=== PATIENT | female | born 1970 | race Caucasian/White ===

== ENCOUNTER → 2019-04-12 14:00 | Outpatient (CLI) | payer MEDICARE, MEDICAID, SELFPAY ==
--- NOTE | 2019-04-12 | DI.MRI.S_ITS ---
PROCEDURE: MR HEAD/BRAIN WO CON INDICATIONS: Demyelinating disease of central nervous system,RO TECHNIQUE: Noncontrast axial T1 spin echo, axial T2 fast spin echo, sagittal and axial FLAIR, coronal T2 fast spin echo, axial gradient echo, axial diffusion and ADC through the brain. COMPARISON: Outside Facility, RG, MRI HEAD W/WO CONTRAST, 01/02/2011, 15:52. Outside Facility, RG, CT HEAD W/O CONTRAST, 01/02/2011, 0:11. [facility], MR, BRAIN WITHOUT CONTRAST, 07/11/2013, 15:03. [facility], MR, BRAIN W&WO CONTRAST, 01/22/2013, 14:55. [facility], MR, BRAIN W&WO CONTRAST, 11/20/2014, 15:01. FINDINGS: Image quality: Excellent. CSF Spaces: Basal cisterns are patent. No extra-axial fluid collections. Ventricles are normal in size and shape. Brain: No intracranial masses or hemorrhage. Corral/white matter interface is normal. Brainstem appears normal. Diffusion-weighted images demonstrate no acute ischemic insult. Right parietal-occipital encephalomalacia with surrounding gliosis is stable compared to prior exam. Foci of increased T2 signal in the periventricular and subcortical white matter tract compatible with reported history of demyelinating process are redemonstrated. A few new small punctate foci of increased T2 signal noted in the frontal and parietal subcortical white matter tracts. Normal intravascular flow voids are present. Skull and face: Postsurgical changes compatible with prior right parietal-occipital craniotomy. Orbits appear normal. Sinuses: Sinuses and mastoids are clear. IMPRESSION: 1. Punctate foci of increased T2 signal involving the periventricular and subcortical white matter compatible with reported history of demyelinating disease. A few new small white matter plaques are noted in the frontal and parietal subcortical white matter compared to 11/20/2014 compatible with mild interval progression of disease. 2. Right parietal-occipital encephalomalacia with surrounding gliosis stable compared to prior exams obtained 11/20/14 and 07/11/2013. Dictated by: Maliha Penaloza MD, PhD on 04/14/2019 at 11:08 Approved by: Maliha Penaloza MD, PhD on 04/14/2019 at 11:26
--- NOTE | 2019-04-12 | DI.MG.S_ITS ---
BILATERAL DIGITAL SCREENING MAMMOGRAM 3D/2D WITH CAD: 04/12/2019 CLINICAL: Routine screening. Baseline exam. No prior exams were available for comparison. There are scattered fibroglandular elements in both breasts. Current study was also evaluated with a Computer Aided Detection (CAD) system. No significant masses, calcifications, or other findings are seen in either breast. IMPRESSION: NEGATIVE There is no mammographic evidence of malignancy. A 1 year screening mammogram is recommended. This exam was interpreted at Station ID: [id number]. NOTE: For mammograms, a report in lay terms will be sent to the patient. Approximately 15% of breast malignancies will not be visualized mammographically. In the management of a palpable breast mass, a negative mammogram must not discourage biopsy of a clinically suspicious lesion. Electronically Signed By: Ivan conner/franca:04/14/2019 08:02:08 letter sent: Normal Exam ACR BI-RADS Category 1: Negative [id number]
== END ==
PROVIDERS: PCP Family Medicine; Referring Provider Family Medicine; Visit Provider Family Medicine
DX: Z12.31 Encounter for screening mammogram for malignant neoplasm of breast (principal); G37.9 Demyelinating disease of central nervous system, unspecified; G40.109 Localization-related (focal) (partial) symptomatic epilepsy and epileptic syndromes with simple partial seizures, not intractable, without status epilepticus; G93.89 Other specified disorders of brain
CPT/HCPCS: 70551; 77063; 77067

== ENCOUNTER 2019-12-25 14:52 | Inpatient (IN) | payer MEDICARE, MEDICAID, SELFPAY ==
[2019-12-25] VITALS (19 sets, daily range): BP systolic 120–149; BP diastolic 70–92; PULSE 94–115; RESP 16–49; TEMP 36.8–37.6; O2SAT 92–995; BMI 21.9; BMI 18.8
--- NOTE | 2019-12-25 15:39 | ED.ABDPAIN ---
HPI - Abdominal Pain <Olga Edwards DO - Last Filed: 12/28/19 07:12> General Chief Complaint: Abdominal Pain Stated Complaint: thinks bowel obstruction Time Seen by Provider: 12/25/19 15:35 Source: patient Mode of arrival: Ambulatory Limitations: no limitations History of Present Illness HPI narrative: This is a 49-year-old female who comes to the emergency department with complaint and concern for bowel obstruction. Patient states for the last 3 days she has not had any bowel movements, she is also not passing any flatus. She has had cramping in her abdomen and but a little bit more distended. She denies any nausea or vomiting, denies any fevers or chills, denies any cold cough or congestion. She denies any issues with urination. Patient states she tried Dulcolax laxative 3 tablets x2 along with mineral oil and a suppository without any relief of symptoms. She does have a remote history of a perforated ulcer that required operative repair. She has also had surgery for a lesion on her brain which by their description may have been a meningioma. Then she has been more susceptible to seizures and takes medications for seizures as well as bipolar. She recently quit chewing tobacco, she drinks 3 beers nightly 5 times a week and uses THC but denies other illicit. She lives on [facility] and her primary care is Dr. Johnson and her neurologist is Dr. Hercules in [place]. Related Data Home Medications Medication Instructions Recorded Confirmed lamotrigine [Lamictal] 25 mg PO BID 12/25/19 12/25/19 lamotrigine [Lamictal] 200 mg PO BID 12/25/19 12/25/19 ziprasidone HCl [Geodon] 80 mg PO BID 12/25/19 12/25/19 zonisamide 100 mg PO DAILY 12/25/19 12/25/19 Allergies Allergy/AdvReac Type Severity Reaction Status Date / Time Penicillins [PENICILLINS] Allergy Severe Anaphylaxis Verified 12/25/19 15:13 Review of Systems <DO Latricia Carlson Last Filed: 12/28/19 07:12> Review of Systems ROS Unobtainable: All systems reviewed & are unremarkable except as noted in HPI and below Patient History <DO Latricia Carlson Last Filed: 12/28/19 07:12> Medical History Bipolar disorder (Acute) Brain tumor (Acute) Chronic bronchitis (Acute) Chronic low back pain (Acute) Peptic ulcer (Acute) Seizures (Acute) Surgical History H/O exploratory laparotomy (Acute) History of section (Acute) History of craniotomy (Acute) Family History Father Cancer Mother Diabetes mellitus Osteoarthritis Brother Hypertension Sister Heart disease Social History household members: significant other Smoking Status: Never smoker alcohol intake: current Smoking Status: Never smoker alcohol intake frequency: 3 or more drinks per day Alcohol type: beer Substance Use Type: marijuana Exam <Olga Edwards DO - Last Filed: 12/28/19 07:12> Narrative Exam Narrative: GENERAL: Alert and oriented x three, thin female in [id number] distress. HEENT: Head normocephalic, atraumatic, EOMI, pupils reactive, face symmetric, moist mucous membranes NECK: Supple, full range of motion CARDIOVASCULAR: Regular rate and rhythm without murmurs, rubs or gallops. RESPIRATORY: Breath sounds equal bilaterally, no wheezes rales or rhonchi. ABDOMEN: Soft, patient has healed midline incision in the upper abdomen, she does appear moderately distended, and tender to palpation. Decreased bowel sounds all 4 quadrants. No guarding or rebound, rigidity, no mass, no fluid wave. : No CVA tenderness EXTREMITIES: Normal range of motion, no clubbing or edema. Neurovascularly intact NEUROLOGICAL: Cranial nerves II through XII grossly intact. Moving all extremities SKIN: Warm, dry, no petechiae, no rashes or lesions. Initial Vital Signs Initial Vital Signs: Vital Signs Pulse Rate 113 H 12/25/19 15:10 Pulse Oximetry 95 12/25/19 15:10 <Ramirez Anthony DO - Last Filed: 12/26/19 00:11> Initial Vital Signs Initial Vital Signs: Vital Signs Pulse Rate 113 H 12/25/19 15:10 Pulse Oximetry 95 12/25/19 15:10 Course <Olga Edwards DO - Last Filed: 12/28/19 07:12> Orders Ordered: Acetaminophen (Tylenol) 650 mg PO Q6HR PRN PRN Reason: Fever/Mild Pain (1-3) Albuterol (Ventolin Hfa (Vent/Covid R/O)) 2 puff INH RTQ4HR PRN PRN Reason: Shortness Of Breath Last Admin: 12/27/19 15:00 Dose: 2 puff Documented by: Admin: 12/27/19 11:26 Dose: 2 puff Documented by: Admin: 12/27/19 08:50 Dose: 2 puff Documented by: Admin: 12/26/19 13:11 Dose: 2 puff Documented by: Admin: 12/26/19 08:17 Dose: 2 puff Documented by: Admin: 12/26/19 00:23 Dose: 2 puff Documented by: CTRILANALLRoberto Benzocaine/Butamben/Tetracaine HCl (Cetacaine [place]) 1 spray TOP PRN PRN PRN Reason: Sore Throat Last Admin: 12/26/19 19:31 Dose: 1 spray Documented by: Admin: 12/26/19 18:33 Dose: 1 spray Documented by: DYLAN Fluticasone Propionate (Flovent Hfa) 1 puff INH RTBID MARY ANNE Last Admin: 12/27/19 19:31 Dose: 1 puff Documented by: CTRBRANNONAGNRoberto Sodium Chloride (Normal Saline 0.9%) 1,000 mls @ 80 mls/hr IV CONT MARY ANNE Last Infusion: 12/27/19 15:38 Dose: 150 mls/hr Documented by: Infusion: 12/27/19 09:12 Dose: 150 mls/hr Documented by: Admin: 12/27/19 08:51 Dose: 100 mls/hr Documented by: Infusion: 12/27/19 07:53 Dose: 100 mls/hr Documented by: Admin: 12/26/19 21:53 Dose: 100 mls/hr Documented by: Infusion: 12/26/19 13:33 Dose: 0 mls/hr Documented by: Admin: 12/26/19 08:11 Dose: 100 mls/hr Documented by: Infusion: 12/26/19 08:08 Dose: 100 mls/hr Documented by: Admin: 12/25/19 22:08 Dose: 100 mls/hr Documented by: DAVID Potassium Chloride 20 meq/ (Sodium Chloride) 510 mls @ 130 mls/hr IV NOW ONE Stop: 12/28/19 10:04 Last Admin: 12/28/19 06:41 Dose: 130 mls/hr Documented by: VALE Cosigned by: HAIM Magnesium Sulfate (Magnesium Sulfate) 2 gm in 50 mls @ 25 mls/hr IV NOW ONE Stop: 12/28/19 08:33 Last Admin: 12/28/19 06:54 Dose: 25 mls/hr Documented by: VALE Cosigned by: ANDRE Ketorolac Tromethamine (Toradol) 15 mg IV Q6HR PRN PRN Reason: Pain, Moderate (4-6) Stop: 12/30/19 20:18 Last Admin: 12/28/19 00:15 Dose: 15 mg Documented by: Admin: 12/27/19 11:53 Dose: 15 mg Documented by: Admin: 12/27/19 02:55 Dose: 15 mg Documented by: Admin: 12/26/19 19:28 Dose: 15 mg Documented by: Admin: 12/26/19 05:36 Dose: 15 mg Documented by: VANESSA Lamotrigine (Lamictal) 200 mg PO BID [facility] Admin: 12/27/19 20:54 Dose: 200 mg Documented by: Admin: 12/27/19 09:06 Dose: 200 mg Documented by: Admin: 12/26/19 20:25 Dose: 200 mg Documented by: Admin: 12/26/19 08:31 Dose: 100 mg Documented by: Admin: 12/26/19 08:17 Dose: 100 mg Documented by: Admin: 12/25/19 21:58 Dose: 200 mg Documented by: DAVID Lamotrigine (Lamictal) 25 mg PO BID [facility] Admin: 12/27/19 20:55 Dose: 25 mg Documented by: Admin: 12/27/19 09:06 Dose: 25 mg Documented by: Admin: 12/26/19 20:25 Dose: 25 mg Documented by: Admin: 12/26/19 08:17 Dose: 25 mg Documented by: Admin: 12/25/19 21:58 Dose: 25 mg Documented by: DAVID Metoclopramide HCl (Reglan) 10 mg IV Q8HR [facility] Last Admin: 12/28/19 05:45 Dose: 10 mg Documented by: Admin: 12/27/19 20:55 Dose: 10 mg Documented by: Admin: 12/27/19 13:01 Dose: 10 mg Documented by: Admin: 12/27/19 05:38 Dose: 10 mg Documented by: Admin: 12/26/19 21:53 Dose: 10 mg Documented by: Admin: 12/26/19 18:33 Dose: 10 mg Documented by: DYLAN Morphine Sulfate (Morphine) 2 mg IV Q4HR PRN PRN Reason: Pain, Severe (7-10) Last Admin: 12/28/19 05:03 Dose: 2 mg Documented by: Admin: 12/28/19 01:04 Dose: 2 mg Documented by: Admin: 12/27/19 20:52 Dose: 2 mg Documented by: Admin: 12/27/19 16:53 Dose: 2 mg Documented by: Admin: 12/27/19 13:01 Dose: 2 mg Documented by: Admin: 12/27/19 09:30 Dose: 2 mg Documented by: Admin: 12/27/19 05:39 Dose: 2 mg Documented by: Admin: 12/27/19 01:26 Dose: 2 mg Documented by: Admin: 12/26/19 21:53 Dose: 2 mg Documented by: Admin: 12/26/19 08:31 Dose: 2 mg Documented by: Admin: 12/26/19 03:36 Dose: 2 mg Documented by: Admin: 12/25/19 22:40 Dose: 2 mg Documented by: DAVID Naloxone HCl (Narcan) 0.2 mg IV Q2MIN PRN PRN Reason: Opiate Reversal Ziprasidone (Geodon) (80 Mg) 80 mg PO BID [facility] Last Admin: 12/27/19 20:54 Dose: 80 mg Documented by: Admin: 12/27/19 09:07 Dose: 80 mg Documented by: Admin: 12/26/19 20:25 Dose: 80 mg Documented by: Admin: 12/26/19 08:18 Dose: 80 mg Documented by: Admin: 12/25/19 21:57 Dose: 80 mg Documented by: DAVID Home Meds Stored In (Pharmacy) 0 each PO PRN PRN PRN Reason: HOME MEDICATION STORAGE Sodium Chloride (Normal Saline 0.9% Flush) 10 ml IV PRN PRN PRN Reason: Flush Zonisamide (Zonegran) 100 mg PO BID [facility] Last Admin: 12/27/19 20:52 Dose: 100 mg Documented by: Admin: 12/27/19 09:09 Dose: 100 mg Documented by: Admin: 12/26/19 20:48 Dose: Not Given Documented by: Admin: 12/26/19 20:47 Dose: 100 mg Documented by: DENA Discontinued Medications Enoxaparin Sodium (Lovenox) 40 mg SUBCUT DAILY [facility] Fentanyl (Sublimaze) 0 mcg IV Q5M PRN PRN Reason: Pain, Moderate (4-6) Fluticasone Propionate (Flovent Hfa) 1 puff INH RTBID [facility] Last Admin: 12/27/19 12:29 Dose: Not Given Documented by: Admin: 12/26/19 18:33 Dose: 1 puff Documented by: Admin: 12/26/19 08:19 Dose: 1 puff Documented by: Admin: 12/26/19 02:41 Dose: Not Given Documented by: GPRADHA Hydromorphone HCl (Dilaudid) 0.5 mg IV NOW ONE Stop: 12/25/19 20:39 Last Admin: 12/25/19 20:44 Dose: 0.5 mg Documented by: BUDDY Sodium Chloride (Normal Saline 0.9%) 1,000 mls @ 1,000 mls/hr IV BOLUS ONE Stop: 12/25/19 16:57 Last Infusion: 12/25/19 18:34 Dose: 0 mls/hr Documented by: KBROTESkyler Admin: 12/25/19 16:06 Dose: 1,000 mls/hr Documented by: JAYESH Sodium Chloride (Normal Saline 0.9%) 1,000 mls @ 1,000 mls/hr IV BOLUS ONE Stop: 12/25/19 17:42 Last Infusion: 12/25/19 19:36 Dose: 0 mls/hr Documented by: Admin: 12/25/19 17:06 Dose: 1,000 mls/hr Documented by: JAYESH Famotidine (Pepcid) 20 mg in 50 mls @ 200 mls/hr IV NOW ONE Stop: 12/25/19 17:38 Last Infusion: 12/25/19 18:34 Dose: 0 mls/hr Documented by: Admin: 12/25/19 18:00 Dose: 200 mls/hr Documented by: JAYESH Lactated Ringer's (Lactated Ringers) 1,000 mls @ 42 mls/hr IV CONT MARY ANNE Last Admin: 12/26/19 16:50 Dose: Not Given Documented by: DYLAN Magnesium Sulfate (Magnesium Sulfate) 2 gm in 50 mls @ 25 mls/hr IV NOW ONE Stop: 12/27/19 10:53 Last Infusion: 12/27/19 11:10 Dose: 0 mls/hr Documented by: KALLI Cosigned by: DINA Admin: 12/27/19 09:01 Dose: 25 mls/hr Documented by: KALLI Cosigned by: DINA Potassium Chloride 30 meq/ (Sodium Chloride) 265 mls @ 88.333 mls/hr IV Q3H [facility]ARY ANNE Stop: 12/27/19 16:29 Last Admin: 12/27/19 16:02 Dose: 88.333 mls/hr Documented by: TALIA Cosigned by: DENNIS Infusion: 12/27/19 14:54 Dose: 88.333 mls/hr Documented by: TALIA Cosigned by: DENNIS Admin: 12/27/19 11:53 Dose: 88.333 mls/hr Documented by: KALLI Cosigned by: SAIRA Potassium Chloride 40 meq/ (Sodium Chloride) 520 mls @ 130 mls/hr IV NOW ONE Stop: 12/28/19 10:08 Ketorolac Tromethamine (Toradol) 15 mg IV NOW ONE Stop: 12/25/19 15:59 Last Admin: 12/25/19 16:11 Dose: 15 mg Documented by: JAYESH Ondansetron HCl (Zofran) 4 mg IV NOW ONE Stop: 12/25/19 20:39 Last Admin: 12/25/19 21:53 Dose: Not Given Documented by: DAVID Ondansetron HCl (Zofran) 4 mg IV NOW PRN PRN Reason: Nausea And Vomiting Ondansetron HCl (Zofran) 4 mg IV Q4HR PRN PRN Reason: Nausea And Vomiting Promethazine HCl (Phenadoz) 12.5 mg AL Q6HR PRN PRN Reason: Nausea And Vomiting Sodium Biphosphate/Sodium Phosphate (Fleet Enema) 1 each AL NOW ONE Stop: 12/25/19 19:52 Last Admin: 12/25/19 22:09 Dose: 1 each Documented by: DAVID Zonisamide (Zonegran) 100 mg PO DAILY [facility]ARY ANNE Last Admin: 12/26/19 08:18 Dose: 100 mg Documented by: ACHESS Vital Signs Vital signs: Vital Signs - 8 hr 12/25/19 16:26 12/25/19 16:30 12/25/19 16:46 Pulse Rate 101 H 96 H 95 H Respiratory Rate 20 22 25 H Blood Pressure 138/85 143/84 H 142/91 H Pulse Oximetry 96 96 96 12/25/19 17:00 12/25/19 17:36 12/25/19 17:56 Pulse Rate 107 H 94 H 100 H Respiratory Rate 22 23 Blood Pressure 142/81 H 140/83 Pulse Oximetry 95 97 96 12/25/19 18:00 12/25/19 18:30 12/25/19 19:00 Pulse Rate 96 H 97 H 109 H Respiratory Rate 20 30 H 38 H Blood Pressure 134/75 146/83 H 140/80 Pulse Oximetry 96 98 97 12/25/19 19:30 12/25/19 20:00 12/25/19 20:01 Pulse Rate 99 H 109 H 111 H Respiratory Rate 25 H 49 H 47 H Blood Pressure 127/77 145/80 H Pulse Oximetry 96 97 <Ramirez Anthony DO - Last Filed: 12/26/19 00:11> Course Course Narrative: patient received in signout from Dr. Edwards after discussing with Dr. Carballo. Dr. Kait examined patient and stated he would order NG tube and would likely perform colonoscopy tomorrow. I placed a brief call to relay this to hospitalist who had already been notified of this patient. I did not personally examine the patient. Orders Ordered: Acetaminophen (Tylenol) 650 mg PO Q6HR PRN PRN Reason: Fever/Mild Pain (1-3) Albuterol (Ventolin Hfa (Vent/Covid R/O)) 2 puff INH RTQ4HR PRN PRN Reason: Shortness Of Breath Last Admin: 12/27/19 15:00 Dose: 2 puff Documented by: Admin: 12/27/19 11:26 Dose: 2 puff Documented by: Admin: 12/27/19 08:50 Dose: 2 puff Documented by: Admin: 12/26/19 13:11 Dose: 2 puff Documented by: Admin: 12/26/19 08:17 Dose: 2 puff Documented by: ACHEJOSE D Admin: 12/26/19 00:23 Dose: 2 puff Documented by: NAHOMI Benzocaine/Butamben/Tetracaine HCl (Cetacaine [place]) 1 spray TOP PRN PRN PRN Reason: Sore Throat Last Admin: 12/26/19 19:31 Dose: 1 spray Documented by: Admin: 12/26/19 18:33 Dose: 1 spray Documented by: DYLAN Fluticasone Propionate (Flovent Hfa) 1 puff INH RTBID MARY ANNE Last Admin: 12/27/19 19:31 Dose: 1 puff Documented by: CTRLUISA Sodium Chloride (Normal Saline 0.9%) 1,000 mls @ 80 mls/hr IV CONT MARY ANNE Last Infusion: 12/27/19 15:38 Dose: 150 mls/hr Documented by: Infusion: 12/27/19 09:12 Dose: 150 mls/hr Documented by: Admin: 12/27/19 08:51 Dose: 100 mls/hr Documented by: Infusion: 12/27/19 07:53 Dose: 100 mls/hr Documented by: Admin: 12/26/19 21:53 Dose: 100 mls/hr Documented by: Infusion: 12/26/19 13:33 Dose: 0 mls/hr Documented by: Admin: 12/26/19 08:11 Dose: 100 mls/hr Documented by: Infusion: 12/26/19 08:08 Dose: 100 mls/hr Documented by: Admin: 12/25/19 22:08 Dose: 100 mls/hr Documented by: DAVID Potassium Chloride 20 meq/ (Sodium Chloride) 510 mls @ 130 mls/hr IV NOW ONE Stop: 12/28/19 10:04 Last Admin: 12/28/19 06:41 Dose: 130 mls/hr Documented by: VALE Cosigned by: HAIM Magnesium Sulfate (Magnesium Sulfate) 2 gm in 50 mls @ 25 mls/hr IV NOW ONE Stop: 12/28/19 08:33 Last Admin: 12/28/19 06:54 Dose: 25 mls/hr Documented by: VALE Cosigned by: OSEASU Ketorolac Tromethamine (Toradol) 15 mg IV Q6HR PRN PRN Reason: Pain, Moderate (4-6) Stop: 12/30/19 20:18 Last Admin: 12/28/19 00:15 Dose: 15 mg Documented by: Admin: 12/27/19 11:53 Dose: 15 mg Documented by: Admin: 12/27/19 02:55 Dose: 15 mg Documented by: Admin: 12/26/19 19:28 Dose: 15 mg Documented by: Admin: 12/26/19 05:36 Dose: 15 mg Documented by: VANESSA Lamotrigine (Lamictal) 200 mg PO BID [facility] Admin: 12/27/19 20:54 Dose: 200 mg Documented by: Admin: 12/27/19 09:06 Dose: 200 mg Documented by: Admin: 12/26/19 20:25 Dose: 200 mg Documented by: Admin: 12/26/19 08:31 Dose: 100 mg Documented by: Admin: 12/26/19 08:17 Dose: 100 mg Documented by: Admin: 12/25/19 21:58 Dose: 200 mg Documented by: DAVID Lamotrigine (Lamictal) 25 mg PO BID [facility] Admin: 12/27/19 20:55 Dose: 25 mg Documented by: Admin: 12/27/19 09:06 Dose: 25 mg Documented by: Admin: 12/26/19 20:25 Dose: 25 mg Documented by: Admin: 12/26/19 08:17 Dose: 25 mg Documented by: Admin: 12/25/19 21:58 Dose: 25 mg Documented by: DAVID Metoclopramide HCl (Reglan) 10 mg IV Q8HR [facility] Last Admin: 12/28/19 05:45 Dose: 10 mg Documented by: Admin: 12/27/19 20:55 Dose: 10 mg Documented by: Admin: 12/27/19 13:01 Dose: 10 mg Documented by: Admin: 12/27/19 05:38 Dose: 10 mg Documented by: Admin: 12/26/19 21:53 Dose: 10 mg Documented by: Admin: 12/26/19 18:33 Dose: 10 mg Documented by: DYLAN Morphine Sulfate (Morphine) 2 mg IV Q4HR PRN PRN Reason: Pain, Severe (7-10) Last Admin: 12/28/19 05:03 Dose: 2 mg Documented by: Admin: 12/28/19 01:04 Dose: 2 mg Documented by: Admin: 12/27/19 20:52 Dose: 2 mg Documented by: Admin: 12/27/19 16:53 Dose: 2 mg Documented by: Admin: 12/27/19 13:01 Dose: 2 mg Documented by: Admin: 12/27/19 09:30 Dose: 2 mg Documented by: Admin: 12/27/19 05:39 Dose: 2 mg Documented by: Admin: 12/27/19 01:26 Dose: 2 mg Documented by: Admin: 12/26/19 21:53 Dose: 2 mg Documented by: Admin: 12/26/19 08:31 Dose: 2 mg Documented by: Admin: 12/26/19 03:36 Dose: 2 mg Documented by: Admin: 12/25/19 22:40 Dose: 2 mg Documented by: DAVID Naloxone HCl (Narcan) 0.2 mg IV Q2MIN PRN PRN Reason: Opiate Reversal Ziprasidone (Geodon) (80 Mg) 80 mg PO BID [facility] Last Admin: 12/27/19 20:54 Dose: 80 mg Documented by: Admin: 12/27/19 09:07 Dose: 80 mg Documented by: Admin: 12/26/19 20:25 Dose: 80 mg Documented by: Admin: 12/26/19 08:18 Dose: 80 mg Documented by: Admin: 12/25/19 21:57 Dose: 80 mg Documented by: DAVID Home Meds Stored In (Pharmacy) 0 each PO PRN PRN PRN Reason: HOME MEDICATION STORAGE Sodium Chloride (Normal Saline 0.9% Flush) 10 ml IV PRN PRN PRN Reason: Flush Zonisamide (Zonegran) 100 mg PO BID [facility] Last Admin: 12/27/19 20:52 Dose: 100 mg Documented by: Admin: 12/27/19 09:09 Dose: 100 mg Documented by: Admin: 12/26/19 20:48 Dose: Not Given Documented by: Admin: 12/26/19 20:47 Dose: 100 mg Documented by: DENA Discontinued Medications Enoxaparin Sodium (Lovenox) 40 mg SUBCUT DAILY [facility] Fentanyl (Sublimaze) 0 mcg IV Q5M PRN PRN Reason: Pain, Moderate (4-6) Fluticasone Propionate (Flovent Hfa) 1 puff INH RTBID [facility] Last Admin: 12/27/19 12:29 Dose: Not Given Documented by: Admin: 12/26/19 18:33 Dose: 1 puff Documented by: Admin: 12/26/19 08:19 Dose: 1 puff Documented by: Admin: 12/26/19 02:41 Dose: Not Given Documented by: GPEREZ Hydromorphone HCl (Dilaudid) 0.5 mg IV NOW ONE Stop: 12/25/19 20:39 Last Admin: 12/25/19 20:44 Dose: 0.5 mg Documented by: BUDDY Sodium Chloride (Normal Saline 0.9%) 1,000 mls @ 1,000 mls/hr IV BOLUS ONE Stop: 12/25/19 16:57 Last Infusion: 12/25/19 18:34 Dose: 0 mls/hr Documented by: Admin: 12/25/19 16:06 Dose: 1,000 mls/hr Documented by: JAYESH Sodium Chloride (Normal Saline 0.9%) 1,000 mls @ 1,000 mls/hr IV BOLUS ONE Stop: 12/25/19 17:42 Last Infusion: 12/25/19 19:36 Dose: 0 mls/hr Documented by: Admin: 12/25/19 17:06 Dose: 1,000 mls/hr Documented by: JAYESH Famotidine (Pepcid) 20 mg in 50 mls @ 200 mls/hr IV NOW ONE Stop: 12/25/19 17:38 Last Infusion: 12/25/19 18:34 Dose: 0 mls/hr Documented by: Admin: 12/25/19 18:00 Dose: 200 mls/hr Documented by: JAYESH Lactated Ringer's (Lactated Ringers) 1,000 mls @ 42 mls/hr IV CONT MARY ANNE Last Admin: 12/26/19 16:50 Dose: Not Given Documented by: DYLAN Magnesium Sulfate (Magnesium Sulfate) 2 gm in 50 mls @ 25 mls/hr IV NOW ONE Stop: 12/27/19 10:53 Last Infusion: 12/27/19 11:10 Dose: 0 mls/hr Documented by: KALLI Cosigned by: DINA Admin: 12/27/19 09:01 Dose: 25 mls/hr Documented by: CPETRIC Cosigned by: DINA Potassium Chloride 30 meq/ (Sodium Chloride) 265 mls @ 88.333 mls/hr IV Q3H MARY ANNE Stop: 12/27/19 16:29 Last Admin: 12/27/19 16:02 Dose: 88.333 mls/hr Documented by: TALIA Cosigned by: DENNIS Infusion: 12/27/19 14:54 Dose: 88.333 mls/hr Documented by: TALIA Cosigned by: DENNIS Admin: 12/27/19 11:53 Dose: 88.333 mls/hr Documented by: CPETRIC Cosigned by: SAIRA Potassium Chloride 40 meq/ (Sodium Chloride) 520 mls @ 130 mls/hr IV NOW ONE Stop: 12/28/19 10:08 Ketorolac Tromethamine (Toradol) 15 mg IV NOW ONE Stop: 12/25/19 15:59 Last Admin: 12/25/19 16:11 Dose: 15 mg Documented by: JAYESH Ondansetron HCl (Zofran) 4 mg IV NOW ONE Stop: 12/25/19 20:39 Last Admin: 12/25/19 21:53 Dose: Not Given Documented by: DAVID Ondansetron HCl (Zofran) 4 mg IV NOW PRN PRN Reason: Nausea And Vomiting Ondansetron HCl (Zofran) 4 mg IV Q4HR PRN PRN Reason: Nausea And Vomiting Promethazine HCl (Phenadoz) 12.5 mg AL Q6HR PRN PRN Reason: Nausea And Vomiting Sodium Biphosphate/Sodium Phosphate (Fleet Enema) 1 each AL NOW ONE Stop: 12/25/19 19:52 Last Admin: 12/25/19 22:09 Dose: 1 each Documented by: DAVID Zonisamide (Zonegran) 100 mg PO DAILY [facility] Last Admin: 12/26/19 08:18 Dose: 100 mg Documented by: ACHESS Vital Signs Vital signs: Vital Signs - 8 hr 12/25/19 16:26 12/25/19 16:30 12/25/19 16:46 Pulse Rate 101 H 96 H 95 H Respiratory Rate 20 22 25 H Blood Pressure 138/85 143/84 H 142/91 H Pulse Oximetry 96 96 96 12/25/19 17:00 12/25/19 17:36 12/25/19 17:56 Pulse Rate 107 H 94 H 100 H Respiratory Rate 22 23 Blood Pressure 142/81 H 140/83 Pulse Oximetry 95 97 96 12/25/19 18:00 12/25/19 18:30 12/25/19 19:00 Pulse Rate 96 H 97 H 109 H Respiratory Rate 20 30 H 38 H Blood Pressure 134/75 146/83 H 140/80 Pulse Oximetry 96 98 97 12/25/19 19:30 12/25/19 20:00 12/25/19 20:01 Pulse Rate 99 H 109 H 111 H Respiratory Rate 25 H 49 H 47 H Blood Pressure 127/77 145/80 H Pulse Oximetry 96 97 MDM - Abdominal Pain <Olga Edwards DO - Last Filed: 12/28/19 07:12> Lab Data Attestation: I reviewed the patient's lab results. Result diagrams: 12/27/19 07:15 12/28/19 04:50 Labs: Lab Results 12/25/19 12/25/19 12/25/19 Range/Units 15:20 15:20 15:20 WBC 19.0 H (4.5-11.0) X10^3/uL RBC 4.66 (4.0-5.2) X10^6/uL Hgb 14.9 (12.0-16.0) g/dL Hct 44.1 (36-46) % MCV 94.5 (80-100) fL MCH 31.9 (26-34) PG MCHC 33.8 (30-36) % RDW 13.7 (11.6-14.8) % Plt Count 261 (150-400) X10^3/uL Neut % (Auto) 88.4 H (50-75) % Lymph % (Auto) 4.7 L (25-40) % [place] % (Auto) 5.9 (3-14) % Eos % (Auto) 0.5 L (2-4) % Baso % (Auto) 0.5 (0-2) % Neut # (Auto) 79684 H (6129-1544) /uL Lymph # (Auto) 900 L (1415-0856) /uL [place] # (Auto) 1100 H (0-900) /uL Eos # (Auto) 100 (0-450) /uL Baso # (Auto) 100 (0-100) /uL PT 12.3 (10.1-12.7) SECONDS INR 1.1 (0.9-1.3) APTT 32 (26.4-36.2) SECONDS Sodium 138 (137-145) mmol/L Potassium 3.5 (3.4-5.1) mmol/L Chloride 101 (98-107) mmol/L Carbon Dioxide 27 (22-32) mmol/L BUN 14 (7-17) mg/dL Creatinine 0.78 (0.52-1.04) mg/dL Estimated GFR > 60.0 (>60) mL/min BUN/Creatinine Ratio 17.9 (6-22) Glucose 131 H (70-100) mg/dL Lactate (0.7-2.1) mmol/L Calcium 10.1 (8.4-10.2) mg/dL Magnesium (1.6-2.3) mg/dL Total Bilirubin 0.7 (0.2-1.3) mg/dL AST 20 (14-36) IU/L ALT 22 (<35) IU/L Alkaline Phosphatase 69 (38-126) U/L Total Protein 8.8 H (6.3-8.2) g/dL Albumin 4.8 (3.5-5.0) g/dL Globulin 4.0 (1.7-4.1) g/dL Albumin/Globulin Ratio 1.2 (1.0-2.8) Lipase 25 (23-300) U/L Procalcitonin (<0.5) ng/mL COVID-19 PCR (Negative) 12/25/19 12/25/19 12/25/19 Range/Units 15:20 15:20 16:05 WBC (4.5-11.0) X10^3/uL RBC (4.0-5.2) X10^6/uL Hgb (12.0-16.0) g/dL Hct (36-46) % MCV (80-100) fL MCH (26-34) PG MCHC (30-36) % RDW (11.6-14.8) % Plt Count (150-400) X10^3/uL Neut % (Auto) (50-75) % Lymph % (Auto) (25-40) % [place] % (Auto) (3-14) % Eos % (Auto) (2-4) % Baso % (Auto) (0-2) % Neut # (Auto) (4218-7205) /uL Lymph # (Auto) (6913-9794) /uL [place] # (Auto) (0-900) /uL Eos # (Auto) (0-450) /uL Baso # (Auto) (0-100) /uL PT (10.1-12.7) SECONDS INR (0.9-1.3) APTT (26.4-36.2) SECONDS Sodium (137-145) mmol/L Potassium (3.4-5.1) mmol/L Chloride (98-107) mmol/L Carbon Dioxide (22-32) mmol/L BUN (7-17) mg/dL Creatinine (0.52-1.04) mg/dL Estimated GFR (>60) mL/min BUN/Creatinine Ratio (6-22) Glucose (70-100) mg/dL Lactate 0.6 L (0.7-2.1) mmol/L Calcium (8.4-10.2) mg/dL Magnesium 2.1 (1.6-2.3) mg/dL Total Bilirubin (0.2-1.3) mg/dL AST (14-36) IU/L ALT (<35) IU/L Alkaline Phosphatase (38-126) U/L Total Protein (6.3-8.2) g/dL Albumin (3.5-5.0) g/dL Globulin (1.7-4.1) g/dL Albumin/Globulin Ratio (1.0-2.8) Lipase (23-300) U/L Procalcitonin 0.24 (<0.5) ng/mL COVID-19 PCR (Negative) 12/25/19 Range/Units 19:30 WBC (4.5-11.0) X10^3/uL RBC (4.0-5.2) X10^6/uL Hgb (12.0-16.0) g/dL Hct (36-46) % MCV (80-100) fL MCH (26-34) PG MCHC (30-36) % RDW (11.6-14.8) % Plt Count (150-400) X10^3/uL Neut % (Auto) (50-75) % Lymph % (Auto) (25-40) % [place] % (Auto) (3-14) % Eos % (Auto) (2-4) % Baso % (Auto) (0-2) % Neut # (Auto) (7879-5260) /uL Lymph # (Auto) (1256-4561) /uL [place] # (Auto) (0-900) /uL Eos # (Auto) (0-450) /uL Baso # (Auto) (0-100) /uL PT (10.1-12.7) SECONDS INR (0.9-1.3) APTT (26.4-36.2) SECONDS Sodium (137-145) mmol/L Potassium (3.4-5.1) mmol/L Chloride (98-107) mmol/L Carbon Dioxide (22-32) mmol/L BUN (7-17) mg/dL Creatinine (0.52-1.04) mg/dL Estimated GFR (>60) mL/min BUN/Creatinine Ratio (6-22) Glucose (70-100) mg/dL Lactate (0.7-2.1) mmol/L Calcium (8.4-10.2) mg/dL Magnesium (1.6-2.3) mg/dL Total Bilirubin (0.2-1.3) mg/dL AST (14-36) IU/L ALT (<35) IU/L Alkaline Phosphatase (38-126) U/L Total Protein (6.3-8.2) g/dL Albumin (3.5-5.0) g/dL Globulin (1.7-4.1) g/dL Albumin/Globulin Ratio (1.0-2.8) Lipase (23-300) U/L Procalcitonin (<0.5) ng/mL COVID-19 PCR Negative (Negative) Point of care testing: Point of Care Testing Test Results Negative Urine Dip Bedside Urine Glucose Negative Bedside Urine Bilirubin - Negative Bedside Urine Ketone - Negative Urine Specific [place] 1.015 Bedside Urine Occult Blood - Negative Bedside Urine pH 6 Bedside Urine Protein - Negative Bedside Urine Urobilinogen +/- 1mg Bedside Urine Nitrite - Negative Bedside Urine Leukocytes - Negative Esterase Imaging Data CT scan - abdomen/pelvis: Attestation: I personally reviewed and interpreted this imaging study as follows: Radiologist's Impression: Vibha Brenner 49 F 1970 [place] [address] CT Scan Report Signed Patient: DeekwameVibha JMR#: [id number] : 1970Acct:[id number] Age/Sex: 49 / FDate of Service: 12/25/19 Loc: ED Accession Number: [id number] Procedure: CT abdomen pelvis w con Ordering Provider: Olga Edwards D.O. PROCEDURE: CT ABDOMEN PELVIS W CON INDICATIONS: no BM, no flatus x 3 days, abdominal pain, ? obstruction TECHNIQUE: After the administration of intravenous contrast, 5 mm thick sections acquired from the diaphragm to the symphysis. 5 mm coronal and sagittal reformats were acquired. For radiation dose reduction, the following was used: automated exposure control, adjustment of mA and/or kV according to patient size. COMPARISON: None. FINDINGS: Image quality: Excellent. ABDOMEN: Lung bases: Lung bases are clear. Heart size is normal. Solid organs: Liver is normal in size and enhancement. Gallbladder is normal. Biliary system is non dilated. Pancreas enhances normally. Spleen is normal in size and enhancement. No adrenal nodules. Kidneys demonstrate normal size and enhancement, without hydronephrosis. Peritoneum and bowel: Stomach is distended and filled with fluid with an air-fluid level. Mildly prominent small bowel loops are filled with fluid measuring up to 3 cm. There is no transitional point is small intestine. There is distention of proximal colon with air-fluid levels to the level of sigmoid colon. The findings are consistent with colonic obstruction. An obstructing mass is not definitively identified. There is mild focal thickening in the proximal sigmoid colon. No free fluid or air. Nodes and vessels: No retroperitoneal or mesenteric adenopathy by size criteria. Aorta and inferior vena cava are normal in size. Miscellaneous: No ventral hernias. PELVIS: Genitourinary: Bladder wall thickness is normal. Uterus is normal. Ovaries are not visualized. No pathological free-fluid in the cul-de-sac. Miscellaneous: No inguinal hernias or adenopathy. Bones: No suspicious bony lesions. No vertebral body compression fractures. A sclerotic foci in the right iliac bone is likely a bone island. IMPRESSION: 1. Findings are consistent with distal colonic obstruction. An obstructing mass is not definitively identified. There is mild focal thickening in the proximal sigmoid colon. Follow-up colonoscopy is suggested to rule out colon cancer being an etiology. Dictated by: Vince Napier M.D. on 12/25/2019 at 16:40 Approved by: Vince Napier M.D. on 12/25/2019 at 16:50 ECG Data Attestation: I personally reviewed and interpreted this ECG as follows: Prior ECG tracings: not available for review Interpretation: Sinus tachycardia rate of 101 AL 132 QRS of 102 and QTC of 464. Patient does have generalized tremor which is seen is artifact on patient's EKG. No clear ST elevation appreciated. MDM Narrative Medical decision making narrative: I agree with patient's suspicions and suspect a bowel obstruction. Plan for CT of abdomen and pelvis for further evaluation, lactate and blood cultures added on as patient is tachycardic and has WBC of 19, lactate is 0.6. Patient started on sepsis 30cc/kg fluids although appears to be bowel obstuction on CT and not perforated at this time. I spoke with Dr. Paniagua and he would like me to speak with Dr. Carballo prior to admitting. Dr. Carballo did come to the department to evaluate patient but was delayed by surgery. Follow department patient had bowel movements but they are watery and brown with no solid stool I suspect patient has a partial obstruction still. Pain is improved, her heart rate is improving although she still tachycardic and does meet septic criteria antibiotics were held as patient I suspect has the secondary to bowel obstruction and not infection. Patient signed out to Dr. Anthony while awaiting callback from hospitalist. <Ramirez Anthony, DO - Last Filed: 12/26/19 00:11> Lab Data Labs: Lab Results 12/25/19 12/25/19 12/25/19 Range/Units 15:20 15:20 15:20 WBC 19.0 H (4.5-11.0) X10^3/uL RBC 4.66 (4.0-5.2) X10^6/uL Hgb 14.9 (12.0-16.0) g/dL Hct 44.1 (36-46) % MCV 94.5 (80-100) fL MCH 31.9 (26-34) PG MCHC 33.8 (30-36) % RDW 13.7 (11.6-14.8) % Plt Count 261 (150-400) X10^3/uL Neut % (Auto) 88.4 H (50-75) % Lymph % (Auto) 4.7 L (25-40) % [place] % (Auto) 5.9 (3-14) % Eos % (Auto) 0.5 L (2-4) % Baso % (Auto) 0.5 (0-2) % Neut # (Auto) 82422 H (8360-2097) /uL Lymph # (Auto) 900 L (6358-8855) /uL [place] # (Auto) 1100 H (0-900) /uL Eos # (Auto) 100 (0-450) /uL Baso # (Auto) 100 (0-100) /uL PT 12.3 (10.1-12.7) SECONDS INR 1.1 (0.9-1.3) APTT 32 (26.4-36.2) SECONDS Sodium 138 (137-145) mmol/L Potassium 3.5 (3.4-5.1) mmol/L Chloride 101 (98-107) mmol/L Carbon Dioxide 27 (22-32) mmol/L BUN 14 (7-17) mg/dL Creatinine 0.78 (0.52-1.04) mg/dL Estimated GFR > 60.0 (>60) mL/min BUN/Creatinine Ratio 17.9 (6-22) Glucose 131 H (70-100) mg/dL Lactate (0.7-2.1) mmol/L Calcium 10.1 (8.4-10.2) mg/dL Magnesium (1.6-2.3) mg/dL Total Bilirubin 0.7 (0.2-1.3) mg/dL AST 20 (14-36) IU/L ALT 22 (<35) IU/L Alkaline Phosphatase 69 (38-126) U/L Total Protein 8.8 H (6.3-8.2) g/dL Albumin 4.8 (3.5-5.0) g/dL Globulin 4.0 (1.7-4.1) g/dL Albumin/Globulin Ratio 1.2 (1.0-2.8) Lipase 25 (23-300) U/L Procalcitonin (<0.5) ng/mL COVID-19 PCR (Negative) 12/25/19 12/25/19 12/25/19 Range/Units 15:20 15:20 16:05 WBC (4.5-11.0) X10^3/uL RBC (4.0-5.2) X10^6/uL Hgb (12.0-16.0) g/dL Hct (36-46) % MCV (80-100) fL MCH (26-34) PG MCHC (30-36) % RDW (11.6-14.8) % Plt Count (150-400) X10^3/uL Neut % (Auto) (50-75) % Lymph % (Auto) (25-40) % [place] % (Auto) (3-14) % Eos % (Auto) (2-4) % Baso % (Auto) (0-2) % Neut # (Auto) (7289-0218) /uL Lymph # (Auto) (1279-6129) /uL [place] # (Auto) (0-900) /uL Eos # (Auto) (0-450) /uL Baso # (Auto) (0-100) /uL PT (10.1-12.7) SECONDS INR (0.9-1.3) APTT (26.4-36.2) SECONDS Sodium (137-145) mmol/L Potassium (3.4-5.1) mmol/L Chloride (98-107) mmol/L Carbon Dioxide (22-32) mmol/L BUN (7-17) mg/dL Creatinine (0.52-1.04) mg/dL Estimated GFR (>60) mL/min BUN/Creatinine Ratio (6-22) Glucose (70-100) mg/dL Lactate 0.6 L (0.7-2.1) mmol/L Calcium (8.4-10.2) mg/dL Magnesium 2.1 (1.6-2.3) mg/dL Total Bilirubin (0.2-1.3) mg/dL AST (14-36) IU/L ALT (<35) IU/L Alkaline Phosphatase (38-126) U/L Total Protein (6.3-8.2) g/dL Albumin (3.5-5.0) g/dL Globulin (1.7-4.1) g/dL Albumin/Globulin Ratio (1.0-2.8) Lipase (23-300) U/L Procalcitonin 0.24 (<0.5) ng/mL COVID-19 PCR (Negative) 12/25/19 Range/Units 19:30 WBC (4.5-11.0) X10^3/uL RBC (4.0-5.2) X10^6/uL Hgb (12.0-16.0) g/dL Hct (36-46) % MCV (80-100) fL MCH (26-34) PG MCHC (30-36) % RDW (11.6-14.8) % Plt Count (150-400) X10^3/uL Neut % (Auto) (50-75) % Lymph % (Auto) (25-40) % [place] % (Auto) (3-14) % Eos % (Auto) (2-4) % Baso % (Auto) (0-2) % Neut # (Auto) (6893-2208) /uL Lymph # (Auto) (1065-9816) /uL [place] # (Auto) (0-900) /uL Eos # (Auto) (0-450) /uL Baso # (Auto) (0-100) /uL PT (10.1-12.7) SECONDS INR (0.9-1.3) APTT (26.4-36.2) SECONDS Sodium (137-145) mmol/L Potassium (3.4-5.1) mmol/L Chloride (98-107) mmol/L Carbon Dioxide (22-32) mmol/L BUN (7-17) mg/dL Creatinine (0.52-1.04) mg/dL Estimated GFR (>60) mL/min BUN/Creatinine Ratio (6-22) Glucose (70-100) mg/dL Lactate (0.7-2.1) mmol/L Calcium (8.4-10.2) mg/dL Magnesium (1.6-2.3) mg/dL Total Bilirubin (0.2-1.3) mg/dL AST (14-36) IU/L ALT (<35) IU/L Alkaline Phosphatase (38-126) U/L Total Protein (6.3-8.2) g/dL Albumin (3.5-5.0) g/dL Globulin (1.7-4.1) g/dL Albumin/Globulin Ratio (1.0-2.8) Lipase (23-300) U/L Procalcitonin (<0.5) ng/mL COVID-19 PCR Negative (Negative) Point of care testing: Point of Care Testing Test Results Negative Urine Dip Bedside Urine Glucose Negative Bedside Urine Bilirubin - Negative Bedside Urine Ketone - Negative Urine Specific [place] 1.015 Bedside Urine Occult Blood - Negative Bedside Urine pH 6 Bedside Urine Protein - Negative Bedside Urine Urobilinogen +/- 1mg Bedside Urine Nitrite - Negative Bedside Urine Leukocytes - Negative Esterase Discharge Plan Departure Patient Disposition: Admitted As Inpatient Clinical Impression: Partial bowel obstruction Discharge Date/Time: 12/25/19 20:59 Referrals: Natacha Johnson MD [Primary Care Provider] - Admit Date/Time: 12/25/19 20:04 Admit Provider: Christiano Toussaint
[2019-12-25 15:41] LABS: Add Manual Diff / Slide Review NO; Basophils Absolute Auto 100 /uL (0-100); Basophils Percent Auto 0.5 % (0-2); Eosinophils Absolute Auto 100 /uL (0-450); Eosinophils Percent Auto 0.5 % (2-4); Hematocrit 44.1 % (36-46); Hemoglobin 14.9 g/dL (12.0-16.0); Lymphocytes Absolute Auto 900 /uL (1100-4500); Lymphocytes Percent Auto 4.7 % (25-40); Mean Corpuscular HGB Conc 33.8 % (30-36); Mean Corpuscular Hemoglobin 31.9 PG (26-34); Mean Corpuscular Volume 94.5 fL (80-100); Monocytes Absolute Auto 1100 /uL (0-900); Monocytes Percent Auto 5.9 % (3-14); Neutrophils Absolute Auto 16800 /uL (1500-7000); Neutrophils Percent Auto 88.4 % (50-75); Platelet Count 261 X10^3/uL (150-400); Red Blood Cell Count 4.66 X10^6/uL (4.0-5.2); Red Cell Distribution Width 13.7 % (11.6-14.8)
[2019-12-25 15:49] LABS: INR 1.1 (0.9-1.3); Prothrombin Time 12.3 SECONDS (10.1-12.7)
[2019-12-25 15:51] LABS: PTT Partial Thromboplastin Tim 32 SECONDS (26.4-36.2)
[2019-12-25 15:56] LABS: Alanine Aminotransferase 22 IU/L (<35); Albumin 4.8 g/dL (3.5-5.0); Albumin Globulin Ratio 1.2 (1.0-2.8); Alkaline Phosphatase 69 U/L (38-126); Aspartate Aminotransferase 20 IU/L (14-36); BUN Creatinine Ratio 17.9 (6-22); Bilirubin Total 0.7 mg/dL (0.2-1.3); Blood Urea Nitrogen 14 mg/dL (7-17); Calcium 10.1 mg/dL (8.4-10.2); Carbon Dioxide 27 mmol/L (22-32); Chloride 101 mmol/L (98-107); Estimated Glomerular Filt Rate > 60.0 mL/min (>60); Glucose 131 mg/dL (70-100); HEMOLYSIS < 15 (0-50); Lipase 25 U/L (23-300); Potassium 3.5 mmol/L (3.4-5.1); Sodium 138 mmol/L (137-145); Total Protein 8.8 g/dL (6.3-8.2)
--- NOTE | 2019-12-25 15:58 | DI.CT.S_ITS ---
PROCEDURE: CT ABDOMEN PELVIS W CON INDICATIONS: no BM, no flatus x 3 days, abdominal pain, ? obstruction TECHNIQUE: After the administration of intravenous contrast, 5 mm thick sections acquired from the diaphragm to the symphysis. 5 mm coronal and sagittal reformats were acquired. For radiation dose reduction, the following was used: automated exposure control, adjustment of mA and/or kV according to patient size. COMPARISON: None. FINDINGS: Image quality: Excellent. ABDOMEN: Lung bases: Lung bases are clear. Heart size is normal. Solid organs: Liver is normal in size and enhancement. Gallbladder is normal. Biliary system is non dilated. Pancreas enhances normally. Spleen is normal in size and enhancement. No adrenal nodules. Kidneys demonstrate normal size and enhancement, without hydronephrosis. Peritoneum and bowel: Stomach is distended and filled with fluid with an air-fluid level. Mildly prominent small bowel loops are filled with fluid measuring up to 3 cm. There is no transitional point is small intestine. There is distention of proximal colon with air-fluid levels to the level of sigmoid colon. The findings are consistent with colonic obstruction. An obstructing mass is not definitively identified. There is mild focal thickening in the proximal sigmoid colon. No free fluid or air. Nodes and vessels: No retroperitoneal or mesenteric adenopathy by size criteria. Aorta and inferior vena cava are normal in size. Miscellaneous: No ventral hernias. PELVIS: Genitourinary: Bladder wall thickness is normal. Uterus is normal. Ovaries are not visualized. No pathological free-fluid in the cul-de-sac. Miscellaneous: No inguinal hernias or adenopathy. Bones: No suspicious bony lesions. No vertebral body compression fractures. A sclerotic foci in the right iliac bone is likely a bone island. IMPRESSION: 1. Findings are consistent with distal colonic obstruction. An obstructing mass is not definitively identified. There is mild focal thickening in the proximal sigmoid colon. Follow-up colonoscopy is suggested to rule out colon cancer being an etiology. Dictated by: Vince Napier M.D. on 12/25/2019 at 16:40 Approved by: Vince Napier M.D. on 12/25/2019 at 16:50
[2019-12-25] MEDS: SODIUM CHLORIDE 0.9% 1,000 ML 1000 ML IV ×2 (16:06→17:06)
[2019-12-25] MEDS: KETOROLAC 60 MG/2 ML VIAL 15 MG IV (16:11)
[2019-12-25 16:39] LABS: Lactate (Lactic Acid) 0.6 mmol/L (0.7-2.1)
[2019-12-25] MEDS: FAMOTIDINE 20 MG/50 ML PIGGYBACK 200 MG IV (18:00)
--- NOTE | 2019-12-25 19:26 | PC.NURSE ---
Dr Carballo at bedside.
--- NOTE | 2019-12-25 19:35 | PM.CN ---
History of Present Illness Consult details Date Patient Seen: 12/25/19 Time Patient Seen: 19:35 Chief complaint: thinks bowel obstruction Narrative: 49-year-old woman seen in the emergency room consultation for a bowel obstruction. She had worsening abdominal pain over the last few days some nausea no vomiting. She is passing flatus and had a liquid stool in the emergency room. No previous episodes of small-bowel obstruction. She underwent a open repair of perforated peptic ulcer greater than 20 years ago no other abdominal surgery. On arrival she is afebrile white blood cell count 19 hematocrit [address] abdomen pelvis demonstrates air-fluid levels within the small bowel but extending to the level of the sigmoid colon. No discrete colonic mass is identified. She has never had a colonoscopy, no family history of intestinal malignancy. Medical history is significant for brain tumor, seizures, bipolar disorder. Meds Home Medications and Allergies Allergies Allergy/AdvReac Type Severity Reaction Status Date / Time Penicillins [PENICILLINS] Allergy Severe Anaphylaxis Verified 12/25/19 15:13 Review of Systems Review of Systems Narrative: A 10 point review of systems is negative except as noted in the HPI Exam Vital Signs (past 8 hours): - 12/25/19 15:10 12/25/19 15:13 12/25/19 15:30 Temperature 98.2 F Pulse Rate 113 H 115 H 101 H Respiratory Rate 20 16 Blood Pressure 149/92 H 136/91 H Pulse Oximetry 95 95 97 12/25/19 16:00 12/25/19 16:26 12/25/19 16:30 Temperature Pulse Rate 98 H 101 H 96 H Respiratory Rate 16 20 22 Blood Pressure 142/84 H 138/85 143/84 H Pulse Oximetry 96 96 96 12/25/19 16:46 12/25/19 17:00 12/25/19 17:36 Temperature Pulse Rate 95 H 107 H 94 H Respiratory Rate 25 H 22 Blood Pressure 142/91 H 142/81 H Pulse Oximetry 96 95 97 12/25/19 17:56 12/25/19 18:00 12/25/19 18:30 Temperature Pulse Rate 100 H 96 H 97 H Respiratory Rate 23 20 30 H Blood Pressure 140/83 134/75 146/83 H Pulse Oximetry 96 96 98 12/25/19 19:00 Temperature Pulse Rate 109 H Respiratory Rate 38 H Blood Pressure 140/80 Pulse Oximetry 97 Oxygen Delivery Method Room Air Narrative Exam Narrative: General-no acute distress, thin woman HEENT-moist mucous membranes, no scleral icterus Neck-supple, no lymphadenopathy Chest- non labored respirations, clear to auscultation bilaterally Cardiac-sinus tachycardia no peripheral edema Abdomen-soft, minimally distended no peritonitis upper midline scar Extremities-warm, well perfused Neurological-alert and oriented, no focal deficits Objective Labs Result Diagrams: 12/25/19 15:20 12/25/19 15:20 Labs: Laboratory Results - last 24 hr 12/25/19 12/25/19 12/25/19 15:20 15:20 15:20 WBC 19.0 H RBC 4.66 Hgb 14.9 Hct 44.1 MCV 94.5 MCH 31.9 MCHC 33.8 RDW 13.7 Plt Count 261 Neut % (Auto) 88.4 H Lymph % (Auto) 4.7 L [place] % (Auto) 5.9 Eos % (Auto) 0.5 L Baso % (Auto) 0.5 Neut # (Auto) 80626 H Lymph # (Auto) 900 L [place] # (Auto) 1100 H Eos # (Auto) 100 Baso # (Auto) 100 PT 12.3 INR 1.1 APTT 32 Sodium 138 Potassium 3.5 Chloride 101 Carbon Dioxide 27 BUN 14 Creatinine 0.78 Estimated GFR > 60.0 BUN/Creatinine Ratio 17.9 Glucose 131 H Lactate Calcium 10.1 Total Bilirubin 0.7 AST 20 ALT 22 Alkaline Phosphatase 69 Total Protein 8.8 H Albumin 4.8 Globulin 4.0 Albumin/Globulin Ratio 1.2 Lipase 25 12/25/19 16:05 WBC RBC Hgb Hct MCV MCH MCHC RDW Plt Count Neut % (Auto) Lymph % (Auto) [place] % (Auto) Eos % (Auto) Baso % (Auto) Neut # (Auto) Lymph # (Auto) [place] # (Auto) Eos # (Auto) Baso # (Auto) PT INR APTT Sodium Potassium Chloride Carbon Dioxide BUN Creatinine Estimated GFR BUN/Creatinine Ratio Glucose Lactate 0.6 L Calcium Total Bilirubin AST ALT Alkaline Phosphatase Total Protein Albumin Globulin Albumin/Globulin Ratio Lipase Assessment & Plan Assessment & Plan narrative: 49-year-old woman with a partial large bowel obstruction. I reviewed her CT abdomen pelvis demonstrates obstruction to the level of the sigmoid colon, no yaneli colonic mass or lymphadenopathy is demonstrated. No indication for acute surgical intervention at this time. Plan -medical admission -NPO -NGT -Will need colonoscopy with anesthesia provider for sedation. Plan for tomorrow. Sedation in setting of bowel obstruction is high risk for aspiration. -Fleets enema
[2019-12-25 19:53] LABS: COVID19 -Nasal RAPID Negative (Negative)
[2019-12-25 20:42] LABS: Magnesium 2.1 mg/dL (1.6-2.3)
[2019-12-25] MEDS: HYDROMORPHONE 0.5 MG INJ IV (20:44)
--- NOTE | 2019-12-25 21:33 | PM.HP.1 ---
History of Present Illness History of Present Illness Date Patient Seen: 12/25/19 Time Patient Seen: 21:29 Chief complaint: thinks bowel obstruction Narrative: Ms. Vibha Brenner is a 49-year-old female with past medical history significant for brain tumor status post craniotomy, seizure disorder, bipolar disorder and chronic bronchitis who presents to the ER with complaints of abdominal pain. The patient reports she has had worsening abdominal pain described as crampy in nature that has increased over the last 3 days during which time she is not passed a bowel movement. She has self-treated with took a laxative tablets, mineral oil and suppository without relief. She has had associated complaints of nausea without vomiting and has been able to eat small amounts having a small glass of a smoothie today precipitating more abdominal pain. She has had previous surgical repair of a ruptured peptic ulcer and . She denies complaints of fevers or chills headaches or dizziness. She has a seizure disorder following craniotomy for brain tumor manage the medication with her last seizure being 1 year ago. She has had no cold or flu symptoms. She denies nasal congestion or sore throat. She denies neck pain but has chronic low back pain. She reports no chest pain or palpitations. She has a chronic cough secondary to chronic bronchitis with occasional wheezing but reports no shortness of breath. She has had no recent complaints of abdominal pain, nausea or vomiting. Normally she has a regular bowel habit but done for last 3 days. Prior to that she describes her stool as normal. She reports no melena or hematochezia. She reports complaints of urinary symptoms including frequency urgency burning or hematuria. She is typically independent in all ADLs and uses no assist devices. Upon arrival to the ER the patient is afebrile with temperature 98.2?, heart rate of 115, blood pressure 149/92, respiratory rate of 20 saturating 95% on room air. CT of the abdomen pelvis finds the stomach distended and filled with fluid with an air-fluid level, Mildly prominent small bowel loops with no transitional point, there is distention of proximal colon with air-fluid levels to the level of sigmoid colon and mild focal thickening in the proximal sigmoid colon. Twelve lead EKG is obtained finding a sinus tachycardia with a rate of 101 with baseline artifact, no evidence of ischemia or infarct. On laboratory analysis the patient has elevated white count at 19.0, hemoglobin of 14.9 and hematocrit of 40.1 with platelets of 261. Her PT is 12.3 with an INR 1.1 with a PTT of 32. Her electrolytes are all within normal limits with a BUN of 14 and creatinine 0.78. Her nonfasting glucose is 131. Liver functions are all within normal limits and albumin is 4.8 and lipase is 25. Lactic acid is 0.6. Urine dip completed in the ER shows a specific gravity of 1.015 with no infection. Her COVID screening is negative. General surgery is consulted through the emergency department Dr. Lloyd lara to see the patient. He recommends NG tube in a Fleet's enema prep consideration for a colonoscopy tomorrow. The patient is admitted to the medicine service for partial bowel obstruction. Patient History Medical History Bipolar disorder (Acute) Brain tumor (Acute) Chronic bronchitis (Acute) Chronic low back pain (Acute) Peptic ulcer (Acute) Seizures (Acute) Surgical History H/O exploratory laparotomy (Acute) History of section (Acute) History of craniotomy (Acute) Family & Social History Family History Father Cancer Mother Diabetes mellitus Osteoarthritis Brother Hypertension Sister Heart disease Safety & Behavioral: Feels Safe in Current Yes Environment Tobacco & Substance use: Smoking Status Never smoker alcohol intake frequency 3 or more drinks per day Substance Use Type marijuana Meds Home Medications and Allergies Home Medications Medication Instructions Recorded Confirmed Type lamotrigine [Lamictal] 25 mg PO BID 12/25/19 12/25/19 History lamotrigine [Lamictal] 200 mg PO BID 12/25/19 12/25/19 History ziprasidone HCl [Geodon] 80 mg PO BID 12/25/19 12/25/19 History zonisamide 100 mg PO DAILY 12/25/19 12/25/19 History Allergies Allergy/AdvReac Type Severity Reaction Status Date / Time Penicillins [PENICILLINS] Allergy Severe Anaphylaxis Verified 12/25/19 15:13 Review of Systems Review of Systems ROS: Yes All systems reviewed with the patient and are negative except as otherwise documented Exam Vital Signs (past 8 hours): - 12/25/19 15:10 12/25/19 15:13 12/25/19 15:30 Temperature 98.2 F Pulse Rate 113 H 115 H 101 H Respiratory Rate 20 16 Blood Pressure 149/92 H 136/91 H Pulse Oximetry 95 95 97 12/25/19 16:00 12/25/19 16:26 12/25/19 16:30 Temperature Pulse Rate 98 H 101 H 96 H Respiratory Rate 16 20 22 Blood Pressure 142/84 H 138/85 143/84 H Pulse Oximetry 96 96 96 12/25/19 16:46 12/25/19 17:00 12/25/19 17:36 Temperature Pulse Rate 95 H 107 H 94 H Respiratory Rate 25 H 22 Blood Pressure 142/91 H 142/81 H Pulse Oximetry 96 95 97 12/25/19 17:56 12/25/19 18:00 12/25/19 18:30 Temperature Pulse Rate 100 H 96 H 97 H Respiratory Rate 23 20 30 H Blood Pressure 140/83 134/75 146/83 H Pulse Oximetry 96 96 98 12/25/19 19:00 12/25/19 19:30 12/25/19 20:00 Temperature Pulse Rate 109 H 99 H 109 H Respiratory Rate 38 H 25 H 49 H Blood Pressure 140/80 127/77 Pulse Oximetry 97 96 97 12/25/19 20:01 12/25/19 20:30 12/25/19 20:55 Temperature 99.6 F Pulse Rate 111 H 104 H 109 H Respiratory Rate 47 H 23 18 Blood Pressure 145/80 H 125/76 142/82 H Pulse Oximetry 96 995 H Oxygen Delivery Method Room Air Oxygen Flow Rate 0 Narrative Exam Narrative: GENERAL APPEARANCE: well developed, frail appearing woman appearing older than her stated age in no acute distress. HEENT: Normocephalic, PERRLA, conjunctiva clear, EOMs intact without nystagmus, no sinus tenderness to percussion, no rhinorrhea, mucous membranes are moist and pink. NECK/THYROID: neck supple, no JVD, no carotid bruit, no thyromegaly, trachea midline. LYMPH NODES: no cervical or supraclavicular lymphadenopathy. SKIN: [place], warm and dry, no visible lesions, rashes, ulcerations or petechiae. HEART: regular rate and rhythm, S1-S2, no murmur, no rubs or gallops, brisk capillary refill, no edema LUNGS: clear to auscultation bilaterally, no coarseness crackles or wheezing, no cough present CHEST: Symmetrical movement, no accessory muscle use, good tidal volume. ABDOMEN: Well-healed surgical scar upper midline abdomen, soft, mild distention, dull to percussion, generalized abdominal tenderness most prominent in the right upper quadrant, no peritoneal signs, no organomegaly, no flank or suprapubic tenderness, active bowel tones. BACK: Normal curvature, nontender to palpation, no CVA tenderness on percussion, no back pain with straight leg raise EXTREMITIES: moves all extremities, strength is 5/5 and symmetrical, no deformities or joint effusions. NEUROLOGIC: AAO x 3, no focal neurologic deficits, sensation intact to light touch, hearing grossly normal to speech. PSYCH: Good eye contact, cooperative, appropriate with stable behavior Objective Labs Result Diagrams: 12/25/19 15:20 12/25/19 15:20 Labs: Laboratory Results - last 24 hr 12/25/19 12/25/19 12/25/19 15:20 15:20 15:20 WBC 19.0 H RBC 4.66 Hgb 14.9 Hct 44.1 MCV 94.5 MCH 31.9 MCHC 33.8 RDW 13.7 Plt Count 261 Neut % (Auto) 88.4 H Lymph % (Auto) 4.7 L [place] % (Auto) 5.9 Eos % (Auto) 0.5 L Baso % (Auto) 0.5 Neut # (Auto) 65611 H Lymph # (Auto) 900 L [place] # (Auto) 1100 H Eos # (Auto) 100 Baso # (Auto) 100 PT 12.3 INR 1.1 APTT 32 Sodium 138 Potassium 3.5 Chloride 101 Carbon Dioxide 27 BUN 14 Creatinine 0.78 Estimated GFR > 60.0 BUN/Creatinine Ratio 17.9 Glucose 131 H Lactate Calcium 10.1 Magnesium Total Bilirubin 0.7 AST 20 ALT 22 Alkaline Phosphatase 69 Total Protein 8.8 H Albumin 4.8 Globulin 4.0 Albumin/Globulin Ratio 1.2 Lipase 25 COVID-19 PCR 12/25/19 12/25/19 12/25/19 15:20 16:05 19:30 WBC RBC Hgb Hct MCV MCH MCHC RDW Plt Count Neut % (Auto) Lymph % (Auto) [place] % (Auto) Eos % (Auto) Baso % (Auto) Neut # (Auto) Lymph # (Auto) [place] # (Auto) Eos # (Auto) Baso # (Auto) PT INR APTT Sodium Potassium Chloride Carbon Dioxide BUN Creatinine Estimated GFR BUN/Creatinine Ratio Glucose Lactate 0.6 L Calcium Magnesium 2.1 Total Bilirubin AST ALT Alkaline Phosphatase Total Protein Albumin Globulin Albumin/Globulin Ratio Lipase COVID-19 PCR Negative Assessment & Plan Assessment & Plan narrative: This is a 49-year-old female who appears older than her stated age H and is frail-appearing presents to the ER with 3 days of worsening abdominal pain with no bowel movement or flatus. The patient states she began passing liquid stool and flatus after arrival in the emergency department and IV hydration. 1. Abdominal pain, partial bowel obstruction, acute, present on admission, active -CT exam finds focal thickening of the proximal sigmoid colon and dilated bowel with air-fluid levels with no transition point. -patient continues to complain of abdominal pain but is now passing stool and flatus with persistent abdominal distension. -patient with leukopenia at 19.0 with an increase in neutrophils and monocytes, lactic acid is negative at 0.6 and the patient remains afebrile with no complaints of fevers or chills. Will obtain procalcitonin. -general surgery has been contacted and Dr. Carballo is agree to consult, appreciate his evaluation recommendations. -per Dr. Carballo patient to be NPO, ordered NG tube placement and fleets enema for bowel prep with plan for colonoscopy tomorrow. 2. Chronic bronchitis, stable -arrived to the ER the patient's respiratory rate of 20 in saturating 95% on room air and continues to be stable. -requested respiratory therapy consult evaluate and treat. -ordered home regimen of albuterol and Flovent inhalers. 3. Seizure disorder, chronic, stable. -last seizure was over 1 year ago -ordered seizure precautions. -will continue zonisamide 100 mg daily and lamotrigine 225 mg twice daily orally or via NG tube. 4. Bipolar disorder, chronic, stable -will continue current regimen of lamotrigine and Geodon. VTE prophylaxis: Will hold pending surgical intervention, bilateral SCDs IV fluid: Normal saline 100 cc/hour. Diet: NPO Code status: Full code, patient designates Marcin Ramsey to be her surrogate decision maker. The patient is admitted to the hospital due to the severity of her symptoms and necessity for further monitoring in intervention. The patient is admitted as an inpatient with expected length of stay to be greater than 2 midnights. COVID-19 COVID-19 status: Negative Result date/Date tested (Pos, Neg/Pending): 12/25/19 Scores GCS [place] coma scale eye opening: Spontaneous [place] coma scale verbal response: Orientated Nguyen coma scale motor response: Obey commands [place] coma scale total score: 15
[2019-12-25] MEDS: ZIPRASIDONE 80 MG 80 EACH PO (21:57)
[2019-12-25] MEDS: lamoTRIgine 100 MG TABLET 200 MG PO (21:58)
[2019-12-25] MEDS: lamoTRIgine 25 MG CHEW TABLET PO (21:58)
[2019-12-25] MEDS: SODIUM CHLORIDE 0.9% 1,000 ML 100 ML IV (22:08)
[2019-12-25] MEDS: FLEETS ENEMA 1 EACH PR (22:09)
--- NOTE | 2019-12-25 22:22 | PC.ADMIT ---
Addendum entered by Charity Allen R.N. 12/25/19 22:59: Per BILLING ASSOCIATE not doing NG tube at this time. If patient starts vomiting will re-evaluate for placement needs. Original Note: [address] Admission Note: The patient,Vibha Brenner,49 y/o, was given written information regarding hospital policies, unit procedures and contact persons. Patient's smoking status: Never smoker. Vital Signs - 8 hr 12/25/19 15:10 12/25/19 15:13 12/25/19 15:30 Temperature 98.2 F Pulse Rate 113 H 115 H 101 H Respiratory Rate 20 16 Blood Pressure 149/92 H 136/91 H Pulse Oximetry 95 95 97 12/25/19 16:00 12/25/19 16:26 12/25/19 16:30 Temperature Pulse Rate 98 H 101 H 96 H Respiratory Rate 16 20 22 Blood Pressure 142/84 H 138/85 143/84 H Pulse Oximetry 96 96 96 12/25/19 16:46 12/25/19 17:00 12/25/19 17:36 Temperature Pulse Rate 95 H 107 H 94 H Respiratory Rate 25 H 22 Blood Pressure 142/91 H 142/81 H Pulse Oximetry 96 95 97 12/25/19 17:56 12/25/19 18:00 12/25/19 18:30 Temperature Pulse Rate 100 H 96 H 97 H Respiratory Rate 23 20 30 H Blood Pressure 140/83 134/75 146/83 H Pulse Oximetry 96 96 98 12/25/19 19:00 12/25/19 19:30 12/25/19 20:00 Temperature Pulse Rate 109 H 99 H 109 H Respiratory Rate 38 H 25 H 49 H Blood Pressure 140/80 127/77 Pulse Oximetry 97 96 97 12/25/19 20:01 12/25/19 20:30 12/25/19 20:55 Temperature 99.6 F Pulse Rate 111 H 104 H 109 H Respiratory Rate 47 H 23 18 Blood Pressure 145/80 H 125/76 142/82 H Pulse Oximetry 96 995 H Patient arrived via stretcher and transferred self to bed, SBA without difficulty. Axox3, can make needs known, no recent hx of falls. Denies chest pain, nausea/vomiting, SOB and saturating WNL on RA. C/o abdominal pain, distention, not passing flatus. Bowel tones are active in all four quadrants but is tender to palpation. Low fall risk, bed alarm on, call light in reach.
[2019-12-25] MEDS: MORPHINE 2 MG/ML INJ IV (22:40)
[2019-12-25 23:05] LABS: Procalcitonin 0.24 ng/mL (<0.5)
[2019-12-26] VITALS (13 sets, daily range): BP systolic 123–136; BP diastolic 63–85; PULSE 84–127; RESP 15–26; TEMP 36.8–37.9; O2SAT 92–98; BMI 18.9
--- NOTE | 2019-12-26 | PATH_ITS ---
[facility] Accession Number: [id number] . 01 Material submitted: . colon - RANDOM COLON BIOPSIES . 01 Clinical history: . THINKS BOWEL OBSTRUCTION RULE OUT MICROSCOPIC COLITIS . 02 Diagnosis: Random Colon, Biopsies: Colonic mucosa with no diagnostic abnormality. Negative for active, chronic, and microscopic colitis. Negative for dysplasia and malignancy. . MRV 12/30/2019 1356 Local . 02 Electronically signed: . Bety Castro MD, Pathologist NPI- [id number] . 01 Gross description: . The specimen is received in formalin, labeled random, and consists of two laird-pink fragments of soft tissue measuring 0.5 x 0.4 x 0.3 cm in aggregate. The specimen is entirely submitted in cassette A1. ([id number]) /FRR 12/27/2019 1752 Local . 02 Pathologist provided ICD-10: R10.9 . 02 CPT . 990078 Performed at: 01 [facility] [address], [place], [place] [id number] MD Rajan Mcguire MD Phone: [phone] Performed at: 02 [facility] [address] [place], [place] [id number] MD Bety Castro MD Phone: [phone]
--- NOTE | 2019-12-26 | DI.RAD.S_ITS ---
PROCEDURE: XR CHEST 1V INDICATIONS: NGT position TECHNIQUE: One view of the chest was acquired. COMPARISON: None. FINDINGS: Surgical changes and devices: None. Lungs and pleura: Lungs are clear. No pleural effusions or pneumothorax. Mediastinum: Mediastinal contours appear normal. Heart size is normal. Bones and chest wall: No suspicious bony lesions. Overlying soft tissues appear unremarkable. IMPRESSION: No evidence acute pulmonary process. Dictated by: Brock Lancaster M.D. on 12/26/2019 at 13:23 Approved by: Brock Lancaster M.D. on 12/26/2019 at 13:28
--- NOTE | 2019-12-26 | DI.RAD.S_ITS ---
PROCEDURE: [place] SMALL BOWEL FOLLOW THROUGH INDICATIONS: RULE OUT BOWEL OBSTRUCTION COMPARISON: None. FINDINGS: KUB: Preprocedural sort line worker film demonstrates a normal bowel gas pattern. No suspicious abdominal calcifications. Visualized solid organ contours appear normal. No suspicious bony abnormalities. Small bowel: Transit time to the small bowel is diminished. Much of the contrast administered through the nasogastric tube remains in the stomach at the 2 hour elli. There is some transit of contrast into the cecum and ascending colon, however. A few dilated air-filled loops of bowel are again noted, measuring up to 3.2 centimeters. IMPRESSION: Findings consistent with partial small bowel obstruction and delayed transit of contrast material out of the stomach as well as through the small bowel. Dictated by: Darryl Urbano M.D. on 12/26/2019 at 16:44 Approved by: Darryl Urbano M.D. on 12/26/2019 at 16:45
[2019-12-26] MEDS: ALBUTEROL HFA 200 PUFF/18 GM INH (COVID POS/VENT PTS) INH ×3 (00:23→13:11)
[2019-12-26] MEDS: MORPHINE 2 MG/ML INJ IV ×3 (03:36→21:53)
[2019-12-26] MEDS: KETOROLAC 30 MG/ML VIAL 15 MG IV ×2 (05:36→19:28)
--- NOTE | 2019-12-26 06:33 | PC.NURSE ---
Assumed care of patient @ 0300, c/o abd pain, flatus + bT hyperactive. Medicated per emar, attempting to use Toradol and morphine as break through if possible. Pt resting with addition of Toradol. NPO, oral care items at bedside.
[2019-12-26 06:42] LABS: Add Manual Diff / Slide Review NO; Basophils Absolute Auto 100 /uL (0-100); Basophils Percent Auto 0.5 % (0-2); Eosinophils Absolute Auto 100 /uL (0-450); Eosinophils Percent Auto 0.9 % (2-4); Hematocrit 34.7 % (36-46); Hemoglobin 11.6 g/dL (12.0-16.0); Lymphocytes Absolute Auto 1000 /uL (1100-4500); Lymphocytes Percent Auto 5.8 % (25-40); Mean Corpuscular HGB Conc 33.5 % (30-36); Mean Corpuscular Hemoglobin 31.9 PG (26-34); Mean Corpuscular Volume 95.1 fL (80-100); Monocytes Absolute Auto 1200 /uL (0-900); Monocytes Percent Auto 7.1 % (3-14); Neutrophils Absolute Auto 14700 /uL (1500-7000); Neutrophils Percent Auto 85.7 % (50-75); Platelet Count 201 X10^3/uL (150-400); Red Blood Cell Count 3.65 X10^6/uL (4.0-5.2); Red Cell Distribution Width 13.4 % (11.6-14.8); White Blood Cell Count 17.2 X10^3/uL (4.5-11.0)
[2019-12-26 06:56] LABS: BUN Creatinine Ratio 12.9 (6-22); Blood Urea Nitrogen 8 mg/dL (7-17); Calcium 8.5 mg/dL (8.4-10.2); Carbon Dioxide 21 mmol/L (22-32); Chloride 111 mmol/L (98-107); Estimated Glomerular Filt Rate > 60.0 mL/min (>60); Glucose 101 mg/dL (70-100); HEMOLYSIS < 15 (0-50); Potassium 3.5 mmol/L (3.4-5.1); Sodium 137 mmol/L (137-145)
[2019-12-26 07:15] LABS: Procalcitonin 0.11 ng/mL (<0.5)
[2019-12-26] MEDS: SODIUM CHLORIDE 0.9% 1,000 ML 100 ML IV ×2 (08:11→21:53)
[2019-12-26] MEDS: lamoTRIgine 25 MG CHEW TABLET PO ×2 (08:17→20:25)
[2019-12-26] MEDS: lamoTRIgine 100 MG TABLET 200 MG PO ×3 (08:17→20:25)
[2019-12-26] MEDS: ZIPRASIDONE 80 MG 80 EACH PO ×2 (08:18→20:25)
[2019-12-26] MEDS: ZONISAMIDE 100 MG CAPSULE PO ×2 (08:18→20:47)
[2019-12-26] MEDS: FLUTICASONE 110MCG HFA 120 PUFF INH ×2 (08:19→18:33)
--- NOTE | 2019-12-26 10:02 | PC.NURSE ---
Addendum entered by Reena Adrian R.N. 12/26/19 14:35: Update from CAMILA Rea in PACU at 1320. Pt arrived back to unit via bed at 1420. N[address], clamped, not placed to suction at this time as pt is in the middle of small bowel follow through. IVF restarted to PIV per order. pt did vomit when she first arrived on unit, approx 350mls of green/yellow fluid. Pt's mother has been in pt's room since 1130 waiting to visit with pt, water and tea given to pt's mother. Original Note: Day Shift- pt to OR at 1000 via bed for colonoscopy procedure. PIV S/L'd at this time
--- NOTE | 2019-12-26 11:27 | P.OP.PRE_ITS ---
Pre-operative Note COVID-19 COVID-19 status: Negative Result date/Date tested (Pos, Neg/Pending): 12/25/19 Interval Note History & Physical reviewed/Exam performed by Physician: Yes Changes to H&P: No H&P completed within 30 days and has changed as indicated here:: Risks and benefits of screening colonoscopy and possible polypectomy were discussed with the patient including risk of bleeding, perforation, need for additional procedures, risks of anesthesia. The patient desires to proceed with the colonoscopy procedure. I discussed with the patient the likelihood that she would need a colon resec tion. She said please go ahead and add that to the consent form and go ahead and do the operation if needed. We added laparotomy and colon resection to the consent form. Risks of bleeding, infection, damage to nearby structures, need for additional procedures, need for colostomy, need for open surgery, hernia formation, need for cancer treatment, were discussed. The patient desires to go ahead with all needed procedures.
--- NOTE | 2019-12-26 11:56 | SUR.OPER ---
Dr. Gandhi - anesthesia in room for entire procedure. Refer to anesthesia record for meds and procedures
--- NOTE | 2019-12-26 12:39 | PM.OP.ENDO ---
Operative Date/Time/Diagnoses Date of procedure: 12/26/19 Time of procedure: 12:39 Pre-op diagnosis: Large bowel obstruction Post-op diagnosis: other (Tortuous colon, non obstructed) Procedure & Clinicians Study performed: Colonoscopy Random biopsies to rule out microscopic colitis Same procedure as scheduled: Yes Indications: 49-year-old woman who has never had a colonoscopy, came into the ER last night with obstructive symptoms, and thought to have a sigmoid obstruction on CT scan. Because she is obstructed, she will require endotracheal intubation prior to colonoscopy. Surgeon: Ana Gannon Procedure Notes SCOAP/Timeout: Performed Procedure in detail: The patient was brought to the room and identified. General anesthesia was induced and the patient was intubated with ET tube by the anesthesiologist. She was then placed in left lateral decubitus position with all bony prominences padded. A time-out was performed and then the procedure was begun. A rectal exam was performed revealing no abnormalities. The colonoscope was then introduced to the rectum and advanced to the cecum in the usual fashion. The colon was quite tortuous, an unprepped, but I was able to reach the cecum without incident. The cecum was identified by the appendiceal orifice, the mucosal tri-fold, and the ileocecal valve. The scope was then retracted while rotating side to side and examining each mucosal fold. There were some significant redundant folds in the descending and sigmoid colon, but nothing obstructing or stenotic. There were no neoplasms or polyps seen. Once I reached the rectum, I again passed the scope all the way to the cecum in back in order to confirm that there truly was no area of stenosis, neoplasm, or obstruction that was missed. Random biopsies were taken to rule out microscopic colitis. At the conclusion of the procedure retroflexion was performed and small grade 1-2 internal hemorrhoids without stigmata of bleeding were seen. The scope was then withdrawn from the rectum the procedure was concluded. The patient tolerated the procedure well and was transferred to the PACU in stable condition. Scope withdrawal time: 26 Findings: other findings (Large redundant folds of descending and sigmoid colon, nonobstructing, no neoplasm, no stenosis) Specimen(s): other (Random biopsies of colon mucosa to rule out microscopic colitis) Complications: none Impression: The likely appearance of obstruction was due to redundant mucosal folds in the colon, but I do not believe that this is causing her an actual structural obstructing problem. Post-procedure Recommendations: Other recommendation (Return to hospital floor, consider barium enema or small-bowel follow-through to further delineate any signs of obstruction.) Follow up: as needed Disposition: PACU
--- NOTE | 2019-12-26 13:28 | SUR.PHASEI ---
X-ray taken and tech reports that radiologist Dr. Villegas states it is in the stomach. Report given to receiving RN Reena. Discussed tachycardia with Dr. Gandhi, no new orders noted. Receiving RN states that patient was tachycardic this AM as well. Todd from radiology picked patient up from PACU to take to ordered bowel follow through study. Receiving RN aware.
--- NOTE | 2019-12-26 15:48 | CM.DANOTE ---
Discharge Planning/Care Management DCP: assessment: case received, EMR reviewed. Discussed in Team Bedside Rounds: pt at that time was already out of room and to OR for colonoscopy: Dr. Gannon. Pt is a 49 year old female who admitted last night to care of hospitalist team. Dr. Paniagua is seeing her today. Payer: Medicare and Medicaid spend down program. Admission status: INPT: per UR CAMILA Rodriguez P: check in tomorrow when pt is available for further assessment and discussion of d/c issues and options. Note that pt resides on [facility]. CM Discharge Assessment Start: 12/26/19 15:46 Freq: Status: Active Protocol: Document 12/26/19 15:47 ITV (Rec: 12/26/19 15:47 ITV [id number]) Discharge Planning Assessment Advance Directives? No History Provided By Medical Record Prior Living Arrangements Mobile home Household Members significant other Review Status In Process
--- NOTE | 2019-12-26 15:55 | DIET.PN ---
Dietary Progress Note 49y F admitted for possible bowel obstruction who underwent colonoscopy today found to have tortuous colon. Pt currently NPO c NGT to suction. Pt referred to nutrition as reflexed from admission for borderline low BMI 19.0. Once pt assigned diet recc ONS Ensure if POs <75%
--- NOTE | 2019-12-26 17:37 | DI.RAD.S_ITS ---
PROCEDURE: XR KUB INDICATIONS: NGT position, evaluate for any contrast passing into bowel TECHNIQUE: One view of the abdomen acquired. COMPARISON: [facility], , [place] SMALL BOWEL FOLLOW THROUGH, 12/26/2019, 13:26. FINDINGS: Surgical changes and devices: None. Bowel: Bowel gas pattern is normal. An esophagogastric tube extends into the gastric lumen, and there is a small amount of contrast that appears to have exited the stomach an entered the small bowel proximally. Soft tissues: No suspicious abdominal calcifications. Visualized solid organ contours appear normal in size. Bones: No suspicious bony lesions. IMPRESSION: Only a small amount of oral contrast has exited the gastric lumen and extended into the small bowel. No definite contrast within colon. The quality of visualization of the small bowel is very limited due to the small amount of oral contrast that has transited. Multiple earlier attempts at obtaining a higher volume assessment of the small bowel was relatively unsuccessful due to repeated emesis. Dictated by: Norbert Villegas M.D. on 12/26/2019 at 18:17 Approved by: Norbert Villegas M.D. on 12/26/2019 at 18:19
--- NOTE | 2019-12-26 17:48 | P.PN_ITS ---
Subjective Subjective Date Patient Seen: 12/26/19 Time Patient Seen: 17:48 Interval history: Ms. Vibha Brenner is a 49-year-old female with past medical history significant for brain tumor status post craniotomy, seizure disorder, bipolar disorder and chronic bronchitis who presented to the ER with complaints of abdominal pain. She was admitted over concern for possible large bowel obstruction, colonoscopy today however revealed some prominent colonic folds but no overt malignancy. Small-bowel follow-through was obtained which was read as a partial small-bowel obstruction but all lot of contrast was retained within the stomach. She remains NPO. Discussed the case with surgery and will start the patient on standing Reglan. Will monitor the patient on telemetry given her medications and risk for QT prolongation. The patient still complains abdominal pain and some nausea as well as throat pain after NG tube placement. Exam Vital Signs (past 8 hours): - 12/26/19 10:19 12/26/19 12:50 12/26/19 12:55 Temperature 98.9 F 98.9 F 99.3 F Pulse Rate 106 H 127 H 125 H Respiratory Rate 17 16 18 Blood Pressure 128/74 136/79 133/77 Pulse Oximetry 95 98 97 12/26/19 13:01 12/26/19 13:06 12/26/19 13:20 Temperature 99.2 F 99.8 F H 99.4 F Pulse Rate 127 H 125 H 115 H Respiratory Rate 15 23 16 Blood Pressure 131/73 131/79 127/85 Pulse Oximetry 96 96 96 Oxygen Delivery Method Room Air Oxygen Flow Rate 0 Narrative Exam Narrative: GENERAL APPEARANCE: well developed, thin appearing woman appearing older than her stated age in no acute distress. HEENT: Normocephalic, PERRLA, conjunctiva clear, EOMs intact without nystagmus, no sinus tenderness to percussion, no rhinorrhea, mucous membranes are moist and pink. NECK/THYROID: neck supple, no JVD, no carotid bruit, no thyromegaly, trachea midline. LYMPH NODES: no cervical or supraclavicular lymphadenopathy. SKIN: [place], warm and dry, no visible lesions, rashes, ulcerations or petechiae. HEART: regular rate and rhythm, S1-S2, no murmur, no rubs or gallops, brisk capillary refill, no edema LUNGS: clear to auscultation bilaterally, no coarseness crackles or wheezing, no cough present CHEST: Symmetrical movement, no accessory muscle use, good tidal volume. ABDOMEN: Well-healed surgical scar upper midline abdomen, soft, mild distention, dull to percussion, generalized abdominal tenderness most prominent in epigastrium, no peritoneal signs, no organomegaly, no flank or suprapubic tenderness. Diminished bowel tones. BACK: Normal curvature, nontender to palpation, no CVA tenderness on percussion, no back pain with straight leg raise EXTREMITIES: moves all extremities, strength is 5/5 and symmetrical, no deformities or joint effusions. NEUROLOGIC: AAO x 3, no focal neurologic deficits, sensation intact to light touch, hearing grossly normal to speech. PSYCH: Good eye contact, cooperative, appropriate with stable behavior Objective Labs Result Diagrams: 12/26/19 06:30 12/26/19 06:30 Labs: Laboratory Results - last 24 hr 12/25/19 12/25/19 12/25/19 15:20 15:20 19:30 WBC RBC Hgb Hct MCV MCH MCHC RDW Plt Count Neut % (Auto) Lymph % (Auto) [place] % (Auto) Eos % (Auto) Baso % (Auto) Neut # (Auto) Lymph # (Auto) [place] # (Auto) Eos # (Auto) Baso # (Auto) Sodium Potassium Chloride Carbon Dioxide BUN Creatinine Estimated GFR BUN/Creatinine Ratio Glucose Calcium Magnesium 2.1 Procalcitonin 0.24 COVID-19 PCR Negative 12/26/19 12/26/19 12/26/19 06:30 06:30 06:30 WBC 17.2 H RBC 3.65 L Hgb 11.6 L Hct 34.7 L MCV 95.1 MCH 31.9 MCHC 33.5 RDW 13.4 Plt Count 201 Neut % (Auto) 85.7 H Lymph % (Auto) 5.8 L [place] % (Auto) 7.1 Eos % (Auto) 0.9 L Baso % (Auto) 0.5 Neut # (Auto) 72603 H Lymph # (Auto) 1000 L [place] # (Auto) 1200 H Eos # (Auto) 100 Baso # (Auto) 100 Sodium 137 Potassium 3.5 Chloride 111 H Carbon Dioxide 21 L BUN 8 Creatinine 0.62 Estimated GFR > 60.0 BUN/Creatinine Ratio 12.9 Glucose 101 H Calcium 8.5 Magnesium Procalcitonin 0.11 COVID-19 PCR Assessment & Plan Assessment & Plan narrative: Ms. Vibha Brenner is a 49-year-old female with past medical history significant for brain tumor status post craniotomy, seizure disorder, bipolar disorder and chronic bronchitis who presented to the ER with complaints of abdominal pain. She was admitted over concern for possible large bowel obstruction, colonoscopy today however revealed some prominent colonic folds but no overt malignancy. Small-bowel follow- through was obtained which was read as a partial small-bowel obstruction but all lot of contrast was retained within the stomach. 1. Abdominal pain, partial bowel obstruction, acute, present on admission, active -CT exam finds focal thickening of the proximal sigmoid colon and dilated bowel with air-fluid levels with no transition point. Colonoscopy today revealed prominent folds but no overt evidence of malignancy or obstruction. Patient did have a bowel movement a Fleet enema but has not had any further bowel movements or passed gas. She subsequently had a small-bowel follow-through after colonoscopy which shows a possible partial small-bowel obstruction but slow transit times as a large amount of contrast remained her stomach. Have started the patient on standing Reglan. Given her chronic medications will put the patient on telemetry to monitor her QTC. -patient with a mild leukocytosis, which is suspect is reactive. Improved slightly this morning to 17.2 from 19 on admission. Will continue to follow. -appreciate general surgery assistance with management, continue NPO diet and IV fluids at this time. Continue to monitor NG tube output. 2. Chronic bronchitis, stable -arrived to the ER the patient's respiratory rate of 20 in saturating 95% on room air and continues to be stable. -requested respiratory therapy consult evaluate and treat. -ordered home regimen of albuterol and Flovent inhalers. 3. Seizure disorder, chronic, stable. -last seizure was over 1 year ago -ordered seizure precautions. -will continue zonisamide 100 mg daily and lamotrigine 225 mg twice daily orally or via NG tube. 4. Bipolar disorder, chronic, stable -will continue current regimen of lamotrigine and Geodon. VTE prophylaxis: bilateral SCDs IV fluid: Normal saline 100 cc/hour. Diet: NPO Code status: Full code, patient designates Marcin Ramsey to be her surrogate decision maker. The patient is admitted to the hospital due to the severity of her symptoms and necessity for further monitoring in intervention. The patient is admitted as an inpatient with expected length of stay to be greater than 2 midnights. Quality VTE Deep Vein Thrombosis/Pulmonary Embolism Present on Admission: No
[2019-12-26] MEDS: TETRACAINE/BENZOCAINE/BUTAMBEN (CETACAINE) BOTTLE 1 SPRAY TOP ×2 (18:33→19:31)
[2019-12-26] MEDS: METOCLOPRAMIDE 10 MG/2 ML INJ IV ×2 (18:33→21:53)
--- NOTE | 2019-12-26 20:37 | PC.NURSE ---
Addendum entered by Leni Ravi R.N. 12/26/19 21:16: 2115 suction resumed as has been 30 min post medication administration Original Note: cough 2009 pt states has been coughing more this evening. states feels r/t throat irritation rather than anything else. air instilled via piston into NG tube and gurgling auscultated in stomach. Pt denies discomfort with air instillation. NG tube producing green fluid. 2030 Suction stopped to NG tube for administration of medications
[2019-12-27] VITALS (11 sets, daily range): BP systolic 119–142; BP diastolic 64–82; PULSE 96–118; RESP 15–20; TEMP 36.8–37.6; O2SAT 94–99
--- NOTE | 2019-12-27 | DI.RAD.S_ITS ---
PROCEDURE: XR ABDOMEN 1V INDICATIONS: TIMED FILMS FOR SBFT TECHNIQUE: 230 cc Gastrografin was slowly given via NG tube, with images performed at 2:00 a.m. And 4 hours. COMPARISON: [facility], CT, CT ABDOMEN PELVIS W CON, 12/25/2019, 16:04. [facility], [place], [place] SMALL BOWEL FOLLOW THROUGH, 12/26/2019, 13:26. [facility], [place], XR KUB, 12/26/2019, 17:53. FINDINGS: Surgical changes and devices: None. Bowel: Prominent loops of small bowel are seen, which measure up to 3.6 cm. On the 4 hour images, contrast can be seen within the colon. Soft tissues: No suspicious abdominal calcifications. Visualized solid organ contours appear normal in size. Bones: No suspicious bony lesions. IMPRESSION: Dilated loops of small bowel are seen. There is contrast seen within the colon on the 4 hour images, which confirms no complete small bowel obstruction. Differential diagnosis includes a partial bowel obstruction versus ileus. Dictated by: Kelvin Herrera M.D. on 12/27/2019 at 14:38 Approved by: Kelvin Herrera M.D. on 12/27/2019 at 14:39
[2019-12-27] MEDS: MORPHINE 2 MG/ML INJ IV ×6 (01:26→20:52)
[2019-12-27] MEDS: KETOROLAC 30 MG/ML VIAL 15 MG IV ×2 (02:55→11:53)
[2019-12-27] MEDS: METOCLOPRAMIDE 10 MG/2 ML INJ IV ×3 (05:38→20:55)
[2019-12-27 07:30] LABS: Add Manual Diff / Slide Review NO; Basophils Absolute Auto 0 /uL (0-100); Basophils Percent Auto 0.3 % (0-2); Eosinophils Absolute Auto 0 /uL (0-450); Eosinophils Percent Auto 0.6 % (2-4); Hematocrit 36.2 % (36-46); Hemoglobin 12.4 g/dL (12.0-16.0); Lymphocytes Absolute Auto 200 /uL (1100-4500); Lymphocytes Percent Auto 2.4 % (25-40); Mean Corpuscular HGB Conc 34.4 % (30-36); Mean Corpuscular Hemoglobin 32.4 PG (26-34); Mean Corpuscular Volume 94.3 fL (80-100); Monocytes Absolute Auto 400 /uL (0-900); Monocytes Percent Auto 5.1 % (3-14); Neutrophils Absolute Auto 6300 /uL (1500-7000); Neutrophils Percent Auto 91.6 % (50-75); Platelet Count 197 X10^3/uL (150-400); Red Blood Cell Count 3.84 X10^6/uL (4.0-5.2); Red Cell Distribution Width 13.2 % (11.6-14.8); White Blood Cell Count 6.9 X10^3/uL (4.5-11.0)
[2019-12-27 07:50] LABS: BUN Creatinine Ratio 23.2 (6-22); Blood Urea Nitrogen 13 mg/dL (7-17); Calcium 8.7 mg/dL (8.4-10.2); Carbon Dioxide 19 mmol/L (22-32); Chloride 111 mmol/L (98-107); Estimated Glomerular Filt Rate > 60.0 mL/min (>60); Glucose 74 mg/dL (70-100); HEMOLYSIS < 15 (0-50); Magnesium 1.5 mg/dL (1.6-2.3); Sodium 137 mmol/L (137-145)
[2019-12-27] MEDS: ALBUTEROL HFA 200 PUFF/18 GM INH (COVID POS/VENT PTS) INH ×3 (08:50→15:00)
[2019-12-27] MEDS: SODIUM CHLORIDE 0.9% 1,000 ML 100 ML IV (08:51)
[2019-12-27] MEDS: MAGNESIUM SULFATE 2 GM/50 ML PIGGYBACK IV (09:01)
[2019-12-27] MEDS: lamoTRIgine 25 MG CHEW TABLET PO ×2 (09:06→20:55)
[2019-12-27] MEDS: lamoTRIgine 100 MG TABLET 200 MG PO ×2 (09:06→20:54)
[2019-12-27] MEDS: ZIPRASIDONE 80 MG 80 EACH PO ×2 (09:07→20:54)
--- NOTE | 2019-12-27 09:08 | PM.PN.1 ---
Subjective Subjective Date Patient Seen: 12/27/19 Time Patient Seen: 09:08 Interval history: Ms. Vibha Brenner is a 49-year-old female with past medical history significant for brain tumor status post craniotomy, seizure disorder, bipolar disorder and chronic bronchitis who presented to the ER with complaints of abdominal pain. She was admitted over concern for possible large bowel obstruction, colonoscopy revealed some prominent colonic folds but no overt malignancy. Small-bowel follow-through was obtained which was read as a partial small-bowel obstruction but all lot of contrast was retained within the stomach. She remains NPO. She reports continued abdominal pain but improved nausea. She denies subjective fever, chills. She does complain of sore throat with her NG tube. Has not passed any gas or had a bowel movement since enema yesterday. Exam Vital Signs (past 8 hours): - 12/27/19 03:29 12/27/19 07:35 12/27/19 08:53 Temperature 98.3 F 99.7 F H Pulse Rate 102 H 117 H 117 H Respiratory Rate 18 15 20 Blood Pressure 142/82 H 123/64 Pulse Oximetry 97 94 94 Oxygen Delivery Method Room Air Oxygen Flow Rate 0 Narrative Exam Narrative: GENERAL APPEARANCE: well developed, thin appearing woman appearing older than her stated age in no acute distress. HEENT: Normocephalic, PERRLA, conjunctiva clear, EOMs intact without nystagmus, no sinus tenderness to percussion, no rhinorrhea, mucous membranes are moist and pink. NECK/THYROID: neck supple, no JVD, no carotid bruit, no thyromegaly, trachea midline. LYMPH NODES: no cervical or supraclavicular lymphadenopathy. SKIN: [place], warm and dry, no visible lesions, rashes, ulcerations or petechiae. HEART: regular rate and rhythm, S1-S2, no murmur, no rubs or gallops, brisk capillary refill, no edema LUNGS: clear to auscultation bilaterally, no coarseness crackles or wheezing, no cough present CHEST: Symmetrical movement, no accessory muscle use ABDOMEN: Well-healed surgical scar upper midline abdomen, soft, mild distention slightly improved, generalized abdominal tenderness somewhat improved today. EXTREMITIES: moves all extremities, strength is 5/5 and symmetrical, no deformities or joint effusions. NEUROLOGIC: AAO x 3, no focal neurologic deficits, sensation intact to light touch, hearing grossly normal to speech. PSYCH: Good eye contact, cooperative, appropriate with stable behavior Objective Labs Result Diagrams: 12/27/19 07:15 12/27/19 07:15 Labs: Laboratory Results - last 24 hr 12/27/19 12/27/19 12/27/19 07:15 07:15 07:15 WBC 6.9 D RBC 3.84 L Hgb 12.4 Hct 36.2 MCV 94.3 MCH 32.4 MCHC 34.4 RDW 13.2 Plt Count 197 Neut % (Auto) 91.6 H Lymph % (Auto) 2.4 L [place] % (Auto) 5.1 Eos % (Auto) 0.6 L Baso % (Auto) 0.3 Neut # (Auto) 6300 Lymph # (Auto) 200 L [place] # (Auto) 400 Eos # (Auto) 0 Baso # (Auto) 0 Sodium 137 Potassium 3.0 L Chloride 111 H Carbon Dioxide 19 L BUN 13 Creatinine 0.56 Estimated GFR > 60.0 BUN/Creatinine Ratio 23.2 H Glucose 74 Calcium 8.7 Magnesium 1.5 L Assessment & Plan Assessment & Plan narrative: Ms. Vibha Brenner is a 49-year-old female with past medical history significant for brain tumor status post craniotomy, seizure disorder, bipolar disorder and chronic bronchitis who presented to the ER with complaints of abdominal pain. She was admitted over concern for possible large bowel obstruction, colonoscopy today however revealed some prominent colonic folds but no overt malignancy. Small-bowel follow-through was obtained which was read as a partial small-bowel obstruction but all lot of contrast was retained within the stomach. 1. Abdominal pain, partial bowel obstruction, acute, present on admission, active -CT exam finds focal thickening of the proximal sigmoid colon and dilated bowel with air-fluid levels with no transition point. Colonoscopy revealed prominent folds but no overt evidence of malignancy or obstruction. Patient did have a bowel movement a Fleet enema but has not had any further bowel movements or passed gas. She subsequently had a small-bowel follow-through after colonoscopy which showed a possible partial small-bowel obstruction but slow transit times as a large amount of contrast remained her stomach. Have started the patient on standing Reglan which has helped with reported nausea. Given her chronic medications will put the patient on telemetry to monitor her QTC. -patient with a mild leukocytosis, which is suspect is reactive. Now improved to normal today. -appreciate general surgery assistance with management, continue NPO diet and IV fluids at this time. Continue to monitor NG tube output which is documented as 400 output yesterday, 100 since midnight and there is approximately 200 cc in her canister this AM 2. Chronic bronchitis, stable -arrived to the ER the patient's respiratory rate of 20 in saturating 95% on room air and continues to be stable. -requested respiratory therapy consult evaluate and treat. -ordered home regimen of albuterol and Flovent inhalers. 3. Seizure disorder, chronic, stable. -last seizure was over 1 year ago -ordered seizure precautions. -will continue zonisamide 100 mg daily and lamotrigine 225 mg twice daily orally or via NG tube. 4. Bipolar disorder, chronic, stable -will continue current regimen of lamotrigine and Geodon. 5. Hypokalemia, hypomagnesemia - secondary to continued GI losses with NG tube. Continue IV fluids and was given IV repletion today. VTE prophylaxis: bilateral SCDs IV fluid: Normal saline 100 cc/hour. Diet: NPO Code status: Full code, patient designates Marcin Ramsey to be her surrogate decision maker. The patient is admitted to the hospital due to the severity of her symptoms and necessity for further monitoring in intervention. The patient is admitted as an inpatient with expected length of stay to be greater than 2 midnights. Quality VTE Deep Vein Thrombosis/Pulmonary Embolism Present on Admission: No
[2019-12-27] MEDS: ZONISAMIDE 100 MG CAPSULE PO ×2 (09:09→20:52)
--- NOTE | 2019-12-27 09:46 | PM.PN.1 ---
Subjective Subjective Date Patient Seen: 12/27/19 Time Patient Seen: 10:01 Interval history: Pt had colonoscopy yesterday which showed non obstructed colon. NGT was placed and SBFT was attempted. Pt vomited all the contrast. KUB looks non obstructed. Reglan was started. Pt reports feeling bloated and denies passing any flatus or stool. Exam Vital Signs (past 8 hours): - 12/27/19 03:29 12/27/19 07:35 12/27/19 08:53 Temperature 98.3 F 99.7 F H Pulse Rate 102 H 117 H 117 H Respiratory Rate 18 15 20 Blood Pressure 142/82 H 123/64 Pulse Oximetry 97 94 94 Oxygen Delivery Method Room Air Oxygen Flow Rate 0 Narrative Exam Narrative: GENERAL: Alert, comfortable. Appears stated age. Answers questions promptly and appropriately. Vital signs noted. HENT: Normocephalic, atraumatic. Hearing intact. NG tube in place and sumping EYES: Conjunctiva pink, sclera white, no periorbital swelling. CARDIOVASCULAR: Regular rate. No pedal edema. RESPIRATORY: Non-tachypneic, breathing comfortably on room air. GASTROINTESTINAL: Abdomen soft, mildly tender, mildly distended MUSCULOSKELETAL: Equal tone and mass bilaterally. SKIN: Warm, dry, soft, appropriate color for ethnicity. No other lesions, rashes, or wounds. NEURO: Alert and Oriented X 3. No gross sensory deficits, or cognitive issues. PSYCH: Flat affect, calm/appropriate mood. Objective Imaging Abdominal x-ray: Radiologist's impression: [address] [address] XRay Report Signed Patient: Vibha Brenner R#: [id number] : 1970Acct:[id number] Age/Sex: 49 / FDate of Service: 12/26/19 Loc: [facility]301-8 Accession Number: [id number] Procedure: XR KUB Ordering Provider: Ana Gannon MD PROCEDURE: XR KUB INDICATIONS: NGT position, evaluate for any contrast passing into bowel TECHNIQUE: One view of the abdomen acquired. COMPARISON: [facility], , [place] SMALL BOWEL FOLLOW THROUGH, 12/26/2019, 13:26. FINDINGS: Surgical changes and devices: None. Bowel: Bowel gas pattern is normal. An esophagogastric tube extends into the gastric lumen, and there is a small amount of contrast that appears to have exited the stomach an entered the small bowel proximally. Soft tissues: No suspicious abdominal calcifications. Visualized solid organ contours appear normal in size. Bones: No suspicious bony lesions. IMPRESSION: Only a small amount of oral contrast has exited the gastric lumen and extended into the small bowel. No definite contrast within colon. The quality of visualization of the small bowel is very limited due to the small amount of oral contrast that has transited. Multiple earlier attempts at obtaining a higher volume assessment of the small bowel was relatively unsuccessful due to repeated emesis. Dictated by: Norbert Villegas M.D. on 12/26/2019 at 18:17 Approved by: Norbert Villegas M.D. on 12/26/2019 at 18:19 Labs Result Diagrams: 12/27/19 07:15 12/27/19 07:15 Labs: Laboratory Results - last 24 hr 12/27/19 12/27/19 12/27/19 07:15 07:15 07:15 WBC 6.9 D RBC 3.84 L Hgb 12.4 Hct 36.2 MCV 94.3 MCH 32.4 MCHC 34.4 RDW 13.2 Plt Count 197 Neut % (Auto) 91.6 H Lymph % (Auto) 2.4 L [place] % (Auto) 5.1 Eos % (Auto) 0.6 L Baso % (Auto) 0.3 Neut # (Auto) 6300 Lymph # (Auto) 200 L [place] # (Auto) 400 Eos # (Auto) 0 Baso # (Auto) 0 Sodium 137 Potassium 3.0 L Chloride 111 H Carbon Dioxide 19 L BUN 13 Creatinine 0.56 Estimated GFR > 60.0 BUN/Creatinine Ratio 23.2 H Glucose 74 Calcium 8.7 Magnesium 1.5 L Assessment & Plan Assessment and plan (1) Partial bowel obstruction: Status: Acute (2) H/O exploratory laparotomy: Problem details: Repair of ruptured peptic ulcer Status: Acute (3) Abnormal abdominal CT scan: Status: Acute Assessment & Plan narrative: This is a 49-year-old woman who came in with obstructive symptoms, was found to have what looks like a large bowel obstruction on her CT scan. On colonoscopy she had a nonobstructed colon with large folds of colonic mucosa which likely appeared as an obstruction on the CT scan. We attempted an upper GI small-bowel follow-through, but the patient vomited all the contrast. She has been started on Reglan, and we will repeat attempted small-bowel follow-through again today. Plan: Repeat UGI SBFT, with slow admin of contrast Put NGT back to suction and plan to do EGD if pt does not tolerate contrast COVID-19 COVID-19 status: Negative Result date/Date tested (Pos, Neg/Pending): 12/25/19 Time Spent With Patient Time with patient: 15-24 minutes Quality VTE Deep Vein Thrombosis/Pulmonary Embolism Present on Admission: No
[2019-12-27] MEDS: POTASSIUM CHLORIDE 30 MEQ in SODIUM CHLORIDE 0.9% 250 ML 88.333 ML IV ×2 (11:53→16:02)
--- NOTE | 2019-12-27 14:54 | PC.NURSE ---
shift summary: Patient remains NPO with NG tube in place. NG currently disconnected from suction due to small bowel follow through testing in place. Patient denies nausea/vomiting. Abdomen remains distended, and tender, pain management with IV morphine and toradol as ordered, patient reports that this gets it to tolerable level. IV fluids and electrolytes infusing as ordered. Call light within reach monitor.
--- NOTE | 2019-12-27 15:47 | CM.DPC ---
DCP Cont: Discussed patient with Dr. Hemphill. She mentioned that patient had emesis secondary to contrast. She is planning on a scope tomorrow for patient. P: DCP to continue to follow, and will be available for any resources needed. Linda Pollock RN/Dental Ceramist Assistant
[2019-12-27] MEDS: FLUTICASONE 110MCG HFA 120 PUFF INH (19:31)
[2019-12-28] VITALS (8 sets, daily range): BP systolic 112–127; BP diastolic 64–79; PULSE 106–122; RESP 16–20; TEMP 37–37.7; O2SAT 93–98
[2019-12-28] MEDS: KETOROLAC 30 MG/ML VIAL 15 MG IV (00:15)
[2019-12-28] MEDS: MORPHINE 2 MG/ML INJ IV ×5 (01:04→19:43)
--- NOTE | 2019-12-28 02:07 | PC.NURSE ---
Pt. has a scant amt. of liquid stool.
[2019-12-28] MEDS: SODIUM CHLORIDE 0.9% 1,000 ML 84 ML IV (02:36)
[2019-12-28 05:19] LABS: BUN Creatinine Ratio 27.9 (6-22); Blood Urea Nitrogen 17 mg/dL (7-17); Calcium 8.2 mg/dL (8.4-10.2); Carbon Dioxide 20 mmol/L (22-32); Chloride 107 mmol/L (98-107); Estimated Glomerular Filt Rate > 60.0 mL/min (>60); Glucose 84 mg/dL (70-100); HEMOLYSIS < 15 (0-50); Magnesium 1.8 mg/dL (1.6-2.3); Potassium 3.3 mmol/L (3.4-5.1); Sodium 132 mmol/L (137-145)
[2019-12-28 05:20] LABS: Phosphorous 2.5 mg/dL (2.5-4.5)
[2019-12-28] MEDS: METOCLOPRAMIDE 10 MG/2 ML INJ IV ×3 (05:45→21:18)
--- NOTE | 2019-12-28 06:39 | PC.NURSE ---
Dr. Hemphill called and cancelled the EGD that was scheduled for today.
[2019-12-28] MEDS: POTASSIUM CHLORIDE 20 MEQ in SODIUM CHLORIDE 0.9% 500 ML 130 ML IV (06:41)
[2019-12-28] MEDS: MAGNESIUM SULFATE 2 GM/50 ML PIGGYBACK IV (06:54)
[2019-12-28] MEDS: FLUTICASONE 110MCG HFA 120 PUFF INH ×2 (07:32→19:03)
[2019-12-28] MEDS: ALBUTEROL HFA 200 PUFF/18 GM INH (COVID POS/VENT PTS) INH ×3 (07:33→14:44)
[2019-12-28] MEDS: SODIUM CHLORIDE 0.9% FLUSH 10 ML IV (09:15)
[2019-12-28] MEDS: lamoTRIgine 100 MG TABLET 200 MG PO ×2 (09:15→21:19)
[2019-12-28] MEDS: lamoTRIgine 25 MG CHEW TABLET PO ×2 (09:15→21:19)
[2019-12-28] MEDS: ZIPRASIDONE 80 MG 80 EACH PO ×2 (09:16→21:19)
[2019-12-28] MEDS: ZONISAMIDE 100 MG CAPSULE PO ×2 (09:16→21:19)
--- NOTE | 2019-12-28 09:19 | CM.DPC ---
DCP Cont: Checked in with patient, introduced self and role. She was laying in bed, alert and oriented. Dr. Hemphill had seen her today, and is planning on a CT scan today, due to distension. Patient resides on [place] and is independent at baseline. Stated that she has support from her friend, Marcin Stephens, when she goes home. Marcin also lives near by. P: DCP to continue to follow and will follow for any needs. Patient should be able to go home when she is medically stable. Linda Pollock RN/[employer] Merchandiser
--- NOTE | 2019-12-28 10:01 | P.PN_ITS ---
Subjective Subjective Date Patient Seen: 12/28/19 Time Patient Seen: 10:11 Interval history: No acute events overnight. The patient small-bowel follow- through indicated passage of contrast through to the colon. She passed several bowel movements last evening. She complains of feeling bloated and tender in the abdomen today. She denies nausea. Exam Vital Signs (past 8 hours): - 12/28/19 03:00 12/28/19 07:00 12/28/19 07:36 Temperature 98.6 F 99.2 F Pulse Rate 112 H 122 H 119 H Respiratory Rate 18 16 18 Blood Pressure 112/64 127/74 Pulse Oximetry 95 96 95 Oxygen Delivery Method Room Air Oxygen Flow Rate 0 Narrative Exam Narrative: GENERAL: Alert, comfortable. Appears stated age. Answers questions promptly and appropriately. Vital signs noted. HENT: Normocephalic, atraumatic. Hearing intact. NG tube in place and sumping EYES: Conjunctiva pink, sclera white, no periorbital swelling. CARDIOVASCULAR: Regular rate. No pedal edema. RESPIRATORY: Non-tachypneic, breathing comfortably on room air. GASTROINTESTINAL: Abdomen soft, moderately tender, moderately distended MUSCULOSKELETAL: Equal tone and mass bilaterally. SKIN: Warm, dry, soft, appropriate color for ethnicity. No other lesions, rashes, or wounds. NEURO: Alert and Oriented X 3. No gross sensory deficits, or cognitive issues. PSYCH: Flat affect, calm/appropriate mood. Objective Imaging Abdominal x-ray: Radiologist's impression: [address] [address] XRay Report Signed Patient: Vibha Brenner R#: [id number] : 1970Acct:[id number] Age/Sex: 49 / FDate of Service: 12/27/19 Loc: PN989-9 Accession Number: [id number] Procedure: XR abdomen 1V Ordering Provider: Ana Gannon MD PROCEDURE: XR ABDOMEN 1V INDICATIONS: TIMED FILMS FOR SBFT TECHNIQUE: 230 cc Gastrografin was slowly given via NG tube, with images performed at 2:00 a.m. And 4 hours. COMPARISON: [facility], CT, CT ABDOMEN PELVIS W CON, 12/25/2019, 16:04. [facility], [place], [place] SMALL BOWEL FOLLOW THROUGH, 12/26/2019, 13:26. [facility], [place], XR KUB, 12/26/2019, 17:53. FINDINGS: Surgical changes and devices: None. Bowel: Prominent loops of small bowel are seen, which measure up to 3.6 cm. On the 4 hour images, contrast can be seen within the colon. Soft tissues: No suspicious abdominal calcifications. Visualized solid organ contours appear normal in size. Bones: No suspicious bony lesions. IMPRESSION: Dilated loops of small bowel are seen. There is contrast seen within the colon on the 4 hour images, which confirms no complete small bowel obstruction. Differential diagnosis includes a partial bowel obstruction versus ileus. Dictated by: Kelvin Herrera M.D. on 12/27/2019 at 14:38 Approved by: Kelvin Herrera M.D. on 12/27/2019 at 14:39 Labs Result Diagrams: 12/27/19 07:15 12/28/19 04:50 Labs: Laboratory Results - last 24 hr 12/28/19 12/28/19 04:50 04:50 Sodium 132 L Potassium 3.3 L Chloride 107 Carbon Dioxide 20 L BUN 17 Creatinine 0.61 Estimated GFR > 60.0 BUN/Creatinine Ratio 27.9 H Glucose 84 Calcium 8.2 L Phosphorus 2.5 Magnesium 1.8 Assessment & Plan Assessment and plan (1) Abnormal abdominal CT scan: Status: Acute (2) H/O exploratory laparotomy: Problem details: Repair of ruptured peptic ulcer Status: Acute (3) Partial bowel obstruction: Status: Acute Assessment & Plan narrative: This is a 49-year-old woman who came in with obstructive symptoms, was found to have what looks like a large bowel obstruction on her CT scan. On colonoscopy she had a nonobstructed colon with large folds of colonic mucosa which likely appeared as an obstruction on the CT scan. Small-bowel follow-through was completed yesterday, with passage of contrast to the colon. She continues to feel bloated, and have moderate distention and tenderness of her abdomen. However, she is not nauseated or vomiting. I discussed her case with Dr. Paniagua this morning. We will keep her on clear liquids for now, and consider repeat CT scan if she does not continue to improve. Plan: Clear liquid diet Ambulate frequently Continue Reglan Consider repeat CT scan if no continue improvement COVID-19 COVID-19 status: Negative Result date/Date tested (Pos, Neg/Pending): 12/25/19 Time Spent With Patient Time with patient: 15-24 minutes Quality VTE Deep Vein Thrombosis/Pulmonary Embolism Present on Admission: No
--- NOTE | 2019-12-28 13:41 | PC.NURSE ---
Normal saline IV was infusing at 80cc/hr to left ac PIV upon my arrival this morning per orders, but was not reflected in MAR (shows that bag was infused/completed). Per rate change order increased to normal saline at 125cc per hour to left ac infusing (but unable to reflect this rate increase in MAR without scanning a new bag of fluid and causing a duplicate scan).
--- NOTE | 2019-12-28 13:57 | P.PN_ITS ---
Subjective Subjective Date Patient Seen: 12/28/19 Time Patient Seen: 13:58 Interval history: Ms. Vibha Brenner is a 49-year-old female with past medical history significant for brain tumor status post craniotomy, seizure disorder, bipolar disorder and chronic bronchitis who presented to the ER with complaints of abdominal pain. She was admitted over concern for possible large bowel obstruction, colonoscopy revealed some prominent colonic folds but no overt malignancy. Small-bowel follow-through was obtained which was read as a partial small-bowel obstruction but all lot of contrast was retained within the stomach. Repeat study was done yesterday after which patient had multiple bowel movements. She was advanced to clears with some abdominal distension and bloating but no emesis. Exam Vital Signs (past 8 hours): - 12/28/19 07:00 12/28/19 07:36 12/28/19 11:00 Temperature 99.2 F 99.2 F Pulse Rate 122 H 119 H 115 H Respiratory Rate 16 18 16 Blood Pressure 127/74 122/79 Pulse Oximetry 96 95 95 12/28/19 12:05 Temperature Pulse Rate Respiratory Rate 20 Blood Pressure Pulse Oximetry 96 Oxygen Delivery Method Room Air Oxygen Flow Rate 0 Narrative Exam Narrative: GENERAL: Alert, comfortable. Appears stated age. Answers questions promptly and appropriately. Vital signs noted. HENT: Normocephalic, atraumatic. Dry mucous membranes. EYES: Conjunctiva pink, sclera white, no periorbital swelling. CARDIOVASCULAR: tachycardic and regular, no m/r/g. No pedal edema. RESPIRATORY: Non-tachypneic, breathing comfortably on room air. GASTROINTESTINAL: Distended, diffuse moderate tenderness greater in the lower quadrants today. MUSCULOSKELETAL: Equal tone and mass bilaterally. No joint effusions SKIN: Warm, dry, soft, appropriate color for ethnicity. No other lesions, rashes, or wounds. NEURO: Alert and Oriented X 3. No gross sensory deficits, or cognitive issues. PSYCH: Flat affect, calm/appropriate mood. Objective Labs Result Diagrams: 12/27/19 07:15 12/28/19 04:50 Labs: Laboratory Results - last 24 hr 12/28/19 12/28/19 04:50 04:50 Sodium 132 L Potassium 3.3 L Chloride 107 Carbon Dioxide 20 L BUN 17 Creatinine 0.61 Estimated GFR > 60.0 BUN/Creatinine Ratio 27.9 H Glucose 84 Calcium 8.2 L Phosphorus 2.5 Magnesium 1.8 Assessment & Plan Assessment & Plan narrative: Ms. Vibha Brenner is a 49-year-old female with past medical history significant for brain tumor status post cran iotomy, seizure disorder, bipolar disorder and chronic bronchitis who presented to the ER with complaints of abdominal pain. She was admitted over concern for possible large bowel obstruction, colonoscopy today however revealed some prominent colonic folds but no overt malignancy. Small-bowel follow-through was obtained which was read as a partial small-bowel obstruction but alot of contrast was retained within the stomach. She has had a few bowel movements after repeat follow through study, but is minimally tolerating clears with some distension and bloating but no nausea,vomiting. 1. Abdominal pain, partial bowel obstruction, acute, present on admission, active -CT exam finds focal thickening of the proximal sigmoid colon and dilated bowel with air-fluid levels with no transition point. Colonoscopy revealed prominent folds but no overt evidence of malignancy or obstruction. Patient did have a bowel movement a Fleet enema but has not had any further bowel movements or passed gas. She subsequently had a small-bowel follow-through after colonoscopy which showed a possible partial small-bowel obstruction but slow transit times as a large amount of contrast remained her stomach. Have started the patient on standing Reglan which has helped with reported nausea. Given her chronic medications will put the patient on telemetry to monitor her QTC. -patient with some bowel movements after small bowel follow through, but now developing increased bloating / distension with clear liquids. -patient with a mild leukocytosis on admission, which suspect is reactive. Improved to normal. -appreciate general surgery assistance with management, continue CLD and IVF at this time. If not tolerating CLD will repeat CT imaging. -have added fleet enema prn daily -brief search does not report any evidence of dysmotility or ileus from lamictal or ziprasidone. 2. Chronic bronchitis, stable -arrived to the ER the patient's respiratory rate of 20 in saturating 95% on room air and continues to be stable. -requested respiratory therapy consult evaluate and treat. -ordered home regimen of albuterol and Flovent inhalers. 3. Seizure disorder, chronic, stable. -last seizure was over 1 year ago -ordered seizure precautions. -will continue zonisamide 100 mg daily and lamotrigine 225 mg twice daily orally or via NG tube. 4. Bipolar disorder, chronic, stable -will continue current regimen of lamotrigine and Geodon. 5. Hypokalemia, hypomagnesemia - secondary to continued GI losses. Continue IV fluids and was given IV repletion today. VTE prophylaxis: bilateral SCDs IV fluid: Normal saline Diet: NPO Code status: Full code, patient designates Marcin Ramsey to be her surrogate decision maker. Dispo: remains inpatient. Quality VTE Deep Vein Thrombosis/Pulmonary Embolism Present on Admission: No
[2019-12-28] MEDS: SODIUM CHLORIDE 0.9% 1,000 ML 125 ML IV ×2 (14:42→22:27)
[2019-12-28] MEDS: KETOROLAC 10 MG TABLET PO ×2 (14:43→21:19)
[2019-12-28] MEDS: FLEETS ENEMA 1 EACH PR (14:52)
[2019-12-28] MEDS: FAMOTIDINE 20 MG TABLET PO (16:40)
[2019-12-29] VITALS (23 sets, daily range): BP systolic 107–148; BP diastolic 66–93; PULSE 101–127; RESP 16–35; TEMP 36.3–37.6; O2SAT 94–99; BMI 20.5
--- NOTE | 2019-12-29 | PATH_ITS ---
[facility] Accession Number: [id number] . 01 Material submitted: . sigmoid colon - SIGMOID COLON . 02 Diagnosis: Sigmoid Colon, Resection: Diverticulosis. Marked serositis and fibrous adhesions. Colonic mucosa negative for active, chronic, or microscopic colitits. No evidence of ischemia. Negative for dysplasia and malignancy. [facility] 01/02/2020 1623 Local . 02 Comment: . . 02 Electronically signed: . Bety Castro MD, Pathologist NPI- [id number] . 01 Gross description: . Received in formalin, labeled sigmoid colon, and consists of an 11.5 cm in length x 3.0 cm in circumference partially opened portion of colon with one stapled margin and one opened margin. The serosa is laird-pink with fibrinous adhesions and focal areas of adherent purulent exudate. The attached adipose tissue is laird-yellow and lobulated, focally firm with adherent purulent exudate. The specimen is opened to reveal a laird-pink mucosa with normal mucosal folds and multiple uncomplicated diverticula surrounded by a thickened wall to a maximum thickness of 1.0 cm. The remaining wall thickness ranges from 0.2 to 0.9 cm. No lymph nodes are identified within the attached adipose tissue. Vertical Lathe Operator sections are submitted. . A1: payable representative perpendicular sections of stapled margin (blue). A2: payable representative perpendicular section of open margin (green). A3-A4: payable representative diverticula. (EA:[id number]) A5-A10: additional sections of colon. (EA:[id number]) /MRV 01/01/2020 1411 Local . 02 Pathologist provided ICD-10: K57.30 . 02 CPT . 456188 Performed at: [address], [place], [place] [id number] MD Rajan Mcguire MD Phone: [phone] Performed at: [address] [id number] MD Bety Castro MD Phone: [phone]
--- NOTE | 2019-12-29 01:28 | PC.NURSE ---
Addendum entered by Rebekah Nelson R.N. 12/29/19 06:31: Weight up 7.5kg; Norbert KRUSE, informed Addendum entered by Rebekah Nelson R.N. 12/29/19 05:31: Patient reports abdominal pain with severity of 7/10; medicated with Toradol. FLEXOGRAPHIC PRINTING PRESS OPERATORCynthia, reports HR maintaining around 120 range; Norbert KRUSE, informed. Addendum entered by Rebekah Nelson R.N. 12/29/19 01:42: States abdominal pain is now 10/10. Requested/medicated with Morphine. Original Note: 0038 Patient seen and assessed. Is alert and oriented with flat affect. Breath sounds CTA with RA sat of 97%. HRR but tachy at 100 bpm. Denies nausea. BT hypoactive; abdomen is distended and tender to touch. Denies flatus but evening RN reports flatus as well as watery stools. Does states pain is stabbing and rates severity as 6/10 but states MD did not want her to take Morphine and is too early to give additional Toradol; patient states pain is tolerable. Denies dysuria, frequency or urgency with urination. Is able to turn herself in bed and is up to BSC with SBA. Bilateral calf SCD's applied. Seizure pads on bed. Fall risk score is moderate and bed alarm is activated.
[2019-12-29] MEDS: ALBUTEROL HFA 200 PUFF/18 GM INH (COVID POS/VENT PTS) INH ×5 (01:33→20:05)
[2019-12-29] MEDS: MORPHINE 2 MG/ML INJ IV ×2 (01:38→05:56)
[2019-12-29] MEDS: KETOROLAC 10 MG TABLET PO (05:02)
[2019-12-29] MEDS: METOCLOPRAMIDE 10 MG/2 ML INJ IV ×2 (05:53→22:57)
[2019-12-29 05:56] LABS: Hemoglobin 11.9 g/dL (12.0-16.0); Mean Corpuscular HGB Conc 33.9 % (30-36); Mean Corpuscular Hemoglobin 31.8 PG (26-34); Mean Corpuscular Volume 93.8 fL (80-100); Platelet Count 266 X10^3/uL (150-400); Red Blood Cell Count 3.73 X10^6/uL (4.0-5.2); Red Cell Distribution Width 13.5 % (11.6-14.8)
[2019-12-29 05:57] LABS: Add Manual Diff / Slide Review YES; BUN Creatinine Ratio 28.1 (6-22); Blood Urea Nitrogen 16 mg/dL (7-17); Calcium 7.7 mg/dL (8.4-10.2); Carbon Dioxide 21 mmol/L (22-32); Chloride 103 mmol/L (98-107); Estimated Glomerular Filt Rate > 60.0 mL/min (>60); Glucose 63 mg/dL (70-100); HEMOLYSIS < 15 (0-50); Magnesium 1.9 mg/dL (1.6-2.3); Sodium 133 mmol/L (137-145)
[2019-12-29] MEDS: SODIUM CHLORIDE 0.9% 1,000 ML 125 ML IV (06:01)
[2019-12-29 06:21] LABS: Potassium 2.6 mmol/L (3.4-5.1)
[2019-12-29 07:35] LABS: Neutrophils Absolute Manual 4650 /uL (3000-5900); Total Cells Counted 100
[2019-12-29 07:36] LABS: Burr Cells 3+; Dohle Bodies 3+; Toxic Granulation Present; Toxic Vacuolation Present
[2019-12-29] MEDS: POTASSIUM CHLORIDE 20 MEQ TAB PO ×2 (08:01→20:45)
[2019-12-29] MEDS: ZIPRASIDONE 80 MG 80 EACH PO ×2 (08:06→20:44)
[2019-12-29] MEDS: lamoTRIgine 25 MG CHEW TABLET PO ×2 (08:06→20:44)
[2019-12-29] MEDS: ZONISAMIDE 100 MG CAPSULE PO ×2 (08:06→20:44)
[2019-12-29] MEDS: FLUTICASONE 110MCG HFA 120 PUFF INH ×2 (08:07→20:05)
[2019-12-29] MEDS: POTASSIUM CHLORIDE 40 MEQ in SODIUM CHLORIDE 0.9% 500 ML 130 ML IV (08:28)
[2019-12-29] MEDS: lamoTRIgine 100 MG TABLET 200 MG PO ×2 (08:28→20:44)
--- NOTE | 2019-12-29 08:29 | DI.CT.S_ITS ---
PROCEDURE: CT ABDOMEN PELVIS W CON INDICATIONS: continued abd distension, pain, ? partial SBO TECHNIQUE: After the administration of oral and intravenous contrast, 5 mm thick sections acquired from the diaphragms to the symphysis. 5 mm thick coronal and sagittal reformats were performed. For radiation dose reduction, the following was used: automated exposure control, adjustment of mA and/or kV according to patient size. COMPARISON: [facility], CT, CT ABDOMEN PELVIS W CON, 12/25/2019, 16:04. FINDINGS: Image quality: Excellent. ABDOMEN: Lung bases: Small bilateral pleural effusions have developed with minimal bibasilar atelectasis. Heart size is normal. Solid organs: Liver is normal in size and enhancement. Gallbladder vicarious excretion of contrast is noted into the gallbladder. Mild gallbladder wall thickening, nonspecific.. Biliary system is non-dilated. Pancreas enhances normally. Spleen is normal in size and enhancement. No adrenal nodules. Kidneys are normal in size and enhancement, without hydronephrosis. Peritoneum and bowel: Development of moderate ascites. Tiny amount of free air under the right hemidiaphragm. There is extensive enteric contrast present in the pelvis indicating bowel leak into the peritoneal cavity . The location of the perforation is not clearly evident. However, it is presumed to be a perforation in the pelvis. There is marked thickening of the proximal rectum and sigmoid. Nodes and vessels: No retroperitoneal or mesenteric adenopathy. Aorta and inferior vena cava are normal in caliber. Miscellaneous: No ventral hernias. PELVIS: Genitourinary: Bladder wall thickness is normal. Miscellaneous: No inguinal hernias or adenopathy. Bones: No suspicious bony lesions. No vertebral body compression fractures. IMPRESSION: 1. Bowel perforation with leaked enteric contrast into the pelvis and minimal free air. 2. Marked thickening of the sigmoid and proximal rectum. 3. Development of moderate ascites. 4. Development of small bilateral pleural effusions and bibasilar atelectasis. Comment: Findings were discussed with Dr. Anthony at the time of study dictation on 12/29/19 at 1016 hours. Dictated by: Brock Lancaster M.D. on 12/29/2019 at 10:02 Approved by: Brock Lancaster M.D. on 12/29/2019 at 10:17
--- NOTE | 2019-12-29 10:30 | CM.DPC ---
DCP Cont: Per Surgeon, pt tolerating clears somewhat with ongoing bloating but no n/v at this time but continues to have significant pain. CAT scan scheduled for today and pending the results, may be able to advance diet further to see how pt tolerates. Likely still here another couple days before stable for discharge. SW met briefly bedside with pt and explained role and pt confirms she completed part of CAT scan this morning and is hoping for some relief from her discomfort and looking forward to being able to d/c home. Plan: SW to follow closely for CAT scan results towards determining POC and possible further advancing of her diet. SW to follow for any further identified discharge planning needs. KELLY Green
--- NOTE | 2019-12-29 10:32 | P.PN_ITS ---
Subjective Subjective Date Patient Seen: 12/29/19 Time Patient Seen: 10:32 Interval history: Ms. Vibha Brenner is a 49-year-old female with past medical history significant for brain tumor status post craniotomy, seizure disorder, bipolar disorder and chronic bronchitis who presented to the ER with complaints of abdominal pain. She was admitted over concern for possible large bowel obstruction, colonoscopy revealed some prominent colonic folds but no overt malignancy. Small-bowel follow-through was obtained which was read as a partial small-bowel obstruction but all lot of contrast was retained within the stomach. Repeat study was done yesterday after which patient had multiple bowel movements. She was advanced to clears with some abdominal distension and bloating but no emesis or nausea yesterday. She continued to complain of abdominal bloating and her belly remained distended on clears today so a repeat CT scan was done this morning which showed spillage of the enteric contrast into the abdomen with some colonic thickening, it is unclear where the source of the leak is but is presumed to be the colon however she does have a history of a perforated gastric ulcer as well. Called and spoke to Dr. Carballo, who reviewed the CT findings and surgery will take the patient to the operating room today. She will be started on meropenem given history of anaphylaxis to penicillin as well as her history of seizures (flagyl has been reported to decrease seizure threshold). Exam Vital Signs (past 8 hours): - 12/29/19 03:27 12/29/19 05:45 12/29/19 08:08 Temperature 98.3 F 98.6 F Pulse Rate 112 H 115 H 120 H Respiratory Rate 18 22 16 Blood Pressure 125/67 140/75 Pulse Oximetry 95 95 94 Oxygen Delivery Method Room Air Oxygen Flow Rate 0 Narrative Exam Narrative: GENERAL: Alert, comfortable. Appears stated age. Answers questions promptly and appropriately. Vital signs noted. HENT: Normocephalic, atraumatic. Dry mucous membranes. EYES: Conjunctiva pink, sclera white, no periorbital swelling. CARDIOVASCULAR: tachycardic and regular, no m/r/g. No pedal edema. RESPIRATORY: Non-tachypneic, breathing comfortably on room air. GASTROINTESTINAL: Distended, diffuse moderate tenderness greater in the lower quadrants today. MUSCULOSKELETAL: Equal tone and mass bilaterally. No joint effusions SKIN: Warm, dry, soft, appropriate color for ethnicity. No other lesions, rashes, or wounds. NEURO: Alert and Oriented X 3. No gross sensory deficits, or cognitive issues. PSYCH: Flat affect, calm/appropriate mood. Objective Labs Result Diagrams: 12/29/19 05:15 12/29/19 05:15 Labs: Laboratory Results - last 24 hr 12/29/19 12/29/19 05:15 05:15 WBC 5.0 RBC 3.73 L Hgb 11.9 L Hct 35.0 L MCV 93.8 MCH 31.8 MCHC 33.9 RDW 13.5 Plt Count 266 Neut % (Auto) Not Reportable Lymph % (Auto) Not Reportable [place] % (Auto) Not Reportable Eos % (Auto) Not Reportable Baso % (Auto) Not Reportable Lymph # (Auto) Not Reportable [place] # (Auto) Not Reportable Baso # (Auto) Not Reportable Total Counted 100 Seg Neutrophils % 26.0 L Band Neutrophils % 67.0 H Lymphocytes % (Manual) 1.0 L Atypical Lymphs % 1.0 H Monocytes % (Manual) 2.0 Eosinophils % (Manual) 3.0 Neutrophils # (Manual) 4650 Toxic Granulation Present H Toxic Vacuolation Present H Dohle Bodies 3+ H RBC Morphology See below [place] Cells 3+ H Sodium 133 L Potassium 2.6 L* Chloride 103 Carbon Dioxide 21 L BUN 16 Creatinine 0.57 Estimated GFR > 60.0 BUN/Creatinine Ratio 28.1 H Glucose 63 L Calcium 7.7 L Magnesium 1.9 Assessment & Plan Assessment & Plan narrative: Ms. Vibha Brenner is a 49-year-old female with past medical history significant for brain tumor status post craniotomy, seizure disorder, bipolar disorder and chronic bronchitis who presented to the ER with complaints of abdominal pain. No clear source was found but she had increasing distension and abdominal pain on clears. Repeat CT imaging showed leakage of enteric contrast into the abdominal cavity and sigmoid/rectal thickening. She will be taken for urgent surgery later today. 1. Bowel perforation, unclear location with colitis, acute, colitis present on admission (perforation not present on admission), active -CT exam on admission showed focal thickening of the proximal sigmoid colon and dilated bowel with air-fluid levels with no transition point. Colonoscopy revealed prominent folds but no overt evidence of malignancy or obstruction. Patient did have a bowel movement after Fleet enema but bowel movements have not been formed and were predominantly liquid. She subsequently had a small-bowel follow-through after colonoscopy which showed a possible partial small-bowel obstruction but slow transit times as a large amount of contrast remained her stomach. Started the patient on standing Reglan which has helped with reported nausea. -patient with some bowel movements after small bowel follow through as noted above, but developed increased bloating / distension with clear liquids but no nausea or vomiting. -Repeat CT imaging showed leakage of enteric contrast into the abdominal cavity and sigmoid/rectal thickening. She will be taken for urgent surgery later today. -Have started the patient on meropenem given penicillin allergy and history of seizures. -Surgery has continued to follow the patient since admission, appreciate assistance in management. -zonisamide has had reported cases of colitis 2. Chronic bronchitis, stable -arrived to the ER the patient's respiratory rate of 20 in saturating 95% on room air and continues to be stable. -requested respiratory therapy consult evaluate and treat. -ordered home regimen of albuterol and Flovent inhalers. 3. Seizure disorder, chronic, stable. -last seizure was over 1 year ago -ordered seizure precautions. -continue zonisamide 100 mg daily and lamotrigine 225 mg twice daily orally once able after surgery. If prolonged NPO status after surgery consider keppra IV to reduce seizure risk. -zonisamide and lamotrigine both with reports (<1%) of colitis, unclear if association with presenting symptoms. 4. Bipolar disorder, chronic, stable -will continue current regimen of lamotrigine and Geodon after surgery. 5. Hypokalemia, hypomagnesemia - secondary to continued GI losses. Continue IV fluids and was given IV repletion today. VTE prophylaxis: bilateral SCDs IV fluid: Normal saline Diet: NPO Code status: Full code, patient designates Marcin Ramsey to be her surrogate decision maker. Dispo: remains inpatient, surgery later today. COVID-19 COVID-19 status: Negative Quality VTE Deep Vein Thrombosis/Pulmonary Embolism Present on Admission: No
[2019-12-29] MEDS: MEROPENEM 1 GM/50 ML PIGGYBACK IV ×2 (10:57→18:47)
--- NOTE | 2019-12-29 11:46 | PC.NURSE ---
Notified by Dr. Paniagua that results of CT scan are showing a bowel leak. Patient to be kept NPO (patient notified, patient had clear liquids this morning prior to CT scan). New IV started to right forearm for IV antibiotics as ordered. COntinue to monitor and prepare for surgery.
--- NOTE | 2019-12-29 12:02 | P.PN_ITS ---
Subjective Subjective Date Patient Seen: 12/29/19 Time Patient Seen: 12:02 Interval history: Feels more uncomfortable and distended than yesterday. Mild nausea no emesis having bowel movements Exam Vital Signs (past 8 hours): - 12/29/19 05:45 12/29/19 08:08 12/29/19 11:30 Temperature 98.3 F 98.6 F 99.4 F Pulse Rate 115 H 120 H 125 H Respiratory Rate 22 16 20 Blood Pressure 125/67 140/75 126/76 Pulse Oximetry 95 94 95 Oxygen Delivery Method Room Air Oxygen Flow Rate 0 Narrative Exam Narrative: General adult woman alert oriented uncomfortable Chest nonlabored respiration Abdomen no peritonitis uncomfortable moderately distended Objective Labs Result Diagrams: 12/29/19 05:15 12/29/19 05:15 Labs: Laboratory Results - last 24 hr 12/29/19 12/29/19 05:15 05:15 WBC 5.0 RBC 3.73 L Hgb 11.9 L Hct 35.0 L MCV 93.8 MCH 31.8 MCHC 33.9 RDW 13.5 Plt Count 266 Neut % (Auto) Not Reportable Lymph % (Auto) Not Reportable Baldwin % (Auto) Not Reportable Eos % (Auto) Not Reportable Baso % (Auto) Not Reportable Lymph # (Auto) Not Reportable Baldwin # (Auto) Not Reportable Baso # (Auto) Not Reportable Total Counted 100 Seg Neutrophils % 26.0 L Band Neutrophils % 67.0 H Lymphocytes % (Manual) 1.0 L Atypical Lymphs % 1.0 H Monocytes % (Manual) 2.0 Eosinophils % (Manual) 3.0 Neutrophils # (Manual) 4650 Toxic Granulation Present H Toxic Vacuolation Present H Dohle Bodies 3+ H RBC Morphology See below Zuhair Cells 3+ H Sodium 133 L Potassium 2.6 L* Chloride 103 Carbon Dioxide 21 L BUN 16 Creatinine 0.57 Estimated GFR > 60.0 BUN/Creatinine Ratio 28.1 H Glucose 63 L Calcium 7.7 L Magnesium 1.9 Assessment & Plan Assessment & Plan narrative: 49-year-old woman admitted to the hospital with a partial bowel obstruction. CT abdomen pelvis reviewed from this morning demonstrates oral contrast from the small bowel follow-through free within the peritoneal cavity as well as free air. It is unclear to me exactly where the perforation is. I had a long discussion with the patient and I told her there is a hole in the intestine and she would required an exploratory laparotomy possible bowel resection possible ostomy formation. She is at increased risk of morbidity given her prior abdominal surgery and because the surgical field is contaminated. I told her there is a risk of bleeding and infection anastomotic leak damage to surrounding structures. -NPO -IVF -Meropenem -OR this afternoon Quality VTE Deep Vein Thrombosis/Pulmonary Embolism Present on Admission: No
--- NOTE | 2019-12-29 12:24 | PC.NURSE ---
Consent signed, patient picked up for surgery.
[2019-12-29] MEDS: LACTATED RINGERS 1,000 ML 42 ML IV ×2 (12:50→15:41)
--- NOTE | 2019-12-29 13:53 | SUR.OPER ---
Lithotomy on padded OR bed. Hilda Pad Positioner under torso. Head on pillow, arms padded and tucked at sides. Legs secured in padded yellow fins stirrups.
[2019-12-29] MEDS: BUPIVACAINE LIPOSOME 266 MG/20 ML VIAL INJ (14:18)
--- NOTE | 2019-12-29 16:50 | SUR.PHASEI ---
Pt arrived to PACU, NGT to LIS, colostomy to abdomen with red rubber tube and suture present, stoma beefy red, dressing c/d/i.
--- NOTE | 2019-12-29 16:58 | PM.OP.1 ---
Operative Date/Time/Diagnoses Date of procedure: 12/29/19 Time of procedure: 16:58 Pre-op diagnosis: Intestinal perforation Post-op diagnosis: same Procedure & Clinicians Procedure: Exploratory laparotomy Sigmoid colectomy Diverting loop ileostomy Same procedure as scheduled: Yes Indications: This is a 49-year-old woman who was admitted to the hospital several days ago with a partial large bowel obstruction. She had a dilated intestine to the level of the sigmoid colon was unclear whether there was a mass present or not on imaging. Colonoscopy demonstrated no intraluminal abnormality. Today she was clinically worse CT abdomen pelvis demonstrated free fluid in free air within the abdomen. Surgeon: Edgardo Carballo [employer] Operator: Ana Gannon Anesthesia Type: General Operative Notes Findings: Feculent peritonitis throughout the abdomen with inflammatory rind to the majority of the bowel single perforation within the distal sigmoid colon, dilated loops of small bowel Specimen(s): other (Sigmoid colon) Procedure in detail: Patient was brought to the operating room placed supine on the table. She received meropenem pre incision. Bilateral lower extremity compression devices were applied. General anesthesia was induced she was intubated with an endotracheal tube. Vega catheter was sterilely placed. She was then prepped and draped in sterile fashion. Time-out was performed. The abdomen was entered through a midline laparotomy. The skin was incised the fascia was elevated sharply incised and the abdomen was entered atraumatically. Upon entry there was a large volume of feculent ascites. The abdomen was then opened in its entirety there was feculent material throughout the abdomen and there was a rind forming on the loops of bowel. Bookwalter was placed. The small bowel was eviscerated and was run from the terminal ileum to the ligament of Treitz and it was free of perforation. There was a old suture that was within the a portion of the terminal ileum towards the pelvis from a prior operation that was released but there was no hole within the intestine. The right upper quadrant was especially socked in with adhesions from her previous perforated peptic ulcer. Careful inspection of the colon was made. The ascending, transverse and decending were inflamated but free from perforation. At the distal sigmoid coolon on the antimesenteric border there was a 5mm perforation. Silk suture was placed to close the defect and marked. There was no evidence of malignancy no lymphadenopathy no carcinomatosis. The bowel felt severely inflamed but not particularly fibrotic. A sigmoid colectomy was then performed. The sigmoid was mobilized from its lateral attachments following the white line of Toldt from the peritoneal reflection towards the hepatic flexure. An inspection was made for the left ureter but given the degree of inflammation contamination I could not identify it. The dissection was then carried up around the splenic flexure to the distal transverse. I chose a point at the recto sigmoid junction that was soft and pliable window within the mesentery was made and then the bowel was divided with a TA stapler blue load. The mesentery to the sigmoid colon was skeletonized and then divided relatively close to the bowel wall to a point just proximal to the sigmoid colon. The colon was then transected again using the HANK stapler 75 mm blue load. The resection was inspected on the back table and opened. There was no obvious malignancy or yaneli diverticulosis. The EEA Sizer was inserted into the rectum and the 27 mm Sizer fit comfortably. I did not feel that the 29 EEA stapler would safely fit and the 25 mm EEA stapler was selected. The proximal staple line was resected pursestring was formed with Prolene suture and the anvil was secured. The stapler was then passed into the rectum and its point deployed. I observed a serosal tear on the anterior wall of the rectum as the stapler was inserted. The point was deployed through the anterior wall of the rectum and then the anvil and stapler were mated under direct visualization careful to ensure that the bowel was untwisted. They were joined together and fired. Two donuts were retrieved however the proximal donut was not complete. Inspection of the anastamosis demonstrated that it was widely patent, free of tension, hemostatic and well perfused. I oversewed the serosal tear on the rectum with interrupted silk suture I over sewed the anastomosis with silk suture as well in 2 places. A leak test was performed there was no evidence of leak with insufflation. Because the patient was in sepsis and had gross contamination I chose to perform a diverting loop ileostomy concern about the risk for an anastomotic leak. A point along the terminal ileum was selected that would comfortably reach the right abdominal wall. A window within the mesentery was made the red rubber was then passed through the mesentery. A skin incision was made on the right abdominal wall subcutaneous tissue divided the fascia incised in a cruciate fashion on the anterior sheath and vertical incision on the posterior sheath. Two fingers comfortably passed through the fascial defect and then the small bowel was brought up through this. The bowel was checked to ensure proper orientation of its proximal and distal direction. A enterotomy was made the distal loop was secured to the subcutaneous tissue with Vicryl suture proximal end was brooked and secured with Vicryl suture in interrupted fashion. The ileostomy was well perfused. Exparel 20 mL was then injected into the peritoneum the abdomen was lavaged with several liters of sterile saline and two 19 Lithuanian BING drains were placed into the abdomen. The right abdominal drain went up to the right upper quadrant of the left one went down into pelvis. The fascia was then closed in a running fashion using 1. PDS suture, subcutaneous tissue reapproximated with Vicryl suture and skin closed with vickie. She tolerated the procedure well was extubated and transferred to the recovery room in stable condition Complications: none Post-operative Condition: stable Disposition: Acute Care
--- NOTE | 2019-12-29 17:06 | SUR.PHASEI ---
Pt not responding to name calling ,shaking or pain, Dr. Carballo to bedside- got pt to respond to pain, eyes equal pin point, then equal and larger with Dr. Carballo here.
[2019-12-29] MEDS: fentaNYL 100 MCG/2 ML INJ IV (17:30)
--- NOTE | 2019-12-29 17:51 | SUR.PHASEI ---
RT called asked for capnography for pt, RT down with portable machine, ETCo2 26. [address] Dr[address] Carballo called to bedside, examined pt, discussed pt going to ICU instead, coordinator called, new orders in computer. Pt restless, tonyaac score 6 medicated with fentanyl, less restless, pt now more awake, following commands, denies pain.
--- NOTE | 2019-12-29 18:36 | DI.RAD.S_ITS ---
PROCEDURE: XR CHEST 1V INDICATIONS: confirm NG placement TECHNIQUE: One view of the chest was acquired. COMPARISON: [facility], CT, CT ABDOMEN PELVIS W CON, 12/29/2019, 9:29. [facility], CR, XR CHEST 1V, 12/26/2019, 13:06. FINDINGS: Surgical changes and devices: An enteric tube is seen traversing the diaphragm with tip and side hole projecting over the left upper quadrant. Skin vickie are seen in the midline abdomen. A probable surgical drain is seen projecting over the lower abdomen that is not completely imaged. Lungs and pleura: There is mild blunting of the left costophrenic angle compatible with a small pleural effusion. Probable atelectasis is seen at the medial left lung base. The previously seen small right pleural effusion and subdiaphragmatic free air are not definitely visualized. Mediastinum: Mediastinal contours appear normal. Heart size is normal. Bones and chest wall: No suspicious bony lesions. Overlying soft tissues appear unremarkable. IMPRESSION: Enteric tube is seen traversing the diaphragm with tip in the left upper quadrant. Dictated by: Harvey Alegria M.D. on 12/29/2019 at 18:56 Approved by: Harvey Alegria M.D. on 12/29/2019 at 19:00
[2019-12-29] MEDS: LACTATED RINGERS 1,000 ML 120 ML IV (18:41)
[2019-12-29] MEDS: KETOROLAC 30 MG/ML VIAL IV (18:48)
--- NOTE | 2019-12-29 19:49 | SUR.PHASEI ---
Late entry: Pt transported up to room 230 on monitor on room air. Left with Ariadna, ICURN and left instable condition.
[2019-12-29 20:20] LABS: Blood Urea Nitrogen 16 mg/dL (7-17); Calcium 7.3 mg/dL (8.4-10.2); Carbon Dioxide 21 mmol/L (22-32); Chloride 108 mmol/L (98-107); Estimated Glomerular Filt Rate > 60.0 mL/min (>60); Glucose 74 mg/dL (70-100); HEMOLYSIS < 15 (0-50); Potassium 3.6 mmol/L (3.4-5.1); Sodium 134 mmol/L (137-145)
--- NOTE | 2019-12-29 23:06 | PC.NURSE ---
Patient came from OR, patient was drowsy but would rouse to voice. Patient could answer birthdate but was unable to provide further information. Vitals are stable, patient has no complaints of pain. Patient became more alert in the following hours but is still forgetful and only oriented to self and year. Chest radha was taken to confirm placement of NG tube and order was recieved to give PO meds through NG. During administration the NG became blocked. SERINA Arce was notified and attempted to assist. Dr. Mullen inventory control coordinator for Dr. Carabllo was notified and came to bedside to attempt to clear blockage and was also unable to. NG was removed and new one placed by Dr. Mullen in the left nare. The rest of the patient's medications were administered and NG will be clamped for two hours before returning to intermittent suction. Per Dr. Mullen, patient can swallow pills moving forward.
[2019-12-29] MEDS: LIDOCAINE VISCOUS 2% 100 ML SOLUTION (23:41)
[2019-12-30] VITALS (18 sets, daily range): BP systolic 110–134; BP diastolic 60–81; PULSE 98–115; RESP 16–45; TEMP 36.4–37; O2SAT 93–98
[2019-12-30] MEDS: KETOROLAC 30 MG/ML VIAL IV ×5 (00:13→23:58)
[2019-12-30] MEDS: MEROPENEM 1 GM/50 ML PIGGYBACK IV ×3 (02:43→18:29)
[2019-12-30] MEDS: LACTATED RINGERS 1,000 ML 120 ML IV ×2 (02:44→18:32)
[2019-12-30 04:27] LABS: Add Manual Diff / Slide Review YES; Hematocrit 33.5 % (36-46); Hemoglobin 11.1 g/dL (12.0-16.0); Mean Corpuscular HGB Conc 33.1 % (30-36); Mean Corpuscular Hemoglobin 31.2 PG (26-34); Mean Corpuscular Volume 94.2 fL (80-100); Platelet Count 267 X10^3/uL (150-400); Red Blood Cell Count 3.55 X10^6/uL (4.0-5.2); White Blood Cell Count 18.7 X10^3/uL (4.5-11.0)
[2019-12-30 04:45] LABS: BUN Creatinine Ratio 27.9 (6-22); Blood Urea Nitrogen 17 mg/dL (7-17); Calcium 7.5 mg/dL (8.4-10.2); Carbon Dioxide 19 mmol/L (22-32); Chloride 107 mmol/L (98-107); Estimated Glomerular Filt Rate > 60.0 mL/min (>60); Glucose 75 mg/dL (70-100); HEMOLYSIS < 15 (0-50); Potassium 3.3 mmol/L (3.4-5.1); Sodium 134 mmol/L (137-145)
[2019-12-30 05:00] LABS: Procalcitonin 34.37 ng/mL (<0.5)
[2019-12-30] MEDS: POTASSIUM CHLORIDE 40 MEQ in SODIUM CHLORIDE 0.9% 500 ML 130 ML IV (05:02)
[2019-12-30] MEDS: METOCLOPRAMIDE 10 MG/2 ML INJ IV ×3 (06:21→22:17)
--- NOTE | 2019-12-30 06:30 | PC.NURSE ---
PT alert and oriented x3 but confused at times about situation. Pain controlled with schd tordal. NGT at low int suction, dark brown drainage from NGT. Vega intact draining yellow urine. Marvin drain x2 draining serosanguineous fluids. Colostomy bag intact draining serosanguineous fluids throughout this night, this am draining brown. Ab incision intact, small amount of drainage from site, dressing reinforced. Pt has no complaints at this time.
[2019-12-30 06:43] LABS: Neutrophils Absolute Manual 16830 /uL (3000-5900); Total Cells Counted 100
[2019-12-30 06:44] LABS: Nucleated Red Blood Cells 1 #/Diff; Plasma Cells 1
[2019-12-30 06:51] LABS: Toxic Granulation Present; Toxic Vacuolation Present
[2019-12-30] MEDS: ALBUTEROL HFA 200 PUFF/18 GM INH (COVID POS/VENT PTS) INH (08:31)
[2019-12-30] MEDS: FLUTICASONE 110MCG HFA 120 PUFF INH ×2 (08:32→19:12)
[2019-12-30] MEDS: SODIUM CHLORIDE 0.9% 1,000 ML 1000 ML IV (08:37)
[2019-12-30] MEDS: lamoTRIgine 25 MG CHEW TABLET PO ×2 (08:39→22:17)
[2019-12-30] MEDS: ZIPRASIDONE 80 MG 80 EACH PO ×2 (08:40→22:17)
[2019-12-30] MEDS: ZONISAMIDE 100 MG CAPSULE PO ×2 (08:40→22:17)
[2019-12-30] MEDS: lamoTRIgine 100 MG TABLET 200 MG PO ×2 (08:57→22:17)
[2019-12-30] MEDS: TETRACAINE/BENZOCAINE/BUTAMBEN (CETACAINE) BOTTLE 1 SPRAY TOP (08:58)
--- NOTE | 2019-12-30 09:35 | PM.PNPO.1 ---
Subjective Subjective Date Patient Seen: 12/30/19 Time Patient Seen: 09:35 Interval history: No acute overnight events. Mild abdominal pain at the incision she says that she feels significantly better than she did yesterday. Exam Vital Signs (past 8 hours): - 12/30/19 02:05 12/30/19 03:00 12/30/19 04:00 Temperature Pulse Rate 112 H 104 H 112 H Respiratory Rate 23 22 24 Blood Pressure 119/61 122/69 117/63 Pulse Oximetry 95 94 94 12/30/19 05:06 12/30/19 06:20 12/30/19 07:00 Temperature 98.3 F Pulse Rate 111 H 114 H 111 H Respiratory Rate 36 H 33 H 20 Blood Pressure 117/68 120/66 125/79 Pulse Oximetry 95 96 95 12/30/19 08:00 12/30/19 08:34 12/30/19 09:00 Temperature 98.5 F 98.5 F Pulse Rate 113 H 114 H 113 H Respiratory Rate 30 H 16 35 H Blood Pressure 133/69 131/69 Pulse Oximetry 93 95 96 Oxygen Delivery Method Room Air Oxygen Flow Rate 0 Narrative Exam Narrative: General adult woman alert oriented in no acute distress Abdomen soft mildly distended is a small amount of ileostomy output drains serosanguineous and right and left lower quadrant. Appropriately tender to palpation Objective Labs Result Diagrams: 12/30/19 04:05 12/30/19 04:05 Labs: Laboratory Results - last 24 hr 12/29/19 12/29/19 12/30/19 19:00 20:00 04:05 WBC 18.7 H D RBC 3.55 L Hgb 11.1 L Hct 33.5 L MCV 94.2 MCH 31.2 MCHC 33.1 RDW 14.0 Plt Count 267 Neut % (Auto) Not Reportable Lymph % (Auto) Not Reportable [place] % (Auto) Not Reportable Eos % (Auto) Not Reportable Baso % (Auto) Not Reportable Lymph # (Auto) Not Reportable [place] # (Auto) Not Reportable Baso # (Auto) Not Reportable Total Counted 100 Seg Neutrophils % 44.0 D Band Neutrophils % 46.0 H Lymphocytes % (Manual) 6.0 L D Metamyelocytes % 3.0 H Neutrophils # (Manual) 03162 H Nucleated RBCs 1 H Plasma Cells 1 Toxic Granulation Present H Toxic Vacuolation Present H RBC Morphology See below Sodium 134 L Potassium 3.6 Chloride 108 H Carbon Dioxide 21 L BUN 16 Creatinine 0.64 Estimated GFR > 60.0 BUN/Creatinine Ratio 25.0 H Glucose 74 Calcium 7.3 L Magnesium Procalcitonin Nasal Screen MRSA (PCR) Negative for mrsa 12/30/19 12/30/19 04:05 04:05 WBC RBC Hgb Hct MCV MCH MCHC RDW Plt Count Neut % (Auto) Lymph % (Auto) [place] % (Auto) Eos % (Auto) Baso % (Auto) Lymph # (Auto) [place] # (Auto) Baso # (Auto) Total Counted Seg Neutrophils % Band Neutrophils % Lymphocytes % (Manual) Metamyelocytes % Neutrophils # (Manual) Nucleated RBCs Plasma Cells Toxic Granulation Toxic Vacuolation RBC Morphology Sodium 134 L Potassium 3.3 L Chloride 107 Carbon Dioxide 19 L BUN 17 Creatinine 0.61 Estimated GFR > 60.0 BUN/Creatinine Ratio 27.9 H Glucose 75 Calcium 7.5 L Magnesium 2.0 Procalcitonin 34.37 H Nasal Screen MRSA (PCR) Assessment & Plan Post-op Postoperative Procedures: Procedures Operation Date: 12/26/19 10:45 Actual Procedures Side Surgeon p Colonoscopy with biopsY Left Ana Gannon MD Operation Date: 12/29/19 12:45 Actual Procedures Side Surgeon p Exploratory Laparotomy GEN Sigmoid colectomy, diverting loop. Ileostomy Edgardo Carballo MD Postoperative status narrative: 49-year-old woman postoperative day 1 after exploratory laparotomy sigmoid colectomy and diverting loop ileostomy for colonic perforation. She abdominal cavity had diffuse contamination source is now controlled, sepsis is improving. Plan NPO IV fluids Continue nasogastric tube until return of bowel function. okay for sips of clears and ice chips well NG tube is in place -continue antibiotics for intra-abdominal infection secondary to perforated hollow viscus -out of bed ambulate PT OT Quality VTE Deep Vein Thrombosis/Pulmonary Embolism Present on Admission: No
--- NOTE | 2019-12-30 10:08 | CM.DPC ---
DCP: continued: case received, EMR reviewed and met with pt during Team Bedside Rounds. Dr. Campos and Dr. Carballo were both present with Dr. Carballo advising pt to the POC going forward. Pt was taken to surgery yesterday afternoon by Dr. Carballo: intestinal perforation, feculent peritonitis: procedure: Sigmoid colectomy with diverting loop ileostomy. Dr. Carballo is encouraging pt to consider snf rehab when she is ready for that level of care to enable her to recover from this significant surgery and learn to manage her ileostomy. Pt lives alone on [address] Her friend Marcni is supportive but has been unable to get in to see pt due to lack of funds. Pt says her mother lives here in [place] and thus when snf choice list was discussed she wished to have referral placed to only snf in [place]: [facility]. Cesilia is now reviewing. Payer: Medicare and Medicaid spendown: admission status: INPT: since 12/24: confirmed by [facility] RN team. Dr. Carballo states he anticipates that the IV antibiotics will only be for a few days and that pt will likely d/c on oral medication. NGT is in place and will remain until return of GI function. OT/PT are ordered. Dr. Carballo confirms that he has consulted with warehouse insulation worker specialist Alyce Wood and that Alyce will be seeing pt in the next day or so. P: at this point: snf when stable for same and then home with followup at [facility] and with ostomy nurse Alyce who works out of their office. Will update pt when have final ok from [facility]. PASRR and COVID updated test will be needed at d/c if snf remains the plan. Dr. Carballo stated he expects pt to be here for several more days.
--- NOTE | 2019-12-30 11:01 | P.PN_ITS ---
Subjective Subjective Date Patient Seen: 12/30/19 Interval history: Vibha Brenner is a 49-year-old female with past medical history significant for brain tumor status post craniotomy, seizure disorder, bipolar disorder and chronic bronchitis who presented to the ED with abdominal pain. The patient is resting in bed comfortably and in no acute distress. She endorses mild abdominal pain with movement or palpation and subjective shortness of breath. She has mild irritation of her throat from NG tube. She otherwise has no complaints and denies headache, chest pain, nausea, vomiting, fever or chills. She is voiding via Vega catheter and has minimal liquid green stool in ostomy. Her stoma is pink/red and mildly edematous. She is up ambulating with assistance. Exam Vital Signs (past 8 hours): - 12/30/19 04:00 12/30/19 05:06 12/30/19 06:20 Temperature Pulse Rate 112 H 111 H 114 H Respiratory Rate 24 36 H 33 H Blood Pressure 117/63 117/68 120/66 Pulse Oximetry 94 95 96 12/30/19 07:00 12/30/19 08:00 12/30/19 08:34 Temperature 98.3 F 98.5 F Pulse Rate 111 H 113 H 114 H Respiratory Rate 20 30 H 16 Blood Pressure 125/79 133/69 Pulse Oximetry 95 93 95 12/30/19 09:00 12/30/19 10:00 Temperature 98.5 F 98.6 F Pulse Rate 113 H 115 H Respiratory Rate 35 H 45 H Blood Pressure 131/69 128/72 Pulse Oximetry 96 97 Oxygen Delivery Method Room Air Oxygen Flow Rate 0 Narrative Exam Narrative: General: Middle aged female lying in bed and in no acute distress, well- developed, well-nourished, appropriately interactive. HEENT: Normocephalic, atraumatic. External ears without defect. Pupils equal, round, and reactive to light and accommodation. Anicteric sclerae, moist conjunctivae, and no lid lag. Oropharynx free of erythema and cobble stoning with moist mucosa. NG tube in place. Neck: Supple with full range of motion. No jugular venous distension. No bruits. No lymphadenopathy or thyromegaly. Cardiovascular: Regular rhythm, tachycardic without murmurs, rubs, or gallops appreciated. Pulmonary: Diminished throughout but clear to auscultation bilaterally without crackles, wheezes, or rhonchi. Normal respiratory effort with no use of accessory muscles. Abdomen: Firm, tenderness throughout abdomen with palpation but improved, nondistended. Ostomy in right side of abdomen with minimal loose green stool and pink/red stoma with mild edema. Extremities: No clubbing, cyanosis, or edema. Skin: Normal temperature, turgor, and texture; no rash, ulcers, or subcutaneous nodules appreciated. Neurological: Cranial nerves grossly intact. Psychiatric: Normal mood and affect. Alert and oriented to person, place, and time. Objective Labs Result Diagrams: 12/31/19 04:05 12/31/19 04:05 Labs: Laboratory Results - last 24 hr 12/29/19 12/29/19 12/30/19 19:00 20:00 04:05 WBC 18.7 H D RBC 3.55 L Hgb 11.1 L Hct 33.5 L MCV 94.2 MCH 31.2 MCHC 33.1 RDW 14.0 Plt Count 267 Neut % (Auto) Not Reportable Lymph % (Auto) Not Reportable [place] % (Auto) Not Reportable Eos % (Auto) Not Reportable Baso % (Auto) Not Reportable Lymph # (Auto) Not Reportable [place] # (Auto) Not Reportable Baso # (Auto) Not Reportable Total Counted 100 Seg Neutrophils % 44.0 D Band Neutrophils % 46.0 H Lymphocytes % (Manual) 6.0 L D Metamyelocytes % 3.0 H Neutrophils # (Manual) 27981 H Nucleated RBCs 1 H Plasma Cells 1 Toxic Granulation Present H Toxic Vacuolation Present H RBC Morphology See below Sodium 134 L Potassium 3.6 Chloride 108 H Carbon Dioxide 21 L BUN 16 Creatinine 0.64 Estimated GFR > 60.0 BUN/Creatinine Ratio 25.0 H Glucose 74 Calcium 7.3 L Magnesium Procalcitonin Nasal Screen MRSA (PCR) Negative for mrsa 12/30/19 12/30/19 04:05 04:05 WBC RBC Hgb Hct MCV MCH MCHC RDW Plt Count Neut % (Auto) Lymph % (Auto) [place] % (Auto) Eos % (Auto) Baso % (Auto) Lymph # (Auto) [place] # (Auto) Baso # (Auto) Total Counted Seg Neutrophils % Band Neutrophils % Lymphocytes % (Manual) Metamyelocytes % Neutrophils # (Manual) Nucleated RBCs Plasma Cells Toxic Granulation Toxic Vacuolation RBC Morphology Sodium 134 L Potassium 3.3 L Chloride 107 Carbon Dioxide 19 L BUN 17 Creatinine 0.61 Estimated GFR > 60.0 BUN/Creatinine Ratio 27.9 H Glucose 75 Calcium 7.5 L Magnesium 2.0 Procalcitonin 34.37 H Nasal Screen MRSA (PCR) Assessment & Plan Assessment & Plan narrative: Vibha Brenner is a 49-year-old female with past medical history significant for brain tumor status post craniotomy, seizure disorder, bipolar disorder and COPD with chronic bronchitis who presented to the ED with abdominal pain. 1. Acute small bowel obstruction with sigmoid colitis and bowel perforation and sepsis, present on admission (perforation not present on admission). Active. -Initial CT abdomen and pelvis with contrast demonstrated focal thickening of the proximal sigmoid colon and dilated bowel with air-fluid levels with no transition point. Of note, zonisamide has had reported cases of colitis. -Consulted general surgery, Dr. Gordillo, who performed colonoscopy which revealed prominent folds but no overt evidence of malignancy or obstruction. Patient did have a bowel movement after Fleet enema but bowel movements have not been formed and were predominantly liquid. She subsequently had a small-bowel follow- through after colonoscopy which showed a possible partial small-bowel obstruc tion but slow transit times as a large amount of contrast remained her stomach. The patient had several bowel movements after small bowel follow through but developed increased bloating/distension with clear liquids without nausea or vomiting. -Repeat CT abdomen and pelvis with contrast demonstrated leakage of enteric contrast into the abdominal cavity and sigmoid/rectal thickening. -Consulted general surgery, Dr. Carballo, who performed sigmoid colectomy with diverting ileostomy due to sepsis with gross abdominal contamination. Continue post operative management per general surgery. -Continue meropenem 1 g every 8 hours given penicillin allergy. WBC peaked at 18.7 and procalcitonin at 34.37. Continue to monitor WBC and procalcitonin daily. -Continue IV fluids with LR at 120 mL/hr. Continue NG tube to intermittent suction. Consider TPN if the patient does not have return of bowel function readily. 2. Hypokalemia and hypomagnesemia, acute, present on admission. Active. -Secondary to continued GI losses. -Continue to monitor potassium and magnesium levels and replete as necessary. 3. COPD with chronic bronchitis, present on admission. Stable. -Does not represent acute COPD exacerbation. -Continue respiratory therapy evaluation and treatment. Continue supplemental oxygen as necessary to maintain oxygen saturations 88-92%. Continue home albuterol inhaler 2 puffs every 4 hours as needed for shortness of breath or wheezing and Flovent 1 puff twice daily. 4. Seizure disorder, chronic, present on admission. Stable. -Last seizure was over a year ago. -Continue seizure precautions. -Continue home zonisamide 100 mg daily and lamotrigine 225 mg twice daily. 5. Bipolar disorder, chronic, present on admission. Stable -Continue home lamotrigine 225 mg twice daily and ziprasidone 80 mg twice daily. Code status: Full code, patient designates Marcin Ramsey to be her surrogate decision maker. VTE prophylaxis:: Enoxaparin, SCDs Disposition: Patient remains hospitalized and will likely discharge to shelter for rehabilitation in several days. Quality VTE Deep Vein Thrombosis/Pulmonary Embolism Present on Admission: No
[2019-12-30] MEDS: HYDROMORPHONE 1 MG INJ IV ×2 (11:36→22:20)
[2019-12-30] MEDS: POLYVINYL ALCOHOL DROPS 1 DROPS EYE-BOTH (12:35)
--- NOTE | 2019-12-30 13:22 | DIET.PN ---
Dietary Progress Note Assessment: 49y F d1 s/p after exploratory laparotomy sigmoid colectomy and diverting loop ileostomy for colonic perforation c sepsis. Pts pain is well controlled and there is a small amount of output in ileostomy bag. Pt reports having normal diet until last 12.24 when admitted to hospital. Sunday pt had smoothie c whole milk yogurt and strawberries followed by a TV dinner which she reports is unusual for her as she cooks regularly, but just wasn't feeling well. Pt has been NPO for 5d with small break for a day where pt was taking in some clear liquids. Pt having quite a bit of output through NGT. HT: 162.5cm WT: 52.7kg BMI: 19.9 (up from 19 on 12.25.2019) Labs: WBC 18.7 H, Na 134 L, K+ 3.3 L, BG 63-84 L, Mg 2.0, MNA: 11 Lai: 21 Nutrition Diagnosis: inadequate protein energy intake r/t prolonged NPO status secondary to bowel perforation and surgery aeb pt consuming <25% EER for 5d, pt septic c extensive abd surgery yesterday, pt continues to have quite a bit of output through NGT, pt BMI 19.9 (concerning). Interventions: 1. Recc TPN initiation on 12/30 if pt continues to require NGT as pt will be day 6 of NPO status. Pt moderate risk for refeeding (low electrolytes, low BMI, 5d NPO) Diet Order: NPO EER: 1580kcal (30kcal/kg per post surgical, low BMI), 68g PRO (1.3g/kg per post surgical) Monitoring/Evaluations: following daily
[2019-12-30] MEDS: ENOXAPARIN 40 MG/0.4 ML SYRINGE SUBCUT (15:00)
--- NOTE | 2019-12-30 15:50 | PT.IIE ---
Current Diagnoses Partial intestinal obstruction, unspecified as to cause (12/25/19) Abnormal findings on diagnostic imaging of other abdominal regions, including retroperitoneum (12/25/19) Other specified postprocedural states (12/25/19) Surgery Performed Operation Date: 12/26/19 10:45 Actual Procedures p Colonoscopy with biopsY(Left) - Ana Gannon MD Operation Date: 12/29/19 12:45 Actual Procedures p Exploratory Laparotomy GEN Sigmoid colectomy, diverting loop. Ileostomy - Edgardo Carballo MD Surgical History (Last Reviewed 12/25/19 @ 21:57 by AIXA Kang) H/O exploratory laparotomy (Acute) History of section (Acute) History of craniotomy (Acute) Medical History (Last Reviewed 12/25/19 @ 21:57 by AIXA Kang) Bipolar disorder (Acute) Brain tumor (Acute) Chronic bronchitis (Acute) Chronic low back pain (Acute) Peptic ulcer (Acute) Seizures (Acute) Physical Therapy Inpatient Evaluation/Re-Eval M1 PT/OT-IP Prior Functional Status Start: 12/30/19 13:47 Freq: NEEDED Status: Active Protocol: Document 12/30/19 15:50 AB (Rec: 12/30/19 16:40 AB [id number]) Medical Review Prior Functional Status Medical History Reviewed Yes Diet/Fluid Consistency NPO Communication zachary to make needs known Mobility and Gait pt stated that she is independent with all mobilities and ambulation without AD Social History Household Members significant other Living Arrangements Mobile home Number of Floors (Floors) One Floor Number of Stairs To Enter/Railing? stated that she has 5 steps with bilateral rails to enter the house Home Environment High Toilet,Tub/Shower Home Equipment Front Wheel Walker M1 PT/OT-IP Prior Functional Status Start: 12/30/19 15:53 Freq: NEEDED Status: Active Protocol: Document 12/30/19 14:00 [facility] (Rec: 12/30/19 16:29 [facility] [id number]) Medical Review Prior Functional Status Medical History Reviewed Yes Diet/Fluid Consistency NPO Communication Independent Mobility and Gait Independent and did not use a device. Pt does state has a fww a home. Activities of Daily Living and IADL's Completely independent with all ADl, IADL needs. Social History Household Members significant other Living Arrangements Mobile home Number of Floors (Floors) One Floor Number of Stairs To Enter/Railing? 4 steps from the front with bilateral rails and from the back porch 3 steps with bilateral rails. Home Environment High Toilet,Tub/Shower Home Equipment Front Wheel Walker Additional Social History Comment Pt gets out of the right side of the bed. M2 PT-IP Current Condition Start: 12/30/19 13:47 Freq: NEEDED Status: Active Protocol: Document 12/30/19 15:50 AB (Rec: 12/30/19 16:40 AB [email or web address]) Physical Therapy Current Condition Current Condition Evaluation Date 12/30/19 Treatment Diagnosis intestinal perforation s/p colectomy/ ileostomy; difficulty in walking Onset Date 12/25/19 Precautions Abdominal Surgery Precautions Log Roll,Lifting Restrictions, Gait Belt above Incisional Area Other Precautions has NG tube, 2 incision drains , wright, IV line M3 PT-IP Subjective Start: 12/30/19 13:47 Freq: NEEDED Status: Active Protocol: Document 12/30/19 15:50 AB (Rec: 12/30/19 16:40 AB [email or web address]) Subjective Physical Therapy Visit Type Type Initial Evaluation Visit Start Time 15:50 Visit Stop Time 16:26 Total Visit Minutes 36 Number of ZIPPER JOINER Visits 0 Physical Therapy Visit Comments Patient Comments pt is agreeable to do PT Therapy Pain Assessment Pain When Pain Assessed At Rest Pain Present Pain Present Pain Reported Location Abdomen Intensity 4 Scale Used Numeric (0 - 10) Pain Management Techniques Modification of Treatment,Re- positioning,Timing of Activity with Medications M4 PT-IP Mobility and Gait Start: 12/30/19 13:47 Freq: NEEDED Status: Active Protocol: Document 12/30/19 15:50 AB (Rec: 12/30/19 16:40 [email or web address]) PT-Bed Mobility Assessment Rolling Type of Rolling Log Rolling Level of Assist Standby Assistance Supine to Sit Supine to Sit Standby Assistance,Head of Bed Elevated Sit to Supine Sit to Supine Standby Assistance,Head of Bed Elevated PT-Transfer Assessment Sit to and From Stand Sit to and from Stand Standby Assistance,1 Person Assistance,Use of Upper Extremities Equipment Transfer Assistive Device None,Gait Belt Orthotic/Prosthetic Devices or Brace: No Comments Mobility Comments pt educated on abdominal precautions and log roll bed mobility. completed supine<> sit SBA with cues for log roll techniques. pt was able to sit on EOB SBA. completed sit to stand SBA and ambulated around the bed ~ 15 ft. pt with several tube attachments limiting mobility. pt requesting to just go back to bed after ambulation and completed sit to supine SBA. positioned pt in bed. call light and table placed within reach. Gait Assessment Gait Gait Assistance Required: Standby Assistance Distance (Feet) 15 Able to Maintain Weight Bearing Status Yes During Gait Assistive Devices Assistive Device None,Gait Belt Orthotic/Prosthetic Devices or Brace: No Gait Deviations General Gait Pattern Decreased Stride Length, Decreased Feet Clearance Factors Limiting Gait Function Factors Limiting Gait Function Decreased Activity Tolerance, Decreased Strength,Pain,Poor Balance PT-Balance Assessment Sitting Balance and Reactions Static Sitting Balance Ability Good Dynamic Sitting Balance Ability Good Standing Balance and Reactions Static Standing Balance Ability Good Dynamic Standing Balance Ability Fair Device Used without AD M5 PT-IP Objective Assessments Start: 12/30/19 13:47 Freq: NEEDED Status: Active Protocol: Document 12/30/19 15:50 AB (Rec: 12/30/19 16:40 AB [email or web address]) Orientation Orientation/Cognition Level of Alertness Alert Orientation Name,Place,Situation Language Function Ability No Deficits Noted Safety Awareness Decreased Safety Awareness Memory Description Short Term Impaired Gross Range of Motion Lower Extremity ROM Assessment Within Functional Limits Strength Lower Extremity Strength Assessment Within Functional Limits Coordination Assessment Gross Coordination Gross Coordination WNL Sensation Assessment Sensation Gross Sensation WNL Muscle Tone Muscle Tone WNL Yes M6 PT-IP Treatment Start: 12/30/19 13:47 Freq: NEEDED Status: Active Protocol: Document 12/30/19 15:50 AB (Rec: 12/30/19 16:40 AB [email or web address]) Physical Therapy Treatment Education Education Provided Precautions,Safety M7 PT-IP Assessment and Plan Start: 12/30/19 13:47 Freq: NEEDED Status: Active Protocol: Document 12/30/19 15:50 AB (Rec: 12/30/19 16:40 AB [id number]) PT Summary Assessment and Plan Potential Rehabilitation Potential Good Status of Condition at Evaluation Stable Summary Impairments Pain,ROM,Strength,Balance, Cognition,Bed Mobility, Transfers,Gait,Activity Tolerance Assessment Summary pt requiring SBA with mobility at this time. pt plans to go home and stated that her partner will be able to assist her as needed. pt also has stairs to get into the house and will conduct training prior to d/c. will continue to assess mobility. Goals Bed Mobility Goal Independent Transfer Goal Independent Gait Goal Independent Gait Distance 200 Other Goals up/down 5 steps B rails SBA Days to Meet Goals 10 Frequency of Treatment Frequency Of Treatment Once a Day Treatment Plan Physical Therapy Treatment Plan Bed Mobility Training,Transfer Training,Gait Training, Therapeutic Exercise,Balance Retraining,Post Op Education, Discharge Planning,Hot or Cold Pack,Neuromuscular Re-ed Recommendations To Nursing Amount of Assist Needed 1 Person Assist Discharge Recommendations PT Discharge Recommendations Home with Assistance Transportation Needs at Discharge Private Vehicle
--- NOTE | 2019-12-30 16:30 | OT.IP.EVAL ---
Current Diagnoses Partial intestinal obstruction, unspecified as to cause (12/25/19) Abnormal findings on diagnostic imaging of other abdominal regions, including retroperitoneum (12/25/19) Other specified postprocedural states (12/25/19) Surgery Performed Operation Date: 12/26/19 10:45 Actual Procedures p Colonoscopy with biopsY(Left) - Ana Gannon MD Operation Date: 12/29/19 12:45 Actual Procedures p Exploratory Laparotomy GEN Sigmoid colectomy, diverting loop. Ileostomy - Edgardo Carballo MD Past Medical History (Last Reviewed 12/25/19 @ 21:57 by AIXA Kang) Bipolar disorder (Acute) Brain tumor (Acute) Chronic bronchitis (Acute) Chronic low back pain (Acute) Peptic ulcer (Acute) Seizures (Acute) Surgical History (Last Reviewed 12/25/19 @ 21:57 by AIXA Kang) H/O exploratory laparotomy (Acute) History of section (Acute) History of craniotomy (Acute) Occupational Therapy Inpatient Evaluation/Re-Eval M1 PT/OT-IP Prior Functional Status Start: 12/30/19 15:53 Freq: NEEDED Status: Active Protocol: Document 12/30/19 14:00 [facility] (Rec: 12/30/19 16:29 [facility] [id number]) Medical Review Prior Functional Status Medical History Reviewed Yes Diet/Fluid Consistency NPO Communication Independent Mobility and Gait Independent and did not use a device. Pt does state has a fww a home. Activities of Daily Living and IADL's Completely independent with all ADl, IADL needs. Social History Household Members significant other Living Arrangements Mobile home Number of Floors (Floors) One Floor Number of Stairs To Enter/Railing? 4 steps from the front with bilateral rails and from the back porch 3 steps with bilateral rails. Home Environment High Toilet,Tub/Shower Home Equipment Front Wheel Walker Additional Social History Comment Pt gets out of the right side of the bed. M2 OT-IP Current Condition Start: 12/30/19 15:53 Freq: Status: Active Protocol: Document 12/30/19 14:00 [facility] (Rec: 12/30/19 16:29 [facility] [id number]) Occupational Therapy Current Condition Current Condition Evaluation Date 12/30/19 Treatment Diagnosis s/p Sigmoid colectomy with diverting loop ileostomy. Post Operative Precautions Abdominal Surgery Precautions Log Roll,Lifting Restrictions, Gait Belt above Incisional Area M3 OT- IP Subjective and Pain Start: 12/30/19 15:53 Freq: Status: Active Protocol: Document 12/30/19 14:00 [facility] (Rec: 12/30/19 16:29 [facility] [id number]) OT- Subjective Occupational Therapy Visit Type Type Initial Evaluation Visit Start Time 14:00 Visit Stop Time 14:37 Total Visit Minutes 37 Occupational Therapy Visit Comments Patient Comments Pt wanting to get up. Patient/Caregiver Goals To go to rehab prior to going home. OT Pain Assessment Pain When Pain Assessed At Rest Pain Present Pain Present Denied Pain Location Abdomen Intensity 5 Scale Used Numeric (0 - 10) M4 OT- IP ADL's Start: 12/30/19 15:53 Freq: Status: Active Protocol: Document 12/30/19 14:00 [facility] (Rec: 12/30/19 16:29 [facility] [id number]) OT [id number] Comments OT Self-Feeding Comments Pt just doing ice chips at this time. OT ADL-Grooming Comments OT Grooming Comments NOt performed. OT ADL-Oral Care Comments Oral Care Comments Not performed. OT ADL-Dressing General Eval Lower Body Dressing Ability Maximum Assistance Areas Needing Assistance Socks Comments OT Dressing Comments Due to recent sx, pt needing MAX A to jigna/doff her socks. OT ADL-Toileting General Evaluation Toileting Ability Total Assistance Areas Needing Assistance Empty Catheter or Colostomy Comments OT Toileting Comments Pt has wright in place. OT ADL-Bathing Comments OT Bathing Comments Not at this time. M5 OT- IP IADL's Start: 12/30/19 15:53 Freq: Status: Active Protocol: Document 12/30/19 14:00 [facility] (Rec: 12/30/19 16:29 [facility] [id number]) OT-Instrumental Activities of Daily Living Home Safety Awareness Awareness of Need for Assistance at Home Good Awareness Medication Management Medication Management No Deficits Identified Money Management Money Management No Deficits Identified Meal Preparation Meal Preparation Caregiver Provides Assist Business Ethics Professor Business Ethics Professor Caregiver Provides Assist M6 OT- IP Functional Cognition Start: 12/30/19 15:53 Freq: Status: Active Protocol: Document 12/30/19 14:00 [facility] (Rec: 12/30/19 16:29 [facility] [id number]) Cognitive Factors Limiting Selfcare Function Cognitive Ability Level of Alertness Alert Patient Orientation Name,Place,Situation Attention Span Ability Capable of Focused Attention, Capable of Sustained Attention Ability to Follow Commands Able to Follow One Step Commands Safety Awareness Underestimates Need for Assistance Cognitive Comments Cognitive Assessment Comments Pt needing safety cues for FWW use and bed mobility. Pt has had prior craniotomy and seizures and she states at time hard to learn new tasks. Pt needing concrete simple commands to follow. OT- Vision and Hearing OT- Hearing Assessment OT- Hearing Assessment WFL OT- Vision Assessment Visual [place] Impaired Vision Assessment Comments Decreased left peripheral vision. Pt states has had decrease in vision due to a seizure last year. M7 OT- IP Mobility and Balance Start: 12/30/19 15:53 Freq: Status: Active Protocol: Document 12/30/19 14:00 [facility] (Rec: 12/30/19 16:29 [facility] [id number]) OT- Bed Mobility Assessment Rolling Type of Rolling Roll to Right Level of Assistance Contact Guard Assistance, Bedrails Supine to Sit Supine to Sit Assist Minimal Assistance Sit to Supine Sit to Supine Assist Minimal Assistance OT-Transfer Assessment Sit to and From Stand Sit to and from Stand Contact Guard Assistance Transfers Transfer Ability Contact Guard Assistance Technique Transfer Destination Bed,Chair Transfer Technique Stand Step Pivot Devices Transfer Assistive Devices Gait Belt,Front Wheeled Walker Comments Mobility Comments LUZ to help follow log rolling. VC to keep the FWW close to here versus too far out. OT- Gait Assessment Gait Gait Assistance Required: Contact Guard Assist Assistive Devices Assistive Device Gait Belt,Front Wheeled Walker Comments Gait Ability Comments CGA with FWW. OT- Balance Assessment Sitting Balance and Reactions Static Sitting Balance Ability Normal Dynamic Sitting Balance Ability Good Standing Balance and Reactions Static Standing Balance Ability Fair Comments Other Balance Tests/Deviations/Treatment Pt a little unsteady on her : feet and needing CGA with FWW to walk in the room and also to walk from 230 to 223. M8 OT- IP Objective Assessments Start: 12/30/19 15:53 Freq: Status: Active Protocol: Document 12/30/19 14:00 [facility] (Rec: 12/30/19 16:29 [facility] [id number]) OT Gross Range of Motion Upper Extremity Range of Motion Assessment Within Functional Limits OT Strength Comments Strength Comments NT due to recent sx. OT-Muscle Tone Assessment Muscle Tone WNL Yes M9 OT- IP Assessment and Plan Start: 12/30/19 15:53 Freq: Status: Active Protocol: Document 12/30/19 14:00 [facility] (Rec: 12/30/19 16:29 [facility] [id number]) OT Summary Assessment and Plan Potential Rehabilitation Potential Good Analytic Complexity at Evaluation Low Summary OT Impairments Pain,Functional Cognition, Functional Mobility,Grooming, Dressing,Toileting,Bathing, Toilet Transfers,Shower Transfers,Activity Tolerance Progress Towards Goals Slow Progress due to Medical Issues,Slow Progress due to Activity Tolerance,Slow Progress due to Cognition Assessment Summary Pt low complexity and having partial bowel obstruction and s/p Sigmoid colectomy with diverting loop Pt now needing assist for mobility and ADl needs. Pt would benefit from skilled rehab to continue to work on increasing overall activity tolerance and independence with ADL and mobility needs. In addition to how to take care of her new ileostomy. Goals Grooming Goal Independent Dressing Goal Independent Toileting Goal Independent Bathing Goal Independent Toilet Transfer Goal Independent Shower Transfer Goal Independent Patient/Caregiver Education Goal Demonstrate Post-Op Precautions Days to Meet Goals 10 Frequency of Treatment Frequency Of Treatment Once a Day Treatment Plan OT Treatment Plan ADL Training,Functional Cognition Training,Functional Mobility,Patient/Family Education,Discharge Planning Other Treatment Recommendations and Next Lb dressing. Treatment Focus Discharge Recommendations OT Discharge Recommendations SNF Rehab Transportation Needs at Discharge Wheelchair/Cabulance
[2019-12-31] VITALS (7 sets, daily range): BP systolic 106–128; BP diastolic 61–71; PULSE 99–109; RESP 16–20; TEMP 36.4–37.1; O2SAT 84–97
[2019-12-31] MEDS: TETRACAINE/BENZOCAINE/BUTAMBEN (CETACAINE) BOTTLE 1 SPRAY TOP ×5 (00:05→16:13)
[2019-12-31] MEDS: MEROPENEM 1 GM/50 ML PIGGYBACK IV ×3 (02:25→17:24)
[2019-12-31] MEDS: HYDROMORPHONE 1 MG INJ IV (02:37)
[2019-12-31] MEDS: LACTATED RINGERS 1,000 ML 120 ML IV ×2 (04:00→16:13)
[2019-12-31 04:38] LABS: Hematocrit 29.7 % (36-46); Hemoglobin 9.9 g/dL (12.0-16.0); Mean Corpuscular HGB Conc 33.5 % (30-36); Mean Corpuscular Hemoglobin 31.7 PG (26-34); Mean Corpuscular Volume 94.5 fL (80-100); Platelet Count 241 X10^3/uL (150-400); Red Blood Cell Count 3.14 X10^6/uL (4.0-5.2); Red Cell Distribution Width 14.5 % (11.6-14.8); White Blood Cell Count 18.3 X10^3/uL (4.5-11.0)
[2019-12-31 04:39] LABS: Add Manual Diff / Slide Review YES
[2019-12-31 04:42] LABS: Alanine Aminotransferase 34 IU/L (<35); Albumin 2.3 g/dL (3.5-5.0); Albumin Globulin Ratio 0.9 (1.0-2.8); Alkaline Phosphatase 85 U/L (38-126); Aspartate Aminotransferase 72 IU/L (14-36); BUN Creatinine Ratio 38.2 (6-22); Bilirubin Total 1.2 mg/dL (0.2-1.3); Blood Urea Nitrogen 21 mg/dL (7-17); Calcium 7.9 mg/dL (8.4-10.2); Carbon Dioxide 22 mmol/L (22-32); Chloride 108 mmol/L (98-107); Estimated Glomerular Filt Rate > 60.0 mL/min (>60); Globulin 2.5 g/dL (1.7-4.1); Glucose 87 mg/dL (70-100); HEMOLYSIS < 15 (0-50); Magnesium 2.1 mg/dL (1.6-2.3); Potassium 3.3 mmol/L (3.4-5.1); Sodium 135 mmol/L (137-145); Total Protein 4.8 g/dL (6.3-8.2)
[2019-12-31 05:01] LABS: Procalcitonin 20.75 ng/mL (<0.5)
[2019-12-31] MEDS: KETOROLAC 30 MG/ML VIAL IV ×4 (06:05→23:42)
[2019-12-31] MEDS: METOCLOPRAMIDE 10 MG/2 ML INJ IV ×3 (06:05→21:23)
[2019-12-31] MEDS: POTASSIUM CHLORIDE 40 MEQ in SODIUM CHLORIDE 0.9% 500 ML 130 ML IV (06:09)
[2019-12-31] MEDS: ALBUTEROL HFA 200 PUFF/18 GM INH (COVID POS/VENT PTS) INH ×2 (06:32→08:51)
[2019-12-31 06:48] LABS: Neutrophils Absolute Manual 16836 /uL (3000-5900); Total Cells Counted 100
[2019-12-31 06:50] LABS: Burr Cells 2+; Toxic Granulation Present
[2019-12-31] MEDS: FLUTICASONE 110MCG HFA 120 PUFF INH ×2 (08:53→19:25)
--- NOTE | 2019-12-31 09:41 | P.PN_ITS ---
Subjective Subjective Interval history: No acute overnight events. Pain is well controlled and at the abdominal midline incision. She ambulated yesterday and was transferred out of the intensive care. Exam Vital Signs (past 8 hours): - 12/31/19 03:15 12/31/19 08:53 Temperature 97.7 F Pulse Rate 109 H 103 H Respiratory Rate 18 16 Blood Pressure 106/71 Pulse Oximetry 95 Oxygen Delivery Method Room Air Oxygen Flow Rate 0 Narrative Exam Narrative: General adult woman alert oriented no acute distress NG tube in place with bilious output Abdomen soft appropriately tender to palpation midline dressing clean dry intac t. Ileostomy productive of small amount of stool to viable Objective Labs Result Diagrams: 12/31/19 04:05 12/31/19 04:05 Labs: Laboratory Results - last 24 hr 12/31/19 12/31/19 12/31/19 04:05 04:05 04:05 WBC 18.3 H RBC 3.14 L Hgb 9.9 L Hct 29.7 L MCV 94.5 MCH 31.7 MCHC 33.5 RDW 14.5 Plt Count 241 Neut % (Auto) Not Reportable Lymph % (Auto) Not Reportable [place] % (Auto) Not Reportable Eos % (Auto) Not Reportable Baso % (Auto) Not Reportable Lymph # (Auto) Not Reportable [place] # (Auto) Not Reportable Baso # (Auto) Not Reportable Total Counted 100 Seg Neutrophils % 65.0 Band Neutrophils % 27.0 H Lymphocytes % (Manual) 3.0 L Monocytes % (Manual) 2.0 Metamyelocytes % 1.0 H Myelocytes % 2.0 H Neutrophils # (Manual) 17761 H Toxic Granulation Present H RBC Morphology See below [place] Cells 2+ H Sodium 135 L Potassium 3.3 L Chloride 108 H Carbon Dioxide 22 BUN 21 H Creatinine 0.55 Estimated GFR > 60.0 BUN/Creatinine Ratio 38.2 H Glucose 87 Calcium 7.9 L Magnesium 2.1 Total Bilirubin 1.2 AST 72 H ALT 34 Alkaline Phosphatase 85 Total Protein 4.8 L Albumin 2.3 L Globulin 2.5 Albumin/Globulin Ratio 0.9 L Procalcitonin 20.75 H Assessment & Plan Post-op Postoperative Procedures: Procedures Operation Date: 12/26/19 10:45 Actual Procedures Side Surgeon p Colonoscopy with biopsY Left Ana Gannon MD Operation Date: 12/29/19 12:45 Actual Procedures Side Surgeon p Exploratory Laparotomy GEN Sigmoid colectomy, diverting loop. Ileostomy Edgardo Carballo MD Postoperative plan narrative: 49-year-old female postoperative day 2 status post exploratory laparotomy sigmoid colectomy and diverting loop ileostomy for perforated colon. The intra-abdominal room infection has been controlled and she is beginning to improve. She has a postoperative ileus as expected will continue the NG tube and and await full return of bowel function from the ileostomy. Plan -NPO IV fluids NG tube. Okay for sips of clears and ice chips -ostomy teaching -VT prophylaxis -continue Zosyn -out of bed and ambulate Quality VTE Deep Vein Thrombosis/Pulmonary Embolism Present on Admission: No
--- NOTE | 2019-12-31 09:46 | PC.NURSE ---
Vibha awake in bed watching tv and eating ice chips. She states she is feeling well with some pain when she uses her inhaler. She is looking forward to being able to drink water. Her NG tube is in place to wall suction draining dark green fluid. She has a wright cath with is draining clear yellow urine. Both BING drains one on her right abdomen and one on her left are draining serosanguenous drainage. Her ileostomy has brownish liquid stool. I removed the appliance. Her stoma is edematous, red, moist and the stoma bridge is in place. The stoma sutures are intact. The peristomal skin is intact. The stoma measures 32mm. I placed her in a Convatec two piece moldable wafer 45mm and a non-filtered clear drainable pouch. I also removed her midline incision dressing, Mellissa her nurse come in to assess the midline incision as well. The vickie are dry and intact without any redness or swelling or drainage. I change the dressing. I used xeroform gauze to cover the vickie then 4x4 gauze folded in half and secured with hypafix. I also changed the manny around the BING drains and secured them. Both these sited are dry and intact without any redness or leaking and the sutures are intact. Vibha confirmed that she would like to go to a SNF after her hospitalization. She is unable to read the [employer] New Patient Guide I left or the [employer] Nutrition Guide I left for her to read because she does not have her reading glasses. She is hoping the [facility] will bring them in today. She said [place] 7:00 ferry from [place]. I will return tomorrow late afternoon, early evening to continue with teaching and assessing her stoma. I did speak with Adrienne regarding nutrition.
[2019-12-31] MEDS: ZONISAMIDE 100 MG CAPSULE PO ×2 (10:12→21:29)
[2019-12-31] MEDS: ZIPRASIDONE 80 MG 80 EACH PO ×2 (10:12→21:28)
[2019-12-31] MEDS: ENOXAPARIN 40 MG/0.4 ML SYRINGE SUBCUT (10:12)
[2019-12-31] MEDS: lamoTRIgine 100 MG TABLET 200 MG PO ×2 (10:12→21:28)
[2019-12-31] MEDS: lamoTRIgine 25 MG CHEW TABLET PO ×2 (10:12→21:28)
--- NOTE | 2019-12-31 10:48 | OT.IP.TRT ---
Current Diagnoses Partial intestinal obstruction, unspecified as to cause (12/25/19) Abnormal findings on diagnostic imaging of other abdominal regions, including retroperitoneum (12/25/19) Other specified postprocedural states (12/25/19) Surgery Performed Operation Date: 12/26/19 10:45 Actual Procedures p Colonoscopy with biopsY(Left) - Ana Gannon MD Operation Date: 12/29/19 12:45 Actual Procedures p Exploratory Laparotomy GEN Sigmoid colectomy, diverting loop. Ileostomy - Edgardo Carballo MD Occupational Therapy Treatment Note M2 OT-IP Current Condition Start: 12/30/19 15:53 Freq: Status: Active Protocol: Document 12/30/19 14:00 [facility] (Rec: 12/30/19 16:29 [facility] [id number]) Occupational Therapy Current Condition Current Condition Evaluation Date 12/30/19 Treatment Diagnosis s/p Sigmoid colectomy with diverting loop ileostomy. Post Operative Precautions Abdominal Surgery Precautions Log Roll,Lifting Restrictions, Gait Belt above Incisional Area M3 OT- IP Subjective and Pain Start: 12/30/19 15:53 Freq: Status: Active Protocol: Document 12/31/19 17:03 [facility] (Rec: 12/31/19 17:10 [facility] [id number]) OT- Subjective Occupational Therapy Visit Type Type Treatment Note Visit Start Time 10:10 Visit Stop Time 10:48 Total Visit Minutes 38 Occupational Therapy Visit Comments Patient Comments Pt wanting to get up to brush her hair. Patient/Caregiver Goals To go to rehab prior to going home. OT Pain Assessment Pain When Pain Assessed At Rest Pain Present Pain Present Pain Reported Location Abdomen Intensity 5 Scale Used Numeric (0 - 10) M4 OT- IP ADL's Start: 12/30/19 15:53 Freq: Status: Active Protocol: Document 12/31/19 17:03 [facility] (Rec: 12/31/19 17:10 [facility] [id number]) OT [id number] Comments OT Self-Feeding Comments NPO, noted pt coughing while taking her pills and pt also mentioned that prior had difficulties with swallowing. Nursing present and agreed pt may benefit from BUILDINGS AND GROUNDS SUPERINTENDENT for swallowing eval. OT ADL-Grooming General Evaluation Areas Needing Assistance Retrieving/Set-up of Grooming Items Comments OT Grooming Comments CGA for balance while pt able to brush and put up her hair. OT ADL-Oral Care Comments Oral Care Comments Not performed. OT ADL-Toileting General Evaluation Toileting Ability Total Assistance Areas Needing Assistance Empty Catheter or Colostomy Comments OT Toileting Comments Pt has wright in place. M5 OT- IP IADL's Start: 12/30/19 15:53 Freq: Status: Active Protocol: Document 12/30/19 14:00 [facility] (Rec: 12/30/19 16:29 [facility] [id number]) OT-Instrumental Activities of Daily Living Home Safety Awareness Awareness of Need for Assistance at Home Good Awareness Medication Management Medication Management No Deficits Identified Money Management Money Management No Deficits Identified Meal Preparation Meal Preparation Caregiver Provides Assist Sailing Master Sailing Master Caregiver Provides Assist M6 OT- IP Functional Cognition Start: 12/30/19 15:53 Freq: Status: Active Protocol: Document 12/31/19 17:03 [facility] (Rec[facility] 12/31/19 17:10 [id number] Cognitive Factors Limiting Selfcare Function Cognitive Ability Level of Alertness Alert Patient Orientation Name,Place,Situation Attention Span Ability Capable of Focused Attention, Capable of Sustained Attention Ability to Follow Commands Able to Follow One Step Commands Cognitive Comments Cognitive Assessment Comments Pt appears more alert today and able to recall her medications that she takes. M7 OT- IP Mobility and Balance Start: 12/30/19 15:53 Freq: Status: Active Protocol: Document 12/31/19 17:03 [facility] (Rec: 12/31/19 17:10 [facility] [id number]) OT- Bed Mobility Assessment Rolling Type of Rolling Roll to Right Level of Assistance Standby Assistance Supine to Sit Supine to Sit Assist Contact Guard Assistance Sit to Supine Sit to Supine Assist Contact Guard Assistance OT-Transfer Assessment Sit to and From Stand Sit to and from Stand Standby Assistance Transfers Transfer Ability Standby Assistance,Minimal Assistance Technique Transfer Destination Bed Transfer Technique Stand Step Pivot Devices Transfer Assistive Devices None,Gait Belt,Front Wheeled Walker Comments Mobility Comments SBA with FWW and able to walk from sink to bed with LUZ for therapist. OT- Balance Assessment Sitting Balance and Reactions Static Sitting Balance Ability Normal Dynamic Sitting Balance Ability Good Standing Balance and Reactions Static Standing Balance Ability Fair M8 OT- IP Objective Assessments Start: 12/30/19 15:53 Freq: Status: Active Protocol: Document 12/30/19 14:00 [facility] (Rec: 12/30/19 16:29 [facility] [id number]) OT Gross Range of Motion Upper Extremity Range of Motion Assessment Within Functional Limits OT Strength Comments Strength Comments NT due to recent sx. OT-Muscle Tone Assessment Muscle Tone WNL Yes M9 OT- IP Assessment and Plan Start: 12/30/19 15:53 Freq: Status: Active Protocol: Document 12/31/19 17:03 [facility] (Rec: 12/31/19 17:10 [facility] [id number]) OT Summary Assessment and Plan Potential Rehabilitation Potential Good Analytic Complexity at Evaluation Low Summary OT Impairments Pain,Functional Cognition, Functional Mobility,Grooming, Dressing,Toileting,Bathing, Toilet Transfers,Shower Transfers,Activity Tolerance Progress Towards Goals Progressing Toward Goals Assessment Summary Pt able to tolerate standing with FWW for grooming needs. Pt pending medical needs may benefit from skilled rehab for continued ileostomy care versus home with home health. Goals Grooming Goal Independent Dressing Goal Independent Toileting Goal Independent Bathing Goal Independent Toilet Transfer Goal Independent Shower Transfer Goal Independent Patient/Caregiver Education Goal Demonstrate Post-Op Precautions Days to Meet Goals 9 Frequency of Treatment Frequency Of Treatment Once a Day Treatment Plan OT Treatment Plan ADL Training,Functional Cognition Training,Functional Mobility,Patient/Family Education,Discharge Planning Other Treatment Recommendations and Next Lb dressing. Treatment Focus Discharge Recommendations OT Discharge Recommendations Home with Assistance,Home Health,SNF Rehab Transportation Needs at Discharge Private Vehicle,Wheelchair/ Cabulance
--- NOTE | 2019-12-31 10:48 | CM.DPC ---
DCP Cont: Met with patient during team rounds, she still has NG tube. Marce Wood RN, is currently working with patient regarding her ostomy. Plan is for patient to go over to [facility] once she no longer has NG tube. Confirmed with Cesilia at [facility] that they can accept her once she is able to tolerate a regular diet for 24 hours. P:DCP to continue to follow. Anticipate that patient will be here for a few more days prior to going to [facility]. Linda Pollock RN/Deck Steward
--- NOTE | 2019-12-31 12:17 | PT-IP ANOTE ---
checked on pt this morning but is working with OT. checked again but stated that she just got back to the bed and wants to rest for now. agreed to do PT later and wanted ~ 1230 for PT session. will check back on pt.
--- NOTE | 2019-12-31 12:30 | PT.IPTN ---
Current Diagnoses Partial intestinal obstruction, unspecified as to cause (12/25/19) Abnormal findings on diagnostic imaging of other abdominal regions, including retroperitoneum (12/25/19) Other specified postprocedural states (12/25/19) Surgery Performed Operation Date: 12/26/19 10:45 Actual Procedures p Colonoscopy with biopsY(Left) - Ana Gannon MD Operation Date: 12/29/19 12:45 Actual Procedures p Exploratory Laparotomy GEN Sigmoid colectomy, diverting loop. Ileostomy - Edgardo Carballo MD Physical Therapy Treatment Note M2 PT-IP Current Condition Start: 12/30/19 13:47 Freq: NEEDED Status: Active Protocol: Document 12/30/19 15:50 AB (Rec: 12/30/19 16:40 AB [email or web address]) Physical Therapy Current Condition Current Condition Evaluation Date 12/30/19 Treatment Diagnosis intestinal perforation s/p colectomy/ ileostomy; difficulty in walking Onset Date 12/25/19 Precautions Abdominal Surgery Precautions Log Roll,Lifting Restrictions, Gait Belt above Incisional Area Other Precautions has NG tube, 2 incision drains , wright, IV line M3 PT-IP Subjective Start: 12/30/19 13:47 Freq: NEEDED Status: Active Protocol: Document 12/31/19 12:30 AB (Rec: 12/31/19 13:08 AB [email or web address]) Subjective Physical Therapy Visit Type Type Treatment Note Visit Start Time 12:30 Visit Stop Time 13:00 Total Visit Minutes 30 Number of PROPERTY ADMINISTRATOR Visits 0 Physical Therapy Visit Comments Patient Comments pt is agreeable to do PT Therapy Pain Assessment Pain When Pain Assessed During Mobility Location Abdomen Scale Used pain scale not stated Pain Management Techniques Modification of Treatment,Re- positioning,Timing of Activity with Medications M4 PT-IP Mobility and Gait Start: 12/30/19 13:47 Freq: NEEDED Status: Active Protocol: Document 12/31/19 12:30 AB (Rec: 12/31/19 13:08 AB [email or web address]) PT-Bed Mobility Assessment Rolling Type of Rolling Log Rolling Level of Assist Standby Assistance Supine to Sit Supine to Sit Standby Assistance Sit to Supine Sit to Supine Standby Assistance Scooting Scooting to Edge of Bed Standby Assistance PT-Transfer Assessment Sit to and From Stand Sit to and from Stand Standby Assistance Equipment Transfer Assistive Device Gait Belt,Front Wheeled Walker Comments Mobility Comments completed log roll bed mobility SBA. requires cues for log roll. completed sit to stand SBA and ambulated using FWW 125 ft SBA. presents with slow elia. pt requested to go back to bed afterwards. completed sit to supine log roll SBA and cues. positioned pt in bed. call light and table placed within reach. Gait Assessment Gait Gait Assistance Required: Standby Assistance Distance (Feet) 125 Able to Maintain Weight Bearing Status Yes During Gait Assistive Devices Assistive Device Gait Belt,Front Wheeled Walker Gait Deviations General Gait Pattern Decreased Stride Length, Decreased Feet Clearance Factors Limiting Gait Function Factors Limiting Gait Function Decreased Activity Tolerance, Decreased Strength,Limited Range of Motion,Pain,Poor Balance M5 PT-IP Objective Assessments Start: 12/30/19 13:47 Freq: NEEDED Status: Active Protocol: Document 12/30/19 15:50 AB (Rec: 12/30/19 16:40 [facility] Orientation Orientation/Cognition Level of Alertness Alert Orientation Name,Place,Situation Language Function Ability No Deficits Noted Safety Awareness Decreased Safety Awareness Memory Description Short Term Impaired Gross Range of Motion Lower Extremity ROM Assessment Within Functional Limits Strength Lower Extremity Strength Assessment Within Functional Limits Coordination Assessment Gross Coordination Gross Coordination WNL Sensation Assessment Sensation Gross Sensation WNL Muscle Tone Muscle Tone WNL Yes M6 PT-IP Treatment Start: 12/30/19 13:47 Freq: NEEDED Status: Active Protocol: Document 12/31/19 12:30 AB (Rec: 12/31/19 13:08 [facility] Physical Therapy Treatment Education Education Provided Precautions,Safety M7 PT-IP Assessment and Plan Start: 12/30/19 13:47 Freq: NEEDED Status: Active Protocol: Document 12/31/19 12:30 AB (Rec: 12/31/19 13:08 [facility] PT Summary Assessment and Plan Potential Rehabilitation Potential Good Summary Impairments Pain,ROM,Strength,Balance,Bed Mobility,Transfers,Gait, Activity Tolerance Progress Towards Goals Slow Progress due to Activity Tolerance Assessment Summary pt requiring SBA with ambulation using FWW and continues to present decrease activity tolerance affecting mobility independence. pt plans to go home and her significant other will be able to assist pt. Goals Bed Mobility Goal Independent Transfer Goal Independent Gait Goal Independent Gait Distance 200 Other Goals up/down 5 steps B rails SBA Days to Meet Goals 10 Frequency of Treatment Frequency Of Treatment Once a Day Treatment Plan Physical Therapy Treatment Plan Bed Mobility Training,Transfer Training,Gait Training, Therapeutic Exercise,Balance Retraining,Post Op Education, Discharge Planning,Hot or Cold Pack,Neuromuscular Re-ed Recommendations To Nursing Amount of Assist Needed 1 Person Assist Discharge Recommendations PT Discharge Recommendations Home with Assistance Transportation Needs at Discharge Private Vehicle
--- NOTE | 2019-12-31 14:17 | P.PN_ITS ---
Subjective Subjective Date Patient Seen: 12/31/19 Interval history: Vibha Brenner is a 49-year-old female with past medical history significant for brain tumor status post craniotomy, seizure disorder, bipolar disorder and chronic bronchitis who presented to the ED with abdominal pain. The patient is resting in bed comfortably and in no acute distress. She reports she is ?starving.? She continues to endorse mild abdominal pain with movement or palpation, throat discomfort from NG tube, nonproductive cough with shortness of breath. She has no other complaints and denies headache, chest pain, nausea, vomiting, fever or chills. She is voiding via Vega catheter which we will plan to removed today. She has minimal liquid brown stool in ostomy. Her stoma is pink/red and mildly edematous. Continue NPO status until bowel function returns. She is up ambulating with assistance. Exam Vital Signs (past 8 hours): - 12/31/19 08:53 12/31/19 10:05 12/31/19 13:40 Temperature 98.2 F 97.5 F L Pulse Rate 103 H 102 H 100 H Respiratory Rate 16 18 17 Blood Pressure 116/61 120/64 Pulse Oximetry 95 92 97 Oxygen Delivery Method Room Air Oxygen Flow Rate 0 Narrative Exam Narrative: General: Middle aged female lying in bed and in no acute distress, appears ill, well-developed, well-nourished, appropriately interactive. HEENT: Normocephalic, atraumatic. External ears without defect. Pupils equal, round, and reactive to light and accommodation. Anicteric sclerae, moist conjunctivae, and no lid lag. NG tube in place. Neck: Supple with full range of motion. No jugular venous distension. No bruits. No lymphadenopathy or thyromegaly. Cardiovascular: Regular rhythm, mild tachycardia without murmurs, rubs, or gallops appreciated. Pulmonary: Diminished throughout but clear to auscultation bilaterally without crackles, wheezes, or rhonchi. Normal respiratory effort with no use of accessory muscles. Abdomen: Firm, tenderness to palpation throughout abdomen significantly improve d, nondistended. Ostomy in right side of abdomen with minimal loose green stool and pink/red stoma with mild edema. Extremities: No clubbing, cyanosis, or edema. Skin: Normal temperature, turgor, and texture; no rash, ulcers, or subcutaneous nodules appreciated. Neurological: Cranial nerves grossly intact. Psychiatric: Normal mood and affect. Alert and oriented to person, place, and time. Objective Labs Result Diagrams: 12/31/19 04:05 12/31/19 04:05 Labs: Laboratory Results - last 24 hr 12/31/19 12/31/19 12/31/19 04:05 04:05 04:05 WBC 18.3 H RBC 3.14 L Hgb 9.9 L Hct 29.7 L MCV 94.5 MCH 31.7 MCHC 33.5 RDW 14.5 Plt Count 241 Neut % (Auto) Not Reportable Lymph % (Auto) Not Reportable [place] % (Auto) Not Reportable Eos % (Auto) Not Reportable Baso % (Auto) Not Reportable Lymph # (Auto) Not Reportable [place] # (Auto) Not Reportable Baso # (Auto) Not Reportable Total Counted 100 Seg Neutrophils % 65.0 Band Neutrophils % 27.0 H Lymphocytes % (Manual) 3.0 L Monocytes % (Manual) 2.0 Metamyelocytes % 1.0 H Myelocytes % 2.0 H Neutrophils # (Manual) 63630 H Toxic Granulation Present H RBC Morphology See below [place] Cells 2+ H Sodium 135 L Potassium 3.3 L Chloride 108 H Carbon Dioxide 22 BUN 21 H Creatinine 0.55 Estimated GFR > 60.0 BUN/Creatinine Ratio 38.2 H Glucose 87 Calcium 7.9 L Magnesium 2.1 Total Bilirubin 1.2 AST 72 H ALT 34 Alkaline Phosphatase 85 Total Protein 4.8 L Albumin 2.3 L Globulin 2.5 Albumin/Globulin Ratio 0.9 L Procalcitonin 20.75 H Assessment & Plan Assessment & Plan narrative: Vibha Brenner is a 49-year-old female with past medical history significant for brain tumor status post craniotomy, seizure disorder, bipolar disorder and COPD with chronic bronchitis who presented to the ED with abdominal pain. 1. Acute small bowel obstruction with sigmoid colitis and bowel perforation and sepsis, present on admission (perforation not present on admission). Active. -Initial CT abdomen and pelvis with contrast demonstrated focal thickening of the proximal sigmoid colon and dilated bowel with air-fluid levels with no transition point. Of note, zonisamide has had reported cases of colitis. -Consulted general surgery, Dr. Gordillo, who performed colonoscopy which revealed prominent folds but no overt evidence of malignancy or obstruction. Patient did have a bowel movement after Fleet enema but bowel movements have not been formed and were predominantly liquid. She subsequently had a small-bowel follow- through after colonoscopy which showed a possible partial small-bowel obstruction but slow transit times as a large amount of contrast remained her stomach. The patient had several bowel movements after small bowel follow through but developed increased bloating/distension with clear liquids without nausea or vomiting. -Repeat CT abdomen and pelvis with contrast demonstrated leakage of enteric contrast into the abdominal cavity and sigmoid/rectal thickening. -Consulted general surgery, Dr. Carballo, who performed sigmoid colectomy with di verting ileostomy due to sepsis with gross abdominal contamination. Continue post operative management per general surgery. -Continue meropenem 1 g every 8 hours given penicillin allergy. WBC peaked at 18.7 and procalcitonin at 34.37 and trending down. Continue to monitor WBC and procalcitonin daily. -Continue IV fluids switch from LR to D5 NS at 84 mL/hr for glucose source as patient's blood glucose was low 60-80s. Continue NG tube to intermittent suction. Consider TPN if the patient does not have return of bowel function readily. 2. Hypokalemia and hypomagnesemia, acute, present on admission. Active. -Secondary to continued GI losses. -Continue to monitor potassium and magnesium levels and replete as necessary. 3. COPD with chronic bronchitis, present on admission. Stable. -Does not represent acute COPD exacerbation. -Continue respiratory therapy evaluation and treatment. Continue supplemental oxygen as necessary to maintain oxygen saturations 88-92%. Continue home albuterol inhaler 2 puffs every 4 hours as needed for shortness of breath or wheezing and Flovent 1 puff twice daily. 4. Seizure disorder, chronic, present on admission. Stable. -Last seizure was over a year ago. -Continue seizure precautions. -Continue home zonisamide 100 mg daily and lamotrigine 225 mg twice daily. 5. Bipolar disorder, chronic, present on admission. Stable -Continue home lamotrigine 225 mg twice daily and ziprasidone 80 mg twice daily. Code status: Full code, patient designates Marcin Ramsey to be her surrogate decision maker. VTE prophylaxis:: Enoxaparin, SCDs Disposition: Patient remains hospitalized and will likely discharge to [facility] for [facility] in several days. Quality VTE Deep Vein Thrombosis/Pulmonary Embolism Present on Admission: No
[2019-12-31] MEDS: MORPHINE 2 MG/ML INJ IV (14:45)
[2019-12-31] MEDS: DEXTROSE 5%-0.9% NS 1,000 ML 84 ML IV (17:23)
[2020-01-01] VITALS (8 sets, daily range): BP systolic 121–133; BP diastolic 63–77; PULSE 90–110; RESP 15–18; TEMP 36.4–37.4; O2SAT 90–94
[2020-01-01] MEDS: MORPHINE 2 MG/ML INJ IV ×3 (02:30→19:21)
[2020-01-01] MEDS: MEROPENEM 1 GM/50 ML PIGGYBACK IV ×3 (02:31→19:22)
--- NOTE | 2020-01-01 03:19 | PC.NURSE ---
Patient now on humidified O2, at 4L, with NC in her mouth. Sats are 90-92%. When NC is in her nose, sats remain in the upper 80S. C/O nasal congestion, used her inhaler.
[2020-01-01] MEDS: DEXTROSE 5%-0.9% NS 1,000 ML 84 ML IV (06:01)
[2020-01-01] MEDS: METOCLOPRAMIDE 10 MG/2 ML INJ IV ×2 (06:05→14:10)
[2020-01-01] MEDS: KETOROLAC 30 MG/ML VIAL IV ×4 (06:06→23:39)
[2020-01-01] MEDS: FLUTICASONE 110MCG HFA 120 PUFF INH ×2 (08:28→18:53)
[2020-01-01] MEDS: ALBUTEROL HFA 200 PUFF/18 GM INH (COVID POS/VENT PTS) INH ×2 (08:29→18:53)
[2020-01-01 09:02] LABS: Hematocrit 28.4 % (36-46); Hemoglobin 9.7 g/dL (12.0-16.0); Mean Corpuscular HGB Conc 34.3 % (30-36); Mean Corpuscular Hemoglobin 31.5 PG (26-34); Mean Corpuscular Volume 91.7 fL (80-100); Platelet Count 247 X10^3/uL (150-400); Red Blood Cell Count 3.09 X10^6/uL (4.0-5.2); Red Cell Distribution Width 14.5 % (11.6-14.8); White Blood Cell Count 22.9 X10^3/uL (4.5-11.0)
[2020-01-01 09:03] LABS: Add Manual Diff / Slide Review YES
[2020-01-01 09:17] LABS: Alanine Aminotransferase 36 IU/L (<35); Albumin 2.2 g/dL (3.5-5.0); Albumin Globulin Ratio 0.8 (1.0-2.8); Alkaline Phosphatase 86 U/L (38-126); Aspartate Aminotransferase 56 IU/L (14-36); BUN Creatinine Ratio 46.9 (6-22); Bilirubin Total 1.2 mg/dL (0.2-1.3); Blood Urea Nitrogen 15 mg/dL (7-17); Carbon Dioxide 24 mmol/L (22-32); Chloride 108 mmol/L (98-107); Estimated Glomerular Filt Rate > 60.0 mL/min (>60); Globulin 2.6 g/dL (1.7-4.1); Glucose 133 mg/dL (70-100); HEMOLYSIS < 15 (0-50); Magnesium 1.8 mg/dL (1.6-2.3); Sodium 137 mmol/L (137-145); Total Protein 4.8 g/dL (6.3-8.2)
[2020-01-01 09:29] LABS: Procalcitonin 7.02 ng/mL (<0.5)
[2020-01-01 09:30] LABS: Calcium 7.4 mg/dL (8.4-10.2); Neutrophils Absolute Manual 19923 /uL (3000-5900); Total Cells Counted 100
[2020-01-01 09:35] LABS: Toxic Granulation Present
--- NOTE | 2020-01-01 10:25 | P.PN_ITS ---
Subjective Subjective Date Patient Seen: 01/01/20 Interval history: Vibha Brenner is a 49-year-old female with past medical history significant for brain tumor status post craniotomy, seizure disorder, bipolar disorder and chronic bronchitis who presented to the ED with abdominal pain. The patient is resting in bed comfortably. She has no complaints and denies headache, shortness of breath, chest pain, nausea, vomiting, fever, chills, or dysuria. She is voiding via Vega catheter which we will plan to removed today. She has brown stool in ostomy and her stoma is pink/red and mildly edematous. Plan to advance diet today. She is up ambulating with assistance. Exam Vital Signs (past 8 hours): - 01/01/20 05:09 01/01/20 08:29 01/01/20 09:40 Temperature 98.5 F 98.3 F Pulse Rate 90 102 H 100 H Respiratory Rate 18 16 17 Blood Pressure 122/65 133/63 Pulse Oximetry 91 90 L 92 Oxygen Delivery Method Room Air Oxygen Flow Rate 0 Narrative Exam Narrative: General: Middle aged female lying in bed and in no acute distress, appears ill, well-developed, well-nourished, appropriately interactive. HEENT: Normocephalic, atraumatic. External ears without defect. Pupils equal, round, and reactive to light and accommodation. Anicteric sclerae, moist conjunctivae, and no lid lag. Neck: Supple with full range of motion. No jugular venous distension. No lymphadenopathy or thyromegaly. Cardiovascular: Regular rhythm, mild tachycardia without murmurs, rubs, or gallops appreciated. Pulmonary: Diminished throughout but clear to auscultation bilaterally without crackles, wheezes, or rhonchi. Normal respiratory effort with no use of accessory muscles. Abdomen: Soft, mild tenderness to palpation, nondistended. Ostomy in right side of abdomen with loose brown stool and pink/red stoma with mild edema. Extremities: No clubbing, cyanosis, or edema. Skin: Normal temperature, turgor, and texture; no rash, ulcers, or subcutaneous nodules appreciated. Neurological: Cranial nerves grossly intact. Psychiatric: Normal mood and affect. Alert and oriented to person, place, and time. Objective Labs Result Diagrams: 01/01/20 08:50 01/01/20 08:50 Labs: Laboratory Results - last 24 hr 01/01/20 01/01/20 01/01/20 08:50 08:50 08:50 WBC 22.9 H RBC 3.09 L Hgb 9.7 L Hct 28.4 L MCV 91.7 MCH 31.5 MCHC 34.3 RDW 14.5 Plt Count 247 Neut % (Auto) Not Reportable Lymph % (Auto) Not Reportable [place] % (Auto) Not Reportable Eos % (Auto) Not Reportable Baso % (Auto) Not Reportable Lymph # (Auto) Not Reportable [place] # (Auto) Not Reportable Baso # (Auto) Not Reportable Total Counted 100 Seg Neutrophils % 79.0 H Band Neutrophils % 8.0 H Lymphocytes % (Manual) 1.0 L Atypical Lymphs % 1.0 H Monocytes % (Manual) 6.0 Eosinophils % (Manual) 1.0 L Metamyelocytes % 2.0 H Myelocytes % 2.0 H Neutrophils # (Manual) 75762 H Toxic Granulation Present H RBC Morphology See below Sodium 137 Potassium 3.0 L Chloride 108 H Carbon Dioxide 24 BUN 15 Creatinine 0.32 L Estimated GFR > 60.0 BUN/Creatinine Ratio 46.9 H Glucose 133 H Calcium 7.4 L Magnesium 1.8 Total Bilirubin 1.2 AST 56 H ALT 36 H Alkaline Phosphatase 86 Total Protein 4.8 L Albumin 2.2 L Globulin 2.6 Albumin/Globulin Ratio 0.8 L Procalcitonin 7.02 H Assessment & Plan Assessment & Plan narrative: Vibha Brenner is a 49-year-old female with past medical history significant for brain tumor status post craniotomy, seizure disorder, bipolar disorder and COPD with chronic bronchitis who presented to the ED with abdominal pain. 1. Acute small bowel obstruction with sigmoid colitis and bowel perforation, present on admission (perforation not present on admission). Active. -Initial CT abdomen and pelvis with contrast demonstrated focal thickening of the proximal sigmoid colon and dilated bowel with air-fluid levels with no transition point. Of note, zonisamide has had reported cases of colitis. -Patient met SIRS criteria but did not meet sepsis criteria as she had no end- organ dysfunction. -Consulted general surgery, Dr. Gordillo, who performed colonoscopy which revealed prominent folds but no overt evidence of malignancy or obstruction. Patient did have a bowel movement after Fleet enema but bowel movements have not been formed and were predominantly liquid. She subsequently had a small-bowel follow-throug h after colonoscopy which showed a possible partial small-bowel obstruction but slow transit times as a large amount of contrast remained her stomach. The patient had several bowel movements after small bowel follow through but developed increased bloating/distension with clear liquids without nausea or vomiting. -Repeat CT abdomen and pelvis with contrast demonstrated leakage of enteric contrast into the abdominal cavity and sigmoid/rectal thickening. -Consulted general surgery, Dr. Carballo, who performed sigmoid colectomy with diverting ileostomy due to sepsis with gross abdominal contamination. Continue post operative management per general surgery. -Continue meropenem 1 g every 8 hours given penicillin allergy. WBC curiously increased to 22.9 today and is likely lagging and likely inflammation driven. Procalcitonin peaked at 34.37 and trending down now 7.02 (procalcitonin should cut in half every day if on the correct antibiotic regimen which it is and indicates meropenem is correct antibiotic choice). Continue to monitor WBC and procalcitonin daily. -Discontinued IV fluids and NG tube and Vega catheter removed. Continue to advance diet per surgery and she is currently on transitional diet and tolerating it well. 2. Hypokalemia and hypomagnesemia, acute, present on admission. Active. -Secondary to continued GI losses. -Continue to monitor potassium and magnesium levels and replete as necessary. 3. COPD with chronic bronchitis, present on admission. Stable. -Does not represent acute COPD exacerbation. -Continue respiratory therapy evaluation and treatment. Continue supplemental oxygen as necessary to maintain oxygen saturations 88-92%. Continue home albuterol inhaler 2 puffs every 4 hours as needed for shortness of breath or wheezing and Flovent 1 puff twice daily. 4. Seizure disorder, chronic, present on admission. Stable. -Last seizure was over a year ago. -Continue seizure precautions. -Continue home zonisamide 100 mg daily and lamotrigine 225 mg twice daily. 5. Bipolar disorder, chronic, present on admission. Stable -Continue home lamotrigine 225 mg twice daily and ziprasidone 80 mg twice daily. Code status: Full code, patient designates Marcin Ramsey to be her surrogate decision maker. VTE prophylaxis:: Enoxaparin, SCDs Disposition: Patient likely discharge to [facility] for [facility] in 1-2 days. Quality VTE Deep Vein Thrombosis/Pulmonary Embolism Present on Admission: No
--- NOTE | 2020-01-01 10:40 | DIET.PN ---
Dietary Progress Note Pt had NG tube removed and is now on clear liquid diet. Pt trialling [place] at this time to support protein needs. Once advanced to full liquids planning to provide whole milk yogurt strawberry smoothie to support protein needs as pt previously indicated she enjoys those.
[2020-01-01] MEDS: ZIPRASIDONE 80 MG 80 EACH PO ×2 (10:44→21:04)
[2020-01-01] MEDS: lamoTRIgine 25 MG CHEW TABLET PO ×2 (10:44→21:04)
[2020-01-01] MEDS: ZONISAMIDE 100 MG CAPSULE PO ×2 (10:45→21:04)
[2020-01-01] MEDS: lamoTRIgine 100 MG TABLET 200 MG PO ×2 (10:54→21:04)
[2020-01-01] MEDS: ENOXAPARIN 40 MG/0.4 ML SYRINGE SUBCUT (10:54)
[2020-01-01] MEDS: MAGNESIUM CHLORIDE 64 MG TABLET PO (11:08)
--- NOTE | 2020-01-01 12:16 | PT.IPTN ---
Current Diagnoses Partial intestinal obstruction, unspecified as to cause (12/25/19) Abnormal findings on diagnostic imaging of other abdominal regions, including retroperitoneum (12/25/19) Other specified postprocedural states (12/25/19) Surgery Performed Operation Date: 12/26/19 10:45 Actual Procedures p Colonoscopy with biopsY(Left) - Ana Gannon MD Operation Date: 12/29/19 12:45 Actual Procedures p Exploratory Laparotomy GEN Sigmoid colectomy, diverting loop. Ileostomy - Edgardo Carballo MD Physical Therapy Treatment Note M2 PT-IP Current Condition Start: 12/30/19 13:47 Freq: NEEDED Status: Active Protocol: Document 12/30/19 15:50 AB (Rec: 12/30/19 16:40 AB [id number]) Physical Therapy Current Condition Current Condition Evaluation Date 12/30/19 Treatment Diagnosis intestinal perforation s/p colectomy/ ileostomy; difficulty in walking Onset Date 12/25/19 Precautions Abdominal Surgery Precautions Log Roll,Lifting Restrictions, Gait Belt above Incisional Area Other Precautions has NG tube, 2 incision drains , wright, IV line M3 PT-IP Subjective Start: 12/30/19 13:47 Freq: NEEDED Status: Active Protocol: Document 01/01/20 12:16 AB (Rec: 01/01/20 12:48 AB [email or web address]) Subjective Physical Therapy Visit Type Type Treatment Note Visit Start Time 12:16 Visit Stop Time 12:35 Total Visit Minutes 19 Number of BOOKSTORE MANAGER Visits 0 Physical Therapy Visit Comments Patient Comments pt is agreeable to do PT Therapy Pain Assessment Pain When Pain Assessed At Rest Pain Present Pain Present Pain Reported Location Abdomen Scale Used pain scale not stated Pain Management Techniques Modification of Treatment,Re- positioning,Timing of Activity with Medications M4 PT-IP Mobility and Gait Start: 12/30/19 13:47 Freq: NEEDED Status: Active Protocol: Document 01/01/20 12:16 AB (Rec: 01/01/20 12:48 AB [id number]) PT-Bed Mobility Assessment Rolling Type of Rolling Log Rolling Level of Assist Standby Assistance Supine to Sit Supine to Sit Standby Assistance,Bedrails Sit to Supine Sit to Supine Standby Assistance,Bedrails PT-Transfer Assessment Sit to and From Stand Sit to and from Stand Standby Assistance,1 Person Assistance,Use of Upper Extremities Equipment Transfer Assistive Device Gait Belt,Front Wheeled Walker Orthotic/Prosthetic Devices or Brace: No Gait Assessment Gait Gait Assistance Required: Standby Assistance,Contact Guard Assist Distance (Feet) 175 Able to Maintain Weight Bearing Status Yes During Gait Assistive Devices Assistive Device Gait Belt,Front Wheeled Walker Orthotic/Prosthetic Devices or Brace: No Gait Deviations General Gait Pattern Decreased Stride Length, Decreased Feet Clearance, Flexed Trunk Factors Limiting Gait Function Factors Limiting Gait Function Decreased Activity Tolerance, Decreased Strength,Limited Range of Motion,Pain,Poor Balance Comments Gait Comments completed log roll bed mobility SBA using bed rail. pt was able to complete sit to stand SBA and ambulated in the hallway using FWW 175 ft SBA to occasional CGA and cues . cued pt for upright posture but stated that she gets more pain on abdominal area when standing straight. pt ambulated back to her room and requested to go back to bed. completed sit to supine SBA with use of bed rail. positioned pt in bed. call light and table placed within reach. M5 PT-IP Objective Assessments Start: 12/30/19 13:47 Freq: NEEDED Status: Active Protocol: Document 12/30/19 15:50 AB (Rec: 12/30/19 16:40 [email or web address] Orientation Orientation/Cognition Level of Alertness Alert Orientation Name,Place,Situation Language Function Ability No Deficits Noted Safety Awareness Decreased Safety Awareness Memory Description Short Term Impaired Gross Range of Motion Lower Extremity ROM Assessment Within Functional Limits Strength Lower Extremity Strength Assessment Within Functional Limits Coordination Assessment Gross Coordination Gross Coordination WNL Sensation Assessment Sensation Gross Sensation WNL Muscle Tone Muscle Tone WNL Yes M6 PT-IP Treatment Start: 12/30/19 13:47 Freq: NEEDED Status: Active Protocol: Document 01/01/20 12:16 AB (Rec: 01/01/20 12:48 AB [id number]) Physical Therapy Treatment Education Education Provided Safety M7 PT-IP Assessment and Plan Start: 12/30/19 13:47 Freq: NEEDED Status: Active Protocol: Document 01/01/20 12:16 AB (Rec: 01/01/20 12:48 AB [email or web address]) PT Summary Assessment and Plan Potential Rehabilitation Potential Good Summary Impairments Pain,ROM,Strength,Balance,Bed Mobility,Transfers,Gait, Activity Tolerance Progress Towards Goals Slow Progress due to Medical Issues,Slow Progress due to Activity Tolerance Assessment Summary pt improving slowly with mobility but continues to have decrease activity tolerance and recommending continued use of FWW. pt plans to go home with significant other to assist her if needed. will continue to assess progress. Goals Bed Mobility Goal Independent Transfer Goal Independent Gait Goal Independent Gait Distance 200 Other Goals up/down 5 steps B rails SBA Days to Meet Goals 10 Frequency of Treatment Frequency Of Treatment Once a Day Treatment Plan Physical Therapy Treatment Plan Bed Mobility Training,Transfer Training,Gait Training, Therapeutic Exercise,Balance Retraining,Post Op Education, Discharge Planning,Hot or Cold Pack,Neuromuscular Re-ed Recommendations To Nursing Amount of Assist Needed 1 Person Assist Discharge Recommendations PT Discharge Recommendations Home with Assistance Transportation Needs at Discharge Private Vehicle
--- NOTE | 2020-01-01 12:18 | OT.IP.TRT ---
Current Diagnoses Partial intestinal obstruction, unspecified as to cause (12/25/19) Abnormal findings on diagnostic imaging of other abdominal regions, including retroperitoneum (12/25/19) Other specified postprocedural states (12/25/19) Surgery Performed Operation Date: 12/26/19 10:45 Actual Procedures p Colonoscopy with biopsY(Left) - Ana Gannon MD Operation Date: 12/29/19 12:45 Actual Procedures p Exploratory Laparotomy GEN Sigmoid colectomy, diverting loop. Ileostomy - Edgardo Carballo MD Occupational Therapy Treatment Note M2 OT-IP Current Condition Start: 12/30/19 15:53 Freq: Status: Active Protocol: Document 12/30/19 14:00 [facility] (Rec: 12/30/19 16:29 [facility] [id number]) Occupational Therapy Current Condition Current Condition Evaluation Date 12/30/19 Treatment Diagnosis s/p Sigmoid colectomy with diverting loop ileostomy. Post Operative Precautions Abdominal Surgery Precautions Log Roll,Lifting Restrictions, Gait Belt above Incisional Area M3 OT- IP Subjective and Pain Start: 12/30/19 15:53 Freq: Status: Active Protocol: Document 01/01/20 13:21 [facility] (Rec: 01/01/20 13:31 [facility] [id number]) OT- Subjective Occupational Therapy Visit Type Type Treatment Note Visit Start Time 11:53 Visit Stop Time 12:18 Total Visit Minutes 25 Occupational Therapy Visit Comments Patient Comments Check on pt in early Am and wanting OT to come back later . Pt wanting to clean up and use the bathroom before seeing PT for walking. Patient/Caregiver Goals To go to rehab prior to going home. OT Pain Assessment Pain When Pain Assessed During Mobility Pain Present Pain Present Pain Reported M4 OT- IP ADL's Start: 12/30/19 15:53 Freq: Status: Active Protocol: Document 01/01/20 13:21 [facility] (Rec: 01/01/20 13:31 [facility] [id number]) OT [id number] Comments OT Self-Feeding Comments Pt now on clear liquid diet. Pt states still having trouble with swallowing at times, nursing states awaiting orders from the physician for [employer] eval. OT ADL-Grooming Comments OT Grooming Comments CGA for balance while brushing and putting up her hair. OT ADL-Oral Care General Eval Oral Care Ability Independent OT ADL-Dressing General Eval Lower Body Dressing Ability Maximum Assistance Areas Needing Assistance Socks Comments OT Dressing Comments Attempted to see if LB dressing equipment may help pt , but too early at this time as having pain when initiating trying to lift up her foot. OT ADL-Toileting General Evaluation Toileting Ability Standby Assistance Comments OT Toileting Comments SBA and pt able to do all her toileting needs. Pt wanting to put a brief on , but later decided to wait as too many drains and tubes in place. OT ADL-Bathing Comments OT Bathing Comments Not at this time. M5 OT- IP IADL's Start: 12/30/19 15:53 Freq: Status: Active Protocol: Document 12/30/19 14:00 [facility] (Rec: 12/30/19 16:29 [facility] [id number]) OT-Instrumental Activities of Daily Living Home Safety Awareness Awareness of Need for Assistance at Home Good Awareness Medication Management Medication Management No Deficits Identified Money Management Money Management No Deficits Identified Meal Preparation Meal Preparation Caregiver Provides Assist [employer] Caregiver Provides Assist M6 OT- IP Functional Cognition Start: 12/30/19 15:53 Freq: Status: Active Protocol: Document 01/01/20 13:21 [facility] (Rec: 01/01/20 13:31 [facility] [id number]) Cognitive Factors Limiting Selfcare Function Cognitive Ability Level of Alertness Alert Patient Orientation Name,Place,Situation Attention Span Ability Capable of Focused Attention, Capable of Sustained Attention Ability to Follow Commands Able to Follow One Step Commands Cognitive Comments Cognitive Assessment Comments Pt still needing vc for safety for log rolling at this time. M7 OT- IP Mobility and Balance Start: 12/30/19 15:53 Freq: Status: Active Protocol: Document 01/01/20 13:21 [facility] (Rec: 01/01/20 13:31 [facility] [id number]) OT- Bed Mobility Assessment Supine to Sit Supine to Sit Assist Contact Guard Assistance Sit to Supine Sit to Supine Assist Minimal Assistance OT-Transfer Assessment Sit to and From Stand Sit to and from Stand Contact Guard Assistance Transfers Transfer Ability Contact Guard Assistance Technique Transfer Destination Bed,Toilet Transfer Technique Stand Step Pivot Devices Transfer Assistive Devices Gait Belt,Front Wheeled Walker Comments Mobility Comments CGA /SBA with FWW. Pt LUZ to help get her legs back into bed. OT- Gait Assessment Comments Gait Ability Comments CGA with FWW. OT- Balance Assessment Sitting Balance and Reactions Static Sitting Balance Ability Normal Dynamic Sitting Balance Ability Good Standing Balance and Reactions Static Standing Balance Ability Fair Comments Other Balance Tests/Deviations/Treatment Unsteady for balance when : letting go on the FWW to brush her hair. M8 OT- IP Objective Assessments Start: 12/30/19 15:53 Freq: Status: Active Protocol: Document 12/30/19 14:00 [facility] (Rec: 12/30/19 16:29 [facility] [id number]) OT Gross Range of Motion Upper Extremity Range of Motion Assessment Within Functional Limits OT Strength Comments Strength Comments NT due to recent sx. OT-Muscle Tone Assessment Muscle Tone WNL Yes M9 OT- IP Assessment and Plan Start: 12/30/19 15:53 Freq: Status: Active Protocol: Document 01/01/20 13:21 [facility] (Rec: 01/01/20 13:31 [facility] [id number]) OT Summary Assessment and Plan Potential Rehabilitation Potential Good Analytic Complexity at Evaluation Low Summary OT Impairments Pain,Functional Cognition, Functional Mobility,Grooming, Dressing,Toileting,Bathing, Toilet Transfers,Shower Transfers,Activity Tolerance Progress Towards Goals Progressing Toward Goals Assessment Summary Pt able to do grooming and toileting and now in clear liquids. Pt would benefit from skilled rehab prior to going home. Goals Grooming Goal Independent Dressing Goal Independent Toileting Goal Independent Bathing Goal Independent Toilet Transfer Goal Independent Shower Transfer Goal Independent Patient/Caregiver Education Goal Demonstrate Post-Op Precautions Days to Meet Goals 8 Frequency of Treatment Frequency Of Treatment Once a Day Treatment Plan OT Treatment Plan ADL Training,Functional Cognition Training,Functional Mobility,Patient/Family Education,Discharge Planning Discharge Recommendations OT Discharge Recommendations SNF Rehab Transportation Needs at Discharge Wheelchair/Cabulance
--- NOTE | 2020-01-01 13:54 | PM.PNPO.1 ---
Subjective Subjective Date Patient Seen: 01/01/20 Time Patient Seen: 13:55 Interval history: Ileostomy is been productive. incisional pain. No nausea, feels less bloated than yesterday. Removed nasogastric tube this morning started on clear liquids this afternoon she has tolerated well ostomy continues to be productive no nausea. Exam Vital Signs (past 8 hours): - 01/01/20 08:29 01/01/20 09:40 Temperature 98.3 F Pulse Rate 102 H 100 H Respiratory Rate 16 17 Blood Pressure 133/63 Pulse Oximetry 90 L 92 Oxygen Delivery Method Room Air Oxygen Flow Rate 0 Narrative Exam Narrative: General adult female alert oriented no acute distress Abdomen soft midline incision clean dry intact vickie ileostomy productive and viable Objective Labs Result Diagrams: 01/01/20 08:50 01/01/20 08:50 Labs: Laboratory Results - last 24 hr 01/01/20 01/01/20 01/01/20 08:50 08:50 08:50 WBC 22.9 H RBC 3.09 L Hgb 9.7 L Hct 28.4 L MCV 91.7 MCH 31.5 MCHC 34.3 RDW 14.5 Plt Count 247 Neut % (Auto) Not Reportable Lymph % (Auto) Not Reportable [place] % (Auto) Not Reportable Eos % (Auto) Not Reportable Baso % (Auto) Not Reportable Lymph # (Auto) Not Reportable [place] # (Auto) Not Reportable Baso # (Auto) Not Reportable Total Counted 100 Seg Neutrophils % 79.0 H Band Neutrophils % 8.0 H Lymphocytes % (Manual) 1.0 L Atypical Lymphs % 1.0 H Monocytes % (Manual) 6.0 Eosinophils % (Manual) 1.0 L Metamyelocytes % 2.0 H Myelocytes % 2.0 H Neutrophils # (Manual) 12833 H Toxic Granulation Present H RBC Morphology See below Sodium 137 Potassium 3.0 L Chloride 108 H Carbon Dioxide 24 BUN 15 Creatinine 0.32 L Estimated GFR > 60.0 BUN/Creatinine Ratio 46.9 H Glucose 133 H Calcium 7.4 L Magnesium 1.8 Total Bilirubin 1.2 AST 56 H ALT 36 H Alkaline Phosphatase 86 Total Protein 4.8 L Albumin 2.2 L Globulin 2.6 Albumin/Globulin Ratio 0.8 L Procalcitonin 7.02 H Assessment & Plan Post-op Postoperative Procedures: Procedures Operation Date: 12/26/19 10:45 Actual Procedures Side Surgeon p Colonoscopy with biopsY Left Ana Gannon MD Operation Date: 12/29/19 12:45 Actual Procedures Side Surgeon p Exploratory Laparotomy GEN Sigmoid colectomy, diverting loop. Ileostomy Edgardo Carballo MD Postoperative status narrative: 49-year-old woman postoperative day 3 after a open sigmoid resection diverting loop ileostomy for colonic perforation. She is recovering appropriately. Postoperative ileus is resolved. Plan -DC IV fluids -transitional diet -ostomy teaching -p.o. pain meds -continue meropenem, trend WBC Quality VTE Deep Vein Thrombosis/Pulmonary Embolism Present on Admission: No
[2020-01-01] MEDS: POTASSIUM CHLORIDE 20 MEQ TAB 40 MEQ PO (17:09)
--- NOTE | 2020-01-01 18:14 | PC.NURSE ---
Ostomy Nurse Consult Note Vibha awake in bed with her mother, Noris at her side. She states she is feeling better. She is eating a full liquid diet. Her NG Tube has been removed. She continues to have incisional pain. Her stoma is pink and the bridge is in place. She has dark green liquid/mushy effluent. I did not remove the appliance as I changed it yesterday. The BING drains are intact and her incisional dressing is intact and has dried drainage on it. I discussed diet and reviewed some of the [facility] Nutrition Guide. When she got up to ambulate to the bathroom I showed her how to empty her appliance. When she got up I noticed a maroon area on her coccyx and notified Brandy her nurse. This is a non-blanchable area. I will return tomorrow or Sunday to continue with teaching.
[2020-01-01] MEDS: SODIUM CHLORIDE 0.9% FLUSH 10 ML IV (23:40)
[2020-01-02] MEDS: MEROPENEM 1 GM/50 ML PIGGYBACK IV ×2 (02:45→11:20)
[2020-01-02] MEDS: SODIUM CHLORIDE 0.9% FLUSH 10 ML IV ×4 (02:47→21:33)
[2020-01-02 03:33] VITALS: BP 132/75; PULSE 104; RESP 18; TEMP 36.7; O2SAT 94
[2020-01-02] MEDS: KETOROLAC 30 MG/ML VIAL IV ×3 (06:04→19:24)
[2020-01-02 06:09] LABS: Hematocrit 29.7 % (36-46); Mean Corpuscular HGB Conc 33.6 % (30-36); Mean Corpuscular Hemoglobin 31.1 PG (26-34); Mean Corpuscular Volume 92.5 fL (80-100); Platelet Count 267 X10^3/uL (150-400); Red Blood Cell Count 3.21 X10^6/uL (4.0-5.2); Red Cell Distribution Width 14.7 % (11.6-14.8); White Blood Cell Count 29.6 X10^3/uL (4.5-11.0)
[2020-01-02 06:12] LABS: Add Manual Diff / Slide Review YES
[2020-01-02 06:23] LABS: Procalcitonin 4.47 ng/mL (<0.5)
[2020-01-02 06:55] LABS: Neutrophils Absolute Manual 25752 /uL (3000-5900); Nucleated Red Blood Cells 1 #/Diff; Total Cells Counted 100
[2020-01-02 06:57] LABS: Toxic Granulation Present
[2020-01-02 08:00] VITALS: BP 122/72; PULSE 105; RESP 16; TEMP 36.6; O2SAT 98
[2020-01-02 08:07] LABS: Alanine Aminotransferase 54 IU/L (<35); Albumin 2.3 g/dL (3.5-5.0); Albumin Globulin Ratio 0.8 (1.0-2.8); Alkaline Phosphatase 152 U/L (38-126); Aspartate Aminotransferase 57 IU/L (14-36); BUN Creatinine Ratio 43.8 (6-22); Bilirubin Total 1.3 mg/dL (0.2-1.3); Blood Urea Nitrogen 14 mg/dL (7-17); Calcium 7.8 mg/dL (8.4-10.2); Carbon Dioxide 25 mmol/L (22-32); Chloride 108 mmol/L (98-107); Estimated Glomerular Filt Rate > 60.0 mL/min (>60); Globulin 2.9 g/dL (1.7-4.1); Glucose 96 mg/dL (70-100); HEMOLYSIS < 15 (0-50); Magnesium 1.8 mg/dL (1.6-2.3); Potassium 3.6 mmol/L (3.4-5.1); Sodium 137 mmol/L (137-145); Total Protein 5.2 g/dL (6.3-8.2)
[2020-01-02] MEDS: POTASSIUM CHLORIDE 20 MEQ TAB 40 MEQ PO (09:00)
[2020-01-02] MEDS: ENOXAPARIN 40 MG/0.4 ML SYRINGE SUBCUT (09:00)
[2020-01-02] MEDS: FLUTICASONE 110MCG HFA 120 PUFF INH ×2 (09:01→17:31)
[2020-01-02] MEDS: ZIPRASIDONE 80 MG 80 EACH PO ×2 (09:01→21:33)
[2020-01-02] MEDS: lamoTRIgine 25 MG CHEW TABLET PO ×2 (09:01→21:32)
[2020-01-02] MEDS: ZONISAMIDE 100 MG CAPSULE PO ×2 (09:03→21:33)
[2020-01-02] MEDS: MORPHINE 2 MG/ML INJ IV ×2 (09:07→15:30)
[2020-01-02] MEDS: lamoTRIgine 100 MG TABLET 200 MG PO ×2 (09:15→21:32)
[2020-01-02 11:00] VITALS: BP 123/73; PULSE 100; RESP 15; TEMP 36.6; O2SAT 94
--- NOTE | 2020-01-02 11:07 | PT-IP ANOTE ---
Attempted to see pt at 11:07, pt refused PT stating she is too fatigued and requested PM session. Will attempt to see pt in PM as requested.
--- NOTE | 2020-01-02 11:21 | PM.PN.1 ---
Subjective Subjective Date Patient Seen: 01/02/20 Time Patient Seen: 17:33 Interval history: No acute events overnight, the patient says she does not feel fevers or chills, denies significant pain. Is eating some and passing gas and stool through her ileostomy. Exam Vital Signs (past 8 hours): - 01/02/20 03:33 01/02/20 08:00 Temperature 98.1 F 97.8 F Pulse Rate 104 H 105 H Respiratory Rate 18 16 Blood Pressure 132/75 122/72 Pulse Oximetry 94 98 Oxygen Delivery Method Room Air Oxygen Flow Rate 0 Narrative Exam Narrative: GENERAL: Alert, comfortable. Appears older than stated age. Oriented to self and situation CARDIOVASCULAR: Regular rate. No pedal edema. RESPIRATORY: Non-tachypneic, breathing comfortably on room air. GASTROINTESTINAL: Abdomen soft and non-distended; incision clean dry intact, BING drain serosanguineous, ileostomy with dark relatively thick stool output MUSCULOSKELETAL: Equal tone and mass bilaterally. SKIN: Warm, dry, soft, appropriate color for ethnicity. No other lesions, rashes, or wounds. Objective Labs Result Diagrams: 01/02/20 05:25 01/02/20 05:25 Labs: Laboratory Results - last 24 hr 01/02/20 01/02/20 01/02/20 05:25 05:25 05:25 WBC 29.6 H RBC 3.21 L Hgb 10.0 L Hct 29.7 L MCV 92.5 MCH 31.1 MCHC 33.6 RDW 14.7 Plt Count 267 Neut % (Auto) Not Reportable Lymph % (Auto) Not Reportable [place] % (Auto) Not Reportable Eos % (Auto) Not Reportable Baso % (Auto) Not Reportable Lymph # (Auto) Not Reportable [place] # (Auto) Not Reportable Baso # (Auto) Not Reportable Total Counted 100 Seg Neutrophils % 82.0 H Band Neutrophils % 5.0 Lymphocytes % (Manual) 8.0 L D Monocytes % (Manual) 3.0 Metamyelocytes % 2.0 H Neutrophils # (Manual) 02395 H Nucleated RBCs 1 H Toxic Granulation Present H RBC Morphology See below Sodium 137 Potassium 3.6 Chloride 108 H Carbon Dioxide 25 BUN 14 Creatinine 0.32 L Estimated GFR > 60.0 BUN/Creatinine Ratio 43.8 H Glucose 96 Calcium 7.8 L Magnesium 1.8 Total Bilirubin 1.3 AST 57 H ALT 54 H Alkaline Phosphatase 152 H D Total Protein 5.2 L Albumin 2.3 L Globulin 2.9 Albumin/Globulin Ratio 0.8 L Procalcitonin 4.47 H Assessment & Plan Assessment & Plan narrative: This is a 49-year-old woman who is postop day 4 status post laparotomy, rectal resection anastomosis, and diverting loop ileostomy for colonic perforation. She looks well, but her white count of 29 is concerning. We do note that her white count seems to lag behind her clinical situation. It was normal when she had the bowel perf and leakage of stool, and has increased after surgical washout and repair. Meanwhile her procalcitonin has come down and she overall looks well and nontoxic. Plan: Continue current regimen, recheck labs tomorrow, ambulate as tolerated, ileostomy teaching COVID-19 COVID-19 status: Negative Result date/Date tested (Pos, Neg/Pending): 12/25/19 Time Spent With Patient Time with patient: 15-24 minutes Quality VTE Deep Vein Thrombosis/Pulmonary Embolism Present on Admission: No
--- NOTE | 2020-01-02 14:24 | P.PN_ITS ---
Subjective Subjective Date Patient Seen: 01/02/20 Interval history: Vibha Brenner is a 49-year-old female with past medical history significant for brain tumor status post craniotomy, seizure disorder, bipolar disorder and chronic bronchitis status post exploratory laparotomy with diverting ileostomy for perforated sigmoid colon. Patient is tolerating diet. She denies nausea, vomiting or abdominal pain. Ileostomy with adequate output. Her WBC has been increasing where as procalcit onin clearly trending down. Exam Vital Signs (past 8 hours): - 01/02/20 08:00 01/02/20 11:00 Temperature 97.8 F 98 F Pulse Rate 105 H 100 H Respiratory Rate 16 15 Blood Pressure 122/72 123/73 Pulse Oximetry 98 94 Oxygen Delivery Method Room Air Oxygen Flow Rate 0 Narrative Exam Narrative: General: Alert and in no acute distress Lungs: Diminished bilaterally without crackles or wheezes Heart: Regular rhythm Abdomen: Surgical incision appears clean and dry with midline vickie, ileostomy Extremities: Mild bilateral lower extremity edema Neurological: Alert and oriented, nonfocal Objective Labs Result Diagrams: 01/02/20 05:25 01/02/20 05:25 Labs: Laboratory Results - last 24 hr 01/02/20 01/02/20 01/02/20 05:25 05:25 05:25 WBC 29.6 H RBC 3.21 L Hgb 10.0 L Hct 29.7 L MCV 92.5 MCH 31.1 MCHC 33.6 RDW 14.7 Plt Count 267 Neut % (Auto) Not Reportable Lymph % (Auto) Not Reportable [place] % (Auto) Not Reportable Eos % (Auto) Not Reportable Baso % (Auto) Not Reportable Lymph # (Auto) Not Reportable [place] # (Auto) Not Reportable Baso # (Auto) Not Reportable Total Counted 100 Seg Neutrophils % 82.0 H Band Neutrophils % 5.0 Lymphocytes % (Manual) 8.0 L D Monocytes % (Manual) 3.0 Metamyelocytes % 2.0 H Neutrophils # (Manual) 61693 H Nucleated RBCs 1 H Toxic Granulation Present H RBC Morphology See below Sodium 137 Potassium 3.6 Chloride 108 H Carbon Dioxide 25 BUN 14 Creatinine 0.32 L Estimated GFR > 60.0 BUN/Creatinine Ratio 43.8 H Glucose 96 Calcium 7.8 L Magnesium 1.8 Total Bilirubin 1.3 AST 57 H ALT 54 H Alkaline Phosphatase 152 H D Total Protein 5.2 L Albumin 2.3 L Globulin 2.9 Albumin/Globulin Ratio 0.8 L Procalcitonin 4.47 H Assessment & Plan Assessment & Plan narrative: Vibha Brenner is a 49-year-old female with past medical history significant for brain tumor status post craniotomy, seizure disorder, bipolar disorder and chronic bronchitis status post exploratory laparotomy with diverting ileostomy for perforated sigmoid colon. 1. Acute small bowel obstruction with sigmoid colitis and bowel perforation, present on admission (perforation not present on admission). Active. -patient is status post sigmoid colectomy with diverting ileostomy on 12/28 due to perforated bowel -for some reason her WBC has been trending up postop although clinically she appears stable and procalcitonin significantly down -Continue meropenem 1 g every 8 hours -recheck CBC in a.m. -continue diet and other postop management per Surgical Service -consider repeat abdominal imaging if WBC not improving 2. Hypokalemia and hypomagnesemia, acute, present on admission. Resolved. -Secondary to continued GI losses. 3. COPD with chronic bronchitis, present on admission. Stable. -Does not represent acute COPD exacerbation. -Continue albuterol MDI as needed and Flovent b.i.d. 4. Seizure disorder, chronic, present on admission. Stable. -Last seizure was over a year ago. -Continue home zonisamide 100 mg daily and lamotrigine 225 mg twice daily. 5. Bipolar disorder, chronic, present on admission. Stable -Continue home lamotrigine 225 mg twice daily and ziprasidone 80 mg twice daily. Code status: Full code, patient designates Marcin Ramsey to be her surrogate decision maker. VTE prophylaxis:: Enoxaparin, SCDs Disposition: Patient likely discharge to longterm for rehabilitation in 1-2 days. Patient can be discharged once WBC trending down. Quality VTE Deep Vein Thrombosis/Pulmonary Embolism Present on Admission: No
--- NOTE | 2020-01-02 14:45 | PT.IPTN ---
Current Diagnoses Partial intestinal obstruction, unspecified as to cause (12/25/19) Abnormal findings on diagnostic imaging of other abdominal regions, including retroperitoneum (12/25/19) Other specified postprocedural states (12/25/19) Surgery Performed Operation Date: 12/26/19 10:45 Actual Procedures p Colonoscopy with biopsY(Left) - Ana Gannon MD Operation Date: 12/29/19 12:45 Actual Procedures p Exploratory Laparotomy GEN Sigmoid colectomy, diverting loop. Ileostomy - Edgardo Carballo MD Physical Therapy Treatment Note M2 PT-IP Current Condition Start: 12/30/19 13:47 Freq: NEEDED Status: Active Protocol: Document 12/30/19 15:50 AB (Rec: 12/30/19 16:40 AB [email or web address]) Physical Therapy Current Condition Current Condition Evaluation Date 12/30/19 Treatment Diagnosis intestinal perforation s/p colectomy/ ileostomy; difficulty in walking Onset Date 12/25/19 Precautions Abdominal Surgery Precautions Log Roll,Lifting Restrictions, Gait Belt above Incisional Area Other Precautions has NG tube, 2 incision drains , wright, IV line M3 PT-IP Subjective Start: 12/30/19 13:47 Freq: NEEDED Status: Active Protocol: Document 01/02/20 14:45 AB (Rec: 01/02/20 15:32 AB [email or web address]) Subjective Physical Therapy Visit Type Type Treatment Note Visit Start Time 14:45 Visit Stop Time 15:03 Total Visit Minutes 18 Number of ASSET ACCOUNTANT Visits 0 Physical Therapy Visit Comments Patient Comments pt is agreeable to do PT M4 PT-IP Mobility and Gait Start: 12/30/19 13:47 Freq: NEEDED Status: Active Protocol: Document 01/02/20 14:45 AB (Rec: 01/02/20 15:32 AB [email or web address]) PT-Bed Mobility Assessment Rolling Type of Rolling Log Rolling Level of Assist Standby Assistance Supine to Sit Supine to Sit Standby Assistance,Bedrails Sit to Supine Sit to Supine Standby Assistance,Bedrails PT-Transfer Assessment Sit to and From Stand Sit to and from Stand Contact Guard Assistance,1 Person Assistance,Use of Upper Extremities Equipment Transfer Assistive Device Gait Belt,Front Wheeled Walker Orthotic/Prosthetic Devices or Brace: No Transfers Transfer Destination Toilet Transfer Technique ambulated using FWW Transfer Ability Level of Assist Contact Guard Assistance,1 Person Assistance,Use of Upper Extremities Comments Mobility Comments pt is a little drowsy/sleepy today. stated that she just has not been sleeping well at night. completed supine to sit log roll using bed rail SBA. completed sit to stand CGA and ambulated in the hallway using FWW ~ 90 ft CGA. pt rested on EOB and stated that she has to use the toilet and ambulated using FWW CGA. completed hygiene care SBA and ambulated out to the toilet CGA using FWW. completed sit to supine SBA using bed rail. positioned pt in bed. call light and table placed within reach. Gait Assessment Gait Gait Assistance Required: Contact Guard Assist Distance (Feet) 90 Able to Maintain Weight Bearing Status Yes During Gait Assistive Devices Assistive Device Gait Belt,Front Wheeled Walker Orthotic/Prosthetic Devices or Brace: No Gait Deviations General Gait Pattern Decreased Stride Length, Decreased Feet Clearance Factors Limiting Gait Function Factors Limiting Gait Function Decreased Activity Tolerance, Decreased Strength,Limited Range of Motion,Pain,Poor Balance M5 PT-IP Objective Assessments Start: 12/30/19 13:47 Freq: NEEDED Status: Active Protocol: Document 12/30/19 15:50 AB (Rec: 12/30/19 16:40 [email or web address] Orientation Orientation/Cognition Level of Alertness Alert Orientation Name,Place,Situation Language Function Ability No Deficits Noted Safety Awareness Decreased Safety Awareness Memory Description Short Term Impaired Gross Range of Motion Lower Extremity ROM Assessment Within Functional Limits Strength Lower Extremity Strength Assessment Within Functional Limits Coordination Assessment Gross Coordination Gross Coordination WNL Sensation Assessment Sensation Gross Sensation WNL Muscle Tone Muscle Tone WNL Yes M6 PT-IP Treatment Start: 12/30/19 13:47 Freq: NEEDED Status: Active Protocol: Document 01/02/20 14:45 AB (Rec: 01/02/20 15:32 AB [email or web address]) Physical Therapy Treatment Education Education Provided Precautions,Safety M7 PT-IP Assessment and Plan Start: 12/30/19 13:47 Freq: NEEDED Status: Active Protocol: Document 01/02/20 14:45 AB (Rec: 01/02/20 15:32 AB [email or web address]) PT Summary Assessment and Plan Potential Rehabilitation Potential Good Summary Impairments Pain,ROM,Strength,Balance, Coordination,Sensation,Tone, Cognition,Bed Mobility, Transfers,Gait,Activity Tolerance Progress Towards Goals Slow Progress due to Activity Tolerance Assessment Summary pt is progressing slowly. unable to ambulate much today due to pt feeling sleepy and stated that she has not been sleeping well since hospitalization. will continue to assess progress. Goals Bed Mobility Goal Independent Transfer Goal Independent Gait Goal Independent Gait Distance 200 Other Goals up/down 5 steps B rails SBA Days to Meet Goals 10 Frequency of Treatment Frequency Of Treatment Once a Day Treatment Plan Physical Therapy Treatment Plan Bed Mobility Training,Transfer Training,Gait Training, Therapeutic Exercise,Balance Retraining,Post Op Education, Discharge Planning,Hot or Cold Pack,Neuromuscular Re-ed Recommendations To Nursing Amount of Assist Needed 1 Person Assist Discharge Recommendations PT Discharge Recommendations Home with Assistance Transportation Needs at Discharge Private Vehicle
--- NOTE | 2020-01-02 15:53 | PC.NURSE ---
Gauze drsgs changed and secured to midline, stapled incision; gauze 2 X 2 changed to right fina drain site; BTs present; pt tolerating transitional diet; ls clear, O2 RA=95%; pt very somnolent, today; IV pain medication due to patient allergy to Tylenol in Percocet
[2020-01-02 15:56] VITALS: BP 120/67; PULSE 102; RESP 18; TEMP 37.7; O2SAT 93
--- NOTE | 2020-01-02 16:07 | OT.IP.TRT ---
Current Diagnoses Partial intestinal obstruction, unspecified as to cause (12/25/19) Abnormal findings on diagnostic imaging of other abdominal regions, including retroperitoneum (12/25/19) Other specified postprocedural states (12/25/19) Surgery Performed Operation Date: 12/26/19 10:45 Actual Procedures p Colonoscopy with biopsY(Left) - Ana Gannon MD Operation Date: 12/29/19 12:45 Actual Procedures p Exploratory Laparotomy GEN Sigmoid colectomy, diverting loop. Ileostomy - Edgardo Carballo MD Occupational Therapy Treatment Note M2 OT-IP Current Condition Start: 12/30/19 15:53 Freq: Status: Active Protocol: Document 12/30/19 14:00 [facility] (Rec: 12/30/19 16:29 [facility] [id number]) Occupational Therapy Current Condition Current Condition Evaluation Date 12/30/19 Treatment Diagnosis s/p Sigmoid colectomy with diverting loop ileostomy. Post Operative Precautions Abdominal Surgery Precautions Log Roll,Lifting Restrictions, Gait Belt above Incisional Area M3 OT- IP Subjective and Pain Start: 12/30/19 15:53 Freq: Status: Active Protocol: Document 01/02/20 16:06 [facility] (Rec: 01/02/20 16:07 [facility] [id number]) OT- Subjective Occupational Therapy Visit Type Type Administrative Note Notes Pt states fatigue and just returned to bed from bathroom. Requested nursing to ask surgeon for shower approval. Will hold today and plan for shower tomorrow if approved by .
[2020-01-02 17:31] VITALS: PULSE 104; RESP 16; O2SAT 95
[2020-01-02] MEDS: MEROPENEM 1 GM in SODIUM CHLORIDE 0.9% 100 ML 200 ML IV (19:26)
[2020-01-02 19:36] VITALS: BP 122/77; PULSE 108; RESP 16; TEMP 37.3; O2SAT 93
[2020-01-03] VITALS (11 sets, daily range): BP systolic 118–140; BP diastolic 67–77; PULSE 65–122; RESP 16–28; TEMP 36.9–37.7; O2SAT 93–95
[2020-01-03] MEDS: MEROPENEM 1 GM in SODIUM CHLORIDE 0.9% 100 ML 200 ML IV (02:32)
[2020-01-03] MEDS: OXYCODONE IR 5 MG TABLET PO ×4 (03:20→18:32)
[2020-01-03 04:58] LABS: Hemoglobin 9.1 g/dL (12.0-16.0); Mean Corpuscular HGB Conc 33.6 % (30-36); Mean Corpuscular Hemoglobin 31.2 PG (26-34); Mean Corpuscular Volume 92.8 fL (80-100); Platelet Count 284 X10^3/uL (150-400); Red Blood Cell Count 2.91 X10^6/uL (4.0-5.2); Red Cell Distribution Width 14.5 % (11.6-14.8)
[2020-01-03 05:11] LABS: Blood Urea Nitrogen 9 mg/dL (7-17); Carbon Dioxide 27 mmol/L (22-32); Chloride 109 mmol/L (98-107); Estimated Glomerular Filt Rate > 60.0 mL/min (>60); Glucose 91 mg/dL (70-100); HEMOLYSIS 28 (0-50); Potassium 4.2 mmol/L (3.4-5.1); Sodium 138 mmol/L (137-145)
[2020-01-03 05:12] LABS: Add Manual Diff / Slide Review YES
[2020-01-03 05:16] LABS: Procalcitonin 2.25 ng/mL (<0.5)
[2020-01-03 05:41] LABS: Neutrophils Absolute Manual 27600 /uL (3000-5900); Total Cells Counted 100
[2020-01-03 05:50] LABS: RBC Morphology Normal Morphology
[2020-01-03] MEDS: KETOROLAC 30 MG/ML VIAL IV ×3 (06:10→11:32)
[2020-01-03] MEDS: SODIUM CHLORIDE 0.9% FLUSH 10 ML IV ×2 (06:10→07:46)
[2020-01-03] MEDS: ZIPRASIDONE 80 MG 80 EACH PO ×2 (07:47→20:09)
[2020-01-03] MEDS: ENOXAPARIN 40 MG/0.4 ML SYRINGE SUBCUT (07:47)
[2020-01-03] MEDS: ZONISAMIDE 100 MG CAPSULE PO ×2 (07:47→20:08)
[2020-01-03] MEDS: lamoTRIgine 25 MG CHEW TABLET PO ×2 (07:51→20:09)
[2020-01-03] MEDS: lamoTRIgine 100 MG TABLET 200 MG PO ×2 (07:51→21:46)
--- NOTE | 2020-01-03 08:08 | DI.RAD.S_ITS ---
PROCEDURE: XR CHEST 1V INDICATIONS: Clinical concern for pneumonia TECHNIQUE: One view of the chest was acquired. COMPARISON: [facility], CR, XR CHEST 1V, 12/29/2019, 18:46. FINDINGS: Surgical changes and devices: Upper abdominal vickie are seen. Lungs and pleura: On this semiupright study, no large pneumothorax is seen. Trace blunting of both costophrenic angles can be seen. No focal infiltrates are seen. Mediastinum: The cardiac contours are within normal limits. The aorta demonstrates calcification and tortuosity. Bones and chest wall: No suspicious bony lesions. Age-appropriate bony degenerative changes are seen. Overlying soft tissues appear unremarkable. IMPRESSION: No focal infiltrates are seen. Trace blunting of the costophrenic angles, which is likely related to small pleural effusions. Upper abdominal vickie are seen. Dictated by: Kelvin Herrera M.D. on 01/03/2020 at 7:50 Approved by: Kelvin Herrera M.D. on 01/03/2020 at 7:51
[2020-01-03] MEDS: FLUTICASONE 110MCG HFA 120 PUFF INH ×2 (08:58→19:46)
[2020-01-03] MEDS: ALBUTEROL HFA 200 PUFF/18 GM INH (COVID POS/VENT PTS) INH ×3 (09:33→19:46)
[2020-01-03] MEDS: MEROPENEM 1 GM in SODIUM CHLORIDE 0.9% 100 ML 125 ML IV ×2 (10:01→18:26)
--- NOTE | 2020-01-03 10:17 | PM.PN.1 ---
Subjective Subjective Date Patient Seen: 01/03/20 Interval history: Vibha Brenner is a 49-year-old female with past medical history significant for brain tumor status post craniotomy, seizure disorder, bipolar disorder and chronic bronchitis status post exploratory laparotomy with diverting ileostomy for perforated sigmoid colon. Patient has not had nausea or vomiting. Notes incisional abdominal pain. She does know some cough. WBC remains elevated at 30,000 thousand while procalcitonin continues to trend down. Exam Vital Signs (past 8 hours): - 01/03/20 04:52 01/03/20 08:00 01/03/20 08:59 Temperature 98.9 F 99.8 F H Pulse Rate 107 H 65 122 H Respiratory Rate 16 28 H 24 Blood Pressure 135/75 136/71 Pulse Oximetry 94 94 94 01/03/20 09:38 Temperature Pulse Rate 120 H Respiratory Rate 22 Blood Pressure Pulse Oximetry Oxygen Delivery Method Room Air Oxygen Flow Rate 0 Narrative Exam Narrative: General: Alert and in no acute distress Lungs: Bilateral mid to lower lung crackles Heart: Regular rhythm Abdomen: Surgical incision appears clean and dry with midline vickie, ileostomy Extremities: Mild bilateral lower extremity edema Neurological: Alert and oriented, nonfocal Objective Labs Result Diagrams: 01/03/20 04:35 01/03/20 04:35 Labs: Laboratory Results - last 24 hr 01/03/20 01/03/20 01/03/20 04:35 04:35 04:35 WBC 30.0 H RBC 2.91 L Hgb 9.1 L Hct 27.0 L MCV 92.8 MCH 31.2 MCHC 33.6 RDW 14.5 Plt Count 284 Neut % (Auto) Not Reportable Lymph % (Auto) Not Reportable [place] % (Auto) Not Reportable Eos % (Auto) Not Reportable Baso % (Auto) Not Reportable Lymph # (Auto) Not Reportable [place] # (Auto) Not Reportable Baso # (Auto) Not Reportable Total Counted 100 Seg Neutrophils % 85.0 H Band Neutrophils % 7.0 Lymphocytes % (Manual) 4.0 L Monocytes % (Manual) 1.0 L Eosinophils % (Manual) 1.0 L Metamyelocytes % 2.0 H Neutrophils # (Manual) 96295 H RBC Morphology Normal morphology Sodium 138 Potassium 4.2 Chloride 109 H Carbon Dioxide 27 BUN 9 Creatinine 0.31 L Estimated GFR > 60.0 BUN/Creatinine Ratio 29.0 H Glucose 91 Calcium 8.0 L Procalcitonin 2.25 H Assessment & Plan Assessment & Plan narrative: Vibha Brenner is a 49-year-old female with past medical history significant for brain tumor status post craniotomy, seizure disorder, bipolar disorder and chronic bronchitis status post exploratory laparotomy with diverting ileostomy for perforated sigmoid colon. 1. Acute small bowel obstruction with sigmoid colitis and bowel perforation, present on admission (perforation not present on admission). Active. -patient is status post sigmoid colectomy with diverting ileostomy on 12/28 due to perforated bowel -WBC [id number] possibly inflammatory response versus occult infection or abscess, procalcitonin continues to trend down -chest x-ray without pneumonia, patient with cough and crackles on lung exam due to atelectasis -Continue meropenem 1 g every 8 hours -recheck CBC in a.m. -continue diet and other postop management per Surgical Service -consider repeat abdominal imaging -incentive spirometry 2. Hypokalemia and hypomagnesemia, acute, present on admission. Resolved. -Secondary to continued GI losses. 3. COPD with chronic bronchitis, present on admission. Stable. -Does not represent acute COPD exacerbation. -Continue albuterol MDI as needed and Flovent b.i.d. 4. Seizure disorder, chronic, present on admission. Stable. -Last seizure was over a year ago. -Continue home zonisamide 100 mg daily and lamotrigine 225 mg twice daily. 5. Bipolar disorder, chronic, present on admission. Stable -Continue home lamotrigine 225 mg twice daily and ziprasidone 80 mg twice daily. Code status: Full code, patient designates Marcin Ramsey to be her surrogate decision maker. VTE prophylaxis:: Enoxaparin, SCDs Disposition: [facility] when cleared by surgery. Quality VTE Deep Vein Thrombosis/Pulmonary Embolism Present on Admission: No
--- NOTE | 2020-01-03 11:28 | PT.IPTN ---
Current Diagnoses Partial intestinal obstruction, unspecified as to cause (12/25/19) Abnormal findings on diagnostic imaging of other abdominal regions, including retroperitoneum (12/25/19) Other specified postprocedural states (12/25/19) Surgery Performed Operation Date: 12/26/19 10:45 Actual Procedures p Colonoscopy with biopsY(Left) - Ana Gannon MD Operation Date: 12/29/19 12:45 Actual Procedures p Exploratory Laparotomy GEN Sigmoid colectomy, diverting loop. Ileostomy - Edgardo Carballo MD Physical Therapy Treatment Note M2 PT-IP Current Condition Start: 12/30/19 13:47 Freq: NEEDED Status: Active Protocol: Document 12/30/19 15:50 AB (Rec: 12/30/19 16:40 AB [id number]) Physical Therapy Current Condition Current Condition Evaluation Date 12/30/19 Treatment Diagnosis intestinal perforation s/p colectomy/ ileostomy; difficulty in walking Onset Date 12/25/19 Precautions Abdominal Surgery Precautions Log Roll,Lifting Restrictions, Gait Belt above Incisional Area Other Precautions has NG tube, 2 incision drains , wright, IV line M3 PT-IP Subjective Start: 12/30/19 13:47 Freq: NEEDED Status: Active Protocol: Document 01/03/20 11:04 [place] (Rec: 01/03/20 13:05 [facility] [id number]) Subjective Physical Therapy Visit Type Type Treatment Note Visit Start Time 11:04 Visit Stop Time 11:28 Total Visit Minutes 24 Number of WAREHOUSE PRICING AND INVENTORY CLERK Visits 1 Physical Therapy Visit Comments Patient Comments pt is agreeable to do PT M4 PT-IP Mobility and Gait Start: 12/30/19 13:47 Freq: NEEDED Status: Active Protocol: Document 01/03/20 11:04 KS (Rec: 01/03/20 13:05 [place] [id number]) PT-Bed Mobility Assessment Rolling Type of Rolling Log Rolling Level of Assist Standby Assistance Supine to Sit Supine to Sit Standby Assistance,Bedrails Sit to Supine Sit to Supine Standby Assistance,Bedrails PT-Transfer Assessment Sit to and From Stand Sit to and from Stand Contact Guard Assistance,1 Person Assistance,Use of Upper Extremities Equipment Transfer Assistive Device Gait Belt,Front Wheeled Walker Orthotic/Prosthetic Devices or Brace: No Transfers Transfer Destination Bed,Toilet Transfer Technique ambulated using FWW Transfer Ability Level of Assist Contact Guard Assistance,1 Person Assistance,Use of Upper Extremities Comments Mobility Comments Pt in bed upon arrival from therapy. SBA for logroll to R and sidelying<>sit. Pt then sit<>stand w/ FWW and ambulated to bathroom CGA. After toileting, pt ambulated ~[address] hallway w/ FWW and CGA. Pt had flexed posture when ambulating d/t abdominal pain. but overall demonstrated good use of FWW. Pt required 2x short standing rest breaks w/ cues for breathing during ambulation and reported fatigue upon return to room. Pt sit<> sidelying and logrolled back into bed CGA. Pt was ble to reposition herself in bed SBA and left in bed w/ all needs in reach. Gait Assessment Gait Gait Assistance Required: Contact Guard Assist Distance (Feet) 120 Able to Maintain Weight Bearing Status Yes During Gait Assistive Devices Assistive Device Gait Belt,Front Wheeled Walker Orthotic/Prosthetic Devices or Brace: No Gait Deviations General Gait Pattern Decreased Stride Length, Decreased Feet Clearance, Flexed Trunk Factors Limiting Gait Function Factors Limiting Gait Function Decreased Activity Tolerance, Decreased Strength,Limited Range of Motion,Pain,Poor Balance Comments Gait Comments Please refer to mobility section for details. M5 PT-IP Objective Assessments Start: 12/30/19 13:47 Freq: NEEDED Status: Active Protocol: Document 12/30/19 15:50 AB (Rec: 12/30/19 16:40 AB [id number]) Orientation Orientation/Cognition Level of Alertness Alert Orientation Name,Place,Situation Language Function Ability No Deficits Noted Safety Awareness Decreased Safety Awareness Memory Description Short Term Impaired Gross Range of Motion Lower Extremity ROM Assessment Within Functional Limits Strength Lower Extremity Strength Assessment Within Functional Limits Coordination Assessment Gross Coordination Gross Coordination WNL Sensation Assessment Sensation Gross Sensation WNL Muscle Tone Muscle Tone WNL Yes M6 PT-IP Treatment Start: 12/30/19 13:47 Freq: NEEDED Status: Active Protocol: Document 01/03/20 11:04 KS (Rec: 01/03/20 13:05 KS [id number]) Physical Therapy Treatment Education Education Provided Precautions,Safety M7 PT-IP Assessment and Plan Start: 12/30/19 13:47 Freq: NEEDED Status: Active Protocol: Document 01/03/20 11:04 KS (Rec: 01/03/20 13:05 KS [id number]) PT Summary Assessment and Plan Potential Rehabilitation Potential Good Summary Impairments Pain,ROM,Strength,Balance, Coordination,Sensation,Tone, Cognition,Bed Mobility, Transfers,Gait,Activity Tolerance Progress Towards Goals Slow Progress due to Activity Tolerance Assessment Summary Pt SBA for bed mobility, CGA for transfers and ambulation. Pt tolerated ~120 total ft ambulation w/ FWW and CGA. Pt has flexed posture d/t abdominal discomfort and decreased stride and foot clearance d/t weakness. D/c plan depending on progress. Goals Bed Mobility Goal Independent Transfer Goal Independent Gait Goal Independent Gait Distance 200 Other Goals up/down 5 steps B rails SBA Days to Meet Goals 10 Frequency of Treatment Frequency Of Treatment Once a Day Treatment Plan Physical Therapy Treatment Plan Bed Mobility Training,Transfer Training,Gait Training, Therapeutic Exercise,Balance Retraining,Post Op Education, Discharge Planning,Hot or Cold Pack,Neuromuscular Re-ed Recommendations To Nursing Amount of Assist Needed 1 Person Assist Discharge Recommendations PT Discharge Recommendations Home with Assistance Transportation Needs at Discharge Private Vehicle
--- NOTE | 2020-01-03 11:54 | PC.NURSE ---
Day shift: Per Dr Ochoa d/patricio'julien tele.
[2020-01-03] MEDS: metroNIDAZOLE 500 MG/100 ML PIGGYBACK 100 MG IV ×3 (12:18→23:45)
--- NOTE | 2020-01-03 13:15 | CM.DPC ---
Addendum entered by Apple Trinidad LPN 01/03/20 14:34: Met again with pt, her friend Marcin and chemical inspector Alyce . Marcin and pt further clarify the post d/c plan: Pt says she will be going first to [facility]. When ready for d/c from there she will go to her mother's home in [place] for further recovery and to be close to followup with Dr. Carballo and Alyce. When she feels ready to do so she will return to [place] to her home with Marcin (confirmed that they do live together even though addresses on face sheet indicate differently.) Pt refers to Marcin as my good yfn. Will update [facility] re same. Addendum entered by Apple Trinidad LPN 01/03/20 13:30: Pt again today confirms her plan to recover at [facility] and continue learning the care and management of the ileostomy before she is ready to return to her living situation on [address]. Her mother has been visiting and today friend Marcin is here. Addendum entered by Apple Trinidad LPN 01/03/20 13:27: Dr. Carballo had stated on 12/29 that he expected pt to complete her IV antibiotic treatment in the hospital and that she would be ready to d/c when on oral antibiotics and with NGT out and good bowel function return. Original Note: DCP: continued: case received and EMR for last few days reviewed. Met with pt during Team Bedside Rounds. Dr. Ochoa confirmed that the [facility] team would determine pt's readiness for d/c to snf level and is aware that the plan at d/c is for [facility]. OF NOTE: UR physician LOS review on 12/31 stated that pt would likely need up to a week longer of hospital inpt care before readiness to d/c to snf care. [facility] has pt on her pending list and is following the EMR closely. Alyce Wood has been following for ostomy teach and management. Her notes can be found in the nursing notes section of the EMR and she has specifics of the ostomy appliance in those notes. P: remains [facility] when stable for same with updated COVID test prior to d/c.
--- NOTE | 2020-01-03 13:18 | PC.NURSE ---
Day shift: Ileostomy bag teaching by CAMILA Mead and the ABD dressing is being changed by her as well. When this dressing was off the ABD vickie are well approximated with no leaking and no S/S of infection. Pt tolerating this well. Marcin is there watching and learning as well. Call light in reach. Bed alarm is on.
[2020-01-03] MEDS: FLUCONAZOLE 200 MG/100 ML PIGGYBACK 100 MG IV (13:31)
--- NOTE | 2020-01-03 14:16 | PC.NURSE ---
Ostomy Nurse Consult Note Vibha is awake in bed. She just received pain medication for incisional pain. Marcin her SO from [place] is here with her and here to learn about caring for her stoma. I changed Vibha's appliance and explained what I was doing to Marcin and Vibha. Her stoma is edematous, moist, red. It measures 33 mm and the bridge is in place. The peristomal skin is intact. She is producing dark green/browish liquid to gelatinous effluent. Her BING drains are draining serous fluid. Her mid-line incision is dry and intact. I changed the midline dressings and the BING site dressings, Rileyarian her nurse come in to see the incision line. I placed a 45mm two piece moldable appliance and a transparent non-filter pouch from [facility]. Vibha was awake during the appliance change and then fell asleep. I then reviewed the GI anatomy with Marcin as well has had him practice measuring the stoma on the stoma model and placing an appliance on the model. We reviewed the crusting technique as well as dehydration prevention and how to prevent a food blockage. I gave Marcin his own [employer] New Patient Guide as he wanted to have one at home to review. Apple from discharge planning came in and we discussed the discharge plan. Vibha will go to [facility] then from there to her mother's here in [place] and then back over to [place] with Marcin. Vibha and Marcin are very comfortable with this plan as soon as Vibha is well enough as her WBC is high and needs to trend downward. I will follow up with Vibha at [facility] upon discharge, yet am available for further consultation if needed.
--- NOTE | 2020-01-03 15:31 | P.PN_ITS ---
Subjective Subjective Date Patient Seen: 01/03/20 Time Patient Seen: 15:32 Interval history: Patient feels very tired and washed out. Ostomy is functioning. No rectal gas. Feels better than she did yesterday. No seizure activity she is aware of. Exam Vital Signs (past 8 hours): - 01/03/20 08:00 01/03/20 08:59 01/03/20 09:38 Temperature 99.8 F H Pulse Rate 65 122 H 120 H Respiratory Rate 28 H 24 22 Blood Pressure 136/71 Pulse Oximetry 94 94 01/03/20 12:00 01/03/20 15:18 Temperature 98.4 F Pulse Rate 99 H 98 H Respiratory Rate 20 20 Blood Pressure 118/67 Pulse Oximetry 95 95 Oxygen Delivery Method Room Air Oxygen Flow Rate 0 Narrative Exam Narrative: Lungs clear to auscultation. Decreased in the bases. Heart regular rate and rhythm without murmur gallop. Abdomen is mildly distended and flat. Ostomy in the right lower quadrant is viable. There is stool in the bag (liquid). Midline vickie are intact. No cellulitis at this time. Objective Labs Result Diagrams: 01/03/20 04:35 01/03/20 04:35 Labs: Laboratory Results - last 24 hr 01/03/20 01/03/20 01/03/20 04:35 04:35 04:35 WBC 30.0 H RBC 2.91 L Hgb 9.1 L Hct 27.0 L MCV 92.8 MCH 31.2 MCHC 33.6 RDW 14.5 Plt Count 284 Neut % (Auto) Not Reportable Lymph % (Auto) Not Reportable [place] % (Auto) Not Reportable Eos % (Auto) Not Reportable Baso % (Auto) Not Reportable Lymph # (Auto) Not Reportable [place] # (Auto) Not Reportable Baso # (Auto) Not Reportable Total Counted 100 Seg Neutrophils % 85.0 H Band Neutrophils % 7.0 Lymphocytes % (Manual) 4.0 L Monocytes % (Manual) 1.0 L Eosinophils % (Manual) 1.0 L Metamyelocytes % 2.0 H Neutrophils # (Manual) 23254 H RBC Morphology Normal morphology Sodium 138 Potassium 4.2 Chloride 109 H Carbon Dioxide 27 BUN 9 Creatinine 0.31 L Estimated GFR > 60.0 BUN/Creatinine Ratio 29.0 H Glucose 91 Calcium 8.0 L Procalcitonin 2.25 H Assessment & Plan Post-op Postoperative Procedures: Procedures Operation Date: 12/26/19 10:45 Actual Procedures Side Surgeon p Colonoscopy with biopsY Left Ana Gannon MD Operation Date: 12/29/19 12:45 Actual Procedures Side Surgeon p Exploratory Laparotomy GEN Sigmoid colectomy, diverting loop. Ileostomy Edgardo Carballo MD Postoperative status narrative: Climbing white blood cell count with left shift quite concerning. I added coverage of yeast and additional anaerobic coverage to her treatment regimen. Will check urinalysis. Her chest x-ray shows no sign of infiltrate. Keep working on deep breathing. Postoperative plan narrative: Labs in the a.m.. urinalysis ordered. May shower. Quality VTE Deep Vein Thrombosis/Pulmonary Embolism Present on Admission: No
--- NOTE | 2020-01-03 15:56 | OT.IP.TRT ---
Current Diagnoses Partial intestinal obstruction, unspecified as to cause (12/25/19) Abnormal findings on diagnostic imaging of other abdominal regions, including retroperitoneum (12/25/19) Other specified postprocedural states (12/25/19) Surgery Performed Operation Date: 12/26/19 10:45 Actual Procedures p Colonoscopy with biopsY(Left) - Ana Gannon MD Operation Date: 12/29/19 12:45 Actual Procedures p Exploratory Laparotomy GEN Sigmoid colectomy, diverting loop. Ileostomy - Edgardo Carballo MD Occupational Therapy Treatment Note M2 OT-IP Current Condition Start: 12/30/19 15:53 Freq: Status: Active Protocol: Document 12/30/19 14:00 [facility] (Rec: 12/30/19 16:29 [facility] [id number]) Occupational Therapy Current Condition Current Condition Evaluation Date 12/30/19 Treatment Diagnosis s/p Sigmoid colectomy with diverting loop ileostomy. Post Operative Precautions Abdominal Surgery Precautions Log Roll,Lifting Restrictions, Gait Belt above Incisional Area M3 OT- IP Subjective and Pain Start: 12/30/19 15:53 Freq: Status: Active Protocol: Document 01/03/20 16:15 [facility] (Rec: 01/03/20 16:23 [facility] [email or web address]) OT- Subjective Occupational Therapy Visit Type Type Progress Note Visit Start Time 15:18 Visit Stop Time 15:56 Total Visit Minutes 38 Notes Per surgeon, ok for shower with dressing change after shower. OT Pain Assessment Pain When Pain Assessed At Rest Pain Present Pain Present Denied Pain M4 OT- IP ADL's Start: 12/30/19 15:53 Freq: Status: Active Protocol: Document 01/03/20 16:15 [facility] (Rec: 01/03/20 16:23 [facility] [id number]) OT [id number] Comments OT Self-Feeding Comments not meal time OT ADL-Grooming General Evaluation Grooming Ability Standby Assistance Areas Needing Assistance Combing/Brushing Hair Comments OT Grooming Comments seated EOB after shower OT ADL-Oral Care Comments Oral Care Comments not performed OT ADL-Dressing General Eval Upper Body Dressing Ability Standby Assistance Lower Body Dressing Ability Total Assistance Areas Needing Assistance Underpants/Brief,Socks Comments OT Dressing Comments hospital gown, socks and brief . OT ADL-Toileting General Evaluation Toileting Ability Standby Assistance Comments OT Toileting Comments seated on toilet for urination . OT ADL-Bathing Bathing Type Bathing Type Shower General Evaluation Bathing Ability Minimal Assistance Areas Needing Assistance Retrieving/Setting Up Items, Wash/Dry Lower Extremities Devices Bathing Equipment Hand Held Shower Sprayer, Shower Chair with Arms Comments OT Bathing Comments pt showered and was able to wash hair but needed assist for drying feet and lower legs . M5 OT- IP IADL's Start: 12/30/19 15:53 Freq: Status: Active Protocol: Document 12/30/19 14:00 [facility] (Rec: 12/30/19 16:29 [facility] [id number]) OT-Instrumental Activities of Daily Living Home Safety Awareness Awareness of Need for Assistance at Home Good Awareness Medication Management Medication Management No Deficits Identified Money Management Money Management No Deficits Identified Meal Preparation Meal Preparation Caregiver Provides Assist Community Relations Officer Community Relations Officer Caregiver Provides Assist M6 OT- IP Functional Cognition Start: 12/30/19 15:53 Freq: Status: Active Protocol: Document 01/01/20 13:21 [facility] (Rec: 01/01/20 13:31 [facility] [id number]) Cognitive Factors Limiting Selfcare Function Cognitive Ability Level of Alertness Alert Patient Orientation Name,Place,Situation Attention Span Ability Capable of Focused Attention, Capable of Sustained Attention Ability to Follow Commands Able to Follow One Step Commands Cognitive Comments Cognitive Assessment Comments Pt still needing vc for safety for log rolling at this time. M7 OT- IP Mobility and Balance Start: 12/30/19 15:53 Freq: Status: Active Protocol: Document 01/03/20 16:15 [facility] (Rec: 01/03/20 16:23 [facility] [email or web address]) OT- Bed Mobility Assessment Rolling Level of Assistance Standby Assistance Supine to Sit Supine to Sit Assist Standby Assistance Sit to Supine Sit to Supine Assist Standby Assistance Scooting Scooting to Edge of Bed Standby Assistance OT-Transfer Assessment Sit to and From Stand Sit to and from Stand Standby Assistance Transfers Transfer Ability Standby Assistance Technique Transfer Destination Bed,Shower Stall,Toilet Transfer Technique Stand Step Pivot Devices Transfer Assistive Devices Gait Belt,Front Wheeled Walker Comments Mobility Comments Pt ambulated from bed to toilet, into shower for bathing, and returned to bed at end of session. OT- Balance Assessment Sitting Balance and Reactions Static Sitting Balance Ability Good Dynamic Sitting Balance Ability Fair M8 OT- IP Objective Assessments Start: 12/30/19 15:53 Freq: Status: Active Protocol: Document 12/30/19 14:00 [facility] (Rec: 12/30/19 16:29 [facility] [id number]) OT Gross Range of Motion Upper Extremity Range of Motion Assessment Within Functional Limits OT Strength Comments Strength Comments NT due to recent sx. OT-Muscle Tone Assessment Muscle Tone WNL Yes M9 OT- IP Assessment and Plan Start: 12/30/19 15:53 Freq: Status: Active Protocol: Document 01/03/20 16:15 [facility] (Rec: 01/03/20 16:23 [facility] [email or web address]) OT Summary Assessment and Plan Potential Rehabilitation Potential Good Analytic Complexity at Evaluation Low Summary OT Impairments Pain,Functional Cognition, Functional Mobility,Grooming, Dressing,Toileting,Bathing, Toilet Transfers,Shower Transfers,Activity Tolerance Progress Towards Goals Progressing Toward Goals Assessment Summary Pt is progressing with endurance and was able to tolerate a shower today. Pt will need LB dressing training with hip kit. Pt is improving and may be able to discharge home with 24/7 assist vs SNF. Will continue to assess. Goals Grooming Goal Independent Dressing Goal Independent Toileting Goal Independent Bathing Goal Independent Toilet Transfer Goal Independent Shower Transfer Goal Independent Patient/Caregiver Education Goal Demonstrate Post-Op Precautions Days to Meet Goals 8 Frequency of Treatment Frequency Of Treatment Once a Day Treatment Plan OT Treatment Plan ADL Training,Functional Cognition Training,Functional Mobility,Patient/Family Education,Discharge Planning Other Treatment Recommendations and Next Lb dressing. Treatment Focus Discharge Recommendations OT Discharge Recommendations Home with 24/7 Assist,SNF Rehab Transportation Needs at Discharge Private Vehicle
[2020-01-03] MEDS: HYDROMORPHONE 1 MG INJ IV (21:50)
--- NOTE | 2020-01-03 22:43 | PC.NURSE ---
Pt is A and O x 4, VSS and motivated to heal well. She is somewhat uncomfortable emptying her ostomy bag. Her incision is nicely approximately and clean and dry, dressed with sterile gauze, no drainage. Pt rates her pain 5/10 and gets relief from 5mg oxy po. She has hypo BTs and did not report flatus. She ate 25% of her evening meal and drank 240 mLs tea. She is voiding qs clear yellow qs. Tolerating IV ABOs well.
[2020-01-04] VITALS (10 sets, daily range): BP systolic 117–139; BP diastolic 64–75; PULSE 104–124; RESP 16–22; TEMP 36.9–38; O2SAT 93–98
[2020-01-04] MEDS: ALBUTEROL HFA 200 PUFF/18 GM INH (COVID POS/VENT PTS) INH ×3 (02:14→07:07)
[2020-01-04] MEDS: MEROPENEM 1 GM in SODIUM CHLORIDE 0.9% 100 ML 200 ML IV (02:15)
[2020-01-04 05:29] LABS: Hematocrit 27.4 % (36-46); Hemoglobin 9.2 g/dL (12.0-16.0); Mean Corpuscular HGB Conc 33.4 % (30-36); Mean Corpuscular Hemoglobin 31.3 PG (26-34); Mean Corpuscular Volume 93.5 fL (80-100); Platelet Count 352 X10^3/uL (150-400); Red Blood Cell Count 2.93 X10^6/uL (4.0-5.2); Red Cell Distribution Width 14.5 % (11.6-14.8)
[2020-01-04 05:36] LABS: Blood Urea Nitrogen 7 mg/dL (7-17); Calcium 7.9 mg/dL (8.4-10.2); Carbon Dioxide 29 mmol/L (22-32); Chloride 104 mmol/L (98-107); Estimated Glomerular Filt Rate > 60.0 mL/min (>60); Glucose 96 mg/dL (70-100); HEMOLYSIS < 15 (0-50); Potassium 3.9 mmol/L (3.4-5.1); Sodium 135 mmol/L (137-145)
[2020-01-04] MEDS: metroNIDAZOLE 500 MG/100 ML PIGGYBACK 100 MG IV ×4 (05:39→23:27)
[2020-01-04 05:54] LABS: Add Manual Diff / Slide Review YES
[2020-01-04] MEDS: OXYCODONE IR 5 MG TABLET PO ×3 (05:55→11:47)
[2020-01-04 05:59] LABS: White Blood Cell Count 30.5 X10^3/uL (4.5-11.0)
[2020-01-04 06:09] LABS: Anisocytosis 1+; Neutrophils Absolute Manual 27450 /uL (3000-5900); Total Cells Counted 100
[2020-01-04] MEDS: FLUTICASONE 110MCG HFA 120 PUFF INH ×2 (07:07→20:06)
--- NOTE | 2020-01-04 08:52 | DI.CT.S_ITS ---
PROCEDURE: CT ABDOMEN PELVIS W CON INDICATIONS: rising wbc r/o abscess TECHNIQUE: After the administration of oral and intravenous contrast, 5 mm thick sections acquired from the diaphragms to the symphysis. 5 mm thick coronal and sagittal reformats were performed. For radiation dose reduction, the following was used: automated exposure control, adjustment of mA and/or kV according to patient size. COMPARISON: [facility], CT, CT ABDOMEN PELVIS W CON, 12/25/2019, 16:04. [facility], CT, CT ABDOMEN PELVIS W CON, 12/29/2019, 9:29. FINDINGS: Image quality: Excellent. ABDOMEN: Lung bases: Small bilateral pleural effusions are seen, with overlying atelectasis. Solid organs: Liver is normal in size and enhancement. Gallbladder is collapsed at the time of this study. Biliary system is non-dilated. Pancreas enhances normally. Spleen is normal in size and enhancement. No adrenal nodules. Kidneys are normal in size and enhancement, without hydronephrosis. Peritoneum and bowel: 2 peritoneal drains are seen. Contrast is seen within the colon. There is a small amount of extraluminal contrast seen involving the left pelvis, as on series 2, image 67. There is a mild amount of free fluid seen, including within the perihepatic region, adjacent to the stomach, and within the left pericolic gutter. No yaneli loculated fluid collection is seen to suggest abscess at this time. Tiny bubbles of free air can be seen. Nodes and vessels: No retroperitoneal or mesenteric adenopathy. Aorta and inferior vena cava are normal in caliber. Miscellaneous: Generalized soft tissue swelling is seen. Anterior abdominal wall vickie are seen. PELVIS: Genitourinary: Bladder wall thickness is normal. Miscellaneous: No inguinal hernias or adenopathy. Bones: No suspicious bony lesions. No vertebral body compression fractures. IMPRESSION: No abscess collection is detected. A small amount of extraluminal contrast can be seen involving the left pelvis. Two peritoneal drains are seen. Free intraperitoneal fluid can be seen and a tiny amount of free intraperitoneal gas can be seen. Small bilateral pleural effusions. Dictated by: Kelvin Herrera M.D. on 01/04/2020 at 8:28 Approved by: Kelvin Herrera M.D. on 01/04/2020 at 8:35
[2020-01-04] MEDS: lamoTRIgine 100 MG TABLET 200 MG PO ×2 (08:55→20:53)
[2020-01-04] MEDS: lamoTRIgine 25 MG CHEW TABLET PO ×2 (08:55→20:53)
[2020-01-04] MEDS: ZIPRASIDONE 80 MG 80 EACH PO ×2 (08:56→20:52)
[2020-01-04] MEDS: ZONISAMIDE 100 MG CAPSULE PO ×2 (08:56→20:53)
[2020-01-04] MEDS: ENOXAPARIN 40 MG/0.4 ML SYRINGE SUBCUT (09:00)
[2020-01-04] MEDS: FLUCONAZOLE 200 MG/100 ML PIGGYBACK 100 MG IV (09:09)
--- NOTE | 2020-01-04 09:12 | PC.NURSE ---
Day shift: Pt off unit for CT scan at approx 0915.
[2020-01-04] MEDS: MEROPENEM 1 GM in SODIUM CHLORIDE 0.9% 100 ML 125 ML IV ×2 (10:27→19:45)
--- NOTE | 2020-01-04 12:30 | DI.CT.S_ITS ---
2PROCEDURE: CT CHEST WO CON INDICATIONS: r/o pneumonia TECHNIQUE: Noncontrast 5 mm thick sections acquired from the pulmonary apices to the posterior costophrenic angles. 1 mm lung window, 5 mm thick coronal and sagittal and 7 mm axial MIP reformats were then acquired. For radiation dose reduction, the following was used: automated exposure control, adjustment of mA and/or kV according to patient size. COMPARISON: [facility], CR, XR CHEST 1V, 01/03/2020, 8:11. FINDINGS: Image quality: Excellent. Lungs and pleura: Bilateral pleural effusions with overlying passive atelectasis as well as superimposed consolidation with air bronchograms. Left upper lobe region of centrilobular nodularity and ground-glass opacity without consolidation, also likely infectious. Milder centrilobular and ground-glass nodularity in the right middle lobe is also presumably infectious. Mediastinum: Heart size is normal. No pericardial effusion. No mediastinal adenopathy by size criteria. Thoracic aorta and central pulmonary arteries are normal in size. Esophagus is normal in caliber. No hiatal hernia. Bones and chest wall: Increased attenuation of the soft tissues presumably representing third-spacing of fluids Abdomen: . Increased attenuation of the upper abdominal fat is nonspecific but most likely represents edema related to third-spacing of fluids. IMPRESSION: Bilateral lower lobe consolidation with scattered centrilobular and ground-glass and nodularity in the remaining lungs, along with small bilateral pleural effusions. These findings presumably represent infectious pneumonia with parapneumonic pleural effusions. Diffuse anasarca suggestive of fluid third-spacing. Correlate for other clinical evidence of congestive heart failure, hypoproteinemia, or other contributory condition. Dictated by: Darryl Urbano M.D. on 01/04/2020 at 15:01 Approved by: Darryl Urbano M.D. on 01/04/2020 at 15:06
--- NOTE | 2020-01-04 12:31 | P.PN_ITS ---
Subjective Subjective Date Patient Seen: 01/04/20 Interval history: Vibha Brenner is a 49-year-old female with past medical history significant for brain tumor status post craniotomy, seizure disorder, bipolar disorder and chronic bronchitis status post exploratory laparotomy with diverting ileostomy for perforated sigmoid colon. Patient with concerning persistent elevated WBC and significant bandemia on today's labs. Reports significant cough overnight although chest x-ray yesterda y did not show pneumonia. Exam Vital Signs (past 8 hours): - 01/04/20 07:00 01/04/20 07:10 01/04/20 09:31 Temperature 99.5 F 98.4 F Pulse Rate 105 H 106 H 109 H Respiratory Rate 18 18 22 Blood Pressure 129/70 127/75 Pulse Oximetry 93 93 93 Oxygen Delivery Method Room Air Oxygen Flow Rate 0 Narrative Exam Narrative: General: Alert but tired appearing female, not in acute distress Lungs: Bibasilar crackles Heart: Regular rhythm Abdomen: Surgical dressing clean and dry, bilateral drains, ostomy Neurological: Appears well oriented, no focal weakness Objective Labs Result Diagrams: 01/04/20 04:35 01/04/20 04:35 Labs: Laboratory Results - last 24 hr 01/04/20 01/04/20 04:35 04:35 WBC 30.5 H* RBC 2.93 L Hgb 9.2 L Hct 27.4 L MCV 93.5 MCH 31.3 MCHC 33.4 RDW 14.5 Plt Count 352 Neut % (Auto) Not Reportable Lymph % (Auto) Not Reportable [place] % (Auto) Not Reportable Eos % (Auto) Not Reportable Baso % (Auto) Not Reportable Lymph # (Auto) Not Reportable [place] # (Auto) Not Reportable Baso # (Auto) Not Reportable Total Counted 100 Seg Neutrophils % 66.0 Band Neutrophils % 24.0 H Lymphocytes % (Manual) 4.0 L Atypical Lymphs % 2.0 H Monocytes % (Manual) 2.0 Metamyelocytes % 2.0 H Neutrophils # (Manual) 23945 H RBC Morphology See below Anisocytosis 1+ H Sodium 135 L Potassium 3.9 Chloride 104 Carbon Dioxide 29 BUN 7 Creatinine 0.35 L Estimated GFR > 60.0 BUN/Creatinine Ratio 20.0 Glucose 96 Calcium 7.9 L Assessment & Plan Assessment & Plan narrative: Vibha Brenner is a 49-year-old female with past medical history significant for brain tumor status post craniotomy, seizure disorder, bipolar disorder and chronic bronchitis status post exploratory laparotomy with diverting ileostomy for perforated sigmoid colon. 1. Acute small bowel obstruction with sigmoid colitis and bowel perforation, present on admission (perforation not present on admission). Active. -patient is status post sigmoid colectomy with diverting ileostomy on 12/28 due to perforated bowel -WBC 78633 with 24% bandemia, although procalcitonin has been trending down -chest x-ray without pneumonia, but patient has a cough and lower lobe crackles on exam -on meropenem 1 g every 8 hours and surgery added metronidazole to broaden anaerobic coverage and fluconazole for fungal coverage -repeat abdomen pelvic CT to be reviewed by surgery -noncontrast chest CT to rule out occult pneumonia -urinalysis -incentive spirometry 2. Hypokalemia and hypomagnesemia, acute, present on admission. Resolved. -Secondary to continued GI losses. 3. COPD with chronic bronchitis, present on admission. Stable. -Does not represent acute COPD exacerbation. -Continue albuterol MDI as needed and Flovent b.i.d. 4. Seizure disorder, chronic, present on admission. Stable. -Last seizure was over a year ago. -Continue home zonisamide 100 mg daily and lamotrigine 225 mg twice daily. 5. Bipolar disorder, chronic, present on admission. Stable -Continue home lamotrigine 225 mg twice daily and ziprasidone 80 mg twice daily. Code status: Full code, patient designates Marcin Ramsey to be her surrogate decision maker. VTE prophylaxis:: Enoxaparin, SCDs Disposition: Patient likely discharge to intermediate for rehabilitation when cleared by surgery. Quality VTE Deep Vein Thrombosis/Pulmonary Embolism Present on Admission: No
[2020-01-04] MEDS: levoFLOXacin 750 MG/150 ML PIGGYBACK 100 MG IV (14:32)
--- NOTE | 2020-01-04 14:41 | PC.NURSE ---
Day shift: Pt off unit for CT of chest at approx 1435.
--- NOTE | 2020-01-04 14:46 | P.PN_ITS ---
Subjective Subjective Date Patient Seen: 01/04/20 Time Patient Seen: 14:46 Interval history: Patient is actually feeling okay. Less pain. Trying to take deep breaths. She was coughing through the night. She says she is producing some sputum. Exam Vital Signs (past 8 hours): - 01/04/20 07:00 01/04/20 07:10 01/04/20 09:31 Temperature 99.5 F 98.4 F Pulse Rate 105 H 106 H 109 H Respiratory Rate 18 18 22 Blood Pressure 129/70 127/75 Pulse Oximetry 93 93 93 01/04/20 12:32 Temperature 99.7 F H Pulse Rate 104 H Respiratory Rate 18 Blood Pressure 117/64 Pulse Oximetry 95 Oxygen Delivery Method Room Air Oxygen Flow Rate 0 Narrative Exam Narrative: Lungs decreased in the bases. Some rhonchi. Heart regular rate and rhythm. Abdomen incision is intact without cellulitis. Ostomy is healthy. Output is liquid. Objective Labs Result Diagrams: 01/04/20 04:35 01/04/20 04:35 Labs: Laboratory Results - last 24 hr 01/04/20 01/04/20 04:35 04:35 WBC 30.5 H* RBC 2.93 L Hgb 9.2 L Hct 27.4 L MCV 93.5 MCH 31.3 MCHC 33.4 RDW 14.5 Plt Count 352 Neut % (Auto) Not Reportable Lymph % (Auto) Not Reportable [place] % (Auto) Not Reportable Eos % (Auto) Not Reportable Baso % (Auto) Not Reportable Lymph # (Auto) Not Reportable [place] # (Auto) Not Reportable Baso # (Auto) Not Reportable Total Counted 100 Seg Neutrophils % 66.0 Band Neutrophils % 24.0 H Lymphocytes % (Manual) 4.0 L Atypical Lymphs % 2.0 H Monocytes % (Manual) 2.0 Metamyelocytes % 2.0 H Neutrophils # (Manual) 93668 H RBC Morphology See below Anisocytosis 1+ H Sodium 135 L Potassium 3.9 Chloride 104 Carbon Dioxide 29 BUN 7 Creatinine 0.35 L Estimated GFR > 60.0 BUN/Creatinine Ratio 20.0 Glucose 96 Calcium 7.9 L Assessment & Plan Post-op Postoperative Procedures: Procedures Operation Date: 12/26/19 10:45 Actual Procedures Side Surgeon p Colonoscopy with biopsY Left Ana Gannon MD Operation Date: 12/29/19 12:45 Actual Procedures Side Surgeon p Exploratory Laparotomy GEN Sigmoid colectomy, diverting loop. Ileostomy Edgardo Carballo MD Postoperative status narrative: White blood cell count remains quite high. She has evidence of fluid in her chest in the small amount and clinically has a pulmonic process. I will add Levaquin to her already broad-spectrum antibiotics. Will culture her sputum if possible. Advance her diet. Slow her bowel function if possible with Lomotil. Postoperative plan narrative: Labs for the morning. Withdrew most of her parent al role narcotics and switched her to oral. Continue DVT prophylaxis. Quality VTE Deep Vein Thrombosis/Pulmonary Embolism Present on Admission: No
--- NOTE | 2020-01-04 14:55 | PC.NURSE ---
Day shift: Pt back on unit at approx [address] Back in bed and IV antibiotics infusing. Call light in reach. Pt's Mother in room for support.
[2020-01-04] MEDS: OXYCODONE IR 10 MG TABLET PO ×2 (16:32→20:53)
[2020-01-04] MEDS: ONDANSETRON 4 MG/2 ML INJ IV ×2 (17:44→21:22)
[2020-01-04] MEDS: VANCOMYCIN 750 MG/150 ML FROZ.PIGGY 150 MG IV (17:45)
[2020-01-04 17:47] LABS: RBC Urine None Seen (0-5/HPF)
[2020-01-04 17:49] LABS: Appearance Urine UA CLEAR; Bilirubin Urine UA NEGATIVE (NEGATIVE); Color Urine UA YELLOW; Glucose Urine UA NEGATIVE (Negative); Ketones Urine UA NEGATIVE (NEGATIVE); Leukocyte Esterase Urine UA NEGATIVE (NEGATIVE); Nitrite Urine UA NEGATIVE (Negative); Occult Blood Urine UA NEGATIVE (Negative); Protein Urine UA NEGATIVE (Negative); Specific Gravity Urine UA 1.015 (1.000-1.035); Urobilinogen Urine UA 0.2 E.U./dL (0.2)
[2020-01-04 18:03] LABS: Bacteria Urine Occasional (0-1); Culture Indicated Urine Cult Not Indicated; Squamous Epithelial Cell Urine 1-5 /HPF (0-5/HPF); WBC Urine 0-1/HPF (0-5/HPF)
[2020-01-04] MEDS: SODIUM CHLORIDE 0.9% FLUSH 10 ML IV (23:27)
[2020-01-05] VITALS (10 sets, daily range): BP systolic 110–140; BP diastolic 58–75; PULSE 100–122; RESP 12–20; TEMP 36.7–37.4; O2SAT 88–93
[2020-01-05] MEDS: VANCOMYCIN 750 MG/150 ML FROZ.PIGGY 150 MG IV ×2 (00:59→08:45)
[2020-01-05] MEDS: ONDANSETRON 4 MG/2 ML INJ IV ×2 (01:36→05:42)
[2020-01-05] MEDS: OXYCODONE IR 10 MG TABLET PO ×6 (01:41→23:16)
[2020-01-05] MEDS: MEROPENEM 1 GM in SODIUM CHLORIDE 0.9% 100 ML 200 ML IV (02:29)
[2020-01-05] MEDS: SODIUM CHLORIDE 0.9% FLUSH 10 ML IV (05:35)
[2020-01-05] MEDS: metroNIDAZOLE 500 MG/100 ML PIGGYBACK 100 MG IV ×4 (05:35→23:50)
[2020-01-05 05:39] LABS: Hematocrit 27.6 % (36-46); Hemoglobin 9.1 g/dL (12.0-16.0); Mean Corpuscular HGB Conc 33.1 % (30-36); Mean Corpuscular Hemoglobin 30.8 PG (26-34); Mean Corpuscular Volume 93.2 fL (80-100); Platelet Count 449 X10^3/uL (150-400); Red Blood Cell Count 2.97 X10^6/uL (4.0-5.2); Red Cell Distribution Width 14.5 % (11.6-14.8); White Blood Cell Count 23.2 X10^3/uL (4.5-11.0)
[2020-01-05 05:42] LABS: BUN Creatinine Ratio 8.1 (6-22); Blood Urea Nitrogen 3 mg/dL (7-17); Calcium 8.1 mg/dL (8.4-10.2); Carbon Dioxide 34 mmol/L (22-32); Chloride 101 mmol/L (98-107); Estimated Glomerular Filt Rate > 60.0 mL/min (>60); Glucose 117 mg/dL (70-100); HEMOLYSIS < 15 (0-50); Potassium 3.4 mmol/L (3.4-5.1); Sodium 136 mmol/L (137-145)
[2020-01-05 05:48] LABS: Add Manual Diff / Slide Review YES
[2020-01-05 05:54] LABS: Procalcitonin 0.78 ng/mL (<0.5)
[2020-01-05 06:05] LABS: Neutrophils Absolute Manual 20880 /uL (3000-5900); Total Cells Counted 100
[2020-01-05 06:07] LABS: Anisocytosis 1+
[2020-01-05] MEDS: ALBUTEROL HFA 200 PUFF/18 GM INH (COVID POS/VENT PTS) INH (07:13)
[2020-01-05] MEDS: FLUTICASONE 110MCG HFA 120 PUFF INH ×2 (07:13→19:32)
[2020-01-05] MEDS: ZONISAMIDE 100 MG CAPSULE PO ×2 (08:36→21:16)
[2020-01-05] MEDS: lamoTRIgine 25 MG CHEW TABLET PO ×2 (08:36→21:16)
[2020-01-05] MEDS: ZIPRASIDONE 80 MG 80 EACH PO ×2 (08:36→21:15)
[2020-01-05] MEDS: ENOXAPARIN 40 MG/0.4 ML SYRINGE SUBCUT (08:39)
[2020-01-05] MEDS: lamoTRIgine 100 MG TABLET 200 MG PO ×2 (08:45→21:16)
[2020-01-05] MEDS: FLUCONAZOLE 200 MG/100 ML PIGGYBACK 125 MG IV (10:21)
--- NOTE | 2020-01-05 11:24 | DIET.PN ---
Dietary Progress Note Pt tolerating general diet order, pts usual breakfast includes strawberry yogurt smoothie so will be sending bid to support protein needs r/t post surgical and kcal needs r/t low but stable BMI (20.6)
--- NOTE | 2020-01-05 11:45 | PT.IPTN ---
Current Diagnoses Partial intestinal obstruction, unspecified as to cause (12/25/19) Abnormal findings on diagnostic imaging of other abdominal regions, including retroperitoneum (12/25/19) Other specified postprocedural states (12/25/19) Surgery Performed Operation Date: 12/26/19 10:45 Actual Procedures p Colonoscopy with biopsY(Left) - Ana Gannon MD Operation Date: 12/29/19 12:45 Actual Procedures p Exploratory Laparotomy GEN Sigmoid colectomy, diverting loop. Ileostomy - Edgardo Carballo MD Physical Therapy Treatment Note M2 PT-IP Current Condition Start: 12/30/19 13:47 Freq: NEEDED Status: Active Protocol: Document 12/30/19 15:50 AB (Rec: 12/30/19 16:40 AB [id number]) Physical Therapy Current Condition Current Condition Evaluation Date 12/30/19 Treatment Diagnosis intestinal perforation s/p colectomy/ ileostomy; difficulty in walking Onset Date 12/25/19 Precautions Abdominal Surgery Precautions Log Roll,Lifting Restrictions, Gait Belt above Incisional Area Other Precautions has NG tube, 2 incision drains , wright, IV line M3 PT-IP Subjective Start: 12/30/19 13:47 Freq: NEEDED Status: Active Protocol: Document 01/05/20 10:48 HH (Rec: 01/05/20 11:04 [email or web address]) Subjective Physical Therapy Visit Type Type Treatment Note Visit Start Time 10:31 Visit Stop Time 10:46 Total Visit Minutes 15 Number of ENROLLMENT MANAGEMENT VICE PRESIDENT Visits 0 Physical Therapy Visit Comments Patient Comments Im getting stronger and better but im afraid to tear my surgical scar. M4 PT-IP Mobility and Gait Start: 12/30/19 13:47 Freq: NEEDED Status: Active Protocol: Document 01/05/20 10:48 HH (Rec: 01/05/20 11:04 [email or web address]) PT-Bed Mobility Assessment Rolling Type of Rolling Log Rolling Level of Assist Standby Assistance Supine to Sit Supine to Sit Standby Assistance,Bedrails Sit to Supine Sit to Supine Standby Assistance,Bedrails PT-Transfer Assessment Sit to and From Stand Sit to and from Stand Contact Guard Assistance,1 Person Assistance,Use of Upper Extremities Equipment Transfer Assistive Device Gait Belt,Front Wheeled Walker Orthotic/Prosthetic Devices or Brace: No Transfers Transfer Destination Bed,Toilet Transfer Technique ambulated using FWW Transfer Ability Level of Assist Contact Guard Assistance,1 Person Assistance,Use of Upper Extremities Comments Mobility Comments Pt was in bed upon PT arrival. She did not recall her last therapy session. Pt agreed to mobilize with PT. She completed log roll to R followed by sidelying to sit SBA with min use of bedrail. BP at 135/77, She then stood up with CGA then cont amb with FWW. She completed 1 lap of [facility] for approx 180 ft. Pt amb slowly and needed time to complete turns. She amb with a flexed posture and needed cues to progress to upright position. Pt stopped at 140 ft and practiced slight trunk extension. Recommended pt to encourage neutral spine in her room. She then amb back to her room and able to transfer back to chair with min cues but slowly. Rec her to do amb twice a day with nursing staff . Call light placed within reach. Gait Assessment Gait Gait Assistance Required: Contact Guard Assist Distance (Feet) 180 Able to Maintain Weight Bearing Status Yes During Gait Assistive Devices Assistive Device Gait Belt,Front Wheeled Walker Orthotic/Prosthetic Devices or Brace: No Gait Deviations General Gait Pattern Decreased Stride Length, Decreased Feet Clearance, Flexed Trunk Factors Limiting Gait Function Factors Limiting Gait Function Decreased Activity Tolerance, Decreased Strength,Limited Range of Motion,Pain,Poor Balance Comments Gait Comments Please refer to mobility section for details. M5 PT-IP Objective Assessments Start: 12/30/19 13:47 Freq: NEEDED Status: Active Protocol: Document 12/30/19 15:50 AB (Rec: 12/30/19 16:40 AB [email or web address]) Orientation Orientation/Cognition Level of Alertness Alert Orientation Name,Place,Situation Language Function Ability No Deficits Noted Safety Awareness Decreased Safety Awareness Memory Description Short Term Impaired Gross Range of Motion Lower Extremity ROM Assessment Within Functional Limits Strength Lower Extremity Strength Assessment Within Functional Limits Coordination Assessment Gross Coordination Gross Coordination WNL Sensation Assessment Sensation Gross Sensation WNL Muscle Tone Muscle Tone WNL Yes M6 PT-IP Treatment Start: 12/30/19 13:47 Freq: NEEDED Status: Active Protocol: Document 01/03/20 11:04 KS (Rec: 01/03/20 13:05 KS [id number]) Physical Therapy Treatment Education Education Provided Precautions,Safety M7 PT-IP Assessment and Plan Start: 12/30/19 13:47 Freq: NEEDED Status: Active Protocol: Document 01/05/20 10:48 HH (Rec: 01/05/20 11:04 [email or web address]) PT Summary Assessment and Plan Potential Rehabilitation Potential Good Status of Condition at Evaluation Evolving Summary Impairments Pain,ROM,Strength,Balance, Coordination,Sensation,Tone, Cognition,Bed Mobility, Transfers,Gait,Activity Tolerance Progress Towards Goals Slow Progress due to Activity Tolerance Assessment Summary Per EMR, pt has new onset of bilateral Pneumonia at lower lobes. However, she june session well and Pt SBA for bed mobility, CGA for transfers and ambulation. Pt tolerated ~180 total ft ambulation w/ FWW and CGA. Pt has flexed posture d/t abdominal discomfort and decreaeds tride and foot clearance d/t weakness. Per SW, pt is planning to go SNF d /t her needs of [facility] care and rehab to improve mobility and strength. . Goals Bed Mobility Goal Independent Transfer Goal Independent Gait Goal Independent Gait Distance 200 Other Goals up/down 5 steps B rails SBA Days to Meet Goals 10 Frequency of Treatment Frequency Of Treatment Once a Day Treatment Plan Physical Therapy Treatment Plan Bed Mobility Training,Transfer Training,Gait Training, Therapeutic Exercise,Balance Retraining,Post Op Education, Discharge Planning,Hot or Cold Pack,Neuromuscular Re-ed Recommendations To Nursing Amount of Assist Needed 1 Person Assist Discharge Recommendations PT Discharge Recommendations Home with Assistance,SNF Rehab Transportation Needs at Discharge Private Vehicle
--- NOTE | 2020-01-05 12:37 | P.PN_ITS ---
Subjective Subjective Date Patient Seen: 01/05/20 Interval history: Vibha Brenner is a 49-year-old female with past medical history significant for brain tumor status post craniotomy, seizure disorder, bipolar disorder and chronic bronchitis status post exploratory laparotomy with diverting ileostomy for perforated sigmoid colon. The patient is resting in bed comfortably. She has no complaints overall. She denies headache, shortness of breath, chest pain, abdominal pain, nausea, vomiting, fever, chills, dysuria, diarrhea or constipation. She is voiding and eliminating via ostomy without difficulty. She is up ambulating with assistance. Exam Vital Signs (past 8 hours): - 01/05/20 05:00 01/05/20 07:20 01/05/20 07:27 Temperature 98.1 F 98.6 F Pulse Rate 121 H 110 H 117 H Respiratory Rate 16 20 16 Blood Pressure 125/66 140/75 Pulse Oximetry 92 93 93 01/05/20 11:08 01/05/20 12:00 Temperature 98.3 F Pulse Rate 104 H 100 H Respiratory Rate 18 18 Blood Pressure 116/69 Pulse Oximetry 92 93 Oxygen Delivery Method Room Air Oxygen Flow Rate 0 Narrative Exam Narrative: General: Middle aged female lying in bed and in no acute distress, well-develop ed, well-nourished, appropriately interactive. HEENT: Normocephalic, atraumatic. External ears without defect. Pupils equal, round, and reactive to light. Anicteric sclerae, moist conjunctivae, and no lid lag. Neck: Supple with full range of motion. No jugular venous distension. No lymphadenopathy or thyromegaly. Cardiovascular: Regular rhythm, mild tachycardia without murmurs, rubs, or gallops appreciated. Pulmonary: Diminished at bases but clear to auscultation bilaterally without crackles, wheezes, or rhonchi. Normal respiratory effort with no use of accessory muscles. Abdomen: Soft, bowel sounds present, nontender, nondistended. Ostomy in right side of abdomen with good output and viable stoma. Extremities: No clubbing, cyanosis, or edema. Skin: Normal temperature, turgor, and texture; no rash, ulcers, or subcutaneous nodules appreciated. Neurological: Cranial nerves grossly intact. Psychiatric: Normal mood and affect. Alert and oriented to person, place, and time. Objective Labs Result Diagrams: 01/05/20 04:58 01/05/20 04:58 Labs: Laboratory Results - last 24 hr 01/04/20 01/05/20 01/05/20 17:30 04:58 04:58 WBC 23.2 H RBC 2.97 L Hgb 9.1 L Hct 27.6 L MCV 93.2 MCH 30.8 MCHC 33.1 RDW 14.5 Plt Count 449 H Neut % (Auto) Not Reportable Lymph % (Auto) Not Reportable [place] % (Auto) Not Reportable Eos % (Auto) Not Reportable Baso % (Auto) Not Reportable Lymph # (Auto) Not Reportable [place] # (Auto) Not Reportable Baso # (Auto) Not Reportable Total Counted 100 Seg Neutrophils % 80.0 H Band Neutrophils % 10.0 H Lymphocytes % (Manual) 4.0 L Monocytes % (Manual) 4.0 Metamyelocytes % 2.0 H Neutrophils # (Manual) 91554 H RBC Morphology See below Anisocytosis 1+ H Sodium Potassium Chloride Carbon Dioxide BUN Creatinine Estimated GFR BUN/Creatinine Ratio Glucose Calcium Procalcitonin 0.78 H Urine Color Yellow Urine Appearance Clear Urine pH 8.0 Ur Specific [place] 1.015 Urine Protein Negative Urine Glucose (UA) Negative Urine Ketones Negative Urine Occult Blood Negative Urine Nitrate Negative Urine Bilirubin Negative Urine Urobilinogen 0.2 Ur Leukocyte Esterase Negative Urine RBC None seen Urine WBC 0-1/hpf Ur Squamous Epith Cells 1-5 /hpf Urine Bacteria Occasional (0-1) Ur Culture Indicated? Cult not indicated 01/05/20 04:58 WBC RBC Hgb Hct MCV MCH MCHC RDW Plt Count Neut % (Auto) Lymph % (Auto) [place] % (Auto) Eos % (Auto) Baso % (Auto) Lymph # (Auto) [place] # (Auto) Baso # (Auto) Total Counted Seg Neutrophils % Band Neutrophils % Lymphocytes % (Manual) Monocytes % (Manual) Metamyelocytes % Neutrophils # (Manual) RBC Morphology Anisocytosis Sodium 136 L Potassium 3.4 Chloride 101 Carbon Dioxide 34 H BUN 3 L Creatinine 0.37 L Estimated GFR > 60.0 BUN/Creatinine Ratio 8.1 Glucose 117 H Calcium 8.1 L Procalcitonin Urine Color Urine Appearance Urine pH Ur Specific [place] Urine Protein Urine Glucose (UA) Urine Ketones Urine Occult Blood Urine Nitrate Urine Bilirubin Urine Urobilinogen Ur Leukocyte Esterase Urine RBC Urine WBC Ur Squamous Epith Cells Urine Bacteria Ur Culture Indicated? Assessment & Plan Assessment & Plan narrative: Vibha Brenner is a 49-year-old female with past medical history significant for brain tumor status post craniotomy, seizure disorder, bipolar disorder and chronic bronchitis status post exploratory laparotomy with diverting ileostomy for perforated sigmoid colon. 1. Acute small bowel obstruction with sigmoid colitis and bowel perforation, present on admission (perforation not present on admission). Active. -Initial CT abdomen and pelvis with contrast demonstrated focal thickening of the proximal sigmoid colon and dilated bowel with air-fluid levels with no transition point. -Patient met SIRS criteria but did not meet sepsis criteria as she had no end- organ dysfunction. -Consulted general surgery, Dr. Gordillo, who performed colonoscopy which revealed prominent folds but no overt evidence of malignancy or obstruction. Patient did have a bowel movement after Fleet enema but bowel movements have not been formed and were predominantly liquid. She subsequently had a small-bowel follow-t hrough after colonoscopy which showed a possible partial small-bowel obstruction but slow transit times as a large amount of contrast remained her stomach. The patient had several bowel movements after small bowel follow through but developed increased bloating/distension with clear liquids without nausea or vomiting. -Repeat CT abdomen and pelvis with contrast demonstrated leakage of enteric cont rast into the abdominal cavity and sigmoid/rectal thickening. -Consulted general surgery again, Dr. Carballo, who performed sigmoid colectomy with diverting ileostomy due to sepsis with gross abdominal contamination. Continue post operative management per general surgery. -WBC continued to increase and peaked at 30 with 24% bandemia on 01/03. Oddly, procalcitonin peaked at 34.37 and continues to trend down and is nearly normalized at 0.78. WBC now trending downward 23.2 with broadening of antibio tic treatment and antifungal treatment. Continue to monitor WBC and procalcitonin daily. -Patient remains broad-spectrum antibiotic treatment with meropenem 1 g every 8 hours, metronidazole 500 mg IV every 6 hours and vancomycin with dosing per pharmacist to treat peritonitis and bacterial pneumonia. Also added fluconazole 200 mg IV daily to treat possible [place]onna infection in abdomen. Plan to deescalate therapy tomorrow. 2. Acute bilateral bacterial pneumonia, not present on admission. Active. -Chest x-ray demonstrated blunting of costophrenic angles otherwise negative for cardiopulmonary process. -CT chest without contrast demonstrated bilateral lower lobe consolidation with scattered centrilobular and ground-glass andnodularity in the remaining lungs, along with small bilateral pleural effusions. -WBC continued to increase and peaked at 30 with 24% bandemia on 01/03. Oddly, procalcitonin peaked at 34.37 and continue to trend down and is nearly normalized at 0.78. WBC now trending downward 23.2 with broadening of antibiotic treatment and antifungal treatment for treatment of peritonitis in bilateral bacterial pneumonia. Continue to monitor WBC and procalcitonin daily. -Continue incentive spirometry. 3. Hypokalemia and hypomagnesemia, acute, present on admission. Resolved. -Secondary to continued GI losses. -Continue to monitor potassium and magnesium level daily and replete as necessary. 4. COPD with chronic bronchitis, present on admission. Stable. -Does not represent acute COPD exacerbation. -Continue home albuterol inhaler 2 puffs every 4 hours as needed for shortness of breath or wheezing and Flovent 1 puff twice daily. 5. Bipolar disorder, chronic, present on admission. Stable -Continue home lamotrigine 225 mg twice daily and ziprasidone 80 mg twice daily. Code status: Full code, patient designates Marcin Ramsey to be her surrogate decision maker. VTE prophylaxis:: Enoxaparin, SCDs Disposition: Patient likely discharge to intermediate for rehabilitation in next 1-2 days when cleared by surgery. Quality VTE Deep Vein Thrombosis/Pulmonary Embolism Present on Admission: No
--- NOTE | 2020-01-05 12:59 | PM.PNPO.1 ---
Subjective Subjective Date Patient Seen: 01/05/20 Interval history: No acute events. Tolerating a diet without nausea vomiting ileostomy is productive. Exam Vital Signs (past 8 hours): - 01/05/20 05:00 01/05/20 07:20 01/05/20 07:27 Temperature 98.1 F 98.6 F Pulse Rate 121 H 110 H 117 H Respiratory Rate 16 20 16 Blood Pressure 125/66 140/75 Pulse Oximetry 92 93 93 01/05/20 11:08 01/05/20 12:00 Temperature 98.3 F Pulse Rate 104 H 100 H Respiratory Rate 18 18 Blood Pressure 116/69 Pulse Oximetry 92 93 Oxygen Delivery Method Room Air Oxygen Flow Rate 0 Narrative Exam Narrative: General adult female alert oriented no acute distress Abdomen soft midline clean dry intact with vickie ileostomy is productive and viable Objective Labs Result Diagrams: 01/05/20 04:58 01/05/20 04:58 Labs: Laboratory Results - last 24 hr 01/04/20 01/05/20 01/05/20 17:30 04:58 04:58 WBC 23.2 H RBC 2.97 L Hgb 9.1 L Hct 27.6 L MCV 93.2 MCH 30.8 MCHC 33.1 RDW 14.5 Plt Count 449 H Neut % (Auto) Not Reportable Lymph % (Auto) Not Reportable [place] % (Auto) Not Reportable Eos % (Auto) Not Reportable Baso % (Auto) Not Reportable Lymph # (Auto) Not Reportable [place] # (Auto) Not Reportable Baso # (Auto) Not Reportable Total Counted 100 Seg Neutrophils % 80.0 H Band Neutrophils % 10.0 H Lymphocytes % (Manual) 4.0 L Monocytes % (Manual) 4.0 Metamyelocytes % 2.0 H Neutrophils # (Manual) 93853 H RBC Morphology See below Anisocytosis 1+ H Sodium Potassium Chloride Carbon Dioxide BUN Creatinine Estimated GFR BUN/Creatinine Ratio Glucose Calcium Procalcitonin 0.78 H Urine Color Yellow Urine Appearance Clear Urine pH 8.0 Ur Specific [place] 1.015 Urine Protein Negative Urine Glucose (UA) Negative Urine Ketones Negative Urine Occult Blood Negative Urine Nitrate Negative Urine Bilirubin Negative Urine Urobilinogen 0.2 Ur Leukocyte Esterase Negative Urine RBC None seen Urine WBC 0-1/hpf Ur Squamous Epith Cells 1-5 /hpf Urine Bacteria Occasional (0-1) Ur Culture Indicated? Cult not indicated 01/05/20 04:58 WBC RBC Hgb Hct MCV MCH MCHC RDW Plt Count Neut % (Auto) Lymph % (Auto) [place] % (Auto) Eos % (Auto) Baso % (Auto) Lymph # (Auto) [place] # (Auto) Baso # (Auto) Total Counted Seg Neutrophils % Band Neutrophils % Lymphocytes % (Manual) Monocytes % (Manual) Metamyelocytes % Neutrophils # (Manual) RBC Morphology Anisocytosis Sodium 136 L Potassium 3.4 Chloride 101 Carbon Dioxide 34 H BUN 3 L Creatinine 0.37 L Estimated GFR > 60.0 BUN/Creatinine Ratio 8.1 Glucose 117 H Calcium 8.1 L Procalcitonin Urine Color Urine Appearance Urine pH Ur Specific [place] Urine Protein Urine Glucose (UA) Urine Ketones Urine Occult Blood Urine Nitrate Urine Bilirubin Urine Urobilinogen Ur Leukocyte Esterase Urine RBC Urine WBC Ur Squamous Epith Cells Urine Bacteria Ur Culture Indicated? Assessment & Plan Post-op Postoperative Procedures: Procedures Operation Date: 12/26/19 10:45 Actual Procedures Side Surgeon p Colonoscopy with biopsY Left Ana Gannon MD Operation Date: 12/29/19 12:45 Actual Procedures Side Surgeon p Exploratory Laparotomy GEN Sigmoid colectomy, diverting loop. Ileostomy Edgardo Carballo MD Postoperative plan narrative: 49-year-old female postoperative day 6 status post exploratory laparotomy sigmoid colectomy and diverting loop ileostomy for colonic perforation. White blood cell count remains elevated but is down trending, procalcitonin has normalized. -Pneumonia-continue antibiotics will deescalate tomorrow -VTE prophylaxis-SCDs and Lovenox -Diet-As tolerate -Ileostomy-Continue ostomy teaching Quality VTE Deep Vein Thrombosis/Pulmonary Embolism Present on Admission: No
--- NOTE | 2020-01-05 13:50 | OT.IPNOTE ---
Pt not wanting to get up earlier, however was able to work with PT prior to lunch, and now asleep. Therefore check on pt tomorrow for OT
--- NOTE | 2020-01-05 15:08 | CM.DPC ---
DCP Cont: Met with patient during team rounds. Patient is continuing to improve. Dr. Campos stated that patient could be ready to discharge tomorrow. Updated [facility] at [facility], she is aware. P: DCP to continue to follow. Patient could potentially be discharged tomorrow to [facility]. Linda Pollock RN/Plug Shaper Hand
[2020-01-05 17:39] LABS: Vancomycin Trough 8.8 ug/mL (10-20)
[2020-01-05 17:42] LABS: Magnesium 1.7 mg/dL (1.6-2.3)
[2020-01-05 17:43] LABS: Alanine Aminotransferase 50 IU/L (<35); Albumin 2.5 g/dL (3.5-5.0); Albumin Globulin Ratio 0.8 (1.0-2.8); Alkaline Phosphatase 132 U/L (38-126); Aspartate Aminotransferase 37 IU/L (14-36); Bilirubin Total 0.5 mg/dL (0.2-1.3); Bilirubin Unconjugated 0.2 mg/dL (0.0-1.1); Globulin 3.1 g/dL (1.7-4.1); HEMOLYSIS < 15 (0-50); Total Protein 5.6 g/dL (6.3-8.2)
[2020-01-05] MEDS: POTASSIUM CHLORIDE 20 MEQ TAB PO (17:43)
[2020-01-05 18:13] LABS: TSH w/ Reflex to FT4 5.56 uIU/mL (0.47-4.68)
[2020-01-05 18:39] LABS: Free T4, Direct Thyroxine 1.59 ng/dL (0.78-2.19)
[2020-01-05] MEDS: VANCOMYCIN TROUGH 1 REQUEST MISC (18:40)
[2020-01-05] MEDS: VANCOMYCIN 1,000 MG/200 ML PIGGYBACK 200 MG IV (18:40)
[2020-01-05] MEDS: MAGNESIUM CHLORIDE 64 MG TABLET 128 MG PO (21:15)
--- NOTE | 2020-01-05 22:34 | PC.NURSE ---
Evening shift: Report received, care assumed 1530. Upon initial contact, pt. had woken suddenly and was disoriented. Attempted to get OOB to bathroom. Took several minutes to reorient, but then remained appropriate throughout shift. 1-person assist with FWW to bathroom. Declined to otherwise ambulate or sit up in chair. Using IS and flutter valve frequently. Pain controlled with oxycodone.
[2020-01-06] VITALS (8 sets, daily range): BP systolic 111–127; BP diastolic 59–71; PULSE 101–132; RESP 15–20; TEMP 37–37.8; O2SAT 88–96
[2020-01-06] MEDS: VANCOMYCIN 1,000 MG/200 ML PIGGYBACK 200 MG IV (01:56)
[2020-01-06] MEDS: metroNIDAZOLE 500 MG/100 ML PIGGYBACK 100 MG IV (05:06)
[2020-01-06 05:22] LABS: Alanine Aminotransferase 45 IU/L (<35); Albumin 2.7 g/dL (3.5-5.0); Albumin Globulin Ratio 0.8 (1.0-2.8); Alkaline Phosphatase 145 U/L (38-126); Aspartate Aminotransferase 31 IU/L (14-36); Bilirubin Total 0.6 mg/dL (0.2-1.3); Calcium 8.3 mg/dL (8.4-10.2); Carbon Dioxide 34 mmol/L (22-32); Chloride 100 mmol/L (98-107); Estimated Glomerular Filt Rate > 60.0 mL/min (>60); Globulin 3.2 g/dL (1.7-4.1); Glucose 114 mg/dL (70-100); HEMOLYSIS < 15 (0-50); Hematocrit 28.5 % (36-46); Hemoglobin 9.5 g/dL (12.0-16.0); Magnesium 1.9 mg/dL (1.6-2.3); Mean Corpuscular HGB Conc 33.4 % (30-36); Mean Corpuscular Hemoglobin 31.1 PG (26-34); Mean Corpuscular Volume 93.1 fL (80-100); Platelet Count 624 X10^3/uL (150-400); Potassium 3.8 mmol/L (3.4-5.1); Red Blood Cell Count 3.06 X10^6/uL (4.0-5.2); Red Cell Distribution Width 15.2 % (11.6-14.8); Sodium 137 mmol/L (137-145); Total Protein 5.9 g/dL (6.3-8.2); White Blood Cell Count 27.2 X10^3/uL (4.5-11.0)
[2020-01-06 05:27] LABS: Add Manual Diff / Slide Review YES
[2020-01-06 05:30] LABS: BUN Creatinine Ratio 4.7 (6-22); Blood Urea Nitrogen < 2 mg/dL (7-17)
[2020-01-06 05:45] LABS: Procalcitonin 0.59 ng/mL (<0.5)
[2020-01-06 05:54] LABS: Neutrophils Absolute Manual 23936 /uL (3000-5900); Total Cells Counted 100
[2020-01-06 05:56] LABS: Anisocytosis 1+
--- NOTE | 2020-01-06 06:31 | PC.NURSE ---
table games shift manager note: Patient tachycardic with low grade fever during the shift. Patient's sats on RA, 88%. 2L NC placed, sats up to 92%. Patient with productive cough, using IS and flutter valve. Patient drinking well, up ambulating to restroom with 1 person assist - voiding well. Patient remains AOx3. Patient's coccyx with deep tissue injury - purple in color, nonblanchable and sore for patient. Patient turned and repositioned throughout shift and educated on importance of doing so. Wound open to air, but barrier cream has been applied. Will continue to monitor.
[2020-01-06] MEDS: FLUTICASONE 110MCG HFA 120 PUFF INH ×2 (08:20→21:35)
[2020-01-06] MEDS: ALBUTEROL HFA 200 PUFF/18 GM INH (COVID POS/VENT PTS) INH (08:20)
[2020-01-06] MEDS: POTASSIUM CHLORIDE 20 MEQ TAB PO ×2 (10:07→17:34)
[2020-01-06] MEDS: ENOXAPARIN 40 MG/0.4 ML SYRINGE SUBCUT (10:07)
[2020-01-06] MEDS: lamoTRIgine 25 MG CHEW TABLET PO ×2 (10:07→21:31)
[2020-01-06] MEDS: ZIPRASIDONE 80 MG 80 EACH PO ×2 (10:09→21:30)
[2020-01-06] MEDS: ZONISAMIDE 100 MG CAPSULE PO ×2 (10:09→21:30)
[2020-01-06] MEDS: lamoTRIgine 100 MG TABLET 200 MG PO ×2 (10:10→21:37)
[2020-01-06] MEDS: FLUCONAZOLE 200 MG/100 ML PIGGYBACK 100 MG IV (10:20)
[2020-01-06] MEDS: TRAMADOL 50 MG TABLET PO ×2 (10:33→19:06)
[2020-01-06] MEDS: AZITHROMYCIN 250 MG TABLET 500 MG PO (10:33)
[2020-01-06] MEDS: guaiFENesin ER 600 MG TAB 1200 MG PO ×2 (10:33→21:29)
--- NOTE | 2020-01-06 10:55 | OT.IP.TRT ---
Current Diagnoses Partial intestinal obstruction, unspecified as to cause (12/25/19) Abnormal findings on diagnostic imaging of other abdominal regions, including retroperitoneum (12/25/19) Other specified postprocedural states (12/25/19) Surgery Performed Operation Date: 12/26/19 10:45 Actual Procedures p Colonoscopy with biopsY(Left) - Ana Gannon MD Operation Date: 12/29/19 12:45 Actual Procedures p Exploratory Laparotomy GEN Sigmoid colectomy, diverting loop. Ileostomy - Edgardo Carballo MD Occupational Therapy Treatment Note M2 OT-IP Current Condition Start: 12/30/19 15:53 Freq: Status: Active Protocol: Document 12/30/19 14:00 [facility] (Rec: 12/30/19 16:29 [facility] [id number]) Occupational Therapy Current Condition Current Condition Evaluation Date 12/30/19 Treatment Diagnosis s/p Sigmoid colectomy with diverting loop ileostomy. PNA as of 01/04/20 Post Operative Precautions Abdominal Surgery Precautions Log Roll,Lifting Restrictions, Gait Belt above Incisional Area M3 OT- IP Subjective and Pain Start: 12/30/19 15:53 Freq: Status: Active Protocol: Document 01/06/20 11:04 [facility] (Rec: 01/06/20 11:11 [facility] [id number]) OT- Subjective Occupational Therapy Visit Type Type Treatment Note Visit Start Time 10:37 Visit Stop Time 10:55 Total Visit Minutes 18 Occupational Therapy Visit Comments Patient Comments Pt wanting to use the bathroom . Patient/Caregiver Goals To go to rehab prior to going home. OT Pain Assessment Pain When Pain Assessed During Mobility Pain Present Pain Present Pain Reported Location Abdomen Intensity 8 Scale Used Numeric (0 - 10) M4 OT- IP ADL's Start: 12/30/19 15:53 Freq: Status: Active Protocol: Document 01/06/20 11:04 [facility] (Rec: 01/06/20 11:11 [facility] [id number]) OT [id number] Comments OT Self-Feeding Comments not meal time OT ADL-Grooming General Evaluation Grooming Ability Standby Assistance Comments OT Grooming Comments WHile standing with FWW. OT ADL-Oral Care General Eval Oral Care Ability Independent Comments Oral Care Comments While standing with FWW. OT ADL-Dressing Comments OT Dressing Comments Pt able to pull down brief and back up after using the bathroom. OT ADL-Toileting General Evaluation Toileting Ability Standby Assistance Comments OT Toileting Comments seated on toilet for urination . M5 OT- IP IADL's Start: 12/30/19 15:53 Freq: Status: Active Protocol: Document 12/30/19 14:00 [facility] (Rec: 12/30/19 16:29 [facility] [id number]) OT-Instrumental Activities of Daily Living Home Safety Awareness Awareness of Need for Assistance at Home Good Awareness Medication Management Medication Management No Deficits Identified Money Management Money Management No Deficits Identified Meal Preparation Meal Preparation Caregiver Provides Assist Door Closer Door Closer Caregiver Provides Assist M6 OT- IP Functional Cognition Start: 12/30/19 15:53 Freq: Status: Active Protocol: Document 01/06/20 11:04 [facility] (Rec: 01/06/20 11:11 [facility] [id number]) Cognitive Factors Limiting Selfcare Function Cognitive Ability Level of Alertness Alert Patient Orientation Name,Place,Situation Attention Span Ability Capable of Focused Attention, Capable of Sustained Attention Ability to Follow Commands Able to Follow One Step Commands Memory Description Short Term Impaired Cognitive Comments Cognitive Assessment Comments Pt states did not sleep well and tired. Pt needing more vc for safety assist today and reminders to get closer to the toilet before sitting down. M7 OT- IP Mobility and Balance Start: 12/30/19 15:53 Freq: Status: Active Protocol: Document 01/06/20 11:04 [facility] (Rec: 01/06/20 11:11 [facility] [id number]) OT-Transfer Assessment Sit to and From Stand Sit to and from Stand Contact Guard Assistance Transfers Transfer Ability Contact Guard Assistance, Minimal Assistance Technique Transfer Destination Chair,Toilet Transfer Technique Stand Step Pivot Devices Transfer Assistive Devices Gait Belt,Front Wheeled Walker Comments Mobility Comments Pt needing more assist to come to stand today LUZ and at times needing LUZ for balance while walking with FWW. OT- Balance Assessment Sitting Balance and Reactions Static Sitting Balance Ability Good Dynamic Sitting Balance Ability Fair Standing Balance and Reactions Static Standing Balance Ability Fair Comments Other Balance Tests/Deviations/Treatment Pt more unsteady with dynamic : balance today. Pt states feels tired and weak today. M8 OT- IP Objective Assessments Start: 12/30/19 15:53 Freq: Status: Active Protocol: Document 12/30/19 14:00 [facility] (Rec: 12/30/19 16:29 [facility] [id number]) OT Gross Range of Motion Upper Extremity Range of Motion Assessment Within Functional Limits OT Strength Comments Strength Comments NT due to recent sx. OT-Muscle Tone Assessment Muscle Tone WNL Yes M9 OT- IP Assessment and Plan Start: 12/30/19 15:53 Freq: Status: Active Protocol: Document 01/06/20 11:04 [facility] (Rec: 01/06/20 11:11 [facility] [id number]) OT Summary Assessment and Plan Potential Rehabilitation Potential Good Analytic Complexity at Evaluation Low Summary OT Impairments Pain,Functional Cognition, Functional Mobility,Grooming, Dressing,Toileting,Bathing, Toilet Transfers,Shower Transfers,Activity Tolerance Progress Towards Goals Slow Progress due to Medical Issues,Slow Progress due to Activity Tolerance Assessment Summary Pt able to tolerate toileting and grooming but needing more assist for her balance today. Pt has new diagnosis of PNA on 01/04/20. Pt will benefit form skilled rehab prior to going home. Goals Grooming Goal Independent Dressing Goal Independent Toilet Transfer Goal Independent Shower Transfer Goal Independent Patient/Caregiver Education Goal Demonstrate Post-Op Precautions Days to Meet Goals 15 Frequency of Treatment Frequency Of Treatment Once a Day Treatment Plan OT Treatment Plan ADL Training,Functional Cognition Training,Functional Mobility,Patient/Family Education,Discharge Planning Discharge Recommendations OT Discharge Recommendations SNF Rehab Home Equipment Needs defer to SNF Transportation Needs at Discharge Wheelchair/Cabulance
--- NOTE | 2020-01-06 11:14 | PT.IPTN ---
Current Diagnoses Partial intestinal obstruction, unspecified as to cause (12/25/19) Abnormal findings on diagnostic imaging of other abdominal regions, including retroperitoneum (12/25/19) Other specified postprocedural states (12/25/19) Surgery Performed Operation Date: 12/26/19 10:45 Actual Procedures p Colonoscopy with biopsY(Left) - Ana Gannon MD Operation Date: 12/29/19 12:45 Actual Procedures p Exploratory Laparotomy GEN Sigmoid colectomy, diverting loop. Ileostomy - Edgardo Carballo MD Physical Therapy Treatment Note M2 PT-IP Current Condition Start: 12/30/19 13:47 Freq: NEEDED Status: Active Protocol: Document 12/30/19 15:50 [facility] (Rec: 12/30/19 16:40 AB [id number]) Physical Therapy Current Condition Current Condition Evaluation Date 12/30/19 Treatment Diagnosis intestinal perforation s/p colectomy/ ileostomy; difficulty in walking Onset Date 12/25/19 Precautions Abdominal Surgery Precautions Log Roll,Lifting Restrictions, Gait Belt above Incisional Area Other Precautions has NG tube, 2 incision drains , wright, IV line M3 PT-IP Subjective Start: 12/30/19 13:47 Freq: NEEDED Status: Active Protocol: Document 01/06/20 11:14 [facility] (Rec: 01/06/20 12:19 AB [id number]) Subjective Physical Therapy Visit Type Type Treatment Note Visit Start Time 11:14 Visit Stop Time 11:34 Total Visit Minutes 20 Number of ELECTRONIC EQUIPMENT MAINT TECH Visits 0 Physical Therapy Visit Comments Patient Comments pt is agreeable to do PT M4 PT-IP Mobility and Gait Start: 12/30/19 13:47 Freq: NEEDED Status: Active Protocol: Document 01/06/20 11:14 [facility] (Rec: 01/06/20 12:19 [facility] [id number]) PT-Transfer Assessment Sit to and From Stand Sit to and from Stand Contact Guard Assistance,1 Person Assistance,Use of Upper Extremities Equipment Transfer Assistive Device Gait Belt,Front Wheeled Walker Orthotic/Prosthetic Devices or Brace: No Transfers Transfer Destination Toilet Transfer Technique ambulated using FWW Transfer Ability Level of Assist Contact Guard Assistance, Minimal Assistance,1 Person Assistance,Use of Upper Extremities Comments Mobility Comments pt was initially refusing PT. stated that she is not feeling too well today and will not be able to walk. educated pt on importance of mobility and agreed to ambulate in room. requested to use the toilet first. completed sit to stand from the chair CGA and ambulated in room ~ 40 ft using FWW CGA to min A. ambulated to the toilet using FWW CGA to min A. completed sit to stand from the toilet using grab bar CGA and was able to maintain standing balance CGA while pt manages her brief. pt ambulated towards the sink using FWW CGA to min A and cues for upright posture and was able to maintain standing leaning on sink CGA while completing handwashing. ambulated back to chair. positioned pt on chair. call light and table placed within reach. pt requiring increase assistance with ambulation today. requiring assist with FWW management and seemed a little bit more confused today . pt stated that she is not feeling too well and that the doctor told her that she has an infection going on. Gait Assessment Gait Gait Assistance Required: Contact Guard Assist,Minimum Assistance Distance (Feet) 40 Able to Maintain Weight Bearing Status Yes During Gait Assistive Devices Assistive Device Gait Belt,Front Wheeled Walker Orthotic/Prosthetic Devices or Brace: No Gait Deviations General Gait Pattern Decreased Stride Length, Decreased Feet Clearance, Flexed Trunk,Step-to Gait Factors Limiting Gait Function Factors Limiting Gait Function Decreased Activity Tolerance, Decreased Strength,Difficulty Following Directions,Limited Range of Motion,Pain,Poor Balance,Poor Safety Awareness M5 PT-IP Objective Assessments Start: 12/30/19 13:47 Freq: NEEDED Status: Active Protocol: Document 12/30/19 15:50 [facility] (Rec: 12/30/19 16:40 [facility] [id number]) Orientation Orientation/Cognition Level of Alertness Alert Orientation Name,Place,Situation Language Function Ability No Deficits Noted Safety Awareness Decreased Safety Awareness Memory Description Short Term Impaired Gross Range of Motion Lower Extremity ROM Assessment Within Functional Limits Strength Lower Extremity Strength Assessment Within Functional Limits Coordination Assessment Gross Coordination Gross Coordination WNL Sensation Assessment Sensation Gross Sensation WNL Muscle Tone Muscle Tone WNL Yes M6 PT-IP Treatment Start: 12/30/19 13:47 Freq: NEEDED Status: Active Protocol: Document 01/06/20 11:14 [facility] (Rec: 01/06/20 12:19 [facility] [id number]) Physical Therapy Treatment Education Education Provided Precautions,Safety M7 PT-IP Assessment and Plan Start: 12/30/19 13:47 Freq: NEEDED Status: Active Protocol: Document 01/06/20 11:14 [facility] (Rec: 01/06/20 12:19 [facility] [id number]) PT Summary Assessment and Plan Potential Rehabilitation Potential Good Summary Impairments Pain,ROM,Strength,Balance, Coordination,Sensation,Tone, Cognition,Bed Mobility, Transfers,Gait,Activity Tolerance Progress Towards Goals Slow Progress due to Pain,Slow Progress due to Medical Issues,Slow Progress due to Activity Tolerance Assessment Summary pt requiring CGA to min A with mobility today. seems more confused as well and pt stated that she is not feeling too well. will continue to assess progress. pt may require to go to SNF to improve strenght and mobility. Goals Bed Mobility Goal Independent Transfer Goal Independent Gait Goal Independent Gait Distance 200 Other Goals up/down 5 steps B rails SBA Days to Meet Goals 10 Frequency of Treatment Frequency Of Treatment Once a Day Treatment Plan Physical Therapy Treatment Plan Bed Mobility Training,Transfer Training,Gait Training, Therapeutic Exercise,Balance Retraining,Post Op Education, Discharge Planning,Hot or Cold Pack,Neuromuscular Re-ed Recommendations To Nursing Amount of Assist Needed 1 Person Assist Discharge Recommendations PT Discharge Recommendations Home with 24/7 Assist,Home Health,SNF Rehab Other Discharge Recommendations depending on progress: SNF vs home with 24/7 and HHPT Transportation Needs at Discharge Private Vehicle,Wheelchair/ Cabulance
[2020-01-06] MEDS: MEROPENEM 1 GM in SODIUM CHLORIDE 0.9% 100 ML 200 ML IV ×2 (12:01→19:12)
--- NOTE | 2020-01-06 12:16 | DIET.PN ---
Addendum entered by Adrienne Ruelas 01/06/20 14:13: Pt was weighed this am on built in bedscale by [employer] at 44.4kg c BMI 16.8. This shows 10kg weight loss overnight which is in error. [facility] daily weights for pt ensuring to take account for any items on bed when performing function. Original Note: Dietary Progress Note Pt had several questions about foods she could/ couldn't eat. Discussed and provided pt with ileostomy specific nutrition recommendations handout and ostomy cookbook. Alerted kitchen to avoid sending pt any foods with skins.
[2020-01-06 12:58] LABS: Adenovirus F 40/41 Not Detected (Not Detect); Astrovirus Not Detected (Not Detect); Campylobacter Not Detected (Not Detect); Clostridium difficile toxin AB Not Detected (Not Detect); Cryptosporidium Not Detected (Not Detect); Cyclospora cayetanensis Not Detected (Not Detect); Entamoeba histolytica Not Detected (Not Detect); Enteroaggregative E.coli Not Detected (Not Detect); Enteropathogenic E.coli Not Detected (Not Detect); Enterotoxigenic E.coli It/st Not Detected (Not Detect); Giardia lamblia Not Detected (Not Detect); Norovirus GI/GII Not Detected (Not Detect); Plesiomonsa shigelloides Not Detected (Not Detect); Rotavirus A Not Detected (Not Detect); Salmonella Not Detected (Not Detect); Sapovirus Not Detected (Not Detect); Shiga-like toxin-prod E.coli Not Detected (Not Detect); Shigella/Enteroinvasive E.coli Not Detected (Not Detect); Vibrio Not Detected (Not Detect); Vibrio cholerae Not Detected (Not Detect); Yersinia enterocolitica Not Detected (Not Detect)
--- NOTE | 2020-01-06 13:04 | P.PN_ITS ---
Subjective Subjective Date Patient Seen: 01/06/20 Interval history: Vibha Brenner is a 49-year-old female with past medical history significant for brain tumor status post craniotomy, seizure disorder, bipolar disorder and chronic bronchitis status post exploratory laparotomy with diverting ileostomy for perforated sigmoid colon. The patient is resting in bedside chair comfortably. She was mildly febrile with diaphoresis and significant tachycardia. She reports abdominal and flank pain +6/10. She reports the oxycodone helps pain but made her mildly confused and ?out of it.? Plan to start tramadol as needed for pain control. Her cough is resolving. She denies headache, shortness of breath, chest pain, nausea, vomiting, fever, chills, or dysuria. She is voiding and eliminating via ostomy without difficulty. Her stool is abnormally vibrant green and obtained GI stool panel which was negative. Also repeated blood cultures x 2 which are pending and urinalysis which was negative. Discussed case with on-call Infectious Disease at [facility] who recommended a dditional blood cultures, continued monitoring of leukocytosis, stopping metronidazole and possibly vancomycin, and consideration of repeat imaging of her abdomen if leukocytosis persistent as she may have a small leak with previous CT abdomen demonstrating extravasation of contrast. She is up ambu lating with assistance. Exam Vital Signs (past 8 hours): - 01/06/20 05:29 01/06/20 08:00 01/06/20 10:32 Temperature 98.8 F Pulse Rate 121 H 116 H 113 H Respiratory Rate 20 16 Blood Pressure 113/71 Pulse Oximetry 92 90 L 93 01/06/20 12:00 Temperature 99.3 F Pulse Rate 109 H Respiratory Rate 18 Blood Pressure 114/66 Pulse Oximetry 92 Oxygen Delivery Method Room Air Oxygen Flow Rate 0 Narrative Exam Narrative: General: Middle aged thin and frail-appearing female sitting in bedside chair and in no acute distress, appropriately interactive. HEENT: Normocephalic, atraumatic. External ears without defect. Pupils equal, round, and reactive to light. Anicteric sclerae, moist conjunctivae, and no lid lag. Neck: Supple with full range of motion. No jugular venous distension. No lymphadenopathy or thyromegaly. Cardiovascular: Regular rhythm, mild tachycardia without murmurs, rubs, or gallops appreciated. Pulmonary: Diminished at bases but clear to auscultation bilaterally with occasional rhonchi on left side. No wheezes or crackles. Normal respiratory effort with no use of accessory muscles. Abdomen: Soft, bowel sounds present, tenderness to palpation in low abdomen, nondistended. No rigidity or rebound. Mild tenderness in flanks bilaterally. Ostomy in right side of abdomen with viable stoma and bright green stool. Extremities: No clubbing, cyanosis, or edema. Skin: Normal temperature, turgor, and texture; no rash, ulcers, or subcutaneous nodules appreciated. Neurological: Cranial nerves grossly intact. Psychiatric: Normal mood and affect. Alert and oriented to person, place, and time. Objective Labs Result Diagrams: 01/06/20 05:02 01/06/20 05:02 Labs: Laboratory Results - last 24 hr 01/05/20 01/05/20 01/05/20 04:58 04:58 04:58 WBC RBC Hgb Hct MCV MCH MCHC RDW Plt Count Neut % (Auto) Lymph % (Auto) [place] % (Auto) Eos % (Auto) Baso % (Auto) Lymph # (Auto) [place] # (Auto) Baso # (Auto) Total Counted Seg Neutrophils % Band Neutrophils % Lymphocytes % (Manual) Monocytes % (Manual) Metamyelocytes % Neutrophils # (Manual) RBC Morphology Anisocytosis Sodium Potassium Chloride Carbon Dioxide BUN Creatinine Estimated GFR BUN/Creatinine Ratio Glucose Calcium Magnesium 1.7 Total Bilirubin 0.5 Conjugated Bilirubin 0.0 Unconjugated Bilirubin 0.2 AST 37 H ALT 50 H Alkaline Phosphatase 132 H Total Protein 5.6 L Albumin 2.5 L Globulin 3.1 Albumin/Globulin Ratio 0.8 L Procalcitonin TSH 5.56 H Free T4 1.59 Stl C. cayetanensis PCR Stool Rotavirus (PCR) Stool Adenovirus (PCR) Stool Astrovirus (PCR) Stool Cryptosporidium PCR Stl E.coli Shiga Tox PCR St Sh/Enteroin Ecoli PCR Stool E coli O157 PCR Stl Enterotoxigenic E PCR Stool EPEC (PCR) Stl E. histolytica PCR Stool Giardia Lamblia PCR Stool Sapovirus (PCR) Stl P. shigelloides PCR St Y.enterocolitica PCR Stool Vibrio (PCR) Stl Vibrio cholerae PCR Stl Enteroaggr Ecoli PCR Stl Norovirus GI/GII PCR Vancomycin Trough Campylobacter (PCR) C. difficile Tox (PCR) Salmonella (PCR) 1101/06/20 01/06/20 16:45 05:02 05:02 WBC 27.2 H RBC 3.06 L Hgb 9.5 L Hct 28.5 L MCV 93.1 MCH 31.1 MCHC 33.4 RDW 15.2 H Plt Count 624 H Neut % (Auto) Not Reportable Lymph % (Auto) Not Reportable [place] % (Auto) Not Reportable Eos % (Auto) Not Reportable Baso % (Auto) Not Reportable Lymph # (Auto) Not Reportable [place] # (Auto) Not Reportable Baso # (Auto) Not Reportable Total Counted 100 Seg Neutrophils % 86.0 H Band Neutrophils % 2.0 L Lymphocytes % (Manual) 8.0 L Monocytes % (Manual) 3.0 Metamyelocytes % 1.0 H Neutrophils # (Manual) 88545 H RBC Morphology See below Anisocytosis 1+ H Sodium Potassium Chloride Carbon Dioxide BUN Creatinine Estimated GFR BUN/Creatinine Ratio Glucose Calcium Magnesium Total Bilirubin Conjugated Bilirubin Unconjugated Bilirubin AST ALT Alkaline Phosphatase Total Protein Albumin Globulin Albumin/Globulin Ratio Procalcitonin 0.59 H TSH Free T4 Stl C. cayetanensis PCR Stool Rotavirus (PCR) Stool Adenovirus (PCR) Stool Astrovirus (PCR) Stool Cryptosporidium PCR Stl E.coli Shiga Tox PCR St Sh/Enteroin Ecoli PCR Stool E coli O157 PCR Stl Enterotoxigenic E PCR Stool EPEC (PCR) Stl E. histolytica PCR Stool Giardia Lamblia PCR Stool Sapovirus (PCR) Stl P. shigelloides PCR St Y.enterocolitica PCR Stool Vibrio (PCR) Stl Vibrio cholerae PCR Stl Enteroaggr Ecoli PCR Stl Norovirus GI/GII PCR Vancomycin Trough 8.8 L Campylobacter (PCR) C. difficile Tox (PCR) Salmonella (PCR) 01/06/20 01/06/20 05:02 11:23 WBC RBC Hgb Hct MCV MCH MCHC RDW Plt Count Neut % (Auto) Lymph % (Auto) [place] % (Auto) Eos % (Auto) Baso % (Auto) Lymph # (Auto) [place] # (Auto) Baso # (Auto) Total Counted Seg Neutrophils % Band Neutrophils % Lymphocytes % (Manual) Monocytes % (Manual) Metamyelocytes % Neutrophils # (Manual) RBC Morphology Anisocytosis Sodium 137 Potassium 3.8 Chloride 100 Carbon Dioxide 34 H BUN < 2 L Creatinine 0.43 L Estimated GFR > 60.0 BUN/Creatinine Ratio 4.7 L Glucose 114 H Calcium 8.3 L Magnesium 1.9 Total Bilirubin 0.6 Conjugated Bilirubin Unconjugated Bilirubin AST 31 ALT 45 H Alkaline Phosphatase 145 H Total Protein 5.9 L Albumin 2.7 L Globulin 3.2 Albumin/Globulin Ratio 0.8 L Procalcitonin TSH Free T4 Stl C. cayetanensis PCR Not detected Stool Rotavirus (PCR) Not detected Stool Adenovirus (PCR) Not detected Stool Astrovirus (PCR) Not detected Stool Cryptosporidium PCR Not detected Stl E.coli Shiga Tox PCR Not detected St Sh/Enteroin Ecoli PCR Not detected Stool E coli O157 PCR Not detected Stl Enterotoxigenic E PCR Not detected Stool EPEC (PCR) Not detected Stl E. histolytica PCR Not detected Stool Giardia Lamblia PCR Not detected Stool Sapovirus (PCR) Not detected Stl P. shigelloides PCR Not detected St Y.enterocolitica PCR Not detected Stool Vibrio (PCR) Not detected Stl Vibrio cholerae PCR Not detected Stl Enteroaggr Ecoli PCR Not detected Stl Norovirus GI/GII PCR Not detected Vancomycin Trough Campylobacter (PCR) Not detected C. difficile Tox (PCR) Not detected Salmonella (PCR) Not detected Assessment & Plan Assessment & Plan narrative: Vibha Brenner is a 49-year-old female with past medical history significant for brain tumor status post craniotomy, seizure disorder, bipolar disorder and chronic bronchitis status post exploratory laparotomy with diverting ileostomy for perforated sigmoid colon. 1. Acute small bowel obstruction with sigmoid colitis and bowel perforation, status post sigmoid resection and diverting ileostomy, present on admission (perforation not present on admission). Active. -Initial CT abdomen and pelvis with contrast demonstrated focal thickening of the proximal sigmoid colon and dilated bowel with air-fluid levels with no transition point. -Patient met SIRS criteria but did not meet sepsis criteria as she had no end- organ dysfunction. -Consulted general surgery, Dr. Gordillo, who performed colonoscopy which revealed prominent folds but no overt evidence of malignancy or obstruction. Patient did have a bowel movement after Fleet enema but bowel movements have not been formed and were predominantly liquid. She subsequently had a small-bowel follow- through after colonoscopy which showed a possible partial small-bowel obstruction but slow transit times as a large amount of contrast remained her stomach. The patient had several bowel movements after small bowel follow thr ou but developed increased bloating/distension with clear liquids without nausea or vomiting. -Repeat CT abdomen and pelvis with contrast demonstrated leakage of enteric contrast into the abdominal cavity and sigmoid/rectal thickening. -Consulted general surgery again, Dr. Carballo, who performed sigmoid colectomy with diverting ileostomy due to sepsis with gross abdominal contamination. Continue post operative management per general surgery. -WBC continues to remain elevated. WBC peaked at 30.5 with 24% bandemia on 01/03 and now increased again from 23.2 with 10 % bandemia to 27.2 with 2% bandemia. Interestingly, procalcitonin peaked at 34.37 and continues to trend down and is nearly normalized at 0.59. Continue to monitor WBC and procalcitonin daily. -Patient remains on broad-spectrum antibiotic treatment with meropenem 1 g every 8 hours and vancomycin with dosing per pharmacist to treat peritonitis and bacterial pneumonia. Continue fluconazole 200 mg IV daily to treat possible [place] infection in abdomen and/or blood. Discontinued metronidazole per ID. -Discussed case with on-call Infectious Disease at [facility] who recommended additional blood cultures, continued monitoring of leukocytosis, stopping metronidazole and possibly vancomycin, and consideration of repeat imaging of her abdomen if leukocytosis persistent as she may have a small leak with last CT of abdomen and pelvis 01/04/20 demonstrating extravasation of contrast. Also added GI stool panel which was negative and urinalysis which was negative. 2. Acute bilateral bacterial pneumonia, not present on admission. Resolving. -Chest x-ray demonstrated blunting of costophrenic angles otherwise negative for cardiopulmonary process. -CT chest without contrast demonstrated bilateral lower lobe consolidation with scattered centrilobular and ground-glass and nodularity in the remaining lungs, along with small bilateral pleural effusions. -WBC continues to remain elevated. WBC peaked at 30.5 with 24% bandemia on 01/03 and now increased again from 23.2 with 10 % bandemia to 27.2 with 2% bandemia. Interestingly, procalcitonin peaked at 34.37 and continues to trend down and is nearly normalized at 0.59. Continue to monitor WBC and procalcitonin daily. -Continue antibiotic therapy as above. -Continue incentive spirometry. 3. Hypokalemia and hypomagnesemia, acute, present on admission. Resolved. -Secondary to continued GI losses. -Continue to monitor potassium and magnesium level daily and replete as necessary. 4. COPD with chronic bronchitis, present on admission. Stable. -Does not represent acute COPD exacerbation. -Continue home albuterol inhaler 2 puffs every 4 hours as needed for shortness of breath or wheezing and Flovent 1 puff twice daily. 5. Bipolar disorder, chronic, present on admission. Stable -Continue home lamotrigine 225 mg twice daily and ziprasidone 80 mg twice daily. Code status: Full code, patient designates Marcin Ramsey to be her surrogate decision maker. VTE prophylaxis:: Enoxaparin, SCDs Disposition: Patient likely discharge to assisted for rehabilitation in next 1-2 days depending on improvement in infection and WBC. Quality VTE Deep Vein Thrombosis/Pulmonary Embolism Present on Admission: No
--- NOTE | 2020-01-06 13:36 | PC.NURSE ---
pt some what scattered in her thought process- somewhat anxious- given tramadol for pain, and abx changed to po zithromax and iv meropenum as well as iv diflucan. lungs diminished bilat and continues to not breath deeply - encouraged use of flutter valve- on room air spo2 85-88% presently at 2l nc with spo2 94%- ostomy pink with green output- sent for gi panel due to elevated wbc - skin with bruising vs deep tissue injury on coccyx/buttocks area- no open areas and continued use of waffle cushion throughout this shift- encouraged freq turning which pt is not the most compliant
[2020-01-06 13:41] LABS: Bacteria Urine None Seen
[2020-01-06 13:44] LABS: Appearance Urine UA CLEAR; Bilirubin Urine UA NEGATIVE (NEGATIVE); Color Urine UA YELLOW; Glucose Urine UA NEGATIVE (Negative); Ketones Urine UA NEGATIVE (NEGATIVE); Leukocyte Esterase Urine UA NEGATIVE (NEGATIVE); Nitrite Urine UA NEGATIVE (Negative); Occult Blood Urine UA NEGATIVE (Negative); Protein Urine UA NEGATIVE (Negative); Urobilinogen Urine UA 0.2 E.U./dL (0.2)
[2020-01-06 13:49] LABS: pH Urine UA 7.5 (4.5-8.0)
[2020-01-06 13:51] LABS: Culture Indicated Urine Cult Not Indicated; RBC Urine 0-1/HPF (0-5/HPF); Squamous Epithelial Cell Urine 0-1 /HPF (0-5/HPF); WBC Urine 0-1/HPF (0-5/HPF)
--- NOTE | 2020-01-06 15:25 | CM.DPC ---
DCP Cont: Updated Cesilia at [facility] that patient will not yet be ready for discharge today, for her white count is elevated. P: DCP to continue to follow. Will continue to update [facility] on status, for plan is for her to go to rehab when she is medically stable. Linda Pollock RN/[employer]
[2020-01-06] MEDS: ONDANSETRON 4 MG/2 ML INJ IV (15:39)
--- NOTE | 2020-01-06 16:39 | P.PN_ITS ---
Subjective Subjective Date Patient Seen: 01/06/20 Time Patient Seen: 16:39 Interval history: No acute overnight events. Tolerating a diet ostomy is productive. Continues to have low-grade tachycardia and mild abdominal pain. Exam Vital Signs (past 8 hours): - 01/06/20 10:32 01/06/20 12:00 01/06/20 16:00 Temperature 99.3 F 98.6 F Pulse Rate 113 H 109 H 101 H Respiratory Rate 16 18 20 Blood Pressure 114/66 127/69 Pulse Oximetry 93 92 90 L Oxygen Delivery Method Room Air Oxygen Flow Rate 0 Narrative Exam Narrative: General adult female alert oriented no acute distress Abdomen midline incision clean dry intact with vickie. Ostomy viable productive. Objective Labs Result Diagrams: 01/06/20 05:02 01/06/20 05:02 Labs: Laboratory Results - last 24 hr 01/05/20 01/05/20 01/05/20 04:58 04:58 04:58 WBC RBC Hgb Hct MCV MCH MCHC RDW Plt Count Neut % (Auto) Lymph % (Auto) [place] % (Auto) Eos % (Auto) Baso % (Auto) Lymph # (Auto) [place] # (Auto) Baso # (Auto) Total Counted Seg Neutrophils % Band Neutrophils % Lymphocytes % (Manual) Monocytes % (Manual) Metamyelocytes % Neutrophils # (Manual) RBC Morphology Anisocytosis Sodium Potassium Chloride Carbon Dioxide BUN Creatinine Estimated GFR BUN/Creatinine Ratio Glucose Calcium Magnesium 1.7 Total Bilirubin 0.5 Conjugated Bilirubin 0.0 Unconjugated Bilirubin 0.2 AST 37 H ALT 50 H Alkaline Phosphatase 132 H Total Protein 5.6 L Albumin 2.5 L Globulin 3.1 Albumin/Globulin Ratio 0.8 L Procalcitonin TSH 5.56 H Free T4 1.59 Urine Color Urine Appearance Urine pH Ur Specific [place] Urine Protein Urine Glucose (UA) Urine Ketones Urine Occult Blood Urine Nitrate Urine Bilirubin Urine Urobilinogen Ur Leukocyte Esterase Urine RBC Urine WBC Ur Squamous Epith Cells Urine Bacteria Ur Culture Indicated? Stl C. cayetanensis PCR Stool Rotavirus (PCR) Stool Adenovirus (PCR) Stool Astrovirus (PCR) Stool Cryptosporidium PCR Stl E.coli Shiga Tox PCR St Sh/Enteroin Ecoli PCR Stool E coli O157 PCR Stl Enterotoxigenic E PCR Stool EPEC (PCR) Stl E. histolytica PCR Stool Giardia Lamblia PCR Stool Sapovirus (PCR) Stl P. shigelloides PCR St Y.enterocolitica PCR Stool Vibrio (PCR) Stl Vibrio cholerae PCR Stl Enteroaggr Ecoli PCR Stl Norovirus GI/GII PCR Vancomycin Trough Campylobacter (PCR) C. difficile Tox (PCR) Salmonella (PCR) 01/05/20 01/06/20 01/06/20 16:45 05:02 05:02 WBC 27.2 H RBC 3.06 L Hgb 9.5 L Hct 28.5 L MCV 93.1 MCH 31.1 MCHC 33.4 RDW 15.2 H Plt Count 624 H Neut % (Auto) Not Reportable Lymph % (Auto) Not Reportable [place] % (Auto) Not Reportable Eos % (Auto) Not Reportable Baso % (Auto) Not Reportable Lymph # (Auto) Not Reportable [place] # (Auto) Not Reportable Baso # (Auto) Not Reportable Total Counted 100 Seg Neutrophils % 86.0 H Band Neutrophils % 2.0 L Lymphocytes % (Manual) 8.0 L Monocytes % (Manual) 3.0 Metamyelocytes % 1.0 H Neutrophils # (Manual) 06486 H RBC Morphology See below Anisocytosis 1+ H Sodium Potassium Chloride Carbon Dioxide BUN Creatinine Estimated GFR BUN/Creatinine Ratio Glucose Calcium Magnesium Total Bilirubin Conjugated Bilirubin Unconjugated Bilirubin AST ALT Alkaline Phosphatase Total Protein Albumin Globulin Albumin/Globulin Ratio Procalcitonin 0.59 H TSH Free T4 Urine Color Urine Appearance Urine pH Ur Specific [place] Urine Protein Urine Glucose (UA) Urine Ketones Urine Occult Blood Urine Nitrate Urine Bilirubin Urine Urobilinogen Ur Leukocyte Esterase Urine RBC Urine WBC Ur Squamous Epith Cells Urine Bacteria Ur Culture Indicated? Stl C. cayetanensis PCR Stool Rotavirus (PCR) Stool Adenovirus (PCR) Stool Astrovirus (PCR) Stool Cryptosporidium PCR Stl E.coli Shiga Tox PCR St Sh/Enteroin Ecoli PCR Stool E coli O157 PCR Stl Enterotoxigenic E PCR Stool EPEC (PCR) Stl E. histolytica PCR Stool Giardia Lamblia PCR Stool Sapovirus (PCR) Stl P. shigelloides PCR St Y.enterocolitica PCR Stool Vibrio (PCR) Stl Vibrio cholerae PCR Stl Enteroaggr Ecoli PCR Stl Norovirus GI/GII PCR Vancomycin Trough 8.8 L Campylobacter (PCR) C. difficile Tox (PCR) Salmonella (PCR) 01/06/20 01/06/20 01/06/20 05:02 11:23 13:27 WBC RBC Hgb Hct MCV MCH MCHC RDW Plt Count Neut % (Auto) Lymph % (Auto) [place] % (Auto) Eos % (Auto) Baso % (Auto) Lymph # (Auto) [place] # (Auto) Baso # (Auto) Total Counted Seg Neutrophils % Band Neutrophils % Lymphocytes % (Manual) Monocytes % (Manual) Metamyelocytes % Neutrophils # (Manual) RBC Morphology Anisocytosis Sodium 137 Potassium 3.8 Chloride 100 Carbon Dioxide 34 H BUN < 2 L Creatinine 0.43 L Estimated GFR > 60.0 BUN/Creatinine Ratio 4.7 L Glucose 114 H Calcium 8.3 L Magnesium 1.9 Total Bilirubin 0.6 Conjugated Bilirubin Unconjugated Bilirubin AST 31 ALT 45 H Alkaline Phosphatase 145 H Total Protein 5.9 L Albumin 2.7 L Globulin 3.2 Albumin/Globulin Ratio 0.8 L Procalcitonin TSH Free T4 Urine Color Yellow Urine Appearance Clear Urine pH 7.5 Ur Specific [place] 1.010 Urine Protein Negative Urine Glucose (UA) Negative Urine Ketones Negative Urine Occult Blood Negative Urine Nitrate Negative Urine Bilirubin Negative Urine Urobilinogen 0.2 Ur Leukocyte Esterase Negative Urine RBC 0-1/hpf Urine WBC 0-1/hpf Ur Squamous Epith Cells 0-1 /hpf Urine Bacteria None seen Ur Culture Indicated? Cult not indicated Stl C. cayetanensis PCR Not detected Stool Rotavirus (PCR) Not detected Stool Adenovirus (PCR) Not detected Stool Astrovirus (PCR) Not detected Stool Cryptosporidium PCR Not detected Stl E.coli Shiga Tox PCR Not detected St Sh/Enteroin Ecoli PCR Not detected Stool E coli O157 PCR Not detected Stl Enterotoxigenic E PCR Not detected Stool EPEC (PCR) Not detected Stl E. histolytica PCR Not detected Stool Giardia Lamblia PCR Not detected Stool Sapovirus (PCR) Not detected Stl P. shigelloides PCR Not detected St Y.enterocolitica PCR Not detected Stool Vibrio (PCR) Not detected Stl Vibrio cholerae PCR Not detected Stl Enteroaggr Ecoli PCR Not detected Stl Norovirus GI/GII PCR Not detected Vancomycin Trough Campylobacter (PCR) Not detected C. difficile Tox (PCR) Not detected Salmonella (PCR) Not detected Assessment & Plan Post-op Postoperative Procedures: Procedures Operation Date: 10/23/20 10:45 Actual Procedures Side Surgeon p Colonoscopy with biopsY Left Ana Gannon MD Operation Date: 12/29/19 12:45 Actual Procedures Side Surgeon p Exploratory Laparotomy GEN Sigmoid colectomy, diverting loop. Ileostomy Edgardo Carballo MD Postoperative plan narrative: 49-year-old woman postoperative day 7 status post colectomy and diverting loop ileostomy for colonic perforation. Clinically she is doing well she is tolerating a diet her ostomy is productive no nausea vomiting or fever. She continues to have leukocytosis of unclear etiology. Imaging and cultures reviewed. Stool, UA negative, blood pending. There is a small amount of extraluminal contrast on the CT abdomen pelvis from several days ago however this is also in the setting of colonic perforation and she had a CT scan with PO contrast shortly before that which is perhaps the source of contrast. Regardless she is diverted afebrile tolerating a diet and her procalcitonin is normal. -continue regular diet -continue antibiotics. consider converting her to PO abx tomorrow, if clinically remains well then can plan for discharge later this week. -Ostomy teaching Quality VTE Deep Vein Thrombosis/Pulmonary Embolism Present on Admission: No
[2020-01-06] MEDS: CALCIUM CARBONATE 500 MG TAB PO (18:03)
[2020-01-06] MEDS: OXYCODONE IR 10 MG TABLET PO (19:00)
[2020-01-06 22:00] LABS: COVID19 -Nasal RAPID Negative (Negative)
[2020-01-07] VITALS (8 sets, daily range): BP systolic 113–147; BP diastolic 59–82; PULSE 96–112; RESP 16–20; TEMP 36.8–37.3; O2SAT 92–94
[2020-01-07] MEDS: MEROPENEM 1 GM in SODIUM CHLORIDE 0.9% 100 ML 200 ML IV ×2 (01:55→11:04)
--- NOTE | 2020-01-07 04:19 | PC.NURSE ---
weight shifter note: Patient slept well throughout shift. Patient reports no pain. VSS, on RA. Sats ranging from 92-94%. Lungs diminished. Patient coughing and clearing secretions. Up to bedside commode, 1 person assist. Voiding well. Deep tissue injury remains on coccyx. Barrier cream applied and encouraging patient to reposition frequently to prevent further breakdown. Patient using call light, able to make needs known. Will continue to monitor.
[2020-01-07 05:18] LABS: Alanine Aminotransferase 37 IU/L (<35); Albumin 2.6 g/dL (3.5-5.0); Albumin Globulin Ratio 0.8 (1.0-2.8); Alkaline Phosphatase 137 U/L (38-126); Aspartate Aminotransferase 26 IU/L (14-36); Bilirubin Total 0.5 mg/dL (0.2-1.3); Calcium 8.3 mg/dL (8.4-10.2); Carbon Dioxide 30 mmol/L (22-32); Chloride 104 mmol/L (98-107); Estimated Glomerular Filt Rate > 60.0 mL/min (>60); Globulin 3.2 g/dL (1.7-4.1); Glucose 111 mg/dL (70-100); HEMOLYSIS < 15 (0-50); Magnesium 1.9 mg/dL (1.6-2.3); Potassium 3.8 mmol/L (3.4-5.1); Sodium 137 mmol/L (137-145); Total Protein 5.8 g/dL (6.3-8.2)
[2020-01-07 05:25] LABS: Hematocrit 26.5 % (36-46); Hemoglobin 8.8 g/dL (12.0-16.0); Mean Corpuscular HGB Conc 33.4 % (30-36); Mean Corpuscular Hemoglobin 30.8 PG (26-34); Mean Corpuscular Volume 92.2 fL (80-100); Platelet Count 748 X10^3/uL (150-400); Red Blood Cell Count 2.87 X10^6/uL (4.0-5.2); Red Cell Distribution Width 14.7 % (11.6-14.8); White Blood Cell Count 22.3 X10^3/uL (4.5-11.0)
[2020-01-07 05:27] LABS: Add Manual Diff / Slide Review YES
[2020-01-07 05:28] LABS: BUN Creatinine Ratio 5.7 (6-22); Blood Urea Nitrogen 2 mg/dL (7-17)
[2020-01-07 05:31] LABS: Procalcitonin 0.34 ng/mL (<0.5)
[2020-01-07 05:45] LABS: Neutrophils Absolute Manual 18732 /uL (3000-5900); Total Cells Counted 100
[2020-01-07 05:49] LABS: Anisocytosis 1+
[2020-01-07] MEDS: FLUCONAZOLE 200 MG/100 ML PIGGYBACK 100 MG IV (09:30)
[2020-01-07] MEDS: IBUPROFEN 400 MG TABLET PO ×3 (09:31→20:48)
[2020-01-07] MEDS: ZIPRASIDONE 80 MG 80 EACH PO ×2 (09:32→20:51)
[2020-01-07] MEDS: guaiFENesin ER 600 MG TAB 1200 MG PO ×2 (09:32→20:49)
[2020-01-07] MEDS: lamoTRIgine 25 MG CHEW TABLET PO ×2 (09:33→20:48)
[2020-01-07] MEDS: ZONISAMIDE 100 MG CAPSULE PO ×2 (09:33→20:52)
[2020-01-07] MEDS: ENOXAPARIN 40 MG/0.4 ML SYRINGE SUBCUT (09:34)
[2020-01-07] MEDS: FLUTICASONE 110MCG HFA 120 PUFF INH ×2 (09:34→20:42)
[2020-01-07] MEDS: POTASSIUM CHLORIDE 20 MEQ TAB PO ×2 (09:34→16:36)
[2020-01-07] MEDS: lamoTRIgine 100 MG TABLET 200 MG PO ×2 (09:55→20:48)
[2020-01-07] MEDS: FAMOTIDINE 20 MG TABLET PO ×2 (09:58→20:49)
[2020-01-07] MEDS: AZITHROMYCIN 250 MG TABLET 500 MG PO (09:58)
--- NOTE | 2020-01-07 10:24 | PT.IPTN ---
Current Diagnoses Partial intestinal obstruction, unspecified as to cause (12/25/19) Abnormal findings on diagnostic imaging of other abdominal regions, including retroperitoneum (12/25/19) Other specified postprocedural states (12/25/19) Surgery Performed Operation Date: 12/26/19 10:45 Actual Procedures p Colonoscopy with biopsY(Left) - Ana Gannon MD Operation Date: 12/29/19 12:45 Actual Procedures p Exploratory Laparotomy GEN Sigmoid colectomy, diverting loop. Ileostomy - Edgardo Carballo MD Physical Therapy Treatment Note M2 PT-IP Current Condition Start: 12/30/19 13:47 Freq: NEEDED Status: Active Protocol: Document 12/30/19 15:50 AB (Rec: 12/30/19 16:40 AB [email or web address]) Physical Therapy Current Condition Current Condition Evaluation Date 12/30/19 Treatment Diagnosis intestinal perforation s/p colectomy/ ileostomy; difficulty in walking Onset Date 12/25/19 Precautions Abdominal Surgery Precautions Log Roll,Lifting Restrictions, Gait Belt above Incisional Area Other Precautions has NG tube, 2 incision drains , wright, IV line M3 PT-IP Subjective Start: 12/30/19 13:47 Freq: NEEDED Status: Active Protocol: Document 01/07/20 09:50 SP (Rec: 01/07/20 14:11 SP [id number]) Subjective Physical Therapy Visit Type Type Treatment Note Visit Start Time 09:50 Visit Stop Time 10:24 Total Visit Minutes 34 Notes SPTA García provided assist in cuing and IV pole management throughout tx. Nurse and SENIOR INFORMATION SECURITY ARCHITECT in room when arrived, respiratory therapist and his student in room with patient when left. Number of ENROLLMENT NURSE Visits 1 Physical Therapy Visit Comments Patient Comments pt agreeable to working with therapy. Therapy Pain Assessment Pain When Pain Assessed During Mobility Pain Present Pain Present Pain Reported Location Abdomen Scale Used no scale rating stated, took ibuprofen pre tx M4 PT-IP Mobility and Gait Start: 12/30/19 13:47 Freq: NEEDED Status: Active Protocol: Document 01/07/20 09:50 SP (Rec: 01/07/20 14:11 SP [id number]) PT-Bed Mobility Assessment Rolling Type of Rolling Roll to Right Level of Assist Standby Assistance Supine to Sit Supine to Sit Standby Assistance,Bedrails Scooting Scooting to Edge of Bed Standby Assistance PT-Transfer Assessment Sit to and From Stand Sit to and from Stand Contact Guard Assistance,1 Person Assistance,Use of Upper Extremities Equipment Transfer Assistive Device Gait Belt,Front Wheeled Walker Orthotic/Prosthetic Devices or Brace: No Transfers Transfer Destination Chair,Toilet Transfer Technique pt ambulated using FWW Transfer Ability Level of Assist Contact Guard Assistance,1 Person Assistance,Use of Upper Extremities Comments Mobility Comments Pt was elevated supine in bed when arrived. Reclined bed flat but pt had 3 pillows behind her for comfort. Pt recalled BLT and stated need Log roll for getting up, log roll R >supine using BUE SBA and bed rail, scoot to EOB SBA . Sit>stand CGA x1 using FWW, cuing required for BUE safety push up to stand, ambulated into bathroom occasional cuing for upright posture and FWW pivoting fully in front of toilet, CGA (SPTA provided SBA managed IV Pole), Pt able to manage self hygiene and undergarment self. Pt walked to sink with good positioning, contact on sink for self support while washing hands then ambulated to chair, cuing for pivot and backing up fully with FWW then reaching back for slow descent into chair. Pt was reclined in chair with call light, all needs and warm blankets provided. Respiratory therapist and their student (? ) arrived and started their assessment, ENROLLMENT NURSE asked if could don chair alarm for safety before left, with confirmation . Provided verbal report to nurse on progress made during tx. Gait Assessment Gait Gait Assistance Required: Contact Guard Assist,1 Person Assist Distance (Feet) 20 Able to Maintain Weight Bearing Status Yes During Gait Assistive Devices Assistive Device Gait Belt,Front Wheeled Walker Orthotic/Prosthetic Devices or Brace: No Gait Deviations General Gait Pattern Decreased Stride Length, Decreased Feet Clearance, Flexed Trunk,Step-to Gait Factors Limiting Gait Function Factors Limiting Gait Function Decreased Activity Tolerance, Decreased Strength,Difficulty Following Directions,Limited Range of Motion,Pain,Poor Balance,Poor Safety Awareness Comments Gait Comments See mobility comments. Stair Climbing Assessment Comments Stair Climbing Comments NOt assessed at this time due to decreased activity tolerance/strength. Pt will need to complete 5 stairs w/ BHR for safet DC home. PT-Balance Assessment Sitting Balance and Reactions Static Sitting Balance Ability Normal Dynamic Sitting Balance Ability Good Standing Balance and Reactions Static Standing Balance Ability Fair Dynamic Standing Balance Ability Fair Device Used FWW M5 PT-IP Objective Assessments Start: 12/30/19 13:47 Freq: NEEDED Status: Active Protocol: Document 12/30/19 15:50 AB (Rec: 12/30/19 16:40 AB [id number]) Orientation Orientation/Cognition Level of Alertness Alert Orientation Name,Place,Situation Language Function Ability No Deficits Noted Safety Awareness Decreased Safety Awareness Memory Description Short Term Impaired Gross Range of Motion Lower Extremity ROM Assessment Within Functional Limits Strength Lower Extremity Strength Assessment Within Functional Limits Coordination Assessment Gross Coordination Gross Coordination WNL Sensation Assessment Sensation Gross Sensation WNL Muscle Tone Muscle Tone WNL Yes M6 PT-IP Treatment Start: 12/30/19 13:47 Freq: NEEDED Status: Active Protocol: Document 01/07/20 09:50 SP (Rec: 01/07/20 14:11 SP [email or web address]) Physical Therapy Treatment Education Education Provided Precautions,Safety M7 PT-IP Assessment and Plan Start: 12/30/19 13:47 Freq: NEEDED Status: Active Protocol: Document 01/07/20 09:50 SP (Rec: 01/07/20 14:11 SP [id number]) PT Summary Assessment and Plan Potential Rehabilitation Potential Good Status of Condition at Evaluation Evolving Summary Impairments Pain,ROM,Strength,Balance, Coordination,Sensation,Tone, Cognition,Bed Mobility, Transfers,Gait,Activity Tolerance Progress Towards Goals Slow Progress due to Pain,Slow Progress due to Medical Issues,Slow Progress due to Activity Tolerance Assessment Summary Pt required CGA during all mobility today. Pt reported is only taking ibuprofen for pain/ discomfort today and thinks still fuzzy due to opiates taken later day yesterday. Pt only able to tolerated ambulate bed> bathroom>sink then to chair using FWW CGA and assist for IV pole. Pt declined further ambulate stating, I am to tired, I can't do anymore. Pt was reclined in chair when left. Pt would benefit from further acute PT to increase strength and activity tolerance, will continue to assess mobility SNF vs home assist depending on progress. Pt plans to return home with SO to assist her. She will need to complete stair mgt and recommend caregiver training prior to DC. ENROLLMENT NURSE adjusted FWW in room for proper height. Goals Bed Mobility Goal Independent Transfer Goal Independent Gait Goal Independent Gait Distance 200 Other Goals up/down 5 steps B rails SBA Days to Meet Goals 10 Frequency of Treatment Frequency Of Treatment Once a Day Treatment Plan Physical Therapy Treatment Plan Bed Mobility Training,Transfer Training,Gait Training, Therapeutic Exercise,Balance Retraining,Post Op Education, Discharge Planning,Hot or Cold Pack,Neuromuscular Re-ed Recommendations To Nursing Amount of Assist Needed Standby Assistance Discharge Recommendations PT Discharge Recommendations Home with 24/7 Assist,Home Health,SNF Rehab Other Discharge Recommendations depending on progress: SNF vs home with 24/7 and HHPT Transportation Needs at Discharge Private Vehicle,Wheelchair/ Cabulance
--- NOTE | 2020-01-07 11:03 | OT.IP.TRT ---
Current Diagnoses Partial intestinal obstruction, unspecified as to cause (12/25/19) Abnormal findings on diagnostic imaging of other abdominal regions, including retroperitoneum (12/25/19) Other specified postprocedural states (12/25/19) Surgery Performed Operation Date: 12/26/19 10:45 Actual Procedures p Colonoscopy with biopsY(Left) - Ana Gannon MD Operation Date: 12/29/19 12:45 Actual Procedures p Exploratory Laparotomy GEN Sigmoid colectomy, diverting loop. Ileostomy - Edgardo Carballo MD Occupational Therapy Treatment Note M2 OT-IP Current Condition Start: 12/30/19 15:53 Freq: Status: Active Protocol: Document 12/30/19 14:00 [facility] (Rec: 12/30/19 16:29 [facility] [id number]) Occupational Therapy Current Condition Current Condition Evaluation Date 12/30/19 Treatment Diagnosis s/p Sigmoid colectomy with diverting loop ileostomy. Post Operative Precautions Abdominal Surgery Precautions Log Roll,Lifting Restrictions, Gait Belt above Incisional Area M3 OT- IP Subjective and Pain Start: 12/30/19 15:53 Freq: Status: Active Protocol: Document 01/07/20 10:52 [facility] (Rec: 01/07/20 11:03 [facility] [id number]) OT- Subjective Occupational Therapy Visit Type Type Treatment Note Visit Start Time 10:26 Visit Stop Time 10:50 Total Visit Minutes 24 Occupational Therapy Visit Comments Patient Comments Pt wanting to use the bathroom but not feeling well enough to shower today. Patient/Caregiver Goals To go to rehab prior to going home. OT Pain Assessment Pain When Pain Assessed During Mobility Pain Present Pain Present Pain Reported M4 OT- IP ADL's Start: 12/30/19 15:53 Freq: Status: Active Protocol: Document 01/07/20 10:52 [facility] (Rec: 01/07/20 11:03 [facility] [id number]) OT [id number] Comments OT Self-Feeding Comments not meal time OT ADL-Dressing General Eval Lower Body Dressing Ability Maximum Assistance Comments OT Dressing Comments Assist for socks and pt able to do her own brief management after toiletng. OT ADL-Toileting General Evaluation Toileting Ability Contact Guard Assistance Comments OT Toileting Comments seated on toilet for urination . Pt needing CGA for balance while doing her hygiene needs. OT ADL-Bathing Comments OT Bathing Comments Pt not feeling up for in today. M5 OT- IP IADL's Start: 12/30/19 15:53 Freq: Status: Active Protocol: Document 12/30/19 14:00 [facility] (Rec: 12/30/19 16:29 [facility] [id number]) OT-Instrumental Activities of Daily Living Home Safety Awareness Awareness of Need for Assistance at Home Good Awareness Medication Management Medication Management No Deficits Identified Money Management Money Management No Deficits Identified Meal Preparation Meal Preparation Caregiver Provides Assist Trip Follower Trip Follower Caregiver Provides Assist M6 OT- IP Functional Cognition Start: 12/30/19 15:53 Freq: Status: Active Protocol: Document 01/07/20 10:52 [facility] (Rec: 01/07/20 11:03 [facility] [id number]) Cognitive Factors Limiting Selfcare Function Cognitive Ability Level of Alertness Alert Patient Orientation Name,Place,Situation Attention Span Ability Capable of Focused Attention, Capable of Sustained Attention Ability to Follow Commands Able to Follow One Step Commands Memory Description Short Term Impaired Cognitive Comments Cognitive Assessment Comments Pt very tired and states did not sleep well last night. M7 OT- IP Mobility and Balance Start: 12/30/19 15:53 Freq: Status: Active Protocol: Document 01/07/20 10:52 [facility] (Rec: 01/07/20 11:03 [facility] [id number]) OT-Transfer Assessment Sit to and From Stand Sit to and from Stand Contact Guard Assistance Transfers Transfer Ability Contact Guard Assistance, Minimal Assistance Technique Transfer Destination Chair,Toilet Transfer Technique Stand Step Pivot Devices Transfer Assistive Devices Gait Belt,Front Wheeled Walker Comments Mobility Comments Pt needing CGA to stand today , however a little more off balance and needing cues to keep the FWW in front of her and especially while turning. OT- Balance Assessment Sitting Balance and Reactions Static Sitting Balance Ability Normal Dynamic Sitting Balance Ability Good Standing Balance and Reactions Static Standing Balance Ability Fair Comments Other Balance Tests/Deviations/Treatment Pt unsteady on her feet and : needing more steadying today. M8 OT- IP Objective Assessments Start: 12/30/19 15:53 Freq: Status: Active Protocol: Document 12/30/19 14:00 [facility] (Rec: 12/30/19 16:29 [facility] [id number]) OT Gross Range of Motion Upper Extremity Range of Motion Assessment Within Functional Limits OT Strength Comments Strength Comments NT due to recent sx. OT-Muscle Tone Assessment Muscle Tone WNL Yes M9 OT- IP Assessment and Plan Start: 12/30/19 15:53 Freq: Status: Active Protocol: Document 01/07/20 10:52 [facility] (Rec: 01/07/20 11:03 [facility] [id number]) OT Summary Assessment and Plan Potential Rehabilitation Potential Good Analytic Complexity at Evaluation Low Summary OT Impairments Pain,Functional Cognition, Functional Mobility,Grooming, Dressing,Toileting,Bathing, Toilet Transfers,Shower Transfers,Activity Tolerance Progress Towards Goals Slow Progress due to Pain,Slow Progress due to Medical Issues,Slow Progress due to Activity Tolerance Assessment Summary Pt not wanting to shower at this time and however wanting to toilet. Pt when medically stable will benefit from skilled rehab prior to going home. To attempt shower with pt tomorrow. Goals Grooming Goal Independent Dressing Goal Independent Toileting Goal Independent Bathing Goal Independent Toilet Transfer Goal Independent Shower Transfer Goal Independent Patient/Caregiver Education Goal Demonstrate Post-Op Precautions Days to Meet Goals 14 Frequency of Treatment Frequency Of Treatment Once a Day Treatment Plan OT Treatment Plan ADL Training,Functional Cognition Training,Functional Mobility,Patient/Family Education,Discharge Planning Other Treatment Recommendations and Next Shower Treatment Focus Discharge Recommendations OT Discharge Recommendations SNF Rehab Transportation Needs at Discharge Wheelchair/Cabulance
--- NOTE | 2020-01-07 11:39 | CM.DPC ---
DCP Cont: Per MD, pt's white count has improved and pt is currently working with PT this morning and blood cultures pending and based on results and if pt's white count remains stable then can potentially d/c to SNF tomorrow for ongoing rehab. If pt's white count drops and cultures return positive then possible need for further scan of abdomen. PT/OT still recommending SNF at d/c due to pt's fatigue and today pt did not feel able to participate in showering but working with therapy to get to the bathroom. Plan: SW to follow closely for plan of [facility] at d/c prior to safe return home. PASRR previously completed and [facility] following to determine when pt will be stable for d/c. Last COVID was negative yesterday 01/06/20 and good for 72 hours before additional COVID needed. KELLY Green
--- NOTE | 2020-01-07 12:12 | P.PN_ITS ---
Subjective Subjective Date Patient Seen: 01/07/20 Interval history: Vibha Brenner is a 49-year-old female with past medical history significant for brain tumor status post craniotomy, seizure disorder, bipolar disorder and chronic bronchitis status post exploratory laparotomy with diverting ileostomy for perforated sigmoid colon. The patient is resting in bed comfortably. The patient continues to have mild abdominal pain improved today. She reports she continues to feel ?out of it and stupid? with pain medications. Surgery plans to start ibuprofen for pain with GI prophylaxis. She has no other complaints and denies headache, shortness of breath, chest pain, nausea, vomiting, fever, chills, dysuria, diarrhea or constipation. She is voiding without difficulty. She is eliminating via ostomy with soft brown stool and healthy-appearing stoma. She is up ambulating with a ssistance. Exam Vital Signs (past 8 hours): - 01/07/20 10:30 01/07/20 12:00 01/07/20 15:30 Temperature 98.2 F 98.5 F Pulse Rate 97 H 96 H Respiratory Rate 16 16 Blood Pressure 113/59 L 130/71 Pulse Oximetry 93 93 93 Oxygen Delivery Method Room Air Oxygen Flow Rate 0 Narrative Exam Narrative: General: Middle aged thin and frail-appearing female sitting in bedside chair and in no acute distress, appropriately interactive. HEENT: Normocephalic, atraumatic. External ears without defect. Pupils equal, round, and reactive to light. Anicteric sclerae, moist conjunctivae, and no lid lag. Neck: Supple with full range of motion. No lymphadenopathy or thyromegaly. Cardiovascular: Regular rhythm, mild tachycardia without murmurs, rubs, or gallops appreciated. Pulmonary: Clear to auscultation bilaterally without rhonchi, wheezes or crackles. Normal respiratory effort with no use of accessory muscles. Abdomen: Soft, bowel sounds present, tenderness to palpation in low abdomen improved, nondistended. No rigidity or rebound. Ostomy in right side of abdomen with healthy viable stoma and soft brown stool. Extremities: No clubbing, cyanosis, or edema. Skin: Normal temperature, turgor, and texture; no rash, ulcers, or subcutaneous nodules appreciated. Neurological: Cranial nerves grossly intact. Psychiatric: Normal mood and affect. Alert and oriented to person, place, and time. Objective Labs Result Diagrams: 01/07/20 04:57 01/07/20 04:57 Labs: Laboratory Results - last 24 hr 01/06/20 01/07/20 01/07/20 21:42 04:57 04:57 WBC 22.3 H RBC 2.87 L Hgb 8.8 L Hct 26.5 L MCV 92.2 MCH 30.8 MCHC 33.4 RDW 14.7 Plt Count 748 H Neut % (Auto) Not Reportable Lymph % (Auto) Not Reportable [place] % (Auto) Not Reportable Eos % (Auto) Not Reportable Baso % (Auto) Not Reportable Lymph # (Auto) Not Reportable [place] # (Auto) Not Reportable Baso # (Auto) Not Reportable Total Counted 100 Seg Neutrophils % 77.0 H Band Neutrophils % 7.0 Lymphocytes % (Manual) 7.0 L Monocytes % (Manual) 4.0 Eosinophils % (Manual) 1.0 L Metamyelocytes % 4.0 H Neutrophils # (Manual) 81764 H RBC Morphology See below Anisocytosis 1+ H Sodium Potassium Chloride Carbon Dioxide BUN Creatinine Estimated GFR BUN/Creatinine Ratio Glucose Calcium Magnesium Total Bilirubin AST ALT Alkaline Phosphatase Total Protein Albumin Globulin Albumin/Globulin Ratio Procalcitonin 0.34 COVID-19 PCR Negative 01/07/20 04:57 WBC RBC Hgb Hct MCV MCH MCHC RDW Plt Count Neut % (Auto) Lymph % (Auto) [place] % (Auto) Eos % (Auto) Baso % (Auto) Lymph # (Auto) [place] # (Auto) Baso # (Auto) Total Counted Seg Neutrophils % Band Neutrophils % Lymphocytes % (Manual) Monocytes % (Manual) Eosinophils % (Manual) Metamyelocytes % Neutrophils # (Manual) RBC Morphology Anisocytosis Sodium 137 Potassium 3.8 Chloride 104 Carbon Dioxide 30 BUN 2 L Creatinine 0.35 L Estimated GFR > 60.0 BUN/Creatinine Ratio 5.7 L Glucose 111 H Calcium 8.3 L Magnesium 1.9 Total Bilirubin 0.5 AST 26 ALT 37 H Alkaline Phosphatase 137 H Total Protein 5.8 L Albumin 2.6 L Globulin 3.2 Albumin/Globulin Ratio 0.8 L Procalcitonin COVID-19 PCR Assessment & Plan Assessment & Plan narrative: Vibha Brenner is a 49-year-old female with past medical history significant for brain tumor status post craniotomy, seizure disorder, bipolar disorder and chronic bronchitis status post exploratory laparotomy with diverting ileostomy for perforated sigmoid colon. 1. Acute small bowel obstruction with sigmoid colitis and perforation, status post sigmoid resection and diverting ileostomy, present on admission. Active. -Initial CT abdomen and pelvis with contrast demonstrated focal thickening of the proximal sigmoid colon and dilated bowel with air-fluid levels with no transition point. -Patient met SIRS criteria but did not meet sepsis criteria as she had no end- organ dysfunction. -Consulted general surgery, Dr. Gordillo, who performed colonoscopy which revealed prominent folds but no overt evidence of malignancy or obstruction. Patient did have a bowel movement after Fleet enema but bowel movements have not been formed and were predominantly liquid. She subsequently had a small-bowel follow- through after colonoscopy which showed a possible partial small-bowel obstruction but slow transit times as a large amount of contrast remained her stomach. The patient had several bowel movements after small bowel follow through but developed increased bloating/distension with clear liquids without nausea or vomiting. -Repeat CT abdomen and pelvis with contrast demonstrated leakage of enteric contrast into the abdominal cavity and sigmoid/rectal thickening. -Consulted general surgery again, Dr. Carballo, who performed sigmoid colectomy with diverting ileostomy due to sepsis with gross abdominal contamination. Co ntinue post operative management per general surgery. -WBC persistently elevated possibly due to inflammation? but now trending down. Trend is as follows: WBC peaked at 30.5 with 24% bandemia 01/03, then 23.2 with 10% bandemia 01/04, then 27.2 with 2% bandemia 01/05, then 22.3 with 7.0% bandemia 01/06. Interestingly, procalcitonin peaked at 34.37 and trended down and nearly negative at 0.34. Continue to monitor WBC and procalcitonin daily. -Repeat blood cultures x 2 have no growth. Discontinued antibiotic treatment including: meropenem 1 g every 8 hours, vancomycin with dosing per pharmacist, metronidazole 500 mg IV every 8 hours. Continue fluconazole 200 mg daily x 7 days. -Discussed case with on-call Infectious Disease at [facility] who recommended additional blood cultures, continued monitoring of leukocytosis, stopping metronidazole and possibly vancomycin, and consideration of repeat imaging of her abdomen if leukocytosis persistent as she may have a small leak with last CT of abdomen and pelvis 01/04/20 demonstrating extravasation of contrast. Also added GI stool panel which was negative and urinalysis which was negative. 2. Acute bilateral bacterial pneumonia, not present on admission. Resolving. -Chest x-ray demonstrated blunting of costophrenic angles otherwise negative for cardiopulmonary process. -CT chest without contrast demonstrated bilateral lower lobe consolidation with scattered centrilobular and ground-glass and nodularity in the remaining lungs and small bilateral pleural effusions. -Discontinued antibiotics as above. Continue azithromycin x3 doses (last dose tomorrow). Sputum culture preliminarily grew yeast/mold with further work-up pending which is likely an oral contaminant and she is on Diflucan. -Continue incentive spirometry. 3. Hypokalemia and hypomagnesemia, acute, present on admission. Resolved. -Secondary to continued GI losses. -Continue to monitor potassium and magnesium level daily and replete as necessary. 4. COPD with chronic bronchitis, present on admission. Stable. -Does not represent acute COPD exacerbation. -Continue home albuterol inhaler 2 puffs every 4 hours as needed for shortness of breath or wheezing and Flovent 1 puff twice daily. 5. Bipolar disorder, chronic, present on admission. Stable -Continue home lamotrigine 225 mg twice daily and ziprasidone 80 mg twice daily. Code status: Full code, patient designates Marcin Ramsey to be her surrogate decision maker. VTE prophylaxis: Enoxaparin, SCDs Disposition: Patient likely discharge to [facility] for rehabilitation possibly tomorrow if leukocytosis continues to improve. Quality VTE Deep Vein Thrombosis/Pulmonary Embolism Present on Admission: No
--- NOTE | 2020-01-07 12:44 | P.PN_ITS ---
Subjective Subjective Date Patient Seen: 01/07/20 Time Patient Seen: 12:45 Interval history: No acute overnight events. Tolerating a diet, ileostomy is functioning no fever Exam Vital Signs (past 8 hours): - 01/07/20 05:08 01/07/20 08:00 01/07/20 10:30 Temperature 98.2 F 99.0 F Pulse Rate 112 H 104 H Respiratory Rate 20 16 Blood Pressure 147/82 H 123/64 Pulse Oximetry 93 92 93 01/07/20 12:00 Temperature 98.2 F Pulse Rate 97 H Respiratory Rate 16 Blood Pressure 113/59 L Pulse Oximetry 93 Oxygen Delivery Method Room Air Oxygen Flow Rate 0 Narrative Exam Narrative: General adult female alert oriented no acute distress Abdomen midline incision clean dry intact with vickie. Ileostomy is viable and productive Objective Labs Result Diagrams: 01/07/20 04:57 01/07/20 04:57 Labs: Laboratory Results - last 24 hr 01/06/20 01/06/20 01/06/20 11:23 13:27 21:42 WBC RBC Hgb Hct MCV MCH MCHC RDW Plt Count Neut % (Auto) Lymph % (Auto) [place] % (Auto) Eos % (Auto) Baso % (Auto) Lymph # (Auto) [place] # (Auto) Baso # (Auto) Total Counted Seg Neutrophils % Band Neutrophils % Lymphocytes % (Manual) Monocytes % (Manual) Eosinophils % (Manual) Metamyelocytes % Neutrophils # (Manual) RBC Morphology Anisocytosis Sodium Potassium Chloride Carbon Dioxide BUN Creatinine Estimated GFR BUN/Creatinine Ratio Glucose Calcium Magnesium Total Bilirubin AST ALT Alkaline Phosphatase Total Protein Albumin Globulin Albumin/Globulin Ratio Procalcitonin Urine Color Yellow Urine Appearance Clear Urine pH 7.5 Ur Specific [place] 1.010 Urine Protein Negative Urine Glucose (UA) Negative Urine Ketones Negative Urine Occult Blood Negative Urine Nitrate Negative Urine Bilirubin Negative Urine Urobilinogen 0.2 Ur Leukocyte Esterase Negative Urine RBC 0-1/hpf Urine WBC 0-1/hpf Ur Squamous Epith Cells 0-1 /hpf Urine Bacteria None seen Ur Culture Indicated? Cult not indicated Stl C. cayetanensis PCR Not detected Stool Rotavirus (PCR) Not detected Stool Adenovirus (PCR) Not detected Stool Astrovirus (PCR) Not detected Stool Cryptosporidium PCR Not detected Stl E.coli Shiga Tox PCR Not detected St Sh/Enteroin Ecoli PCR Not detected Stool E coli O157 PCR Not detected Stl Enterotoxigenic E PCR Not detected Stool EPEC (PCR) Not detected Stl E. histolytica PCR Not detected Stool Giardia Lamblia PCR Not detected Stool Sapovirus (PCR) Not detected Stl P. shigelloides PCR Not detected St Y.enterocolitica PCR Not detected Stool Vibrio (PCR) Not detected Stl Vibrio cholerae PCR Not detected Stl Enteroaggr Ecoli PCR Not detected Stl Norovirus GI/GII PCR Not detected Campylobacter (PCR) Not detected C. difficile Tox (PCR) Not detected COVID-19 PCR Negative Salmonella (PCR) Not detected 01/07/20 01/07/20 01/07/20 04:57 04:57 04:57 WBC 22.3 H RBC 2.87 L Hgb 8.8 L Hct 26.5 L MCV 92.2 MCH 30.8 MCHC 33.4 RDW 14.7 Plt Count 748 H Neut % (Auto) Not Reportable Lymph % (Auto) Not Reportable [place] % (Auto) Not Reportable Eos % (Auto) Not Reportable Baso % (Auto) Not Reportable Lymph # (Auto) Not Reportable [place] # (Auto) Not Reportable Baso # (Auto) Not Reportable Total Counted 100 Seg Neutrophils % 77.0 H Band Neutrophils % 7.0 Lymphocytes % (Manual) 7.0 L Monocytes % (Manual) 4.0 Eosinophils % (Manual) 1.0 L Metamyelocytes % 4.0 H Neutrophils # (Manual) 37992 H RBC Morphology See below Anisocytosis 1+ H Sodium 137 Potassium 3.8 Chloride 104 Carbon Dioxide 30 BUN 2 L Creatinine 0.35 L Estimated GFR > 60.0 BUN/Creatinine Ratio 5.7 L Glucose 111 H Calcium 8.3 L Magnesium 1.9 Total Bilirubin 0.5 AST 26 ALT 37 H Alkaline Phosphatase 137 H Total Protein 5.8 L Albumin 2.6 L Globulin 3.2 Albumin/Globulin Ratio 0.8 L Procalcitonin 0.34 Urine Color Urine Appearance Urine pH Ur Specific [place] Urine Protein Urine Glucose (UA) Urine Ketones Urine Occult Blood Urine Nitrate Urine Bilirubin Urine Urobilinogen Ur Leukocyte Esterase Urine RBC Urine WBC Ur Squamous Epith Cells Urine Bacteria Ur Culture Indicated? Stl C. cayetanensis PCR Stool Rotavirus (PCR) Stool Adenovirus (PCR) Stool Astrovirus (PCR) Stool Cryptosporidium PCR Stl E.coli Shiga Tox PCR St Sh/Enteroin Ecoli PCR Stool E coli O157 PCR Stl Enterotoxigenic E PCR Stool EPEC (PCR) Stl E. histolytica PCR Stool Giardia Lamblia PCR Stool Sapovirus (PCR) Stl P. shigelloides PCR St Y.enterocolitica PCR Stool Vibrio (PCR) Stl Vibrio cholerae PCR Stl Enteroaggr Ecoli PCR Stl Norovirus GI/GII PCR Campylobacter (PCR) C. difficile Tox (PCR) COVID-19 PCR Salmonella (PCR) Assessment & Plan Post-op Postoperative Procedures: Procedures Operation Date: 12/26/19 10:45 Actual Procedures Side Surgeon p Colonoscopy with biopsY Left Ana Gannon MD Operation Date: 12/29/19 12:45 Actual Procedures Side Surgeon p Exploratory Laparotomy GEN Sigmoid colectomy, diverting loop. Ileostomy Edgardo Carballo MD Postoperative status narrative: 49-year-old woman 1 week after a sigmoid colectomy with diverting loop ileostomy for colonic perforation. Pathology reviewed no evidence of ischemia or malignancy clinically unable to be determine cause of perforation. Continues to clinically improve approaching discharge. -Reg diet -Stop all antibiotics leukocytosis continues to down trend, procalcitonin is normal no fever and bowels are functioning. Will check CBC and procalitonin in AM. -Possible DC tomorrow Quality VTE Deep Vein Thrombosis/Pulmonary Embolism Present on Admission: No
[2020-01-07] MEDS: ONDANSETRON 4 MG/2 ML INJ IV (15:43)
[2020-01-07] MEDS: SODIUM CHLORIDE 0.9% FLUSH 10 ML IV (20:51)
--- NOTE | 2020-01-07 21:27 | PC.NURSE ---
Addendum entered by Crystal Aceves R.N. 01/07/20 21:55: placed new dressing on midline around 2100. old dressing had scant amount of drainage. Original Note: pt able to ambulated to the [facility]. waffle cushion, refused to turn. pain 6/10, tolerating pain. pt reports she is ok taking ibuprofen. ileostomy moist and beefy pink. Total of 300cc liquid stool out of ileostomy.
[2020-01-08] VITALS: BP 131/82; PULSE 105; RESP 18; TEMP 36.4; O2SAT 93
[2020-01-08 04:00] VITALS: BP 114/76; PULSE 106; RESP 18; TEMP 36.8; O2SAT 94
[2020-01-08] MEDS: IBUPROFEN 400 MG TABLET PO ×2 (04:04→09:34)
[2020-01-08 05:36] LABS: Hemoglobin 8.3 g/dL (12.0-16.0); Mean Corpuscular HGB Conc 33.1 % (30-36); Mean Corpuscular Hemoglobin 30.8 PG (26-34); Mean Corpuscular Volume 93.1 fL (80-100); Platelet Count 877 X10^3/uL (150-400); Red Blood Cell Count 2.69 X10^6/uL (4.0-5.2)
[2020-01-08 05:37] LABS: Add Manual Diff / Slide Review YES
[2020-01-08 05:40] LABS: BUN Creatinine Ratio 9.1 (6-22); Blood Urea Nitrogen 3 mg/dL (7-17); Calcium 8.1 mg/dL (8.4-10.2); Carbon Dioxide 27 mmol/L (22-32); Chloride 108 mmol/L (98-107); Estimated Glomerular Filt Rate > 60.0 mL/min (>60); Glucose 104 mg/dL (70-100); HEMOLYSIS < 15 (0-50); Potassium 3.8 mmol/L (3.4-5.1); Sodium 140 mmol/L (137-145)
[2020-01-08 05:51] LABS: Procalcitonin 0.23 ng/mL (<0.5)
[2020-01-08 05:58] LABS: Neutrophils Absolute Manual 14240 /uL (3000-5900); Total Cells Counted 100
[2020-01-08 05:59] LABS: Platelet Estimate Increased on smear
[2020-01-08 06:00] LABS: Anisocytosis 1+; Hypochromasia 1+
[2020-01-08 07:15] VITALS: BP 119/61; PULSE 100; RESP 18; TEMP 37.2; O2SAT 92
[2020-01-08 09:07] LABS: HEMOLYSIS < 15 (0-50); Iron 29 ug/dL (37-170)
[2020-01-08 09:13] LABS: Reticulocyte Count, Percent 2.8 % (1.06-2.63)
[2020-01-08 09:18] LABS: Percent Iron Saturation 15 % (15-50); Total Iron Binding Capacity 200 ug/dL (265-497); Transferrin 133 mg/dL (206-381)
[2020-01-08] MEDS: lamoTRIgine 25 MG CHEW TABLET PO (09:26)
[2020-01-08] MEDS: lamoTRIgine 100 MG TABLET 200 MG PO (09:26)
[2020-01-08] MEDS: FAMOTIDINE 20 MG TABLET PO (09:26)
[2020-01-08] MEDS: FLUCONAZOLE 100 MG TABLET 200 MG PO (09:26)
[2020-01-08] MEDS: ENOXAPARIN 40 MG/0.4 ML SYRINGE SUBCUT (09:26)
[2020-01-08] MEDS: POTASSIUM CHLORIDE 20 MEQ TAB PO (09:26)
[2020-01-08] MEDS: ASPIRIN EC 81 MG TABLET PO (09:26)
[2020-01-08] MEDS: ZIPRASIDONE 80 MG 80 EACH PO (09:27)
[2020-01-08] MEDS: AZITHROMYCIN 250 MG TABLET 500 MG PO (09:27)
[2020-01-08] MEDS: FLUTICASONE 110MCG HFA 120 PUFF INH (09:27)
[2020-01-08] MEDS: ZONISAMIDE 100 MG CAPSULE PO (09:27)
[2020-01-08] MEDS: SODIUM CHLORIDE 0.9% FLUSH 10 ML IV (09:28)
[2020-01-08] MEDS: guaiFENesin ER 600 MG TAB 1200 MG PO (09:28)
[2020-01-08 09:47] LABS: Ferritin 266 ng/mL (11-264)
[2020-01-08 10:17] LABS: Folate 8.8 ng/mL (2.76-20.0); Vitamin B12 > 1000 pg/mL (239-931)
--- NOTE | 2020-01-08 10:30 | PT-IP ANOTE ---
Pt refused, requesting PM treatment. Will try in PM as requested.
[2020-01-08 12:32] VITALS: BP 129/75; PULSE 99; RESP 18; TEMP 37; O2SAT 94
--- NOTE | 2020-01-08 12:45 | DI.CT.S_ITS ---
PROCEDURE: CT ABDOMEN PELVIS W CON INDICATIONS: Abdominal abscess versus leak TECHNIQUE: After the administration of intravenous contrast, 5 mm thick sections acquired from the diaphragm to the symphysis. 5 mm coronal and sagittal reformats were acquired. For radiation dose reduction, the following was used: automated exposure control, adjustment of mA and/or kV according to patient size. COMPARISON: [facility], CT, CT ABDOMEN PELVIS W CON, 01/04/2020, 10:01. FINDINGS: Image quality: Excellent. ABDOMEN: Lung bases: Small left pleural effusion with associated left basilar atelectasis. Heart size is normal. Solid organs: Liver is normal in size and enhancement. Gallbladder gallbladder is collapsed, within normal limits. . Biliary system is non dilated. Pancreas enhances normally. Spleen is normal in size and enhancement. No adrenal nodules. Kidneys demonstrate normal size and enhancement, without hydronephrosis. Peritoneum and bowel: There is no definite extraluminal contrast identified on this particular study. An ileostomy is noted. The colon is decompressed. There is probable diffuse colonic wall thickening. There is a tiny lesser sac fluid collection. It is thin and crescentic. It was present on the previous study, and is not significantly changed. There is a thin crescentic hepatic subcapsular fluid collection along the posterior aspect of the posterior segment of the right lobe of the liver, previously present, and unchanged.. There is very minimal ascitic fluid. Nodes and vessels: No retroperitoneal or mesenteric adenopathy by size criteria. Aorta and inferior vena cava are normal in size. Miscellaneous: No ventral hernias. Surgical skin vickie. PELVIS: Genitourinary: Bladder wall thickness is normal. Miscellaneous: No inguinal hernias or adenopathy. Bones: No suspicious bony lesions. No vertebral body compression fractures. IMPRESSION: 1. No bowel leak identified on the current study. 2. Thin, crescentic lesser sac fluid collection, not significantly changed. 3. Thin crescentic hepatic subcapsular fluid collection, possibly representing an abscess, unchanged. 4. Minimal ascites. 5. Small left pleural effusion and left basilar atelectasis. Dictated by: Brock Lancaster M.D. on 01/08/2020 at 13:19 Approved by: Brock Lancaster M.D. on 01/08/2020 at 13:39
--- NOTE | 2020-01-08 12:58 | CM.DPC ---
Addendum entered by Apple Trinidad LPN 01/08/20 15:38: Ostomy supplies were left by data architect manager Alyce for pt to take at d/c until [facility] has what is needed. Updated pt and RN Coty. Dr. Campos in process of finalizing the snf specific orders. PASRR: completed by Ok Mckeon on 01/01, faxed to [facility] and placed to snf packet. Addendum entered by Apple Trinidad LPN 01/08/20 15:17: Dr. Campos and Dr. Carballo conferred. Dr. Campos now says that at the recommendation of Dr. Carballo she is agreeing to d/c pt today to [facility]. [facility] is updated. She says they can pick pt up at 1615 but no later. Will update pt and lisa staff and follow accordingly. Original Note: DCP: continued: case received and notified by Dr. Campos this morning that pt would be ready for d/c today and that she would finish the dc orders later but wanted it all set up. Spoke with Dr. Carballo who confirmed that pt was ready for snf from surgical standpoint. Cesilia/Kurt agreed to pick pt up at 1430 as long as orders were in place. spoke later in day with Dr. Campos. She stated that she had looked further at pt and had that pt was not yet ready for d/c. She had discussed this with ID and was going to speak further with Dr. Carballo. August was updated.. Will follow up tomorrow.
[2020-01-08 15:35] VITALS: BP 134/75; PULSE 94; RESP 18; TEMP 37; O2SAT 97
--- NOTE | 2020-01-08 15:40 | PT-IP ANOTE ---
Pt refused at 15:40 stating she wants to save her energy for transfer to [facility] at 16:00
--- NOTE | 2020-01-08 15:50 | PM.DS.1 ---
History of Present Illness History of Present Illness Date Patient Seen: 12/25/19 Chief complaint: thinks bowel obstruction Narrative: Written by Christiano KRUSE: Ms. Vibha Brenner is a 49-year-old female with past medical history significant for brain tumor status post craniotomy, seizure disorder, bipolar disorder and chronic bronchitis who presents to the ER with complaints of abdominal pain. The patient reports she has had worsening abdominal pain described as crampy in nature that has increased over the last 3 days during which time she is not passed a bowel movement. She has self-treated with took a laxative tablets, mineral oil and suppository without relief. She has had associated complaints of nausea without vomiting and has been able to eat small amounts having a small glass of a smoothie today precipitating more abdominal pain. She has had previous surgical repair of a ruptured peptic ulcer and . She denies complaints of fevers or chills headaches or dizziness. She has a seizure disorder following craniotomy for brain tumor manage the medication with her last seizure being 1 year ago. She has had no cold or flu symptoms. She denies nasal congestion or sore throat. She denies neck pain but has chronic low back pain. She reports no chest pain or palpitations. She has a chronic cough secondary to chronic bronchitis with occasional wheezing but reports no shortness of breath. She has had no recent complaints of abdominal pain, nausea or vomiting. Normally she has a regular bowel habit but done for last 3 days. Prior to that she describes her stool as normal. She reports no melena or hematochezia. She reports complaints of urinary symptoms including frequency urgency burning or hematuria. She is typically independent in all ADLs and uses no assist devices. Upon arrival to the ER the patient is afebrile with temperature 98.2?, heart rate of 115, blood pressure 149/92, respiratory rate of 20 saturating 95% on room air. CT of the abdomen pelvis finds the stomach distended and filled with fluid with an air-fluid level, Mildly prominent small bowel loops with no transitional point, there is distention of proximal colon with air-fluid levels to the level of sigmoid colon and mild focal thickening in the proximal sigmoid colon. Twelve lead EKG is obtained finding a sinus tachycardia with a rate of 101 with baseline artifact, no evidence of ischemia or infarct. On laboratory analysis the patient has elevated white count at 19.0, hemoglobin of 14.9 and hematocrit of 40.1 with platelets of 261. Her PT is 12.3 with an INR 1.1 with a PTT of 32. Her electrolytes are all within normal limits with a BUN of 14 and creatinine 0.78. Her nonfasting glucose is 131. Liver functions are all within normal limits and albumin is 4.8 and lipase is 25. Lactic acid is 0.6. Urine dip completed in the ER shows a specific gravity of 1.015 with no infection. Her COVID screening is negative. General surgery is consulted through the emergency department Dr. Lloyd lara to see the patient. He recommends NG tube in a Fleet's enema prep consideration for a colonoscopy tomorrow. The patient is admitted to the medicine service for partial bowel obstruction. Discharge Providers Provider Date of admission: 12/25/19 20:04 Discharge Date: 01/08/20 Primary care physician: Natacha Zhao MD Consults: 12/25/19 20:20 Consult to Discharge Planning Routine Comment: 12/25/19 21:46 Consult to Dietitian, Adult Routine Comment: Reason For Exam: Reflexed from admission 12/25/19 21:52 Consult to General Surgery Routine Comment: Consulting Provider: Edgardo Carballo Reason for consultation: Partial bowel obstruction Has provider been notified: Yes 12/25/19 22:07 Consult to Respiratory Therapy Evaluate & Treat Comment: Chronic bronchitis using albuterol and Flovent Physician Instructions: Evaluate and treat 12/29/19 16:55 Consult to Ostomy Specialist Routine Comment: Consulting Provider: 12/30/19 13:41 Consult to Occupational Therapy Evaluate & Treat Comment: Physician Instructions: Evaluate and treat Consult to Physical Therapy Evaluate & Treat Comment: Physician Instructions: Evaluate and Treat Discharge provider: Sarah Beth Campos DO Summary Hospital Course Discharge Diagnosis: 1. Acute small bowel obstruction with sigmoid colitis and perforation, status post sigmoid resection and diverting ileostomy, present on admission. Resolved. 2. Reactive thrombocytosis, not present on admission. Active. 3. Normocytic anemia, present on admission. Active. 4. Acute bilateral bacterial pneumonia, not present on admission. Resolved. 5. Hypokalemia and hypomagnesemia, acute, present on admission. Resolved. 6. COPD with chronic bronchitis, present on admission. Stable. 7. Bipolar disorder, chronic, present on admission. Stable. Hospital Course: Vibha Brenner is a 49-year-old female with past medical history significant for brain tumor status post craniotomy, seizure disorder, bipolar disorder and chronic bronchitis status post exploratory laparotomy with diverting ileostomy for perforated sigmoid colon. 1. Acute small bowel obstruction with sigmoid colitis and perforation, status post sigmoid resection and diverting ileostomy, present on admission. Resolved. -Initial CT abdomen and pelvis with contrast demonstrated focal thickening of the proximal sigmoid colon and dilated bowel with air-fluid levels with no transition point. -Patient met SIRS criteria but did not meet sepsis criteria as she had no end-organ dysfunction. -Consulted general surgery, Dr. Gordillo, who performed colonoscopy which revealed prominent folds but no overt evidence of malignancy or obstruction. Patient did have a bowel movement after Fleet enema but bowel movements have not been formed and were predominantly liquid. She subsequently had a small-bowel follow-through after colonoscopy which showed a possible partial small-bowel obstruction but slow transit times as a large amount of contrast remained her stomach. The patient had several bowel movements after small bowel follow through but developed increased bloating/distension with clear liquids without nausea or vomiting. -Repeat CT abdomen and pelvis with contrast demonstrated leakage of enteric contrast into the abdominal cavity and sigmoid/rectal thickening. -Consulted general surgery again, Dr. Carballo, who performed sigmoid colectomy with diverting ileostomy due to sepsis with gross abdominal contamination. Continue post operative management per general surgery. -WBC persistently elevated possibly due to inflammation? but now trending down. Trend is as follows: WBC peaked at 30.5 with 24% bandemia 01/03, then 23.2 with 10% bandemia 01/04, then 27.2 with 2% bandemia 01/05, then 22.3 with 7.0% bandemia 01/06 and now 16.0 without bandemia. Interestingly, procalcitonin peaked at 34.37 and trended down and nearly negative at 0.34. Continue to monitor WBC and procalcitonin daily. -Discontinued antibiotic/antifungal treatment including: meropenem 1 g every 8 hours, vancomycin with dosing per pharmacist, metronidazole 500 mg IV every 8 hours and fluconazole 200 mg daily x 7 days. -Discussed case with on-call Infectious Disease at [facility] who recommended additional blood cultures x 2 which have no growth to date, GI stool panel which was negative and urinalysis which was negative, continued monitoring of leukocytosis which is improving after all antibiotics have been discontinued and repeat CT abdomen and pelvis with contrast and if patient has a fluid collection will need to aspirate to assess if infection/abscess. -Repeat CT abdomen and pelvis demonstrated with contrast did not demonstrate any acute intraabdominal process with two fluid collections which per general surgery is expected and do not feel are abscesses and were not aspirated. 2. Reactive thrombocytosis , not present on admission. Active. -Platelet count rising now 877 and likely reactive (also had reactive leukocytosis) per hematology Dr. Burgos and ID at [facility]. ID recommended repeat CT abdomen and pelvis with contrast and if patient has a fluid collection will need to aspirate to assess if infection/abscess. Reactive due to iron deficiency versus intraabdominal abscess?? -Repeat CT abdomen and pelvis with contrast demonstrated no acute intraabdominal process with two fluid collections which per general surgery is expected and do not feel are abscesses. -Continue to monitor for signs of infection at [facility] and platelet count every 2 days. -Started and continued aspirin 81 mg daily with GI prophylaxis famotidine 20 mg daily. 3. Normocytic anemia, present on admission. Active. -Hemoglobin downward trending from 11.9 now down to 8.3 over 2 weeks of hospitalization. No overt signs of bleeding. -B12 level high > 1000 and folate normal at 8.8. -Iron profile demonstrated iron deficiency. Discharged on ferrous gluconate 324 mg daily with colace 100 mg daily as needed for constipation. -Continued to monitor H&H daily. 4. Acute bilateral bacterial pneumonia, not present on admission. Resolved. -Chest x-ray demonstrated blunting of costophrenic angles otherwise negative for cardiopulmonary process. -CT chest without contrast demonstrated bilateral lower lobe consolidation with scattered centrilobular and ground-glass and nodularity in the remaining lungs and small bilateral pleural effusions. -Discontinued antibiotics as above. Received azithromycin x3 doses. Sputum culture preliminarily grew carlos lusitaniae and per ID not a pathogen and airways are colonized. This organism is resistant to azoles and if patient had yeast in abdomen would need to use echinocandins such as micafungin. -Continued incentive spirometry and acapella. 5. Hypokalemia and hypomagnesemia, acute, present on admission. Resolved. -Secondary to continued GI losses. -Continued to monitor potassium and magnesium level daily and replete as necessary. Discharged on potassium chloride 20 mEq daily. 6. COPD with chronic bronchitis, present on admission. Stable. -Does not represent acute COPD exacerbation. -Continued home albuterol inhaler 2 puffs every 4 hours as needed for shortness of breath or wheezing and Flovent 1 puff twice daily. 7. Bipolar disorder, chronic, present on admission. Stable -Continued home lamotrigine 225 mg twice daily and ziprasidone 80 mg twice daily. Exam Vital Signs (past 8 hours): - 01/08/20 12:32 01/08/20 15:35 Temperature 98.6 F 98.6 F Pulse Rate 99 H 94 H Respiratory Rate 18 18 Blood Pressure 129/75 134/75 Pulse Oximetry 94 97 Oxygen Delivery Method Room Air Oxygen Flow Rate 0 Narrative Exam Narrative: General: Middle aged thin and frail-appearing female sitting in bedside chair and in no acute distress, appropriately interactive. HEENT: Normocephalic, atraumatic. External ears without defect. Pupils equal, round, and reactive to light. Anicteric sclerae, moist conjunctivae, and no lid lag. Neck: Supple with full range of motion. No lymphadenopathy or thyromegaly. Cardiovascular: Regular rhythm, mild tachycardia without murmurs, rubs, or gallops appreciated. Pulmonary: Clear to auscultation bilaterally without rhonchi, wheezes or crackles. Normal respiratory effort with no use of accessory muscles. Abdomen: Soft, bowel sounds present, tenderness to palpation in low abdomen minimal and improved, nondistended. No rigidity or rebound. Ostomy in right side of abdomen with healthy viable stoma and soft brown stool. Extremities: No clubbing, cyanosis, or edema. Skin: Normal temperature, turgor, and texture; no rash, ulcers, or subcutaneous nodules appreciated. Neurological: Cranial nerves grossly intact. Psychiatric: Normal mood and affect. Alert and oriented to person, place, and time. Objective Labs Result Diagrams: 01/08/20 05:16 01/08/20 05:16 Labs: Laboratory Results - last 24 hr 01/08/20 01/08/20 01/08/20 05:16 05:16 05:16 WBC 16.0 H RBC 2.69 L Hgb 8.3 L Hct 25.0 L MCV 93.1 MCH 30.8 MCHC 33.1 RDW 15.0 H Plt Count 877 H Neut % (Auto) Not Reportable Lymph % (Auto) Not Reportable Bullock % (Auto) Not Reportable Eos % (Auto) Not Reportable Baso % (Auto) Not Reportable Lymph # (Auto) Not Reportable Bullock # (Auto) Not Reportable Baso # (Auto) Not Reportable Total Counted 100 Seg Neutrophils % 85.0 H Band Neutrophils % 4.0 Lymphocytes % (Manual) 5.0 L Monocytes % (Manual) 5.0 Metamyelocytes % 1.0 H Neutrophils # (Manual) 79738 H Platelet Estimate Increased on smear RBC Morphology See below Hypochromasia 1+ H Anisocytosis 1+ H Percent Retic Sodium 140 Potassium 3.8 Chloride 108 H Carbon Dioxide 27 BUN 3 L Creatinine 0.33 L Estimated GFR > 60.0 BUN/Creatinine Ratio 9.1 Glucose 104 H Calcium 8.1 L Magnesium 2.0 Iron TIBC % Saturation Transferrin Ferritin Vitamin B12 Folate Procalcitonin 0.23 01/08/20 01/08/20 01/08/20 05:16 05:16 05:16 WBC RBC Hgb Hct MCV MCH MCHC RDW Plt Count Neut % (Auto) Lymph % (Auto) Bullock % (Auto) Eos % (Auto) Baso % (Auto) Lymph # (Auto) Bullock # (Auto) Baso # (Auto) Total Counted Seg Neutrophils % Band Neutrophils % Lymphocytes % (Manual) Monocytes % (Manual) Metamyelocytes % Neutrophils # (Manual) Platelet Estimate RBC Morphology Hypochromasia Anisocytosis Percent Retic 2.8 H Sodium Potassium Chloride Carbon Dioxide BUN Creatinine Estimated GFR BUN/Creatinine Ratio Glucose Calcium Magnesium Iron 29 L TIBC 200 L % Saturation 15 Transferrin 133 L Ferritin 266 H Vitamin B12 > 1000 H Folate 8.8 Procalcitonin Discharge Plan Discharge Plan Patient Disposition: SNF Transfer to: [facility] and [facility] Under care of provider: administrative medical director Discharge orders & Medications Prescriptions: New aspirin 81 mg Tablet,Delayed Release (Dr/Ec) 81 mg PO DAILY Qty: 30 RF: 0 potassium chloride [Klor-Con M20] 20 mEq Tablet,Er Particles/Crystals 20 meq PO DAILY Qty: 10 RF: 0 famotidine [Pepcid AC] 20 mg Tablet 20 mg PO DAILY Qty: 30 RF: 0 ibuprofen 400 mg Tablet 400 mg PO Q6H Qty: 10 RF: 0 ferrous gluconate 324 mg (38 mg iron) tablet 324 mg PO .QOD Qty: 15 RF: 0 docusate sodium [Colace] 100 mg capsule 100 mg PO DAILY PRN (Reason: constipation) Qty: 10 RF: 0 Continued ziprasidone HCl [Geodon] 80 mg Capsule 80 mg PO BID RF: 0 lamotrigine [Lamictal] 25 mg Tablet 25 mg PO BID RF: 0 zonisamide 100 mg capsule 100 mg PO DAILY RF: 0 lamotrigine [Lamictal] 200 mg tablet 200 mg PO BID RF: 0 Other Ambulatory Orders: Complete Blood Count AUTO DIFF (Stat) Timeframe: 2 Days Facility: [facility] - Location: Laboratory Ordered By: Sarah Beth Campos Follow up/Referrals: Natacha Zhao MD [Primary Care Provider] - (please call & schedule a hospital follow up appointment with dr zhao ) Diet/Activity/Treatments Diet: Low-fat, Low-sodium and Low-cholesterol Activity: Activity as tolerated with walker [facility] Rehab type: Physical therapy and Occupational therapy Discharge Data Primary Care Provider: Natacha Zhao Discharges patient from system. Discharge Date/Time: 01/08/20 16:20 Quality VTE Deep Vein Thrombosis/Pulmonary Embolism Present on Admission: No
--- NOTE | 2020-01-08 16:06 | PC.NURSE ---
Pt is dressed and belongings are packed up. Pharmacy has returned Pt's home meds to take with her. Ostomy items have been sent with Pt as well. Called report to Cindy JENSEN at [facility]-gave full report and answered all questions.
--- NOTE | 2020-01-08 16:20 | PC.NURSE ---
Pt out via w/c by [employer] personnel with all belongings.
[2020-01-09 00:33] LABS: Haptoglobin 330 mg/dL (33-346)
== END 2020-01-08 16:20 | DRG 329 ==
LOC: ED 19:55 → AC 20:05 → ICU 12-29 17:48 → AC 12-30 13:56
PROVIDERS: Emergency Medicine; Internal Medicine; Specialist; Surgery; Admitting Provider Nurse Practitioner Adult Health; Emergency Provider Emergency Medicine; PCP Family Medicine; Referring Provider Emergency Medicine; Visit Provider Nurse Practitioner Adult Health
PROC: 0DJD8ZZ Inspection of Lower Intestinal Tract, Via Natural or Artificial Opening Endoscopic (ICD-10-PCS; CPT 45378; principal; 2019-12-26 10:45)
PROC: 0D1B0Z4 Bypass Ileum to Cutaneous, Open Approach (ICD-10-PCS; CPT 49000; principal; 2019-12-29 12:45)
DX: K56.600 Partial intestinal obstruction, unspecified as to cause (principal); K63.1 Perforation of intestine (nontraumatic); K65.0 Generalized (acute) peritonitis; J15.212 Pneumonia due to Methicillin resistant Staphylococcus aureus; G40.802 Other epilepsy, not intractable, without status epilepticus; G97.82 Other postprocedural complications and disorders of nervous system; F31.9 Bipolar disorder, unspecified; K52.9 Noninfective gastroenteritis and colitis, unspecified; D47.3 Essential (hemorrhagic) thrombocythemia; J44.9 Chronic obstructive pulmonary disease, unspecified; E87.6 Hypokalemia; E83.42 Hypomagnesemia; Z11.59 Encounter for screening for other viral diseases
CPT/HCPCS: 36415; 36592; 44146; 45380; 71045; 71250; 74018; 74177; 74250; 80048; 80053; 80076; 80202; 81001; 81003; 81025; 82607; 82728; 82746; 82962; 83010; 83540; 83550; 83605; 83690; 83735; 84100; 84145; 84439; 84443; 85025; 85045; 85610; 85730; 87040; 87070; 87077; 87107; 87205; 87507; 87635; 87797; 93005; 93010; 94640; 94667; 94668; 94760; 94762; 94770; 96361; 96365; 96368; 96375; 97116; 97161; 97165; 97530; 97535; 99284; A9270; C9290; J0330; J1100; J1170; J1450; J1650; J1885; J1956; J2185; J2270; J2405; J2704; J2765; J3010; J3370; J3480; Q9967

== ENCOUNTER → 2020-03-15 10:05 | Outpatient (CLI) | payer MEDICARE, MEDICAID, SELFPAY ==
[2020-01-27 14:39] VITALS: BMI 18.8
--- NOTE | 2020-03-15 10:06 | DI.RAD.S_ITS ---
PROCEDURE: FL BARIUM ENEMA INDICATIONS: preop ileostomy reversal r/o leak and stricture COMPARISON: [facility], CT, CT ABDOMEN PELVIS W CON, 01/08/2020, 12:56. FINDINGS: KUB: Preprocedural sled maker film demonstrates a normal bowel gas pattern. Right lower quadrant ileostomy noted. No estimated sutures noted in left mid pelvis. No suspicious abdominal calcifications. Visualized solid organ contours appear normal in size. No suspicious bony lesions. Colon: There is adequate opacification of the entire colon. No strictures or extrinsic mass effects are identified. No colonic fistulae or perforations. Colon caliber appears normal. Few scattered diverticuli noted in the sigmoid colon. IMPRESSION: No evidence of anastomotic stricture or leakage. Dictated by: Maliha Penaloza MD, PhD on 03/15/2020 at 11:30 Approved by: Maliha Penaloza MD, PhD on 03/15/2020 at 11:32
== END ==
PROVIDERS: PCP Family Medicine; Referring Provider Surgery; Visit Provider Surgery
DX: Z01.818 Encounter for other preprocedural examination (principal); Z43.2 Encounter for attention to ileostomy; Z90.49 Acquired absence of other specified parts of digestive tract
CPT/HCPCS: 74270

== ENCOUNTER → 2020-03-29 15:01 | Outpatient (CLI) | payer MEDICARE, MEDICAID, SELFPAY ==
[2020-03-24 09:08] VITALS: BMI 18.8
[2020-03-29 15:30] LABS: COVID19 -Nasal RAPID Negative (Negative)
== END ==
PROVIDERS: PCP Family Medicine; Visit Provider Surgery
DX: Z20.822 Contact with and (suspected) exposure to COVID-19 (principal)
CPT/HCPCS: 87635

== ENCOUNTER 2020-03-30 06:32 | Inpatient (IN) | payer MEDICARE, MEDICAID, SELFPAY ==
[2020-03-24 09:08] VITALS: BMI 18.8
[2020-03-30] VITALS (24 sets, daily range): BP systolic 114–143; BP diastolic 71–95; PULSE 84–121; RESP 13–25; TEMP 35.9–37.2; O2SAT 91–99; BMI 16.9
--- NOTE | 2020-03-30 | PATH_ITS ---
[facility] Accession Number: [id number] . 01 Material submitted: . small intestine - ILEOSTOMY . 01 Clinical history: . COLOSTOMY CLOSURE . 02 Diagnosis: Ileostomy Takedown: Consistent with stoma. No evidence of neoplasm. [facility] 04/01/2020 1624 Local . 02 Electronically signed: . Iam Silva MD, PhD, Pathologist NPI- [id number] . 01 Gross description: . The specimen is received in formalin, labeled ileostomy and consists of a 5.0 cm in length by 1.5 cm in diameter portion of small intestine with two stapled margins. There is a 3.0 x 3.0 cm centrally located stoma site which is surrounded by a thin rim of laird-brown skin. Opening reveals a laird-pink mucosa with normal mucosal folds. The wall thickness measures 0.2 cm. No lymph nodes are identified within the attached adipose tissue. Flight Surveyor sections are submitted. . A1: construction sales representative perpendicular sections of stapled margins (blue and black). A2: stoma site. ([id number]) /MRV 03/31/2020 1205 Local . 02 Pathologist provided ICD-10: Z93.2 . 02 CPT . 239204 Performed at: 01 [facility] [address], [place], [place] [id number] MD Rajan Mcguire MD Phone: [phone] Performed at: 02 [facility] [address] [place], [place] [id number] MD Bety Castro MD Phone: [phone]
[2020-03-30] MEDS: levoFLOXacin 500 MG/100 ML PIGGYBACK 100 MG IV (07:25)
[2020-03-30] MEDS: LACTATED RINGERS 1,000 ML 42 ML IV (07:25)
[2020-03-30] MEDS: LACTATED RINGERS 1,000 ML 120 ML IV (07:30)
--- NOTE | 2020-03-30 07:37 | P.HP_ITS ---
History of Present Illness History of Present Illness Date Patient Seen: 03/30/20 Time Patient Seen: 07:37 Chief complaint: Colostomy Closure Narrative: 49-year-old woman well known to me who had a colonic perforation that was managed with sigmoid colectomy primary anastomosis and diverting loop ileostomy 12/29/2019. She is here today for ileostomy reversal. She has done well in the interim no issues with the ileostomy. A barium enema was completed within the past 1 month demonstrates widely patent colonic anastomosis without evidence of stricture or leak. Patient History Medical History (Updated 03/22/20 @ 08:23 by Etelvina Phan, RN) Arthritis Bipolar disorder Brain tumor Chronic bronchitis Chronic low back pain Constipation Elevated cholesterol Peptic ulcer Seizures Sinus drainage Surgical History (Updated 03/22/20 @ 15:53 by Etelvina Phan RN) H/O exploratory laparotomy History of section History of colectomy History of craniotomy Family & Social History Family History Father Cancer Mother Diabetes mellitus Osteoarthritis Brother Hypertension Sister Heart disease Social History: household members significant other Prior Living Arrangements House Safety & Behavioral: Feels Safe in Current Yes Environment Been Physically Hurt or No Threatened By a Person Suicidal Ideation Description None Suicide Plan Description No Plan Tobacco & Substance use: Tobacco type cigarettes Smoking Status Current every day smoker alcohol intake current alcohol intake frequency a few times a week Substance Use Type marijuana Meds Home Medications and Allergies Home Medications Medication Instructions Recorded Confirmed Type lamotrigine [Lamictal] 25 mg PO BID 12/25/19 03/30/20 History lamotrigine [Lamictal] 200 mg PO BID 12/25/19 03/30/20 History ziprasidone HCl [Geodon] 80 mg PO BID 12/25/19 03/30/20 History potassium chloride [Klor-Con M20] 20 meq PO DAILY #10 tab 01/08/20 03/30/20 Rx aspirin [Aspirin Extra Strength] 250 mg PO DAILY 03/23/20 03/23/20 History ferrous sulfate 325 mg PO DAILY 03/23/20 03/30/20 History zonisamide 100 mg PO BID 03/30/20 03/30/20 History Allergies Allergy/AdvReac Type Severity Reaction Status Date / Time Penicillins [PENICILLINS] Allergy Severe Can't Verified 03/23/20 16:00 breathe acetaminophen AdvReac Intermediate Vomiting Verified 01/03/20 07:45 Review of Systems Review of Systems Narrative: A 10 point review of systems is negative except as noted in the HPI Exam Vital Signs (past 8 hours): - 03/30/20 07:26 Temperature 98.4 F Pulse Rate 121 H Respiratory Rate 22 Blood Pressure 140/95 H Pulse Oximetry 99 Oxygen Delivery Method Room Air Narrative Exam Narrative: General-no acute distress, thin adult woman HEENT-moist mucous membranes, no scleral icterus Neck-supple, no lymphadenopathy Chest- non labored respirations, clear to auscultation bilaterally Cardiac-regular rate no peripheral edema Abdomen-soft, functional ileostomy Extremities-warm, well perfused Neurological-alert and oriented, no focal deficits Assessment & Plan Assessment & Plan narrative: 49-year-old woman status post sigmoid colectomy for colonic perforation with primary anastomosis and diverting loop ileostomy. Plan is for ileostomy reversal today. Preoperative workup is reviewed demonstrates sleep eating to call colon anastomosis without stricture or leak. Technical details of the procedure were discussed with the patient. Operative r isks including bleeding infection anastomotic leak damage to surrounding structures need for midline laparotomy were discussed. Her questions have been answered she is in agreement with this plan will proceed.
[2020-03-30] MEDS: metroNIDAZOLE 500 MG/100 ML PIGGYBACK 100 MG IV (07:52)
--- NOTE | 2020-03-30 08:04 | SUR.OPER ---
Supine on padded OR bed, head on pillow, arms secured on padded arm boards at <90 degrees abduction, legs uncrossed, safety belt at thigh, tape over blanket over lower legs.
[2020-03-30] MEDS: BUPIVACAINE 0.25% (PF) VIAL 30 ML INJ (08:10)
--- NOTE | 2020-03-30 09:40 | P.OP_ITS ---
Operative Date/Time/Diagnoses Date of procedure: 03/30/20 Time of procedure: 09:40 Pre-op diagnosis: ileostomy Post-op diagnosis: same Procedure & Clinicians Procedure: ileostomy reversal Same procedure as scheduled: Yes Indications: 49F hx benign sigmoid perforation sp sigmoid colectomy with primary anastamosis and diverting loop ileostomy here for reversal Surgeon: Edgardo Carballo Anesthesia Type: General Operative Notes Findings: well perfused tension free side to side anastamosis without leak Specimen(s): other (ileostomy) Estimated Blood Loss (mL): 50 Procedure in detail: Patient was brought to the operating room and placed supine on the table. Bilateral lower extremity compression devices were applied. She recieved levaquin and flagyl prior to skin incision. General anesthesia was induced and she was intubated with an endotracheal tube. The ileostomy was closed using a [id number] suture. The abdomen was then prepped and draped in usual sterile fashion. Time-out was performed. A circumferential incision around the ileostomy was made. The subcutaneous tissues were divided with electrocautery and the adhesions between the ostomy the subcutaneous tissue and the fascia were sharply incisied The ileostomy was now mobile and entirely free from the fascia, it was now gently retracted out of the abdomen. I resected the ileostomy by creating a window in the mesentery and then dividing the the bowel proximal and distal to the ostomy using the HANK stapler with a a bowel load staple. The mesentery to the specimen was divided between clamps and silk suture. The specimen was passed off the field as ileostomy. I created a [id number] anastomosis by making a enterotomy on the antimesenteric border of both ends and then the stapler was used to create a common channel between the ends. The anastomosis was inspected and was widely patent and hemostatic. I closed the common channel using a running 3 0 PDS suture. The common channel was then imbricated with silk Lembert sutures. The anastamosis was tension free, well perfused and without evidence of leak when I milked content across i t. The wound was irrigated and hemostasis was checked. The fascia was then closed using a running # 0 PDS suture. The subcutaneous tissue was reapproximated using Vicryl skin was closed with vickie and a Lorraine drain was placed within the wound. Patient tolerated procedure well he was extubated and transferred to the postoperative care unit in stable condition. Complications: none Post-operative Condition: stable Disposition: Acute Care
[2020-03-30] MEDS: fentaNYL 100 MCG/2 ML INJ IV ×4 (09:52→10:08)
[2020-03-30] MEDS: HYDROMORPHONE 2 MG INJ IV ×8 (09:56→10:34)
[2020-03-30] MEDS: OXYCODONE IR 5 MG TABLET PO ×4 (10:21→22:08)
[2020-03-30] MEDS: LACTATED RINGERS 1,000 ML 100 ML IV ×2 (11:22→21:14)
--- NOTE | 2020-03-30 13:28 | DIET.PN ---
Dietary Progress Note Assessment: 49y F admitted for planned ileostomy reversal after ileostomy from perforated sigmoid, now postop, sitting in hospital bed consuming clear liquid diet. Pt reports some pain, but was able to sit c RD and talk about dietary reccs for healing. Pt is somewhat hesitant to restart normal diet once d/c'd. Encouraged pt that diet advancement would be slow and safe. Pt reports after surgery in January she dropped to 88# but was able to gain up to 98# by eating and exercising. Kitchen is sending clear protein supplements to support healing as pts BMI 17.0. HT: 162.5cm WT: 44.8kg BMI: 17.0 Nutrition Diagnosis: nutrition related knowledge deficit r/t navigating diet s/p ileostomy reversal aeb pt expresses fear at reintroduction of fiber foods, pt BMI 17.0, pt requests handouts to support healthy diet. Interventions: 1. Will provide pt Low Fiber MNT, Adding Fiber Back MNT, and High Fiber MNT handouts to support her nutrition status in a safe and stepwise way. 2. Recc ONS to support low BMI and post-surgical healing within diet order. Pt would like strawberry yogurt smoothies when able and is WHEAT FREE secondary to gas formation. Diet Order: Clears plus ONS EER:1400kcals (30kcals/kg per post-surgical), 60g PRO (1.3g/kg per post-surgical) Monitoring/Evaluations: POs, diet advancement, weight, ONS tolerance
[2020-03-30] MEDS: MORPHINE 2 MG/ML INJ IV ×3 (13:49→23:32)
[2020-03-30] MEDS: ONDANSETRON 4 MG/2 ML INJ IV ×2 (13:50→23:32)
--- NOTE | 2020-03-30 13:53 | PC.NURSE ---
PATIENT DENIES NAUSEA, REPORTS PAIN 5-6/10 EVEN AFTER MEDICATED WITH OXYCODONE. REQUESTS IV MEDICATION. STATES SHE NEEDS TO TAKE ANTI-EMETIC WHEN SHE TAKES MORPHINE. GIVEN ZOFRAN PRIOR TO MORPHINE PER PATIENT REQUEST.
--- NOTE | 2020-03-30 15:49 | PC.NURSE ---
drsng was saturated, dressing changed around 1530 with gauze and tegaderm.
--- NOTE | 2020-03-30 16:12 | PT-IP ANOTE ---
Received PT orders and reviewed chart. Contacted pt twice for therapy evaluation - once soon after arriving on the floor and once at 1605. Pt refused mobility both times but agreed for PT to return in the AM.
[2020-03-30] MEDS: FLUTICASONE 110MCG HFA 120 PUFF INH (19:02)
[2020-03-30] MEDS: ZONISAMIDE 100 MG CAPSULE PO (21:08)
[2020-03-30] MEDS: lamoTRIgine 25 MG CHEW TABLET PO (21:08)
[2020-03-30] MEDS: lamoTRIgine 100 MG TABLET 200 MG PO (21:10)
[2020-03-31] VITALS (15 sets, daily range): BP systolic 109–127; BP diastolic 64–78; PULSE 70–115; RESP 15–18; TEMP 36.4–37.5; O2SAT 92–97
[2020-03-31] MEDS: OXYCODONE IR 5 MG TABLET PO ×6 (02:15→23:42)
--- NOTE | 2020-03-31 03:18 | PC.NURSE ---
Bowel tones normal, pt is not yet passing flatus
[2020-03-31] MEDS: MORPHINE 2 MG/ML INJ IV ×5 (03:35→20:47)
[2020-03-31 05:19] LABS: Add Manual Diff / Slide Review NO; Basophils Absolute Auto 100 /uL (0-100); Basophils Percent Auto 0.9 % (0-2); Eosinophils Absolute Auto 100 /uL (0-450); Eosinophils Percent Auto 0.8 % (2-4); Hemoglobin 12.3 g/dL (12.0-16.0); Lymphocytes Absolute Auto 2000 /uL (1100-4500); Lymphocytes Percent Auto 17.5 % (25-40); Mean Corpuscular HGB Conc 33.2 % (30-36); Mean Corpuscular Hemoglobin 29.6 PG (26-34); Mean Corpuscular Volume 89.2 fL (80-100); Monocytes Absolute Auto 1200 /uL (0-900); Monocytes Percent Auto 10.3 % (3-14); Neutrophils Absolute Auto 7900 /uL (1500-7000); Neutrophils Percent Auto 70.5 % (50-75); Platelet Count 271 X10^3/uL (150-400); Red Blood Cell Count 4.14 X10^6/uL (4.0-5.2); Red Cell Distribution Width 14.4 % (11.6-14.8); White Blood Cell Count 11.2 X10^3/uL (4.5-11.0)
[2020-03-31 05:23] LABS: BUN Creatinine Ratio 22.4 (6-22); Blood Urea Nitrogen 11 mg/dL (7-17); Calcium 8.8 mg/dL (8.4-10.2); Carbon Dioxide 28 mmol/L (22-32); Chloride 106 mmol/L (98-107); Estimated Glomerular Filt Rate > 60.0 mL/min (>60); Glucose 103 mg/dL (70-100); HEMOLYSIS < 15 (0-50); Magnesium 1.6 mg/dL (1.6-2.3); Phosphorous 2.9 mg/dL (2.5-4.5); Potassium 3.3 mmol/L (3.4-5.1); Sodium 135 mmol/L (137-145)
[2020-03-31] MEDS: LACTATED RINGERS 1,000 ML 100 ML IV (06:15)
[2020-03-31] MEDS: ZONISAMIDE 100 MG CAPSULE PO ×2 (07:46→20:48)
[2020-03-31] MEDS: ENOXAPARIN 40 MG/0.4 ML SYRINGE SUBCUT (07:46)
[2020-03-31] MEDS: lamoTRIgine 25 MG CHEW TABLET PO ×2 (07:47→20:48)
[2020-03-31] MEDS: FLUTICASONE 110MCG HFA 120 PUFF INH ×2 (08:04→20:31)
[2020-03-31] MEDS: lamoTRIgine 100 MG TABLET 200 MG PO ×2 (08:04→20:47)
[2020-03-31] MEDS: ONDANSETRON 4 MG/2 ML INJ IV ×2 (08:05→16:30)
--- NOTE | 2020-03-31 09:24 | PT.IIE ---
Current Diagnoses Ileostomy status (03/30/20) Surgery Performed Operation Date: 03/30/20 07:45 Actual Procedures p Ileostomy Reversal - Edgardo Carballo MD Surgical History (Last Updated 03/22/20 @ 15:53 by Etelvina Phan, RN) H/O exploratory laparotomy History of section History of colectomy History of craniotomy Medical History (Last Updated 03/22/20 @ 08:23 by Etelvina Phan, RN) Arthritis Bipolar disorder Brain tumor Chronic bronchitis Chronic low back pain Constipation Elevated cholesterol Peptic ulcer Seizures Sinus drainage Physical Therapy Inpatient Evaluation/Re-Eval M1 PT/OT-IP Prior Functional Status Start: 03/30/20 12:40 Freq: NEEDED Status: Active Protocol: Document 03/31/20 09:24 AB (Rec: 03/31/20 11:17 AB [id number]) Medical Review Prior Functional Status Medical History Reviewed Yes Communication able to make needs known Mobility and Gait pt stated that she is independent with all mobilities and ambulation without AD Social History Household Members significant other Living Arrangements Mobile home Number of Floors (Floors) One Floor Number of Stairs To Enter/Railing? pt plans to go to her mother's house upon d/c and home set up info is regarding pt's mother's house: 5 steps to tner with L rail ascending Home Environment Standard Height Toilet,Walk in Shower,Built-In Shower Seat Home Equipment Front Wheel Walker,Hand Held Shower M2 PT-IP Current Condition Start: 03/30/20 12:40 Freq: NEEDED Status: Active Protocol: Document 03/31/20 09:24 AB (Rec: 03/31/20 11:17 AB [id number]) Physical Therapy Current Condition Current Condition Evaluation Date 03/31/20 Treatment Diagnosis s/p ileostomy reversal; difficulty in walking Onset Date 03/30/20 Precautions Abdominal Surgery Precautions Log Roll,Lifting Restrictions, Gait Belt above Incisional Area M3 PT-IP Subjective Start: 03/30/20 12:40 Freq: NEEDED Status: Active Protocol: Document 03/31/20 09:24 AB (Rec: 03/31/20 11:17 AB [id number]) Subjective Physical Therapy Visit Type Type Initial Evaluation Visit Start Time 09:24 Visit Stop Time 09:41 Total Visit Minutes 17 Number of WATCHER LOOKOUT TOWER Visits 0 Physical Therapy Visit Comments Patient Comments agreeable to do PT Therapy Pain Assessment Pain When Pain Assessed At Rest Pain Present Pain Present Pain Reported Location Abdomen Intensity 6 Scale Used Numeric (0 - 10) Pain Management Techniques Modification of Treatment, Timing of Activity with Medications M4 PT-IP Mobility and Gait Start: 03/30/20 12:40 Freq: NEEDED Status: Active Protocol: Document 03/31/20 09:24 AB (Rec: 03/31/20 11:17 AB [id number]) PT-Bed Mobility Assessment Rolling Type of Rolling Log Rolling Level of Assist Standby Assistance Supine to Sit Supine to Sit Standby Assistance,1 Person Assistance,Bedrails Sit to Supine Sit to Supine Standby Assistance,1 Person Assistance,Bedrails PT-Transfer Assessment Sit to and From Stand Sit to and from Stand Standby Assistance,1 Person Assistance,Use of Upper Extremities Equipment Transfer Assistive Device Gait Belt,Front Wheeled Walker Orthotic/Prosthetic Devices or Brace: No Comments Mobility Comments reviewed abdominal precautions and log roll bed mobility. pt completed supine to sit SBA . pt used bed rail to assist with bed mobility. completed sit to stand SBA and ambulated in room ~ 30 ft using FWW SBA . agreed to ambulate in the hallway and completed 75 ft using FWW SBA. pt requested to go back to bed after ambulation and completed sit to supine SBA with use of bed rail. positioned in bed. call light and table placed within reach. Gait Assessment Gait Gait Assistance Required: Standby Assistance Distance (Feet) 75 Able to Maintain Weight Bearing Status Yes During Gait Assistive Devices Assistive Device Gait Belt,Front Wheeled Walker Orthotic/Prosthetic Devices or Brace: No Gait Deviations General Gait Pattern Decreased Stride Length, Decreased Feet Clearance Factors Limiting Gait Function Factors Limiting Gait Function Decreased Activity Tolerance, Decreased Strength,Limited Range of Motion,Pain,Poor Safety Awareness Stair Climbing Assessment Comments Stair Climbing Comments refused to do stair climbing today PT-Balance Assessment Sitting Balance and Reactions Static Sitting Balance Ability Normal Dynamic Sitting Balance Ability Good Standing Balance and Reactions Static Standing Balance Ability Good Dynamic Standing Balance Ability Fair Device Used FWW M5 PT-IP Objective Assessments Start: 03/30/20 12:40 Freq: NEEDED Status: Active Protocol: Document 03/31/20 09:24 AB (Rec: 03/31/20 11:17 AB [id number]) Orientation Orientation/Cognition Level of Alertness Alert Orientation Name Language Function Ability No Deficits Noted Safety Awareness Decreased Safety Awareness Memory Description No Deficits Noted Gross Range of Motion Lower Extremity ROM Assessment Within Functional Limits Strength Lower Extremity Strength Assessment Within Functional Limits Coordination Assessment Gross Coordination Gross Coordination WNL Sensation Assessment Sensation Gross Sensation WNL Muscle Tone Muscle Tone WNL Yes M6 PT-IP Treatment Start: 03/30/20 12:40 Freq: NEEDED Status: Active Protocol: Document 03/31/20 09:24 AB (Rec: 03/31/20 11:17 AB [id number]) Physical Therapy Treatment Education Education Provided Precautions,Safety M7 PT-IP Assessment and Plan Start: 03/30/20 12:40 Freq: NEEDED Status: Active Protocol: Document 03/31/20 09:24 AB (Rec: 03/31/20 11:17 AB [id number]) PT Summary Assessment and Plan Potential Rehabilitation Potential Good Status of Condition at Evaluation Stable Summary Impairments Pain,ROM,Strength,Balance, Sensation,Bed Mobility, Transfers,Gait,Activity Tolerance Assessment Summary pt requring SBA with mobility using FWW and plans to go to her mother's house upon d/c and stated that her mother can assist her. will conduct stair climbing training prior to d/c. Goals Bed Mobility Goal Independent Transfer Goal Independent,Front Wheeled Walker Gait Goal Independent,Front Wheel Walker Gait Distance 150 Other Goals improve ambulation wtihout AD 200 ft SBA up/down 5 steps L rail ascending SBA Days to Meet Goals 5 Frequency of Treatment Frequency Of Treatment Once a Day Treatment Plan Physical Therapy Treatment Plan Bed Mobility Training,Transfer Training,Gait Training, Therapeutic Exercise,Balance Retraining,Post Op Education, Discharge Planning,Hot or Cold Pack,Neuromuscular Re-ed, Coordination Retraining,Manual Therapy Other Recommendations and Next Treatment ambulation, stair climbing Focus Recommendations To Nursing Amount of Assist Needed 1 Person Assist Discharge Recommendations PT Discharge Recommendations Home with Assistance Transportation Needs at Discharge Private Vehicle
--- NOTE | 2020-03-31 13:10 | CM.IDA ---
Initial DCP Assessment Note Patient is a 49 yo female, resident of [facility]. Per Dr Carballo: 49-year-old woman well known to me who had a colonic perforation that was managed with sigmoid colectomy primary anastomosis and diverting loop ileostomy 12/29/2019. She is here today for ileostomy reversal. Patient had DC to [facility] upon her DC from 01.07.21 PCP: Natacha Johnson Payer: [employer] spend down Reviewed chart. Patient is POD#1 from her ileostomy reversal, RN Jami feels patient is doing very well today and has been in good spirits, patient plans to return home w/her mom to [facility] w/close outpatient f/u as ordered per general surgery. Patient has been cleared by the therapy team for return home w/supportive mom. Met w/patient briefly this morning, she was on the phone. Introduced role and patient denies needs from DCP team at this time, will follow closely in case this changes before DC. Plan: Home w/supportive mom to assist via private auto, close outpatient f/u KELLY Oneill Discharge Planning/Care Management CM Discharge Assessment Start: 03/31/20 12:54 Freq: Status: Active Protocol: Document 03/31/20 12:54 VANESSA (Rec: 03/31/20 13:09 VANESSA [id number]) Discharge Planning Assessment Assigned Senior Information Developer KELLY Rogel DPOA/Assigned Designee Name Noris Brenner, mom Marcin Ramsey, friend/ S.O. Contact Information Noris: [phone] Marcin: [phone] Advance Directives? No History Provided By Patient,Medical Record Prior Living Arrangements Mobile home Household Members significant other Comment Patient lives on [address] w/S.O., while supportive mom lives here in [place]. Type of transporation used prior to Relies on Others admit Willing to Return to Facility? No: Patient is planning on going home w/mom to assist Independent with ADL's Yes Is patient alert and oriented? Yes: h/o brain tumor s/p craniotomy, seizure disorder and Bipolar disorder Barriers to Discharge No Comment Supportive family, close outpatient f/u, therapy has cleared patient for return home w/assist Discharge Plan Home Transportation Arrangement Family Referrals Initiated None needed Additional Comment At this time
--- NOTE | 2020-03-31 13:10 | PM.PNPO.1 ---
Subjective Subjective Date Patient Seen: 03/31/20 Time Patient Seen: 13:10 Interval history: Tolerating clear liquids no nausea. No flatus or BM. Pain well controlled. Ambulating well with PT. No overnight issues. Exam Vital Signs (past 8 hours): - 03/31/20 06:00 03/31/20 07:40 03/31/20 08:00 Temperature Pulse Rate 70 Respiratory Rate 16 Blood Pressure Pulse Oximetry 97 97 96 03/31/20 08:05 03/31/20 12:00 Temperature 97.6 F 97.8 F Pulse Rate 93 H 108 H Respiratory Rate 15 18 Blood Pressure 125/76 125/78 Pulse Oximetry 97 97 Oxygen Delivery Method Room Air Oxygen Flow Rate 0 Narrative Exam Narrative: Gen-Adult female alert and oriented comfortable Abdomen-Soft mild distention. Dressing RLQ CDI appropriately tender to palpation Objective Labs Result Diagrams: 03/31/20 05:02 03/31/20 05:02 Labs: Laboratory Results - last 24 hr 03/31/20 03/31/20 05:02 05:02 WBC 11.2 H RBC 4.14 Hgb 12.3 Hct 37.0 MCV 89.2 MCH 29.6 MCHC 33.2 RDW 14.4 Plt Count 271 Neut % (Auto) 70.5 Lymph % (Auto) 17.5 L [place] % (Auto) 10.3 Eos % (Auto) 0.8 L Baso % (Auto) 0.9 Neut # (Auto) 7900 H Lymph # (Auto) 2000 [place]ilion # (Auto) 1200 H Eos # (Auto) 100 Baso # (Auto) 100 Sodium 135 L Potassium 3.3 L Chloride 106 Carbon Dioxide 28 BUN 11 Creatinine 0.49 L Estimated GFR > 60.0 BUN/Creatinine Ratio 22.4 H Glucose 103 H Calcium 8.8 Phosphorus 2.9 Magnesium 1.6 PFSH Medical History (Updated 03/22/20 @ 08:23 by Etelvina Phan RN) Arthritis Bipolar disorder Brain tumor Chronic bronchitis Chronic low back pain Constipation Elevated cholesterol Peptic ulcer Seizures Sinus drainage Surgical History (Updated 03/22/20 @ 15:53 by Etelvina Phan RN) H/O exploratory laparotomy History of section History of colectomy History of craniotomy Family History Father Cancer Mother Diabetes mellitus Osteoarthritis Brother Hypertension Sister Heart disease Social History household members: significant other Smoking Status: Current every day smoker alcohol intake: current Assessment & Plan Post-op Postoperative Procedures: Procedures Operation Date: 03/30/20 07:45 Actual Procedures Side Surgeon p Ileostomy Reversal Edgardo Carballo MD Postoperative status narrative: 49F POD 1 sp ileostomy reversal doing well. #Diet-Clears will advance once return of bowel function. DC IVF #VTE prophylaxis-SCDs and pLovenox -Remove dressing and drain tomorrow
--- NOTE | 2020-03-31 16:04 | PC.NURSE ---
Post-op: Initially did not want to get up and move. Using bedpan for vd's. MD came in and talked with patient about need to mobilize. Pt was agreeable to do same. Has been getting up to the bathroom since to use toilet. Did work with PT today (Yesterday refused to work with PT). Pt reported she felt better after getting up and moving. Tolerates clear liq, not really passing flatus yet but has good BT's. Pt reports this surgery has been easier to recover from than the first.
[2020-04-01] VITALS (7 sets, daily range): BP systolic 102–114; BP diastolic 60–69; PULSE 105–111; RESP 14–18; TEMP 36.8–37.6; O2SAT 92–98
[2020-04-01] MEDS: MORPHINE 2 MG/ML INJ IV ×3 (02:54→11:15)
[2020-04-01] MEDS: ONDANSETRON 4 MG/2 ML INJ IV ×2 (02:57→11:24)
[2020-04-01] MEDS: ALBUTEROL HFA MDI 60 PUFF/8 GM INHALER INH ×2 (03:37→09:24)
[2020-04-01] MEDS: OXYCODONE IR 5 MG TABLET PO ×3 (06:18→14:34)
[2020-04-01 06:26] LABS: Add Manual Diff / Slide Review NO; Basophils Absolute Auto 100 /uL (0-100); Basophils Percent Auto 0.7 % (0-2); Eosinophils Absolute Auto 100 /uL (0-450); Eosinophils Percent Auto 0.9 % (2-4); Hematocrit 35.2 % (36-46); Hemoglobin 11.6 g/dL (12.0-16.0); Lymphocytes Absolute Auto 1300 /uL (1100-4500); Lymphocytes Percent Auto 11.3 % (25-40); Mean Corpuscular HGB Conc 32.8 % (30-36); Mean Corpuscular Hemoglobin 29.4 PG (26-34); Mean Corpuscular Volume 89.5 fL (80-100); Monocytes Absolute Auto 1100 /uL (0-900); Monocytes Percent Auto 9.7 % (3-14); Neutrophils Absolute Auto 9100 /uL (1500-7000); Neutrophils Percent Auto 77.4 % (50-75); Platelet Count 239 X10^3/uL (150-400); Red Blood Cell Count 3.94 X10^6/uL (4.0-5.2); Red Cell Distribution Width 14.3 % (11.6-14.8); White Blood Cell Count 11.7 X10^3/uL (4.5-11.0)
[2020-04-01 06:37] LABS: BUN Creatinine Ratio 13.7 (6-22); Blood Urea Nitrogen 7 mg/dL (7-17); Calcium 8.9 mg/dL (8.4-10.2); Carbon Dioxide 30 mmol/L (22-32); Chloride 102 mmol/L (98-107); Estimated Glomerular Filt Rate > 60.0 mL/min (>60); Glucose 104 mg/dL (70-100); HEMOLYSIS < 15 (0-50); Magnesium 1.6 mg/dL (1.6-2.3); Phosphorous 3.3 mg/dL (2.5-4.5); Potassium 2.9 mmol/L (3.4-5.1); Sodium 134 mmol/L (137-145)
[2020-04-01] MEDS: ZONISAMIDE 100 MG CAPSULE PO (09:08)
[2020-04-01] MEDS: lamoTRIgine 100 MG TABLET 200 MG PO (09:08)
[2020-04-01] MEDS: ENOXAPARIN 40 MG/0.4 ML SYRINGE SUBCUT (09:08)
[2020-04-01] MEDS: lamoTRIgine 25 MG CHEW TABLET PO (09:08)
[2020-04-01] MEDS: FLUTICASONE 110MCG HFA 120 PUFF INH (09:24)
--- NOTE | 2020-04-01 09:46 | PM.PNPO.1 ---
Subjective Subjective Date Patient Seen: 04/01/20 Time Patient Seen: 09:46 Interval history: Tolerating clears no flatus or BM no nausea. Ambulating the salcedo comfortably. Exam Vital Signs (past 8 hours): - 04/01/20 03:39 04/01/20 04:00 04/01/20 07:46 Temperature 99.6 F 99.1 F Pulse Rate 108 H 106 H Respiratory Rate 18 14 Blood Pressure 107/65 114/69 Pulse Oximetry 92 92 94 04/01/20 09:25 Temperature Pulse Rate 111 H Respiratory Rate 16 Blood Pressure Pulse Oximetry 98 Oxygen Delivery Method Room Air Oxygen Flow Rate 0 Narrative Exam Narrative: Gen-Adult female thin comfortable Abdomen-Mild distention appropriately tender to palpation. Ostomy site-incision CDI with vickie removed the conro drain. Objective Labs Result Diagrams: 04/01/20 05:52 04/01/20 05:52 Labs: Laboratory Results - last 24 hr 04/01/20 04/01/20 05:52 05:52 WBC 11.7 H RBC 3.94 L Hgb 11.6 L Hct 35.2 L MCV 89.5 MCH 29.4 MCHC 32.8 RDW 14.3 Plt Count 239 Neut % (Auto) 77.4 H Lymph % (Auto) 11.3 L Carbon % (Auto) 9.7 Eos % (Auto) 0.9 L Baso % (Auto) 0.7 Neut # (Auto) 9100 H Lymph # (Auto) 1300 Carbon # (Auto) 1100 H Eos # (Auto) 100 Baso # (Auto) 100 Sodium 134 L Potassium 2.9 L Chloride 102 Carbon Dioxide 30 BUN 7 Creatinine 0.51 L Estimated GFR > 60.0 BUN/Creatinine Ratio 13.7 Glucose 104 H Calcium 8.9 Phosphorus 3.3 Magnesium 1.6 PFSH Medical History (Updated 03/22/20 @ 08:23 by Etelvina Phan RN) Arthritis Bipolar disorder Brain tumor Chronic bronchitis Chronic low back pain Constipation Elevated cholesterol Peptic ulcer Seizures Sinus drainage Surgical History (Updated 03/22/20 @ 15:53 by Etelvina Phan RN) H/O exploratory laparotomy History of section History of colectomy History of craniotomy Family History Father Cancer Mother Diabetes mellitus Osteoarthritis Brother Hypertension Sister Heart disease Social History household members: significant other Smoking Status: Current every day smoker alcohol intake: current Assessment & Plan Post-op Postoperative Procedures: Procedures Operation Date: 03/30/20 07:45 Actual Procedures Side Surgeon p Ileostomy Reversal Edgardo Carballo MD Postoperative status narrative: 49F POD 2 ileostomy reversal doing well awaiting return of bowel function #Diet-Full liquid advance once bowel function #Pain control-wean IV continue tylenol and Oxycodone #Hypokalemia-replace #Disposition-DC to mother's residence when tolerating regular diet and pain controlled with PO meds anticipate Sunday 04/02
[2020-04-01] MEDS: POTASSIUM CHLORIDE 20 MEQ TAB 80 MEQ PO (10:16)
--- NOTE | 2020-04-01 11:06 | PT.IPTN ---
Current Diagnoses Ileostomy status (03/30/20) Surgery Performed Operation Date: 03/30/20 07:45 Actual Procedures p Ileostomy Reversal - Edgardo Carballo MD Physical Therapy Treatment Note M2 PT-IP Current Condition Start: 03/30/20 12:40 Freq: NEEDED Status: Active Protocol: Document 03/31/20 09:24 AB (Rec: 03/31/20 11:17 AB [id number]) Physical Therapy Current Condition Current Condition Evaluation Date 03/31/20 Treatment Diagnosis s/p ileostomy reversal; difficulty in walking Onset Date 03/30/20 Precautions Abdominal Surgery Precautions Log Roll,Lifting Restrictions, Gait Belt above Incisional Area M3 PT-IP Subjective Start: 03/30/20 12:40 Freq: NEEDED Status: Active Protocol: Document 04/01/20 10:50 KS (Rec: 04/01/20 13:14 KS [id number]) Subjective Physical Therapy Visit Type Type Treatment Note Visit Start Time 10:50 Visit Stop Time 11:06 Total Visit Minutes 16 Number of DREDGE CAPTAIN Visits 1 Physical Therapy Visit Comments Patient Comments agreeable to do PT Therapy Pain Assessment Pain When Pain Assessed At Rest Pain Present Pain Present Pain Reported M4 PT-IP Mobility and Gait Start: 03/30/20 12:40 Freq: NEEDED Status: Active Protocol: Document 04/01/20 10:50 KS (Rec: 04/01/20 13:14 KS [id number]) PT-Bed Mobility Assessment Rolling Type of Rolling Log Rolling Level of Assist Standby Assistance Supine to Sit Supine to Sit Standby Assistance Sit to Supine Sit to Supine Standby Assistance Scooting Scooting to Edge of Bed Standby Assistance PT-Transfer Assessment Sit to and From Stand Sit to and from Stand Standby Assistance,1 Person Assistance,Use of Upper Extremities Equipment Transfer Assistive Device None,Gait Belt Orthotic/Prosthetic Devices or Brace: No Transfers Transfer Destination Bed Transfer Ability Level of Assist Standby Assistance Comments Mobility Comments Pt SBA for logroll out of bed and sit<>stand w/o AD. Pt then ambulated ~50 ft to stairs and completed 6 total steps w/ L rail ascending step over step SBA. Pt then ambulated additional 300 ft w/o AD and no LOB or unsteadiness. Pt then complained of increased abdominal pain and returned to room, SBA for logroll back into bed. Pt left in bed w/ all needs in reach. Gait Assessment Gait Gait Assistance Required: Standby Assistance Distance (Feet) 350 Able to Maintain Weight Bearing Status Yes During Gait Assistive Devices Assistive Device None,Gait Belt Orthotic/Prosthetic Devices or Brace: No Gait Deviations General Gait Pattern Decreased Stride Length, Decreased Feet Clearance Factors Limiting Gait Function Factors Limiting Gait Function Decreased Activity Tolerance, Decreased Strength,Limited Range of Motion,Pain,Poor Safety Awareness Comments Gait Comments Pt ambulated ~350 ft total w/o AD no LOB, decreased stride and foot clerance d/t abdominal pain. Stair Climbing Assessment Evaluation Level of Assist On Stairs Standby Assistance,1 Person Assistance Devices Stair Climbing Assistive Devices Left Railing Technique/Endurance Stair Climbing Direction Ascend and Descend Stair Climbing Technique Step Over Step Number of Steps Climbed 3 Stair Climbing Set # Repetitions (reps) 2 Comments Stair Climbing Comments Pt ascended/descended 6 total steps w/ L rail step over step pattern SBA. PT-Balance Assessment Sitting Balance and Reactions Static Sitting Balance Ability Normal Dynamic Sitting Balance Ability Good Standing Balance and Reactions Static Standing Balance Ability Good Dynamic Standing Balance Ability Fair Device Used none M5 PT-IP Objective Assessments Start: 03/30/20 12:40 Freq: NEEDED Status: Active Protocol: Document 03/31/20 09:24 AB (Rec: 03/31/20 11:17 AB [id number]) Orientation Orientation/Cognition Level of Alertness Alert Orientation Name Language Function Ability No Deficits Noted Safety Awareness Decreased Safety Awareness Memory Description No Deficits Noted Gross Range of Motion Lower Extremity ROM Assessment Within Functional Limits Strength Lower Extremity Strength Assessment Within Functional Limits Coordination Assessment Gross Coordination Gross Coordination WNL Sensation Assessment Sensation Gross Sensation WNL Muscle Tone Muscle Tone WNL Yes M6 PT-IP Treatment Start: 03/30/20 12:40 Freq: NEEDED Status: Active Protocol: Document 04/01/20 10:50 KS (Rec: 04/01/20 13:14 KS [id number]) Physical Therapy Treatment Education Education Provided Precautions,Safety M7 PT-IP Assessment and Plan Start: 03/30/20 12:40 Freq: NEEDED Status: Active Protocol: Document 04/01/20 10:50 KS (Rec: 04/01/20 13:14 KS [id number]) PT Summary Assessment and Plan Potential Rehabilitation Potential Good Status of Condition at Evaluation Stable Summary Impairments Pain,ROM,Strength,Balance, Sensation,Bed Mobility, Transfers,Gait,Activity Tolerance Assessment Summary Pt SBA for all bed mobility, transfers, ambulation and stairs. Patient tolerated ~350 ft ambulation w/o AD and ascended/descended 6 total steps w/ L rail and step over pattern SBA. Pt has assistance at home if needed and may go home when medically stable. Goals Bed Mobility Goal Independent Transfer Goal Independent,Front Wheeled Walker Gait Goal Independent,Front Wheel Walker Gait Distance 150 Days to Meet Goals 5 Frequency of Treatment Frequency Of Treatment Once a Day Treatment Plan Physical Therapy Treatment Plan Bed Mobility Training,Transfer Training,Gait Training, Therapeutic Exercise,Balance Retraining,Post Op Education, Discharge Planning,Hot or Cold Pack,Neuromuscular Re-ed, Coordination Retraining,Manual Therapy Other Recommendations and Next Treatment ambulation, stair climbing Focus Recommendations To Nursing Amount of Assist Needed 1 Person Assist Discharge Recommendations PT Discharge Recommendations Home with Assistance Transportation Needs at Discharge Private Vehicle
--- NOTE | 2020-04-01 11:44 | DIET.PN ---
Dietary Progress Note Assessment: 49y F admitted for planned ileostomy reversal after ileostomy from perforated sigmoid, now postop d2, still on clears secondary to no BM/flatus. Per nursing pt has strong bowel tones, has been cleared by PT. Pt prefers gluten-free diet secondary to flatulence and bloating [facility] is sending clear protein supplements, pt consuming 100% POs. Will send full ONS when diet advances, strawberry yogurt smoothie per pt preference (she drinks them daily at home). Pt has all d/c paperwork from RD including low fiber reccs, slowly advancing fiber intake, and regular diet reccs. Pts mom supportive and will have appropriate meal components upon d/c. HT: 162.5cm WT: 44.8kg BMI: 17.0 Nutrition Diagnosis: Resolving nutrition related knowledge deficit r/t navigating diet s/p ileostomy reversal aeb pt expresses fear at reintroduction of fiber foods, pt BMI 17.0, pt requests handouts to support healthy diet. Diet Order: Clears plus ONS EER:1400kcals (30kcals/kg per post-surgical), 60g PRO (1.3g/kg per post-surgical) Monitoring/Evaluations: POs, diet advancement, weight, ONS tolerance
--- NOTE | 2020-04-01 13:46 | PC.NURSE ---
Patient is doing well this shift. She has been given oxycodone x1 and morphine x1 iv. Explained to patient that we may want to try and get her to use the morphine less and try the oxycodone only. As she will not be going home with iv medication. She states that she has been using it mostly for bloating and she had not been moving around much until yesterday after the talked with her. She has ambulated in the halls a few times today, and in her room. She is independent and steady on her feet. Abdomen is distended but bt are hypoactive in all rich. She has been upgraded to a full liquid and is doing well with this with this. Patient takes zofran when she is given iv morphine. She states that she has passes some gas a couple of times, she is resting in her bed now.
--- NOTE | 2020-04-01 16:58 | PM.DS.1 ---
History of Present Illness History of Present Illness Chief complaint: Colostomy Closure Narrative: 49-year-old woman well known to me who had a colonic perforation that was managed with sigmoid colectomy primary anastomosis and diverting loop ileostomy 12/29/2019. She is here today for ileostomy reversal. She has done well in the interim no issues with the ileostomy. A barium enema was completed within the past 1 month demonstrates widely patent colonic anastomosis without evidence of stricture or leak. Discharge Providers Provider Date of admission: 03/30/20 06:32 Discharge Date: 04/01/20 Primary care physician: Natacha Johnson MD Consults: 03/30/20 07:35 Consult to Respiratory Therapy Evaluate & Treat Comment: Physician Instructions: Evaluate and treat 03/30/20 09:36 Consult to Discharge Planning Routine Comment: Consult to Physical Therapy Evaluate & Treat Comment: Physician Instructions: Evaluate and Treat 03/30/20 11:41 Consult to Dietitian, Adult Routine Comment: Reason For Exam: unintentional wt loss, ostomy reversal Discharge provider: Edgardo Carballo MD Summary Hospital Course Discharge Diagnosis: Ileostomy reversal Hospital Course: 49-year-old woman underwent a ileostomy reversal 03/30/2020. Postoperatively she did well without issue. Her diet was advanced as her bowel function returned. A Lorraine drain within the ostomy closure site was removed prior to her discharge. She has been ambulatory around the [place] pain is well controlled on oral medications and she is tolerating a diet. Exam Vital Signs (past 8 hours): - 04/01/20 09:25 04/01/20 12:37 04/01/20 15:50 Temperature 99.7 F H 98.2 F Pulse Rate 111 H 105 H 105 H Respiratory Rate 16 16 15 Blood Pressure 106/68 102/60 Pulse Oximetry 98 95 93 Oxygen Delivery Method Room Air Oxygen Flow Rate 0 Narrative Exam Narrative: General elderly woman alert oriented no acute distress Abdomen soft appropriately tender to palpation, prior ostomy site clean dry intact with vickie. Objective Labs Result Diagrams: 04/01/20 05:52 04/01/20 05:52 Labs: Laboratory Results - last 24 hr 04/01/20 04/01/20 05:52 05:52 WBC 11.7 H RBC 3.94 L Hgb 11.6 L Hct 35.2 L MCV 89.5 MCH 29.4 MCHC 32.8 RDW 14.3 Plt Count 239 Neut % (Auto) 77.4 H Lymph % (Auto) 11.3 L [place] % (Auto) 9.7 Eos % (Auto) 0.9 L Baso % (Auto) 0.7 Neut # (Auto) 9100 H Lymph # (Auto) 1300 [place] # (Auto) 1100 H Eos # (Auto) 100 Baso # (Auto) 100 Sodium 134 L Potassium 2.9 L Chloride 102 Carbon Dioxide 30 BUN 7 Creatinine 0.51 L Estimated GFR > 60.0 BUN/Creatinine Ratio 13.7 Glucose 104 H Calcium 8.9 Phosphorus 3.3 Magnesium 1.6 PFSH Medical History (Updated 03/22/20 @ 08:23 by Etelvina Phan, RN) Arthritis Bipolar disorder Brain tumor Chronic bronchitis Chronic low back pain Constipation Elevated cholesterol Peptic ulcer Seizures Sinus drainage Surgical History (Updated 03/22/20 @ 15:53 by Etelvina Phan RN) H/O exploratory laparotomy History of section History of colectomy History of craniotomy Family History Father Cancer Mother Diabetes mellitus Osteoarthritis Brother Hypertension Sister Heart disease Social History household members: significant other Smoking Status: Current every day smoker alcohol intake: current Discharge Plan Discharge Plan Patient Disposition: Home Provider Discharge Comment: Shower, bandage over vcikie if she needs. See Dr King in the office in about 2 weeks. Discharge orders & Medications Prescriptions: New docusate sodium [Colace] 100 mg capsule 100 mg PO BID Qty: 40 RF: 0 oxycodone 5 mg tablet 5 mg PO Q6H PRN (Reason: pain) Qty: 30 RF: 0 acetaminophen [Tylenol] 325 mg capsule 650 mg PO QID PRN (Reason: pain) Qty: 60 RF: 0 Continued ziprasidone HCl [Geodon] 80 mg Capsule 80 mg PO BID RF: 0 lamotrigine [Lamictal] 25 mg Tablet 25 mg PO BID RF: 0 lamotrigine [Lamictal] 200 mg tablet 200 mg PO BID RF: 0 potassium chloride [Klor-Con M20] 20 mEq Tablet,Er Particles/Crystals 20 meq PO DAILY Qty: 10 RF: 0 aspirin 500 mg Tablet 250 mg PO DAILY RF: 0 zonisamide 100 mg capsule 100 mg PO BID RF: 0 albuterol sulfate 90 mcg/actuation HFA aerosol inhaler 1 puff INHALATION PRN PRN (Reason: Shortness Of Breath Or Wheezing) RF: 0 Flovent HFA 110 mcg/actuation HFA aerosol inhaler 1 puff INHALATION BID RF: 0 Discontinued ferrous sulfate 325 mg (65 mg iron) Tablet 325 mg PO DAILY RF: 0 Follow up/Referrals: Natacha Johnson MD [Primary Care Provider] - Edgardo Carballo MD [Physician] - 04/14/20 (Follow up and staple removal) Diet/Activity/Treatments Diet: Regular Activity: No lifting >20 lbs x 5 weeks. Walking only for exercise for 5 weeks[address] while taking narcotics. Skin/Wound/Dressing Care Report to your healthcare provider any signs of infection, such as:: chills, fever, increased pain, unusual drainage and unusual redness Visit Report/Discharge Packet Instructions: DI for Colostomy or Ileostomy Reversal, [facility]: Wound Care Discharge Data Primary Care Provider: Natacha Johnson
--- NOTE | 2020-04-01 17:00 | PC.NURSE ---
Pt dressed, waiting for D/C. HL discontinued intact, Discharge instructions given w/ apparent understanding Pt escorted by staff via W/C to [facility] pharmacy D/C in stable condition.
== END 2020-04-01 16:50 | disposition home or self-care (01) | DRG 331 ==
PROVIDERS: Admitting Provider Surgery; PCP Family Medicine; Referring Provider Surgery; Visit Provider Surgery
PROC: 0DBB0ZZ Excision of Ileum, Open Approach (ICD-10-PCS; CPT 44620; principal; 2020-03-30 07:45)
DX: Z43.2 Encounter for attention to ileostomy (principal); F31.9 Bipolar disorder, unspecified; G40.909 Epilepsy, unspecified, not intractable, without status epilepticus; F17.210 Nicotine dependence, cigarettes, uncomplicated; E87.6 Hypokalemia
CPT/HCPCS: 36415; 44625; 80048; 82962; 83735; 84100; 85025; 87635; 94640; 94760; 97116; 97161; A9270; J0330; J1100; J1170; J1650; J1956; J2250; J2270; J2405; J2704; J3010

== ENCOUNTER → 2020-07-07 10:42 | Outpatient (CLI) | payer MEDICARE, MEDICAID, SELFPAY ==
[2020-03-30 20:02] VITALS: BMI 16.9
[2020-07-07 19:03] LABS: Hematocrit 39.3 % (36-46); Hemoglobin 13.1 g/dL (12.0-16.0); Mean Corpuscular HGB Conc 33.4 % (30-36); Mean Corpuscular Hemoglobin 31.4 PG (26-34); Platelet Count 300 X10^3/uL (150-400); Red Blood Cell Count 4.18 X10^6/uL (4.0-5.2); Red Cell Distribution Width 15.5 % (11.6-14.8); White Blood Cell Count 7.1 X10^3/uL (4.5-11.0)
[2020-07-07 19:17] LABS: Cholesterol 183 mg/dL (140-199); HDL Cholesterol 92 mg/dL (40-60); LDL Cholesterol Calculated 80 mg/dL (<100); Triglycerides 53 mg/dL (35-150)
== END ==
PROVIDERS: PCP Family Medicine; Visit Provider Family Medicine
DX: Z79.899 Other long term (current) drug therapy (principal); K56.600 Partial intestinal obstruction, unspecified as to cause
CPT/HCPCS: 80061; 85027

== ENCOUNTER → 2020-08-04 10:02 | Outpatient (CLI) | payer MEDICARE, MEDICAID, SELFPAY ==
[2020-03-30 20:02] VITALS: BMI 16.9
[2020-08-04 19:29] LABS: Add Manual Diff / Slide Review NO; Basophils Absolute Auto 100 /uL (0-100); Basophils Percent Auto 1.3 % (0-2); Eosinophils Absolute Auto 100 /uL (0-450); Eosinophils Percent Auto 1.6 % (2-4); Hematocrit 43.9 % (36-46); Hemoglobin 14.6 g/dL (12.0-16.0); Lymphocytes Absolute Auto 1600 /uL (1100-4500); Lymphocytes Percent Auto 19.1 % (25-40); Mean Corpuscular HGB Conc 33.4 % (30-36); Mean Corpuscular Hemoglobin 31.4 PG (26-34); Mean Corpuscular Volume 94.2 fL (80-100); Monocytes Absolute Auto 500 /uL (0-900); Monocytes Percent Auto 5.3 % (3-14); Neutrophils Absolute Auto 6200 /uL (1500-7000); Neutrophils Percent Auto 72.7 % (50-75); Platelet Count 308 X10^3/uL (150-400); Red Blood Cell Count 4.65 X10^6/uL (4.0-5.2); Red Cell Distribution Width 13.3 % (11.6-14.8); White Blood Cell Count 8.6 X10^3/uL (4.5-11.0)
[2020-08-04 20:02] LABS: Alanine Aminotransferase 22 IU/L (<35); Albumin 4.5 g/dL (3.5-5.0); Albumin Globulin Ratio 1.5 (1.0-2.8); Alkaline Phosphatase 82 U/L (38-126); Aspartate Aminotransferase 31 IU/L (14-36); BUN Creatinine Ratio 19.3 (6-22); Bilirubin Total 0.5 mg/dL (0.2-1.3); Blood Urea Nitrogen 16 mg/dL (7-17); Carbon Dioxide 24 mmol/L (22-32); Chloride 102 mmol/L (98-107); Cholesterol 203 mg/dL (140-199); Estimated Glomerular Filt Rate > 60.0 mL/min (>60); Globulin 3.1 g/dL (1.7-4.1); Glucose 94 mg/dL (70-100); HEMOLYSIS < 15 (0-50); Magnesium 1.9 mg/dL (1.6-2.3); Potassium 4.2 mmol/L (3.4-5.1); Sodium 136 mmol/L (137-145); Total Protein 7.6 g/dL (6.3-8.2); Triglycerides 71 mg/dL (35-150)
[2020-08-04 20:11] LABS: HDL Cholesterol 107 mg/dL (40-60); LDL Cholesterol Calculated 82 mg/dL (<100)
== END ==
PROVIDERS: PCP Family Medicine; Visit Provider Physician Assistant
DX: K56.600 Partial intestinal obstruction, unspecified as to cause (principal); E78.5 Hyperlipidemia, unspecified; E87.6 Hypokalemia; D47.3 Essential (hemorrhagic) thrombocythemia; Z98.890 Other specified postprocedural states
CPT/HCPCS: 80053; 80061; 83735; 85025

== ENCOUNTER → 2020-09-13 15:58 | Outpatient (CLI) | payer MEDICARE, MEDICAID, SELFPAY ==
[2020-03-30 20:02] VITALS: BMI 16.9
--- NOTE | 2020-09-13 | DI.MRI.S_ITS ---
PROCEDURE: MR HEAD/BRAIN WO CON INDICATIONS: Localization-related (focal) (partial) symptomatic TECHNIQUE: Noncontrast axial T1 spin echo, axial T2 fast spin echo, sagittal and axial FLAIR, axial gradient echo, axial diffusion and ADC, coronal thin-slice T2 FSE through the brain. Optional contrast, followed by axial and coronal 3D VIBE or T1 spin echo with fat saturation sequences through the brain. COMPARISON: [facility], MR, BRAIN W&WO CONTRAST, 11/20/2014, 15:01. [facility], MR, BRAIN WITHOUT CONTRAST, 07/11/2013, 15:03. [facility], MR, MR HEAD/BRAIN WO CON, 04/12/2019, 14:42. FINDINGS: Image quality: Excellent. CSF spaces: Ventricles are normal in size and shape. Basal cisterns are patent. No extra-axial fluid collections. Brain: Stable presumed resection change can be seen involving the right parietal occipital region. Surrounding gliotic change is seen. Scattered foci of T2 weighted hyperintensity can be seen within the periventricular and deep white matter. A few of the periventricular lesions demonstrate a perpendicular orientation to the lateral ventricles. Several juxtacortical lesions can also be seen. There is involvement of the corpus callosum. No intracranial bleeds or mass effects. No abnormal intracranial enhancement. Corral-white matter interface appears intact. Diffusion weighted images demonstrate no acute ischemic insults. Brainstem appear normal. Normal intravascular flow voids are present. The hippocampal regions appear normal and symmetric in morphology. Skull and face: Right posterior craniotomy change can be seen. Calvarial marrow signal is normal. Orbits appear normal. Sinuses: Sinuses and mastoids are clear. IMPRESSION: Stable resection cavity seen involving the right parieto-occipital region, with overlying craniotomy change. Stable T2 hyperintense white matter foci are seen, which are most likely related to multiple sclerosis. Dictated by: Kelvin Herrera M.D. on 09/13/2020 at 16:44 Approved by: Kelvin Herrera M.D. on 09/13/2020 at 16:48
== END ==
PROVIDERS: PCP Physician Assistant; Referring Provider Psychiatry & Neurology Neurology; Visit Provider Psychiatry & Neurology Neurology
DX: G40.109 Localization-related (focal) (partial) symptomatic epilepsy and epileptic syndromes with simple partial seizures, not intractable, without status epilepticus (principal); G37.9 Demyelinating disease of central nervous system, unspecified
CPT/HCPCS: 70551

== ENCOUNTER → 2020-12-02 11:27 | Outpatient (CLI) | payer MEDICARE, MEDICAID, SELFPAY ==
[2020-11-30 14:38] VITALS: BMI 16.9
[2020-12-06 17:16] LABS: Lamotrigine Lamictal 6.5 ug/mL (2.0-20.0); Zonisamide 12.6 ug/mL (10.0-40.0)
== END ==
PROVIDERS: PCP Physician Assistant; Visit Provider Psychiatry & Neurology Neurology
DX: G40.109 Localization-related (focal) (partial) symptomatic epilepsy and epileptic syndromes with simple partial seizures, not intractable, without status epilepticus (principal)
CPT/HCPCS: 80175; 80203

== ENCOUNTER → 2021-10-18 10:56 | Outpatient (CLI) | payer MEDICARE, MEDICAID, SELFPAY ==
[2020-11-30 14:38] VITALS: BMI 16.9
[2021-10-18 19:57] LABS: Add Manual Diff / Slide Review NO; Basophils Absolute Auto 100 /uL (0-100); Basophils Percent Auto 0.9 % (0-2); Eosinophils Absolute Auto 0 /uL (0-450); Eosinophils Percent Auto 0.5 % (2-4); Hematocrit 39.4 % (36-46); Hemoglobin 13.5 g/dL (12.0-16.0); Lymphocytes Absolute Auto 1100 /uL (1100-4500); Lymphocytes Percent Auto 13.3 % (25-40); Mean Corpuscular HGB Conc 34.3 % (30-36); Mean Corpuscular Hemoglobin 31.9 PG (26-34); Mean Corpuscular Volume 92.8 fL (80-100); Monocytes Absolute Auto 500 /uL (0-900); Monocytes Percent Auto 5.7 % (3-14); Neutrophils Absolute Auto 6800 /uL (1500-7000); Neutrophils Percent Auto 79.6 % (50-75); Platelet Count 242 X10^3/uL (150-400); Red Blood Cell Count 4.25 X10^6/uL (4.0-5.2); Red Cell Distribution Width 13.5 % (11.6-14.8); White Blood Cell Count 8.6 X10^3/uL (4.5-11.0)
[2021-10-18 20:21] LABS: Alanine Aminotransferase 25 IU/L (<35); Albumin 4.6 g/dL (3.5-5.0); Albumin Globulin Ratio 1.7 (1.0-2.8); Alkaline Phosphatase 66 U/L (38-126); Aspartate Aminotransferase 27 IU/L (14-36); Bilirubin Total 0.4 mg/dL (0.2-1.3); Blood Urea Nitrogen 16 mg/dL (7-17); Calcium 9.7 mg/dL (8.4-10.2); Carbon Dioxide 25 mmol/L (22-32); Chloride 103 mmol/L (98-107); Cholesterol 206 mg/dL (140-199); Estimated Glomerular Filt Rate > 60 mL/min (>60); Globulin 2.7 g/dL (1.7-4.1); Glucose 106 mg/dL (70-100); HDL Cholesterol 108 mg/dL (40-60); HEMOLYSIS < 15 (0-50); LDL Cholesterol Calculated 73 mg/dL (<100); Magnesium 1.8 mg/dL (1.6-2.3); Potassium 3.9 mmol/L (3.4-5.1); Sodium 137 mmol/L (137-145); Total Protein 7.3 g/dL (6.3-8.2); Triglycerides 124 mg/dL (35-150)
[2021-10-18 20:43] LABS: TSH w/ Reflex to FT4 0.66 uIU/mL (0.47-4.68)
[2021-10-21 16:31] LABS: Lamotrigine Lamictal 10.6 ug/mL (2.0-20.0)
== END ==
PROVIDERS: PCP Physician Assistant; Visit Provider Physician Assistant
DX: E78.5 Hyperlipidemia, unspecified (principal); D72.829 Elevated white blood cell count, unspecified; E87.6 Hypokalemia; E78.00 Pure hypercholesterolemia, unspecified; E87.1 Hypo-osmolality and hyponatremia; R07.9 Chest pain, unspecified
CPT/HCPCS: 80053; 80061; 80175; 83735; 84443; 85025

== ENCOUNTER → 2022-02-08 10:22 | Outpatient (CLI) | payer MEDICARE, MEDICAID, SELFPAY ==
[2020-11-30 14:38] VITALS: BMI 16.9
[2022-02-08 19:53] LABS: Alanine Aminotransferase 29 IU/L (<35); Albumin 4.6 g/dL (3.5-5.0); Albumin Globulin Ratio 1.6 (1.0-2.8); Alkaline Phosphatase 62 U/L (38-126); Aspartate Aminotransferase 25 IU/L (14-36); BUN Creatinine Ratio 17.2 (6-22); Bilirubin Total 0.4 mg/dL (0.2-1.3); Blood Urea Nitrogen 15 mg/dL (7-17); Calcium 9.8 mg/dL (8.4-10.2); Carbon Dioxide 29 mmol/L (22-32); Chloride 100 mmol/L (98-107); Cholesterol 219 mg/dL (140-199); Estimated Glomerular Filt Rate > 60 mL/min (>60); Globulin 2.9 g/dL (1.7-4.1); Glucose 112 mg/dL (70-100); HEMOLYSIS < 15 (0-50); Potassium 4.2 mmol/L (3.4-5.1); Sodium 136 mmol/L (137-145); Total Protein 7.5 g/dL (6.3-8.2); Triglycerides 56 mg/dL (35-150)
[2022-02-08 19:54] LABS: Add Manual Diff / Slide Review NO; Basophils Absolute Auto 100 /uL (0-100); Basophils Percent Auto 1.3 % (0-2); Eosinophils Absolute Auto 100 /uL (0-450); Eosinophils Percent Auto 1.2 % (2-4); Hematocrit 39.3 % (36-46); Hemoglobin 13.8 g/dL (12.0-16.0); Lymphocytes Absolute Auto 1300 /uL (1100-4500); Mean Corpuscular HGB Conc 35.2 % (30-36); Mean Corpuscular Hemoglobin 32.3 PG (26-34); Mean Corpuscular Volume 91.7 fL (80-100); Monocytes Absolute Auto 500 /uL (0-900); Monocytes Percent Auto 7.1 % (3-14); Neutrophils Absolute Auto 5400 /uL (1500-7000); Neutrophils Percent Auto 72.4 % (50-75); Platelet Count 258 X10^3/uL (150-400); Red Blood Cell Count 4.29 X10^6/uL (4.0-5.2); Red Cell Distribution Width 13.4 % (11.6-14.8); White Blood Cell Count 7.4 X10^3/uL (4.5-11.0)
[2022-02-08 20:07] LABS: HDL Cholesterol 123 mg/dL (40-60); LDL Cholesterol Calculated 85 mg/dL (<100)
== END ==
PROVIDERS: PCP Physician Assistant; Visit Provider Internal Medicine Cardiovascular Disease
DX: R00.0 Tachycardia, unspecified (principal); E78.5 Hyperlipidemia, unspecified; R94.31 Abnormal electrocardiogram [ECG] [EKG]
CPT/HCPCS: 80053; 80061; 83735; 85025

== ENCOUNTER → 2022-04-24 12:38 | Outpatient (CLI) | payer MEDICARE, MEDICAID, SELFPAY ==
[2020-11-30 14:38] VITALS: BMI 16.9
--- NOTE | 2022-04-24 | DI.NM.S_ITS ---
PROCEDURE: NM EXERCISE TREADMILL NON NUC COMPARISON: None. INDICATIONS: CHEST PAIN FINDINGS: Rest ECG sinus rhythm. Pete protocol 7:22, maximum heart rate 152 bpm (91% peak predicted), maximum blood pressure 174/80, 10.1 METS, TERE +2%. Stress ECG sinus tachycardia, no ST segment changes or arrhythmias. The patient did not complain of exercise-induced chest pain. IMPRESSION: Low risk study. No evidence of exercise-induced ischemia or arrhythmia. Normal hemodynamic response. Fair exercise capacity. Dictated by: Sintia Chaves D.O. on 04/24/2022 at 16:54 Approved by: Sintia Chaves D.O. on 04/24/2022 at 16:56
--- NOTE | 2022-04-24 | DI.ECHO.S_ITS ---
[facility]---------+ [facility] +---------+ : : [address] : [place] : : : : [id number] : : : : Phone: [phone]+ Echocardiogram Report + + :Name: TOI ANDERSON Study Date: 04/24/2022 Height: 64 in : :[facility] ReadingLocation: Weight: 110 lb : : Gender: Female BSA: 1.5 m2 : :: 1970 Age: 51 yrs BP: 122/78 mmHg: :Reason For Study: CHEST PAIN : :Ordering Physician: JESS, : :ELLA Performed By: Maddi Medina : :Referring: ELLA MERCADO : + + Interpretation Summary The left ventricle is normal in size and wall thickness. Left ventricular systolic function is normal. Diastolic parameters suggest probable normal left ventricular diastolic function and normal filling pressures. The right ventricle is normal in size and function. There is moderate tricuspid regurgitation. The right ventricular systolic pressure is estimated to be at least 34 mmHg based on an estimated right atrial pressure of 3 mm Hg. Procedure: A two-dimensional transthoracic echocardiogram with color flow and Doppler was performed. The study quality was technically adequate. There is no prior echocardiogram noted for this patient. The patient was in sinus rhythm with heart rates between 75-85 bpm during the exam. Left Ventricle: The left ventricle is normal in size and wall thickness. There is no thrombus. The ejection fraction is estimated to be 55-60%. Left ventricular systolic function is normal. There are no focal wall motion abnormalities. Diastolic parameters suggest probable normal left ventricular diastolic function and normal filling pressures. E/E' med: 6.6. Right Ventricle: The right ventricle is normal in size and function. Atria: The left atrial size is normal. Right atrial size is normal. There is no Doppler evidence for an interatrial shunt. Mitral Valve: There is mild mitral annular calcification. The mitral valve leaflets appear borderline thickened, but open well. There is trace mitral regurgitation. Aortic Valve: The aortic valve is trileaflet. The aortic valve opens well. The aortic valve is mildly calcified. There is no aortic valve stenosis. No aortic regurgitation is present. Tricuspid Valve: Tricuspid leaflets are thickened. There is moderate tricuspid regurgitation. The right ventricular systolic pressure is estimated to be at least 34 mmHg based on an estimated right atrial pressure of 3 mm Hg. Pulmonic Valve: The pulmonic valve is not well visualized. There is no pulmonic valvular regurgitation. Great Vessels: The aortic root is normal size. The dimensions of the ascending aorta are normal. The IVC is of normal diameter and collapses greater than 50% with a sniff. This suggests a low right atrial pressure of 3 mm Hg. Pericardium/ Pleura There is no pericardial effusion. There is no pleural effusion. MMode/2D Measurements & Calculations LVIDd: 4.4 cm LVOT diam: 2.0 cm LVIDs: 3.1 cm Ao root diam: 3.3 cm FS: 29.5 % asc Aorta Diam: 3.2 cm IVSd: 0.79 cm Ao Arch Diam (Prox Trans): 2.3 cm LVPWd: 0.83 cm LV pina. diameter/BSA (cm/m^2): 2.9 LV sys. diameter/BSA (cm/m^2): 2.1 LA A2 area: 12.7 cm2 RA long axis: 4.1 cm LA A4 area: 11.9 cm2 RA area: 11.8 cm2 LA length (vol): 4.2 cm RA vol: 28.8 ml LA vol: 30.8 ml RA : 19.0 ml/m2 LA vol index: 20.3 ml/m2 IVC diam: 1.0 cm RVD1 (basal): 2.6 cm RVD2 (mid): 2.6 cm TAPSE: 2.0 cm Doppler Measurements & Calculations Ao V2 max: 125.6 cm/sec LVOT Max Akash: 102.4 cm/sec Ao V2 mean: 85.3 cm/sec LV V1 max P.2 mmHg Ao max P.3 mmHg LV V1 VTI: 19.7 cm Ao mean P.4 mmHg ELI(I,D): 2.6 cm2 Ao V2 VTI: 24.0 cm ELI(V,D): 2.6 cm2 sev ratio: 0.82 ELI indexed to BSA (cm^2/m^2): 1.7 MV E max akash: 71.6 cm/sec TR max akash: 278.6 cm/sec MV A max akash: 69.8 cm/sec TR max P.1 mmHg MV E/A: 1.0 PA V2 max: 86.8 cm/sec Med Peak E' Akash: 10.8 cm/sec PA V2 mean: 65.5 cm/sec E/E' med: 6.6 PA mean P.9 mmHg Lat Peak E' Akash: 9.4 cm/sec PA pr(Accel): 19.1 mmHg E/E' lat: 7.6 E/e' average: 7.1 MV dec time: 0.20 sec SV(OT): 62.1 ml Reading Physician:04:29 PM
== END ==
PROVIDERS: PCP Physician Assistant; Referring Provider Internal Medicine Cardiovascular Disease; Visit Provider Internal Medicine Cardiovascular Disease
DX: I08.1 Rheumatic disorders of both mitral and tricuspid valves (principal); R07.89 Other chest pain; R00.0 Tachycardia, unspecified
CPT/HCPCS: 93017; 93306

== ENCOUNTER → 2022-07-06 11:00 | Outpatient (CLI) | payer MEDICARE, MEDICAID, SELFPAY ==
[2020-11-30 14:38] VITALS: BMI 16.9
[2022-07-08 01:54] LABS: x Labcorp Estim. Avg Glu (eAG) 108 mg/dL (.); x Labcorp Hemoglobin A1c 5.4 % (4.8-5.6)
== END ==
PROVIDERS: PCP Physician Assistant; Visit Provider Physician Assistant
DX: R73.9 Hyperglycemia, unspecified (principal)
CPT/HCPCS: 83036

== ENCOUNTER → 2023-09-11 11:19 | Outpatient (CLI) | payer MEDICARE, MEDICAID, SELFPAY ==
[2020-11-30 14:38] VITALS: BMI 16.9
[2023-09-14 10:14] LABS: Lamotrigine Lamictal 7.7 ug/mL (2.0-20.0); Zonisamide 24.1 ug/mL (10.0-40.0)
== END ==
PROVIDERS: PCP Physician Assistant; Visit Provider Psychiatry & Neurology Neurology
DX: G40.109 Localization-related (focal) (partial) symptomatic epilepsy and epileptic syndromes with simple partial seizures, not intractable, without status epilepticus (principal)
CPT/HCPCS: 80175; 80203

== ENCOUNTER → 2023-10-04 10:57 | Outpatient (CLI) | payer MEDICARE, MEDICAID, SELFPAY ==
[2023-09-24 09:58] VITALS: BMI 16.9
[2023-10-04 21:11] LABS: Add Manual Diff / Slide Review NO; Basophils Absolute Auto 200 /uL (0-100); Basophils Percent Auto 2.2 % (0-2); Eosinophils Absolute Auto 200 /uL (0-450); Eosinophils Percent Auto 1.9 % (2-4); Hematocrit 40.9 % (36-46); Lymphocytes Absolute Auto 1200 /uL (1100-4500); Lymphocytes Percent Auto 13.8 % (25-40); Mean Corpuscular HGB Conc 34.2 % (30-36); Mean Corpuscular Hemoglobin 32.5 PG (26-34); Monocytes Absolute Auto 700 /uL (0-900); Monocytes Percent Auto 7.9 % (3-14); Neutrophils Absolute Auto 6300 /uL (1500-7000); Neutrophils Percent Auto 74.2 % (50-75); Platelet Count 253 X10^3/uL (150-400); Red Cell Distribution Width 14.2 % (11.6-14.8); White Blood Cell Count 8.5 X10^3/uL (4.5-11.0)
[2023-10-04 21:14] LABS: Alanine Aminotransferase 45 IU/L (<35); Albumin 4.4 g/dL (3.5-5.0); Albumin Globulin Ratio 1.4 (1.0-2.8); Alkaline Phosphatase 74 U/L (38-126); Aspartate Aminotransferase 34 IU/L (14-36); BUN Creatinine Ratio 16.9 (6-22); Bilirubin Total 0.6 mg/dL (0.2-1.3); Blood Urea Nitrogen 14 mg/dL (7-17); Calcium 9.6 mg/dL (8.4-10.2); Carbon Dioxide 25 mmol/L (22-32); Chloride 106 mmol/L (98-107); Cholesterol 217 mg/dL (140-199); Estimated Glomerular Filt Rate > 60 mL/min (>60); Globulin 3.1 g/dL (1.7-4.1); Glucose 95 mg/dL (70-100); HEMOLYSIS < 15 (0-50); Potassium 4.3 mmol/L (3.4-5.1); Sodium 138 mmol/L (137-145); Total Protein 7.5 g/dL (6.3-8.2); Triglycerides 52 mg/dL (35-150)
[2023-10-04 21:27] LABS: HDL Cholesterol 137 mg/dL (40-60); LDL Cholesterol Calculated 70 mg/dL (<100)
[2023-10-08 14:08] LABS: Lamotrigine Lamictal 8.7 ug/mL (2.0-20.0)
== END ==
PROVIDERS: PCP Physician Assistant; Visit Provider Physician Assistant
DX: E78.5 Hyperlipidemia, unspecified (principal); R93.5 Abnormal findings on diagnostic imaging of other abdominal regions, including retroperitoneum; E78.00 Pure hypercholesterolemia, unspecified; Z79.899 Other long term (current) drug therapy
CPT/HCPCS: 80053; 80061; 80175; 85025

== ENCOUNTER → 2024-06-23 13:04 | Outpatient (CLI) | payer MEDICARE, MEDICAID, SELFPAY ==
[2024-05-22 12:39] VITALS: BMI 16.9
[2024-06-23 18:41] LABS: Add Manual Diff / Slide Review NO; Basophils Absolute Auto 100 /uL (0-100); Basophils Percent Auto 0.8 % (0-2); Eosinophils Absolute Auto 100 /uL (0-450); Eosinophils Percent Auto 1.2 % (2-4); Hematocrit 37.2 % (36-46); Hemoglobin 12.5 g/dL (12.0-16.0); Lymphocytes Absolute Auto 1100 /uL (1100-4500); Lymphocytes Percent Auto 11.9 % (25-40); Mean Corpuscular HGB Conc 33.7 % (30-36); Mean Corpuscular Hemoglobin 30.6 PG (26-34); Mean Corpuscular Volume 90.7 fL (80-100); Monocytes Absolute Auto 600 /uL (0-900); Monocytes Percent Auto 6.4 % (3-14); Neutrophils Absolute Auto 7400 /uL (1500-7000); Neutrophils Percent Auto 79.7 % (50-75); Platelet Count 261 X10^3/uL (150-400); Red Cell Distribution Width 13.5 % (11.6-14.8); White Blood Cell Count 9.3 X10^3/uL (4.5-11.0)
[2024-06-23 18:55] LABS: Alanine Aminotransferase 34 IU/L (<35); Albumin 4.3 g/dL (3.5-5.0); Albumin Globulin Ratio 1.7 (1.0-2.8); Alkaline Phosphatase 59 U/L (38-126); Aspartate Aminotransferase 28 IU/L (14-36); BUN Creatinine Ratio 17.6 (6-22); Bilirubin Total 0.3 mg/dL (0.2-1.3); Blood Urea Nitrogen 16 mg/dL (7-17); Calcium 9.4 mg/dL (8.4-10.2); Carbon Dioxide 29 mmol/L (22-32); Chloride 100 mmol/L (98-107); Cholesterol 196 mg/dL (140-199); Estimated Glomerular Filt Rate > 60 mL/min (>60); Globulin 2.6 g/dL (1.7-4.1); Glucose 97 mg/dL (70-100); HDL Cholesterol 84 mg/dL (40-60); HEMOLYSIS < 15 (0-50); LDL Cholesterol Calculated 94 mg/dL (<100); Potassium 4.3 mmol/L (3.4-5.1); Sodium 136 mmol/L (137-145); Total Protein 6.9 g/dL (6.3-8.2); Triglycerides 89 mg/dL (35-150)
[2024-06-23 19:11] LABS: Vitamin D 25 Hydroxy (D3) 31.2 ng/mL (30.0-100.0)
== END ==
PROVIDERS: PCP Family Medicine; Referring Provider Family Medicine; Visit Provider Family Medicine
DX: Z51.81 Encounter for therapeutic drug level monitoring (principal); Z79.899 Other long term (current) drug therapy; R03.0 Elevated blood-pressure reading, without diagnosis of hypertension; Z87.891 Personal history of nicotine dependence; Z90.49 Acquired absence of other specified parts of digestive tract; I47.10 Supraventricular tachycardia, unspecified; Z13.1 Encounter for screening for diabetes mellitus; Z13.220 Encounter for screening for lipoid disorders
CPT/HCPCS: 80053; 80061; 82306; 83036; 85025

== ENCOUNTER → 2024-07-22 11:32 | Outpatient (CLI) | payer MEDICARE, MEDICAID, SELFPAY ==
[2024-05-22 12:39] VITALS: BMI 16.9
--- NOTE | 2024-07-22 11:33 | DI.MRI.S_ITS ---
PROCEDURE: MR LUMBAR SPINE WO CON INDICATIONS: progressive LBP with radiculopathy TECHNIQUE: Noncontrast sagittal T1 spin echo and T2 fast echo, sagittal STIR, and T2 fast spin echo through the lumbar spine. In cases with scoliosis, additional coronal T2 fast spin echo may be performed. COMPARISON: [facility], CT, CT ABDOMEN PELVIS W CON, 01/08/2020, 12:56. [facility] ([place]), CR, XR LUMBAR SPINE 2-3V, 05/22/2024, 14:22. FINDINGS: Image quality: Excellent. Alignment and Curvature: Mild to moderate levoconvex scoliotic curvature is noted. Bone Marrow: Marrow is of normal overall signal. No acute vertebral body compression fractures. Spinal Cord: Conus medullaris terminates at the L1 level. Visualized cord demonstrates normal signal and size. Paraspinous Soft Tissues: No paravertebral masses. T12-L1: Normal appearance. L1-L2: The disc height and disk signal are relatively well-preserved. Mild to moderate disc bulge is seen, which is eccentric to the right. Mild facet joint hypertrophy is seen. The there is moderate right-sided and no left-sided neural foraminal narrowing. No significant central canal narrowing is seen. L2-L3: The disc height is well-preserved. Loss of disc signal is seen at this level. Mild generalized disc bulge is seen. Mild facet joint hypertrophy is seen. There is moderate right-sided and [id number] left-sided neural foraminal narrowing. Mild central canal narrowing is seen. L3-L4: The disc height is well-preserved. Loss of disc signal is seen at this level. Moderate generalized disc bulge is seen which is eccentric to the right. Moderate facet joint hypertrophy is seen. There is at least moderate bilateral neural foraminal narrowing, right worse than left. Moderate to severe central canal narrowing is seen, as on series 7 image 11. L4-L5: Moderate loss of disc height is seen. Loss of disc signal is seen. Reactive marrow endplate changes are seen, which demonstrate mixed T1 weighted and T2-weighted signal, and are attributed to a combination of edema and fatty metaplasia (Modic type I and Modic type II changes). Bridging endplate osteophytes are seen. Moderate generalized disc bulge is seen, which is eccentric to the right. There is a superimposed central disc osteophyte protrusion. At least moderate facet hypertrophy is seen. There is at least moderate left-sided and moderate to severe right-sided neural foraminal narrowing seen. There is a degree of compression seen upon the exiting nerve roots. Severe central canal narrowing is seen, as on series 7, image 15. L5-S1: At least moderate loss of disc height and disc signal can be seen. Reactive marrow endplate changes are seen, which demonstrate mixed T1 weighted and T2-weighted signal, and are attributed to a combination of edema and fatty metaplasia (Modic type I and Modic type II changes). Moderate disc bulge is seen, which is eccentric to the left. Bridging endplate osteophytes can be seen on the left. There is a superimposed central disc osteophyte protrusion. At least moderate facet hypertrophy is seen. There is at least moderate right-sided and moderate to severe left-sided neural foraminal narrowing. There is a degree of compression seen upon the exiting nerve roots. Mild central canal narrowing is seen. IMPRESSION: Multiple levels of lumbar spine degenerative change can be seen, which are overall worst at the L4-L5 level. [id number] levoconvex lumbar scoliosis. Dictated by: Kelvin Herrera M.D. on 07/22/2024 at 11:37 Approved by: Kelvin Herrera M.D. on 07/22/2024 at 11:43
== END ==
LOC: MRI 11:32
PROVIDERS: PCP Family Medicine; Referring Provider Physical Medicine & Rehabilitation; Visit Provider Physical Medicine & Rehabilitation
DX: M47.816 Spondylosis without myelopathy or radiculopathy, lumbar region (principal); M54.16 Radiculopathy, lumbar region; M41.86 Other forms of scoliosis, lumbar region; M51.369 Other intervertebral disc degeneration, lumbar region without mention of lumbar back pain or lower extremity pain; M48.061 Spinal stenosis, lumbar region without neurogenic claudication; M25.78 Osteophyte, vertebrae; M51.379 Other intervertebral disc degeneration, lumbosacral region without mention of lumbar back pain or lower extremity pain; M48.07 Spinal stenosis, lumbosacral region; M47.817 Spondylosis without myelopathy or radiculopathy, lumbosacral region
CPT/HCPCS: 72148

== ENCOUNTER → 2025-02-04 14:29 | Outpatient (CLI) | payer MEDICARE, MEDICAID, SELFPAY ==
[2024-05-22 12:39] VITALS: BMI 16.9
--- NOTE | 2025-02-04 14:31 | DI.MG.S_ITS ---
MM screening mammo BI: 02/04/2025. BI-RADS: 1 CLINICAL: 54-year old female for bilateral screening mammogram. Tyrer-Cuzick lifetime risk of 3.4%. No personal or first-degree family history of breast cancer. PRIOR EXAMS 04/12/2019. MAMMOGRAPHY TECHNIQUE: 2D and 3D (tomosynthesis) digital mammographic views obtained, with additional images as needed for full coverage. Current study was also evaluated with a Computer Aided Detection (CAD) system. DENSITY B. There are scattered areas of fibroglandular density. MAMMOGRAPHY FINDINGS Bilateral: No suspicious mass, asymmetry, microcalcification, or other abnormality seen. IMPRESSION: * No evidence of malignancy. RECOMMENDATIONS Bilateral * Annual screening mammography. OVERALL ASSESSMENT CATEGORY BI-RADS-1: Negative. [employer] recommends annual screening mammography beginning at age 40 for women with average risk of breast cancer. ELECTRONICALLY SIGNED: Raymond Florian M.D. on 02/05/2025 at 12:22:38 PM PT Interpreting Station ID: [id number]
== END ==
PROVIDERS: PCP Family Medicine; Referring Provider Family Medicine; Visit Provider Family Medicine
DX: Z12.31 Encounter for screening mammogram for malignant neoplasm of breast (principal)
CPT/HCPCS: 77063; 77067